=== PATIENT | female | born 1960 | race Caucasian/White ===

== ENCOUNTER 2022-02-11 09:45 | Outpatient (CLI) | payer BC, SELFPAY ==
[2022-02-11 12:59] LABS: Cholesterol* 215 mg/dL (90-199)
[2022-02-11 13:00] LABS: HDL Cholesterol* 54 mg/dL (>=50); LDL Cholesterol Calculated 119 mg/dL (<100); Triglycerides* 212 mg/dL (40-149)
== END 2022-02-11 09:46 | disposition home or self-care (01) ==
LOC: NFLDREF 09:47
PROVIDERS: PCP Family Medicine; Visit Provider Family Medicine
DX: R73.03 Prediabetes (principal); E78.5 Hyperlipidemia, unspecified
CPT/HCPCS: 80061

== ENCOUNTER 2022-03-25 08:34 | Outpatient (CLI) | payer BC, SELFPAY ==
--- OUTSIDE RECORDS SUMMARY | 2022-03-25 08:48 | XMS_ITS | Encounter Summary ---
:1960 Author Organization [facility] Address [address] [place] [id number] Care Team Providers Name Role Phone Elsewhere, Pcp Primary Care Provider Unavailable Reason for Referral Outpatient (Routine) - Closed Specialty Diagnoses / Procedures Referred By Contact Refer red To Contact Oncology Kathleen Mccarty M. D. [address] [phone] Referral ID Status Reason Start Date Expiration Date Visits Requ ested Visits Authorized [id number] Closed 02/09/2022 02/09/2023 1 1 Reason for Visit Reason Comments Follow Up for Labs/Nutrition Outpatient (Routine) - Closed Specialty Diagnoses / Procedures Referred By Contact Refer red To Contact Oncology Kathleen Mccarty M. D. [address] [phone] Referral ID Status Reason Start Date Expiration Date Visits Requ ested Visits Authorized [id number] Closed 02/08/2022 02/08/2023 1 1 Encounter Details Date Type Department Care Team Description 02/09/2022 Clinical Department of Kathleen Mccarty M.D. [address] [place] [phone] Follow Up for Communication Oncology in Maribeth Guthrie R.N., O.C.N. [address] [place] [phone] Labs/Nutrition [place], [place] [address] [place] [phone] Social History Tobacco Use Types Packs/Day Years Used Date Smoking Tobacco: Never Smokeless Tobacco: Never Alcohol Use Standard Drinks/Week Comments Yes 0 (1 standard drink = 0.6 oz pure Maybe a few glasses if wine ever 3 alcohol) months ir so Alcohol Habits Answer Date Recorded How often do you have a drink Monthly or less 10/23/2021 containing alcohol? How many drinks containing alcohol do 1 or 2 you have on a typical day when you are drinking? How often do you have six or more Never 2021 drinks on one occasion? Comment: Maybe a few glasses if wine ever 3 03/11 months ir so Social Isolation Answer Date Recorded In a typical week, how many times do you Once a week 10/23/2021 talk on the phone with family, friends, or neighbors? How often do you get together with friends Twice a week 10/23/2021 or relatives? How often do you attend mandaen or restorationism More than 4 time s per year 10/23/2021 services? Do you belong to any clubs or organizations No 10/23/2021 such as mandaen groups, unions, fraternal or athletic groups, or school groups? How often do you attend meetings of the Never 10/23/2021 clubs or organizations you belong to? Are you now , , , 10/23/2021 , never or living with a partner? Physical Activity Answer Date Recorded On average, how many days per week do you engage in moderate to 0 days 10/23/2021 strenuous exercise (like walking fast, running, jogging, dancing, swimming, biking, or other activities that cause a light or heavy sweat)? On average, how many minutes do you engage in exercise at th is 0 min 10/23/2021 level? Stress Answer Date Recorded Do you feel stress - tense, restless, nervous, or anxious, N ot at all 10/23/2021 or unable to sleep at night because your mind is troubled all the time - these days? Financial Resource Strain Answer Date Recorded How hard is it for you to pay for the very basics like Not h abundio at all 10/23/2021 food, housing, medical care, and heating? Intimate Partner Violence Answer Date Recorded Within the last year, have you been afraid of your partner o r No 10/23/2021 ex-partner? Within the last year, have you been humiliated or emotionall y No 10/23/2021 abused in other ways by your partner or ex-partner? Within the last year, have you been kicked, hit, slapped, or No 10/23/2021 otherwise physically hurt by your partner or ex-partner? Within the last year, have you been raped or forced to have any No 10/23/2021 kind of sexual activity by your partner or ex-partner? Food Insecurity Answer Date Recorded Within the past 12 months, you worried that your food would Never true 10/23/2021 run out before you got money to buy more. Within the past 12 months, the food you bought just didn't N ever true 10/23/2021 last and you didn't have money to get more. Transportation Needs Answer Date Recorded In the past 12 months, has lack of transportation kept you f rom No 10/23/2021 medical appointments or from getting medications? In the past 12 months, has lack of transportation kept you f rom No 10/23/2021 meetings, work, or getting things needed for daily living? Housing Stability Answer Date Recorded In the last 12 months, was there a time when you were not ab le No 10/23/2021 to pay the mortgage or rent on time? In the last 12 months, how many places have you lived? 1 10/23/2021 In the last 12 months, was there a time when you did not hav e a No 10/23/[address] or slept in a skilled nursing (including now)? Education Answer Date Recorded What is the highest level of school Bachelor's degree (e.g., BA, AB, 03/10/2021 you have completed or the highest BS) degree you have received? Sex Assigned at Date Recorded Female 03/13/2021 7:24 PM CDT documented as of this encounter Miscellaneous Notes Telephone Encounter - Maribeth Guthrie R.N., O.C.N. - 02/09/2022 10:56 AM CDT SUBJECTIVE CHIEF COMPLAINT / REASON FOR CALL Follow Up for Labs/Nutrition Information Discussed Yanna has completed her cancer treatment, RN followed up with patient today to discuss lab work including hemoglobin A1c, fasting glucose, and insulin level as well as nutrition, stress management, exercise, meaning and purpose, and supplements. We discussed the elevation in her hemoglobin A1c level as possibly being related to her starting the Crestor. RN explained that her fasting glucose and insulin level have improved and the hemoglobin A1c level could be falsely elevated or in relation to her diet. Patient will discuss continuing to take her p.o. Crestor with her primary care provider on . Patient will continue to focus on eating whole foods, mostly plants, and listening to her body when eating. Patient will begin writing in a food journal to note the food she is eating regularly aswell as how these foods make her feel. Patient feels walking in cooking meals for her family are both forms of stress reduction for her. Patient will look into a weight lifting class at her local [facility] as she feels her body is not ready to begin CrossFit again. Patient feels having received her treatment at [facility] gave her a lot of hope and support. Patient also received emotional support from the [place] [employer] as well as a support group through a social media platform. Patient identifies as Protestant and received much support from the other families where her daughter attends Protestant school. Patient feels she has been putting a majority of her time and energy into her daughters and this makes her feel purposeful. Patient continues to take her supplements including medicinal mushrooms, quercitin, tumeric, magnesium, melatonin,vitamin D, vitamin c, and vitamin B complex. PLAN Disposition/Recommendation: Yanna is going to begin her food journal over the next month as well asbegin attending her weight lifting class twice a week and continuing to walk daily. RN will follow-up with patient in 1 month. Hemoglobin A1c, fasting glucose, and insulin level will be rechecked in 3 months. Information/Education: patient/caller able to teach back Caller agreeable to plan of care: yes The following references were used: nursing clinical judgement documented in this encounter Plan of Treatment Upcoming Encounters Date Type Specialty Care Team Description 05/11/2022 Lab Laboratory Medicine Kathleen Mccarty M.D. [address] [place] [phone] 05/12/2022 Clinical Communication Admitting/Central Scheduling 05/13/2022 Telemedicine Oncology Kathleen Mccarty M.D. [address] [place] [phone] Maribeth Guthrie R.N., O.C.NErasto [address] [place] [phone] 05/18/2022 Lab Laboratory Medicine Nataly Horta APRN, C.N.PErasto, M.S.N. [address] [place] [phone] 05/18/2022 Office Visit Oncology Nataly Horta APRN C.N.P., M.S.N. [address] [place] [phone] Scheduled Orders Name Type Priority Associated Diagnoses Order S beny Hemoglobin A1c Lab Routine Other Abnormal G lucose Expected: 05/11/2022, Malignant Neoplasm Of Ovary Expires: 05/12/2023 Left (HCC) Glucose, Fasting Lab Routine Other Abnormal Glucose Expected: 05/11/2022, Malignant Neoplasm Of Ovary Expires: 05/12/2023 Left (HCC) Insulin Lab Routine Other Abnormal G lucose Expected: 05/11/2022, Malignant Neoplasm Of Ovary Expires: 05/12/2023 Left (HCC) Scheduled Referrals Name Type Priority Associated Diagnoses Order S beny Oncology nurse Outpatient Referral Routine Expect ed: visit (clinic) 03/09/2022, Expires: 05/12/2023 documented as of this encounter Visit Diagnoses Diagnosis Other Abnormal Glucose - Primary Malignant Neoplasm Of Ovary Left (HCC) documented in this encounter Care Teams Sales Product Manager Relationship Specialty Start Date End Date Elsewhere, Pcp PCP - General Family Medicine 03/10/21 documented as of this encounter
--- OUTSIDE RECORDS SUMMARY | 2022-03-25 08:48 | XMS_ITS | Encounter Summary ---
:[address] 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 [address] [facility] [address] [place] [address] [place] [phone] Referral ID Status Reason Start Date Expiration Date Visits Requ ested Visits Authorized [id number] Closed 02/03/2022 02/03/2023 1 1 Encounter Details Date Type Department Care Team Description 02/03/2022 Infusion Department of Oncology Nataly Horta, Malignant Neoplasm Of in [facility] erika MICKIE, C.N.P., Ovary Left (HCC) [address] [facility] M.S.N. [place], [place] [address] [facility] [phone] [place], [place] [phone] (Wo rk) Social History Tobacco Use Types Packs/Day Years [...] or relatives? How often do you attend hinduism or anglican More than 4 time s per year 10/23/2021 services? Do you belong to any clubs or organizations No 10/23/2021 such as hinduism groups, unions, fraternal or athletic groups, or [...] place to sleep or slept in a jail (including now)? Education Answer Date Recorded What is the highest level of school Bachelor's degree (e.g., BA, AB, 03/10/2021 you have completed or the highest BS) degree you have received? Sex Assigned at Date Recorded Female 03/13/2021 7:24 PM CDT documented as of this encounter Plan of Treatment Upcoming Encounters Date Type Specialty Care Team Description 05/11/2022 Lab Laboratory Medicine Kathleen Mccarty M.D. [address] [place] [phone] 05/12/2022 Clinical Communication Admitting/Central Scheduling 05/13/2022 Telemedicine Oncology Kathleen Mccarty M.D. 200 [place] [phone] Maribeth Guthrie R.N., O.C.N. [address] [place] [phone] 05/18/2022 Lab Laboratory Medicine Nataly Horta APRN, C.N.P., M.S.N. [address] [place] [phone] 05/18/2022 Office Visit Oncology Nataly Horta APRN, C.N.P., M.S.N. [address] [place] [phone] documented as of this encounter Visit Diagnoses Diagnosis Malignant Neoplasm Of Ovary Left (HCC) documented in this encounter Care Teams Salesperson Surgical Appliances Relationship Specialty Start Date End Date Elsewhere, Pcp PCP - General Family Medicine 03/10/21 documented as of this encounter
--- OUTSIDE RECORDS SUMMARY | 2022-03-25 08:48 | XMS_ITS ---
:1960 Author Organization [facility] Address [address] [place] [address] Care Team Providers Name Role Phone Elsewhere, Pcp Primary Care Provider Unavailable Active Problems Problem Noted Date Malignant Neoplasm Of Ovary Laterality Unknown 021 Intra Abdominal And Pelvic Swelling Mass And Lump Unsp ecified Site 03/12/2021 Anxiety 03/11/2021 Effusion Pleural 03/11/2021 Leukocytosis 03/11/2021 Peritoneal Carcinomatosis 03/10/2021 Other Abnormal Tumor Markers 03/10/2021 Ascites 03/09/2021 Mass Abdominal Site 03/09/2021 Deficiency Vitamin D 03/09/2021 Dyslipidemia 03/09/2021 Gastroesophageal Reflux Disease 03/09/2021 Hypertension Essential Primary 03/09/2021 PreDiabetes 03/09/2021 Anemia Iron Deficiency Blood Loss Chronic 01/23/2008 Overview: Formatting of this note might be differe nt from the original. Menorrhagia Hyperlipidemia 01/23/2008 Arthritis Current Oncology Plans VASCULAR ACCESS PATENCY - PERIPHERAL INTRAVENOUS CATHETER AND RAPID INFUSION CATHETERPlan Start Date:03/30/2021 Linked Problems Malignant Neoplasm Of Ovary Laterality U nknown (HCC) Treatment Medications No medications scheduled. Past Plans Hematology / Oncology Treatment 1 Plan Name Start Discontinue Treatment Discontinue Plan Cycles Date Date Medications Reason Provider CARBOplatin 11/20/[address], 6 of 6 AUC 6 (PARAPLATIN) Complete Apple L, cycles PACLitaxel ( IVPB (BY AUC) M.D. sta rted COTTON BALL BAGGER ) in 250 mL (PARAPLATIN)PA CLItaxel (TAXOL) IVPB in 250 mL (TAXOL)PACLIta xel (TAXOL) IVPB in 500 mL (TAXOL) Radiation Treatments No radiation treatments are documented for this patient in Epic. Treatments may have been administered in another system. Treatment Summaries Malignant Neoplasm Of Ovary Laterality Unknown (HCC) Images from the original note were not included. Your Survivorship Care Plan Provided by [facility] on 11/20/21 General Information Patient name Wendy Aviles (home) Date of 1960 Introduction This is your personal survivorship care plan. It is both a summary of your treatment history as wellas a follow-up plan to guide you through the management of your continued medical care. The plan wasdeveloped by a multidisciplinary team of [facility] cancer providers to help you understand, discuss, and plan post- treatment needs with your healthcare providers, including your primary care team. It includes detailed medical information regarding your treatment as well as information relating to potentialshort and long-term side-effects post- treatment. It also provides specific tools and direction for self-care, including advice on wellness that encompasses both the physical and emotional aspects of your journey to recovery. What is Survivorship? The most widely used definition of survivorship care involves the following elements: 1. Prevention of recurrent and new cancers, and of other late effects; 2. Surveillance for cancer spread, recurrence, or second cancers; assessment of medical and psychosocial late effects; 3. Intervention for consequences of cancer and its treatment, for example: medical problems such as lymphedema and sexual dysfunction; symptoms, including pain and fatigue; psychological distress experienced by cancer survivors and their caregivers; and concerns related to employment, insurance, and disability; and 4. Coordination between specialists and primary care providers to ensure that all of the survivors health needs are met. Care Team Your Survivorship Provider Nataly Horta APRN, GAS WELL DRILLING MANAGER Surgeon Dr. Motta Your surgeon is your point of contact for any questions regarding your incision. Medical Oncologist Nataly Horta APRN, C.N.P., M.S.N. Your oncologist is your point of contact for any questions regarding the adverse effects of intravenous (I.V.) and oral cancer treatments (e.g. Nausea, vomiting, tingling in your hands/feet). 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 Significant medical conditions has a past medical history of Anemia, Arthritis, Ascites, Gastroesophageal Reflux Disease NOS, Hyperlipidemia, Hypertension NOS, Irritable Bowel Syndrome Without Diarrhea, Mass Abdominal Site, and Peritoneal Carcinomatosis (HCC). She has no past medical history of Apnea Sleep Obstructive, Arrhythmia, Arthritis Rheumatoid (HCC), Asthma NOS, Blood Transfusion No Diagnosis, Cardiac Disease, Cataract, Chronic Kidney Disease NOS, Chronic Obstructive Pulmonary Disease (HCC), Colitis Ulcerative (HCC), Complication Anesthesia Initial, Diabetes Mellitus NOS, Embolus Pulmonary (HCC), Heart Failure NOS, Hemorrhage Gastrointestinal, Hyperthyroidism, Hypothyroidism, Liver Disease, Methicillin Resistant Staphylococcal Aureus, Migraine Headache, Neuropathy Peripheral, Osteoporosis, Peripheral Vascular Disease (HCC), Pneumonia, Post Operative Nausea/Vomiting, Seizure (HCC), Stroke (HCC), Thromboembolism NOS, or Transient Ischemic Attack. Alcohol use reports current alcohol use. Tobacco use reports that she has never smoked. She has never used smokeless tobacco. Treatment Summary Cancer Surgeries Cancer Surgeries Malignant Neoplasm Of Ovary Laterality Unknown (HCC) 03/12/2021 Surgery and Procedures Patient underwent exploratory laparotomy and biopsy of the omentum. She is found to have extensive disease which was felt to be unresectable due to disease distribution involving the bowel. Biopsy confirmed adenocarcinoma of director of brand marketing primary. 06/01/[address] Motta completed laparotomy, tumor debulking, abdominal hysterectomy with BSO, and omentectomy. Operative note indicates residual small miliary disease present throughout the small bowel mesentery, large bowel mesentery colic gutters bilaterally, right diaphragm, and pelvic peritoneum. Residual disease of <0.5 cm Chemotherapy and Supportive Care Treatment History Treatment Goal Curative Plan Name CARBOplatin AUC 6 / PACLitaxel ( COTTON BALL BAGGER ) Status Active Start Date 03/30/2021 End Date 08/04/2021 Cancer Medication(s) Completed three cycles of carboplatin AUC 6 and Taxol 175 mg/m2 paclitaxel prior to surgery, and three cycles of full dose treatment after surgery. Wellness Recommendations Healthy food choices include a wide variety of fruits, vegetables, whole grains, poultry, and fish while minimizing refined grains, processed and red meats, desserts, and high?fat dairy products. Minimize alcohol, and if you drink, do not drink more than 1 alcoholic beverage per day (5 oz of wine, 12 oz of beer, or 1 ounce of liquor). For some specific cancer types, alcohol use may increase therisk of recurrence; please talk with your provider. Exercise after cancer treatment improves quality of life, fatigue, mood, muscle strength, and physical functioning. It also decreases the risk of cancer recurrence and the risk of cardiovascular disease. Work up to exercising 30 minutes/day at least 5 days/week, and strive to achieve a healthy weight (BMI 18.5?25). Stress management tools such as meditation, prayer, and breathing exercises may be helpful. If you develop feelings of worry, anxiety, sadness, or hopelessness that persist for > 2 weeks, talk to a health care provider. Schedule of Surveillance Testing and Visits Epithelial Ovarian, Fallopian, and Primary Peritoneal Cancer We are happy to provide Surveillance Guidelines for ovarian, fallopian tube, and primary peritoneal cancer. These guidelines are a summary of different organizations (NCCN, SGO, ACOG) and a critical review of the literature but are not meant to replace clinical judgment. Follow up recommendations Every 3 months for 2 years, every 4 months for 1 year, every 6 months for 2 years, then annually: Physical exam including vaginal visualization and bimanual vaginal and rectal exam with each visit CA 125 or other tumor markers if initially elevated at each exam Refer for genetics evaluation Laboratory assessment to investigate symptoms or examination findings Chest/abdomen/pelvic CT scan as clinically indicated. May also obtain PET/CT scan as clinically indicated. Chest X-ray as indicated. GI work-up with endoscopy, colonoscopy, and CA 19-9 are highly recommended in mucinous tumors Additional Information from provider: Signs and symptoms of recurrent disease Vaginal bleeding New pelvic or abdominal pain or bloating New swelling of a leg Any pain that doesn't go away or gets worse Persistant cough or shortness of breath Bladder symptoms or changes in bowel habits Follow-up care with your Primary Care Physician (PCP) Follow?up care with your primary care physician is recommended for age?appropriate cancer screening,for monitoring blood pressure, cholesterol, blood sugar, weight, and for other medical conditions. Symptoms to watch for: Fatigue New or concerning lump or area of thickening that can be felt under the skin Weight changes, including unintended loss or gain Skin changes, such as yellowing, darkening or redness of the skin, sores that won't heal, or changesto existing moles Changes in bowel or bladder habits Persistent cough or trouble breathing Difficulty swallowing Hoarseness Persistent indigestion or discomfort after eating Persistent, unexplained muscle or joint pain Persistent, unexplained fevers or night sweats Unexplained bleeding or bruising Make an appointment with your doctor if you have any persistent signs or symptoms that concern you. Ongoing Side effects Fatigue Some cancer survivors report that they still feel tired or worn out. In fact, fatigue is one of the most common complaints during the first year of recovery. Rest or sleep does not cure the type of fatigue that you may have. Doctors do not know its exact causes. The causes of fatigue are different forpeople who are receiving treatment than they are for those who have finished. Fatigue during treatment can be caused by cancer therapy. Other problems can also play a part in fatigue, like anemia (having too few red blood cells) or having a weak immune system. Poor nutrition, not drinking enough liquids, and depression can also be causes. Pain can make fatigue worse. Researchers are still learning about what may cause fatigue after treatment. How long will fatigue last? There is no normal pattern. For some, fatigue gets better over time. Some people feel very frustrated when fatigue lasts longer than they think it should and when it gets in the way of their normal routine. They may also worry thattheir friends, family, and coworkers will get upset with them if they continue to show signs of fatigue. Getting Help Talk with your doctor or nurse about what may be causing your fatigue and what can be done about it.Ask about: -How any medicines you are taking or other medical problems you have might affect your energy level -How you can control your pain, if pain is a problem for you -Exercise programs that might help, such as walking -Relaxation exercises -Changing your diet or drinking more fluids -Medicines or nutritional supplements that can help -Specialists who might help you, such as physical therapists, occupational therapists, tube handler, or mental health care providers Coping With Fatigue Here are some ideas: -Plan your day. Be active at the time of day when you feel most alert and energetic. -Save your energy by changing how you do things. For example, sit on a stool while you cook or washdishes. -Take short naps or rest breaks between activities. -Try to go to sleep and wake up at the same time every day. -Do what you enjoy, but do less of it. Focus on old or new interests that don???t tire you out. Forexample, try to read something brief or listen to music. -Let others help you. They might cook a meal, run errands, or do the laundry. If no one offers, askfor what you need. Friends and family might be willing to help but may not know what to do. -Choose how to spend your energy. Try to let go of things that don???t matter as much now. -Think about joining a support group. Talking about your fatigue with others who have had the same problem may help you find new ways to cope. Changes in Weight and Eating Habits Some survivors who have had certain kinds of chemotherapy or medicines have problems with weight gain. Sometimes the added pounds stay on even when treatment ends. Cancer survivors who have had certaintypes of chemotherapy gain weight in a different way--they may lose muscle and gain fat tissue. Unfortunately, the usual ways people try to lose weight may not work for them. Try to be patient with yourself. Look for the positive things that you can control, such as eating a healthy diet. Try to focus on the fact that treatment is over, and you are trying to get stronger with time. Some cancer survivors have the opposite problem: they have no desire to eat, and they lose weight. Some men say that weight loss or loss of muscle tone is a bigger concern for them than weight gain. Managing a Healthy Weight For weight issues, ask your doctor or nurse about: -Doing strength-building exercises, if you have lost muscle or gained fat tissue -Talking to a dietitian or vinyl top installer who can help you plan a healthy diet that won???t add extrapounds Regaining a Lost Appetite Here are some tips that have helped others improve their appetites: -Start with small meals. Five small meals a day may be easier to manage than three larger ones. -Focus on your favorite foods. If the thought of eating still lacks appeal, try the foods you really liked before treatment to jump-start your appetite. Try adding some fresh fruit, juice, or other flavoring to improve the taste. -Stay active. A short walk before a meal can help you feel hungry. Sexual Changes Sexuality is part of being human. Love, affection and intimacy all play a role in healthy relationships. Cancer and its treatments may change the way you view your body and your ability to be intimate with your partner. What you can do: -After treatment, ask your health care provider about sexual changes you can expect. -Be open and communicate with your partner about your feelings, concern and needs. You may need to find new ways to be intimate and to express your love. -Talk with your health care provider about any concerns you may have. You also may find it helpful to speak with a provider who specializes in sexuality. Understand the Emotional Impact After cancer treatment, you may feel your life has changed in some ways that are hard to explain. Itmay seem hard to get back to ???normal.?? It is common for people who have had cancer to feel many emotions, including anxiety, depression, anger, grief or guilt. These are reasonable responses to a big healthchange. To help handle these emotions, you may need to decide what ???normal?? means to you after all the changes you have gone through. Doing this may help you find a new way to live that brings you more basasm and meaning. If you feel emotionally overwhelmed after your cancer treatment, tell your health care provider. Sheor he may be able to connect you with a support group or other support services. Your health care provider may also offer you treatment choices for specific concerns or refer to you a mental health prof essional. Anxiety Anxiety is a common emotion among people who have had cancer. Fear of cancer coming back often causes anxiety. Because of this, follow-up testing can be stressful. Other common sources of anxiety include job issues, concerns about money or relationships, and worries about the physical effect of cancer treatment. What you can do -Talk about your worries with someone you trust. -Try stress management tools, such as meditation, prayer and regular exercise. -Learn the signs that may tell you your cancer has returned. Learn what you can do to lower your cancer risk. -Focus on the healthy choices you can make in areas of your life that you can control. If anxiety makes your daily life difficult, see your health care provider. Depression After cancer treatment, you may have many different feelings as you think about what you have been through. Some of these feelings may not be positive. That is normal. However, negative feelings that stay with you for more than two weeks or get in the way of your daily life can be signs of depression.If this happens to you, talk to your health care provider. Symptoms of depression include: -Sadness -Hopelessness -Loss of interest in activities -Irritability -Difficulty Sleeping -Change in appetite -Difficulty concentrating -Problems thinking clearly Anger Many cancer survivors feel a sense of anger. Cancer may change many parts of your life, including relationships, school, work, and custodial plans. Anger is a normal response to those changes. What you can do It is important to express your anger in a healthy way. Talk about the way you are feeling with someone you trust, Think about whether you can talk with: -Friends -Family members -Other people who have been through cancer -A professional counselor -Your health care provider Spiritual issues A cancer diagnosis may change your spirituality. You may find it to be stronger and deeper and from the challenges you have overcome, or you may feel abandoned and struggle with the question Why me? What you can do - Take time to think about your spirituality. Try to find a sense of peace within your own spiritual framework. -Talk with your spiritual or program manufacturing leader to help guide you through some of the questions raised by your illness. -Consider using the Stock Receiver staff at [facility] to help you with your spiritual questions. Back to Work Going back to work can be a challenging transition after cancer treatment. If you have questions about employment, ask your health care provider to refer you to a [facility] social psychologist. He or she can give you workplace information. Americans with Disabilities Act If you believe that your physical function is temporarily or permanently affected by cancer or its treatment, you should know about the Americans with Disabilities Act, or ADA. ADA bans discrimination against qualified employees with disabilities who can perform the essential functions of their job, with or without reasonable accommodations. Cancer survivors who return to work are due any reasonable change or adjustment in their work environment that allows a person with a disability to have equal opportunities. A social psychologist can help you look at your situation and the Americans with DisabilitiesAct. Genetic testing and employment Sometimes cancer diagnosis and treatment involves genetic testing. This information becomes a part of your medical record. It is against the law for an employer to discriminate against a job applicant or a current or former employee because of genetic information Some of the information provided in this care plan was provided by the [place] Department of Health and Human Services and National Cancer [place]. (2014) Facing Forward: Life after cancer treatment. NIH Publications No. 14-2521. Resources [employer] The [place] [employer] is a non-profit organization that has developed many resources for patients and families dealing with a cancer diagnosis. http://www.cancer.org National Cancer [place] The National Cancer [place] (NCI) is part of the National [place] for Health and is a governmental organization with a mission focused on cancer research and training. The NCI has developed many patient resources related to cancer. Included here are their links to their Facing Forward document which is an electronic resource focused on helping patients negotiate their lives after cancer treatment. http://www.cancer.gov http://www.cancer.gov/cancertopics/coping/zgfx-yjfck-srthzuend [facility] Cancer Education Program www.[employer]/cancer-education Cancer Support Community www.cancersupportcom[employer].org/?gclid=EDfj-2-8jQVUOZnDgFpunvPQ5q [facility] Living with Cancer blog www.[employer]/livingwithcancer Glossary of Terms: Cancer recurrence: After any treatment for cancer, there is always a risk that the cancer can be detected again (recurrence). This is true of virtually any cancer. Recurrence can happen either at/near where the original tumor was found (regional recurrence) or at a distant location such as the liver or lungs (metastatic disease). Laparoscopic: Laparoscopy is a technique whereby operations in the abdomen can be performed using a camera and several small incisions. Lymph node: Small structures (approximately the size of a lentil) which are present in many places throughout the human body. These structures play a role in filtering fluids and play an important role in your immune system. When cancer begins to spread, it often is first captured in lymph nodes. When cancer is found within lymph nodes, this usually implies a worse prognosis compared to a cancer which has not spread to lymph nodes. Oncologist: A physician who specializes in the non-surgical treatment of cancer. Pathologist: A physician who specializes in analyzing tissues removed from the human body.. Resection: An operation where some part of the body is surgically removed. Screening: A screening examination is any test which is performed to detect a disease process in a patient who is at normal risk for that disease. Surveillance: A surveillance examination is any test which is performed to detect a disease process in a patient who is at elevated risk for that disease. For example, after treatment for colon cancer, a patient is at elevated risk for developing a new colon cancer (compared with the average individual in the population).
--- OUTSIDE RECORDS SUMMARY | 2022-03-25 08:48 | XMS_ITS | Encounter Summary ---
:1960 Author Organization [facility] Address [address] [place] [address] Care Team Providers Name Role Phone Elsewhere, Pcp Primary Care Provider Unavailable Reason for Referral Outpatient (Routine) - Authorized Specialty Diagnoses / Procedures Referred By Contact Refer red To Contact Oncology Kathleen Mccarty M. D. [address] [phone] Referral ID Status Reason Start Date Expiration Date Visits V isits Requested Authorized [id number] Authorized 03/09/2022 03/08/2025 1 1 Scheduling Instructions With Tana Guthrie at 10:00 am video vi sit Reason for Visit Outpatient (Routine) - Closed Specialty Diagnoses / Procedures Referred By Contact Refer red To Contact Oncology Kathleen Mccarty M. D. [address] [phone] Referral ID Status Reason Start Date Expiration Date Visits Requ ested Visits Authorized [id number] Closed 02/09/2022 02/09/2023 1 1 Encounter Details Date Type Department Care Team Description 03/09/2022 Telemedicine Department of Kathleen Mccarty M.D. 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 [address] [place] [address] Deficiency Vitamin B12; [place], [place] Deficiency Vitamin D [address] [place] [address] Social History Tobacco Use Types Packs/Day Years [...] or relatives? How often do you attend jain or alevism More than 4 time s per year 10/23/2021 services? Do you belong to any clubs or organizations No 10/23/2021 such as jain groups, unions, fraternal or athletic groups, or [...] place to sleep or slept in a detention (including now)? Education Answer Date Recorded What is the highest level of school Bachelor's degree (e.g., BA, AB, 03/10/2021 you have completed or the highest BS) degree you have received? Sex Assigned at Date Recorded Female 03/13/2021 7:24 PM CDT documented as of this encounter Progress Notes Maribeth Guthrie R.N., O.C.N. - 03/09/2022 10:00 AM CDT INTEGRATIVE ONCOLOGY NURSE FOLLOW UP NOTE Wendy Aviles is seen in the [facility] for a nurse follow up visit. Please refer to the detailed consult note from Dr. Mccarty from 02/01/22 for a complete patient history. ASSESSMENT: Wendy Aviles is a 61 y.o. female presents for integrative oncology follow up visit. Current issues include Nutrition and exercise management, supplements and abnormal lab work. Diet: Prepackaged meals Exercise: Walking and hiking Stress: Feels her stress has been minimal and she has been able to enjoy her summer Social support/Spirituality: Patient is Yazdanism but feels she gets most support from family and friends Blood: Hemoglobin A1c, B12, and vitamin-D Cancer: Reviewed that lifestyle/diet changes can possibly improve cancer outcomes and quality of life. Diet: Patient is currently eating premade meals for dinner that include foods such as chicken, barley, quinoa, and sweet potatoes. Patient feels she has difficulty with eating more nutritious foods inthe afternoon and has struggled with meal prep in the past. Patient is interested in looking into premade snacks that she can have at home for lunches. Patient has been making more smoothies and has found a cookbook with nutritious smoothie recipes Specific dietary recommendations include: Meal preparation of healthy snacks each week such as whole fruits and vegetables. Exercise: Reviewed the importance of exercise for cancer risk reduction. Patient has been incorporating movement in her daily routine. Exercises included walking as well as hiking with family. Patient is interested in learning more about available strength training classes through the [facility] in her community. Stress: Reviewed the importance of stress reduction for overall health. Patient shared that she had considered adopting a dog for emotional support as well as exercise. In the past patient had fostereda large breed dog and had a bad experience. 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 Patient sharedthat she feels blessed that she has been able to enjoy her summer and feels relatively well and not stressed about her overall health. Social support/spirituality: Patient shared that she is denominational, but she has always been more skeptical, she feels if she were more empowered to pray she would pray for peace of mind. Patient finds the majority of her support from family including her , brother, and [id number]. Patient shared that she has used [facility] in the past as an avenue for sharing her story with friends and family, and would like to not be known by friends and family as the individual who had cancer, but instead focus on topics of conversation that bring her more bassam. Blood: Patient had appointment with PCP last month who feels the elevation in her hemoglobin A1c is unrelated to the start of her p.o. statin. Patient will continue to work on diet and exercise changesalong with continuing to take certain supplements. RN discussed the importance of nutrition and exercise specifically for impacting labs such as hemoglobin A1c and cholesterol levels. We will recheck her lab work in April. INTERVENTION(S): Integrative Therapy(ies) Discussed: Nutrition, exercise, social support, and supplements. PLAN FOR FOLLOW UP: Patient will continue with lifestyle interventions and dietary changes and recommended supplements. Will follow up with RN in 1 month and further recommendations will be made at that time. Reviewed thecore plan in detail with patient and answered all questions in detail. Patient will provide further s upplement information via the portal and RN and Nunu RN will review for appropriate dosing and potential drug-supplement interactions. >45 minutes were spent (total time) which includes FTF time spent with patient as well as chart review, review of labs, and care coordination documented in this encounter Plan of Treatment Upcoming Encounters Date Type Specialty Care Team Description 05/11/2022 Lab Laboratory Medicine Kathleen Mccarty M.D. [address] [place] [phone] 05/12/2022 Clinical Communication Admitting/Central Scheduling 05/13/2022 Telemedicine Oncology Kathleen Mccarty M.D. [address] [place] [phone] Maribeth Guthrie R.N., O.C.N. [address] [place] [phone] 05/18/2022 Lab Laboratory Medicine Nataly Horta APRN, C.N.P., M.S.N. [address] [place] [phone] 05/18/2022 Office Visit Oncology Nataly Horta APRN, C.N.P., M.S.N. [address] [place] [address] Scheduled Orders Name Type Priority Associated Diagnoses Order S chedule Vitamin B12 Assay Lab Routine Malignant Neoplasm Of E xpected: 05/11/2022, Ovary Left (HCC) Expires: 06/09/2023 Deficiency Vitam in B12 Deficiency Vitamin D 25-Hydroxyvitamin D2 Lab Routine Malignant Neoplasm O f Expected: 05/11/2022, and D3 Ovary Left (HCC) Expires: 06/09/2023 Deficiency Vitam in B12 Deficiency Vitamin D Scheduled Referrals Name Type Priority Associated Diagnoses Order S beny Oncology nurse Outpatient Referral Routine Expect ed: visit (clinic) 05/13/2022, Expires: 06/09/2023 documented as of this encounter Visit Diagnoses Diagnosis Malignant Neoplasm Of Ovary Left (HCC) - Primary Deficiency Vitamin B12 Deficiency Vitamin D documented in this encounter Care Teams Teaching Assistant Relationship Specialty Start Date End Date Elsewhere, Pcp PCP - General Family Medicine 03/10/21 documented as of this encounter
--- OUTSIDE RECORDS SUMMARY | 2022-03-25 08:48 | XMS_ITS | Clinical Summary ---
:1960 Author Organization [facility] Address [address] [place] [address] Care Team Providers Name Role Phone Elsewhere, Pcp Primary Care Provider Unavailable Source Comments Patient records contain information from all sites at [facility]. For routine questions regarding patient records, call [phone] during business hours, M-F 8:00 AM - 5:00 PM Central Time. Record requests for emergency care only can be directed to [phone] at any time.[facility] Allergies Active Allergy Reactions Severity Noted Date Comments Grass Pollen Other (see comments) 03/11/2021 Nasal c ongestion, sneezing House Dust Other (see comments) 03/11/2021 Nasal c ongestion, sneezing Sesame Oil Hives High 10/06/2015 Sesame seeds an d oil Tree And Shrub Pollen Other (see comments) 03/11/2021 Nasal congestion, sneezing Medications Medication Sig Dispensed Refills Start Date End Date Status cholecalciferol (VITAMIN Take 50 mcg by 0 12/29/2017 Active D3) 50 mcg (2,000 Unit) mouth every tablet morning. lisinopriL Take 40 mg by 0 10/30/2020 Acti ve (PRINIVIL,ZESTRIL) 30 mg mouth at tablet bedtime. ascorbic acid, vitamin Take 1,000 mg by 0 Active C, (VITAMIN C) 500 mg mouth daily. tablet Dose unknown multivitamin tablet Take 1 tablet by 0 Active mouth daily. acetaminophen (TYLENOL) Take 2 tablets 0 06/03/2021 Active 500 mg tablet (1,000 mg total) by mouth every 6 (six) hours as needed for pain. ibuprofen (ADVIL,MOTRIN) Take 3 tablets 0 06/03/2021 Active 200 mg tablet (600 mg total) by mouth every 6 (six) hours as needed for pain. magnesium hydroxide Take by mouth. 0 Active (MILK OF MAGNESIA ORAL) 60 mg as needed rosuvastatin (CRESTOR) 5 Take 5 mg by 0 11/12/2021 Active mg tablet mouth daily. Lactobacillus 0 10/21/2021 Activ e acidophilus (Probiotic) 10 billion cell capsule polyethylene glycol 0 08/18/2021 Active (Miralax) 17 gram/dose oral powder Active Problems Problem Noted Date Malignant Neoplasm [...] from the original. Menorrhagia Hyperlipidemia 01/23/2008 Arthritis Encounters Date Type Specialty Care Team Description 03/24/2022 Orders Only Gynecology Apple Motta M.D. 03/16/2022 Clinical Oncology Nataly Horta APRN, C.N.P., M.S.N. 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 02/09/2022 Clinical Oncology Kathleen Mccarty Follow Up for Communication Cass Benitez Labs/Nutrition Maribeth Guthrie R.N., O.C.N. 02/05/2022 Clinical Oncology Max Guthrie R.N., O.C.N. 02/03/2022 Hospital Encounter Radiology Luis EnriqueadonayNataly taylor Malign ant Neoplasm M, OPERATIONS CONTROLLER, C.N.P., Of Ovary Le ft (HCC) M.S.N. 02/03/2022 Infusion Oncology Luis EnriqueadonayNataly taylor Malignant Ne oplasm M, OPERATIONS CONTROLLER, C.N.P., Of Ovary Le ft (HCC) M.S.N. 02/03/2022 Office Visit Oncology Olivia Dozier, Malignant Neopl asm Wally.Carlos Of Ovary Left (HCC) Luis EnriqueadonayNataly taylor M, OPERATIONS CONTROLLER, C.N.P., M.S.N. 02/01/2022 Office Visit Oncology Lul, Kathleen Deficiency Vi tamin B12 (Primary Dx); Denise Benitez. Other Abnormal Glucose; Malignant Neopl asm Of Ovary Laterality Unknown (HCC) 01/28/2022 Clinical Admitting/Central Pre-visit Intake Communication Scheduling from Last 3 Months Immunizations Name Administration Dates Next Due HepA / HepB 05/31/2003, 12/28/2002, 11/26/2002 SARS-COV-2 (COVID-19) - [employer] (J&J) 07/02/2021 Td (Adult), adsorbed 06/01/2005 influenza vaccine quad (FLUZONE/FLUARIX) 06/02/2021 (6 months and older)(PF) Family History Medical History Relation Name Comments Alcohol abuse Brother 1 Lavell Montanez Anxiety disorder Brother 1 Lavell Montanez Drug abuse Brother 1 Lavell Montanez Anxiety disorder Brother 2 Moreno Montanez Anxiety disorder Father Deshawn Carola Coronary artery disease Father Deshawn Carola Diabetes Mother Kendra carola Relation Name Status Comments Brother 1 Lavell [place] Brother 2 Moreno [place] Father Deshawn Montanez Mother Kendra carola Social History Tobacco Use Types Packs/Day Years [...] or relatives? How often do you attend latter day or taoist More than 4 time s per year 10/23/2021 services? Do you belong to any clubs or organizations No 10/23/2021 such as latter day groups, unions, fraternal or athletic groups, or [...] place to sleep or slept in a correction (including now)? Education Answer Date Recorded What is the highest level of school Bachelor's degree (e.g., BA, AB, 03/10/2021 you have completed or the highest BS) degree you have received? Sex Assigned at Date Recorded Female 03/13/2021 7:24 PM CDT Last Filed Vital Signs Vital Sign Reading Time Taken Comments Blood Pressure 133/82 02/03/2022 9:31 AM CDT Pulse 78 02/03/2022 9:31 AM CDT Temperature 36.9 ??C (98.4 ??F) 02/03/2022 9:31 AM CDT Respiratory Rate 16 02/03/2022 9:31 AM CDT Oxygen Saturation 99% 02/03/2022 9:31 AM CDT Inhaled Oxygen Concentration - - Weight 69.2 kg (152 lb 8.9 oz) 02/03/2022 9:31 AM CDT Height 161 cm (5' 3.39) 02/03/2022 9:31 AM CDT Body Mass Index 26.7 02/03/2022 9:31 AM CDT Plan of Treatment Upcoming Encounters Date Type Specialty Care Team Description 05/11/2022 Lab Laboratory Medicine Kathleen Mccarty M.D. [address] [place] [phone] 05/12/2022 Clinical Communication Admitting/Central Scheduling 05/13/2022 Telemedicine Oncology Kathleen Mccarty M.D. [address] [place] [phone] Maribeth Guthrie R.N., O.C.N. [address] [place] [phone] 05/18/2022 Lab Laboratory Medicine Nataly Horta APRN, Kamla.N.P., M.S.N. [address] [place] [phone] 05/18/2022 Office Visit Oncology Nataly Horta APRN C.N.P., M.S.N. [address] [place] [phone] Health Maintenance Due Date Last Done Comments CT Colonography 1960 Cologuard 1960 Colonoscopy 1960 Colorectal Cancer Screening 1960 FIT 1960 Lipid (Cholesterol) Screening 1960 Mammogram 1960 Pneumococcal vaccine (0-64 years) 1966 (1 - PCV) Zoster Vaccines (1 of 2) 11/18/1979 DTaP,Tdap,and Td Vaccines (1 - 09/01/2016 08/31/2016, 06/01, Tdap) 06/01/2005 Depression Screening (Annual 07/18/2021 PHQ-2) COVID-19 Vaccine (3 - Sarath risk 08/27/2021 07/02/2021, 0 01/30/2021 series) Influenza Vaccine (#1) 2022 06/02/2021, 05/06/2020, 08/20/2019, Additional history exists Potassium Level 10/28/2022 10/28/2021, 06/02/2021, 05/28/2021 Sodium Level 10/28/2022 10/28/2021, 06/02/2021, 06/01/2021, Additional history exists Creatinine Level 02/03/2023 02/03/2022, 10/28/2021, 08/24/2021, Additional history exists Fasting Glucose for Diabetes 02/03/2023 02/03/2022, 022, Screening 10/28/2021, Additional history exists Office Visit for Blood Pressure 02/03/2023 02/03/2022 Check / Re-check Hepatitis C Screening Completed 02/03/2022 Procedures Procedure Name Priority Date/Time Associated Comments Diagnosis CT ABDOMEN PELVIS RAD - Routine 02/03/2022 1:25 Malignant Result s for WITH IV CONTRAST (most inpatients PM CDT Neoplasm Of Ovary th is procedure and all Left (HCC) are in the outpatients) results section. CT CHEST WITH IV RAD - Routine 02/03/2022 1:25 Malignant Results for CONTRAST (most inpatients PM CDT Neoplasm Of Ovary this p rocedure and all Left (HCC) are in the outpatients) results section. CREATININE, POCT, B Routine 02/03/2022 12:44 Resu lts for PM CDT this procedure are in the results section. CREATININE, POCT, B Routine 02/03/2022 12:44 Resu lts for PM CDT this procedure are in the results section. METHYLMALONIC ACID Routine 02/03/2022 11:57 Deficiency Resul ts for (MMA), HUONG, S AM CDT Vitamin B12 this procedure Other Abnormal are in the Glucose results Malignant section. Neoplasm Of Ovary Laterality Unknown (HCC) INSULIN, S Routine 02/03/2022 11:56 Deficiency Results for AM CDT Vitamin B12 this procedure Other Abnormal are in the Glucose results Malignant section. Neoplasm Of Ovary Laterality Unknown (HCC) HEMOGLOBIN A1C, B Routine 02/03/2022 11:56 Deficiency Result s for AM CDT Vitamin B12 this procedure Other Abnormal are in the Glucose results Malignant section. Neoplasm Of Ovary Laterality Unknown (HCC) VITAMIN B12 ASSAY, S Routine 02/03/2022 11:56 Deficiency Res ults for AM CDT Vitamin B12 this procedure Other Abnormal are in the Glucose results Malignant section. Neoplasm Of Ovary Laterality Unknown (HCC) CANCER AG 125 (CA Routine 02/03/2022 11:56 Malignant Result s for 125), S AM CDT Neoplasm Of Ovary this proce dure Left (HCC) are in the results section. HEPATITIS B SURFACE Routine 02/03/2022 11:56 Malignant Resu lts for ANTIGEN AM CDT Neoplasm Of Ovary this proce dure Left (HCC) are in the results section. HCV AB SCRN W/REFLEX Routine 02/03/2022 11:56 Malignant Res ults for TO HCV PCR, S AM CDT Neoplasm Of Ovary this proc edure Left (HCC) are in the results section. HIV-1/-2 AG AND AB Routine 02/03/2022 11:56 Malignant Resul ts for SCREEN, PLASMA AM CDT Neoplasm Of Ovary this pro cedure Left (HCC) are in the results section. GLUCOSE, FASTING, Routine 02/03/2022 11:28 Deficiency Result s for S/P AM CDT Vitamin B12 this procedure Other Abnormal are in the Glucose results Malignant section. Neoplasm Of Ovary Laterality Unknown (HCC) from Last [address] Abdomen Pelvis with IV Contrast (02/03/2022 1:25 PM CDT) Anatomical Region Laterality Modality Abdomen, Pelvis, Abdominal RST LOS, N/A Comp uted Tomography, Computed Abdominal ARZ LOS, Abdominal FLA LOS Moreno ography Specimen (Source) Anatomical Collection Method Collection Time Re ceived Time Location / / Volume Laterality 02/03/2022 1:24 PM CDT Impressions 02/03/2022 1:47 PM CDT No definite evidence of metastatic disease in the abdomen/pelvis. There is mild soft tissue thickening along the pelvic sidew all which could be postoperative though is indeterminate. Recommend continued attention on follow- up. Narrative 02/03/2022 1:47 PM CDT EXAM: ??CT ABDOMEN PELVIS WITH IV CONTRAST COMPARISON: ??CT 08/24/2021. FINDINGS: ??Again seen are postoperative changes of a hysterectomy, bilateral salpingo-oophorectomy, and omentectomy for ovarian cancer. No lymphadenopathy by size criteria. No ascites. No definite peritoneal nodularity or evidence of residual peritoneal carcinomatosis ident ified. There is some soft tissue thickening along left pelvic sidewall which appears to be adhe rent to the sigmoid colon and left vaginal cuff (series 3 image 113) which appears unchanged from the prior exam. This could be postoperative though is indeterminate. No new or suspicious hepatic lesion iden tified. A few tiny hypoenhancing lesions within the liver are stable and likely represent tiny cys ts or hemangiomas. Patent portal and hepatic veins. No biliary dilatation. Tiny left renal cyst. Left renal scarrin g upper pole. Negative adrenal glands and pancreas. The bowel is nonobstructed, without evid ence of inflammation. Negative appendix. Minimal arterial calcification. No suspicious osseous les ion. This examination was performed in conjun ction with a CT of the chest, which will be reported separately. Procedure Note Gabriel Watkins M.D. - 02/03/2022F ormatting of this note might be different from the original. EXAM: CT ABDOMEN PELVIS WITH IV CONTRAST COMPARISON: CT 08/24/2021. FINDINGS: Again seen are postoperative c hanges of a hysterectomy, bilateral salpingo-oophorectomy, and omentectomy for ovarian cancer. No lymphadenopathy by size criteria. No ascites. No definite peritoneal nodularity or evidence of residual peritoneal carcinomatosis ident ified. There is some soft tissue thickening along left pelvic sidewall which appears to be adhe rent to the sigmoid colon and left vaginal cuff (series 3 image 113) which appears unchanged from the prior exam. This could be postoperative though is indeterminate. No new or suspicious hepatic lesion iden tified. A few tiny hypoenhancing lesions within the liver are stable and likely represent tiny cys ts or hemangiomas. Patent portal and hepatic veins. No biliary dilatation. Tiny left renal cyst. Left renal scarrin g upper pole. Negative adrenal glands and pancreas. The bowel is nonobstructed, without evid ence of inflammation. Negative appendix. Minimal arterial calcification. No suspicious osseous les ion. This examination was performed in conjun ction with a CT of the chest, which will be reported separately. IMPRESSION: No definite evidence of metastatic disea se in the abdomen/pelvis. There is mild soft tissue thickening along the pelvic sidew all which could be postoperative though is indeterminate. Recommend continued attention on follow- up. Nataly Horta APRN, C.N.P., M.S.N. IMG CT PROCEDURE S CT Chest with IV Contrast (02/03/2022 1:25 PM CDT) Anatomical Region Laterality Modality Chest, Thoracic RST LOS, Thoracic ARZ N/A Co mputed Tomography, Computed LOS, Thoracic ARZ LOS, Thoracic FLA Kalin graphy LOS Specimen (Source) Anatomical Collection Method Collection Time Re ceived Time Location / / Volume Laterality 02/03/2022 1:27 PM CDT Impressions 02/03/2022 1:39 PM CDT Stable chest CT including small groundglass nodules, a small subpleural soft tissue lung nodule and 6 mm right cardiophrenic angle node. Narrative 02/03/2022 1:39 PM CDT EXAM: CT CHEST WITH IV CONTRAST COMPARISON: 11/20/2021, 05/28/2021 FINDINGS: Interval resolution of prior new microno dules. Stable 4 mm groundglass nodule lateral left upper lobe (series 3/image 146) and a 3 mm celina undglass nodule in the lateral right upper lobe (3/164). Stable lateral subpleural small soft tis lexis nodule left lower lobe (3/465). Calcified granuloma medial right lower lobe. Calcified right infrahilar nodes. Slight decrease in 6 mm right cardiophrenic angle node (3/431) previously 7 mm. No lymphadenopathy. Stable small posterior left thyroid nodu le. This examination was performed in conjun ction with a CT of the abdomen, which will be reported separately. Procedure Note Lavell Tompkins M.D. - 02/03/2022Fo rmatting of this note might be different from the original. EXAM: CT CHEST WITH IV CONTRAST COMPARISON: 11/20/2021, 05/28/2021 FINDINGS: Interval resolution of prior new microno dules. Stable 4 mm groundglass nodule lateral left upper lobe (series 3/image 146) and a 3 mm celina undglass nodule in the lateral right upper lobe (3/164). Stable lateral subpleural small soft tis lexis nodule left lower lobe (3/465). Calcified granuloma medial right lower lobe. Calcified right infrahilar nodes. Slight decrease in 6 mm right cardiophrenic angle node (3/431) previously 7 mm. No lymphadenopathy. Stable small posterior left thyroid nodu le. This examination was performed in conjun ction with a CT of the abdomen, which will be reported separately. IMPRESSION: Stable chest CT including small groundgl ass nodules, a small subpleural soft tissue lung nodule and 6 mm right cardiophrenic angle node. Nataly Horta APRN, C.N.P., M.S.N. IMG CT PROCEDURE S Creatinine, POCT (02/03/2022 12:44 PM CDT)Only the most recent of2 resultswithin the time period is included. P athologist Signature Creatinine, 0.7 0.6 - 1.0 02/03/2022 PCDT POCT, B mg/dL 12:55 PM CDT Comment: ----ADDITIONAL INFORMATION---- Performed at the Point of Care Specimen Anatomical Collection Method Collection Time Receive d Time (Source) Location / / Volume Laterality Blood 02/03/2022 12:44 02/03/2022 PM CDT 12:55 PM CDT Unknown Provider LAB POCT ORDERABLES - DEVICE Performing Organization Address [facility] Phon e Number [facility] PERFORMING [address] [place] [address] LABS PCDT [facility] [place] [address] [facility] [address] Methylmalonic Acid (MMA), Quantitative (02/03/2022 11:57 AM CDT) Analysis Performed At Patho logist Time Signature Methylmalonic 0.30 <=0.40 02/04/2022 DTL Acid, QN, S nmol/mL 10:00 AM CDT Comment: ----ADDITIONAL INFORMATION---- This test was developed and its performa nce characteristics determined by [facility] in a manner consistent with CLIA requirements. This test has not been cleared or approved by the [place] d and Drug Administration. Specimen Anatomical Collection Method Collection Time Receive d Time (Source) Location / / Volume Laterality Blood (Blood, 02/03/2022 11:57 02/03/2022 1:05 Venous) AM CDT PM CDT Kathleen Mccarty M.D. LAB BLOOD ADD-ON Performing Organization Address City/[facility] Phon e Number [facility] - [address] [place], [place] [address] [facility] [place] [address] Laboratories-[facility] [address] HIV-1/-2 Ag and Ab Screen, Plasma (02/03/2022 11:56 AM CDT) athologist [facility] HIV-1/-2 Ag Negative Negative 02/03/2022 [facility] and Ab Screen, 3:32 PM CDT P Comment: Negative result does not rule out HIV in fection. If exposure to HIV infection occurred <14 d ays ago, contact the laboratory to request additi on of HIV-1 RNA detection / quantification test (HIV QN). Specimen Anatomical Collection Method Collection Time Receive d Time (Source) Location / / Volume Laterality Blood (Blood, 02/03/2022 11:56 02/03/2022 3:08 Venous) AM CDT PM CDT Nataly Horta APRN, C.N.P., M.S.N. LAB MICROBIOLOGY - BLOOD ORDERABLES Performing Organization Address [facility] Phon e Number [facility] [address] [place], [place] [address] [facility] [place] [address] Laboratory Medicine and Pathology [address] [place] Insulin (02/03/2022 11:56 AM CDT) [facility] S 16.3 2.6 - 24.9 02/03/2022 [facility] mcIU/mL 12:59 PM CDT Specimen Anatomical Collection Method Collection Time Receive d Time (Source) Location / / Volume Laterality Blood (Blood, 02/03/2022 11:56 02/03/2022 Venous) AM CDT 12:27 PM CDT Kathleen Mccarty M.D. LAB BLOOD ADD-ON Performing Organization Address City/[facility] Phon e Number [facility] [place], [place] [address] [place] [address] Laboratories-[facility] [address] [facility] HCV Ab Scrn w/Reflex to HCV PCR, Serum (02/03/2022 11:56 AM CDT) athologist [facility] HCV Ab Screen, Negative Negative 02/03/2022 [facility] S 4:18 PM CDT Comment: Gutsbk-nv-bjhunk ratio is <1.00 . Specimen Anatomical Collection Method Collection Time Receive d Time (Source) Location / / Volume Laterality Blood (Blood, 02/03/2022 11:56 02/03/2022 3:08 Venous) AM CDT PM CDT Nataly Horta APRN, C.N.P., M.S.N. LAB MICROBIOLOGY - BLOOD ORDERABLES Performing Organization Address [facility] Phon e Number [facility] [address] [address] [place], [place] [address] [facility] [place] [address] Laboratory Medicine and Pathology [address] [place] [address] Dr. BRITO Hepatitis B Surface Antigen (02/03/2022 11:56 AM CDT) athologist Signature HBs Antigen, S Negative Negative 02/03/2022 [facility] 4:01 PM CDT Specimen Anatomical Collection Method Collection Time Receive d Time (Source) Location / / Volume Laterality Blood (Blood, 02/03/2022 11:56 02/03/2022 3:08 Venous) AM CDT PM CDT Nataly Horta APRN, C.N.P., M.S.N. LAB MICROBIOLOGY - BLOOD ORDERABLES Performing Organization Address City/[facility] Phon e Number [facility] [address] [place], [place] [address] [facility] [place] [address] Laboratory Medicine and Pathology [address] [place] [address] Dr. BRITO Cancer Antigen 125 (CA 125) (02/03/2022 11:56 AM CDT) athologist Signature Cancer Ag 125 9 <46 U/mL 02/03/2022 [facility] (CA 125), S 5:00 PM CDT Comment: ----ADDITIONAL INFORMATION---- The testing method is an electrochemilum inescence assay manufactured by [employer] and performed on the Ildefonso system. Values obtained with different assay met hods or kits may be different and cannot be used inte rchangeably. Test results cannot be interpreted as ab solute evidence for the presence or absence of malignant disease. Specimen Anatomical Collection Method Collection Time Receive d Time (Source) Location / / Volume Laterality Blood (Blood, 02/03/2022 11:56 02/03/2022 4:25 Venous) AM CDT PM CDT Nataly Horta APRN, C.N.P., M.S.N. LAB BLOOD ADD-ON Performing Organization Address City/[facility] Code Phon e Number [facility] [address] [place], [place] [address] [facility] [place] [address] Laboratory Medicine and Pathology [address] [place] (ABNORMAL) Hemoglobin A1c (02/03/2022 11:56 AM CDT) athologist Signature Hemoglobin A1c, 6.3 (H) 4.0 - 5.6 02/03/2022 DTL B % 1:06 PM CDT Comment: Hemoglobin A1c values of 5.7-6.4 percent indicate an increased risk for developing diabetes wlaly gordon. In diabetic patients, HbA1c goals should be discussed with healthcare provider. Specimen Anatomical Collection Method Collection Time Receive d Time (Source) Location / / Volume Laterality Blood (Blood, 02/03/2022 11:56 02/03/2022 Venous) AM CDT 12:10 PM CDT Kathleen Mccarty M.D. LAB BLOOD ADD-ON Performing Organization Address City/[facility] Phon e Number [facility] - [address] [place], [place] [address] [place] [address] Laboratories-[facility] [address] [facility] Vitamin B12 Assay (02/03/2022 11:56 AM CDT) athologist Signature Vitamin B12 341 180 - 914 02/03/2022 DTL Assay, S ng/L 1:11 PM CDT Comment: ----ADDITIONAL INFORMATION---- In patients being evaluated for vitamin B12 deficiency who have intrinsic factor blocking antibodie s (IFBA), false elevations of B12 may occur due to IFBA interference thus potentially obscuring a physiological de ficiency of B12. If observed B12 concentrations are disco rdant with clinical presentation, measurement of methylmalon ic acid (MMA) should be considered. Specimen Anatomical Collection Method Collection Time Receive d Time (Source) Location / / Volume Laterality Blood (Blood, 02/03/2022 11:56 02/03/2022 Venous) AM CDT 12:27 PM CDT Kathleen Mccarty M.D. LAB BLOOD ADD-ON Performing Organization Address City/[facility]/ZIP Code Phon e Number [facility] - [address] [address] [place] [address] (ABNORMAL) Glucose, Fasting (02/03/2022 11:28 AM CDT) P athologist Signature Glucose, P 106 (H) 70 - 100 02/03/2022 DTL mg/dL 1:17 PM CDT Specimen Anatomical Collection Method Collection Time Receive d Time (Source) Location / / Volume Laterality Blood (Blood, 02/03/2022 11:28 02/03/2022 Venous) AM CDT 12:51 PM CDT Kathleen Mccarty M.D. LAB BLOOD NON ADD-ON Performing Organization Address [facility]/ZIP Code Phon e Number [facility] - [address] from Last 3 Months Insurance Payer Benefit Plan / Subscriber ID Effective Dates Phone Addre ss Type Group BLUE [employer] BCBS ID BLUE [id number] 2021-Yamilka [phone] [address] [address] EPO [employer] [place] 00 [facility] [address] Advance Directives For more information, please contact: [phone] Latest Code Status on File Code Status Date Activated Date Inactivated Comments Full Code 06/01/2021 3:03 PM 06/03/2021 4:40 PM Full Code: Discussed Full Code 06/01/2021 6:41 AM 06/01/2021 3:03 PM Full Code: Discussed Full Code 03/12/2021 11:47 AM 03/12/2021 10:59 PM Full Code: Not Discussed Due to: Not medically appropriate Full Code 03/12/2021 6:31 AM 03/12/2021 11:47 AM Full Code: Discussed 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
--- OUTSIDE RECORDS SUMMARY | 2022-03-25 08:48 | XMS_ITS | Encounter Summary ---
:1960 Author Organization [facility] Address [address] [place] [address] Care Team Providers Name Role Phone Elsewhere, Pcp Primary Care Provider Unavailable Encounter Details Date Type Department Care Team Description 03/24/2022 Orders Only Department of Obstetrics Ángela, Chelsea Joe, and Gynecology in .[place]. [place], [place] [address] [facility] [address] [place] [phone] (Wo rk) Social History Tobacco Use Types [...] or relatives? How often do you attend christianity or congregational More than 4 time s per year 10/23/2021 services? Do you belong to any clubs or organizations No 10/23/2021 such as christianity groups, unions, fraternal or athletic groups, or [...] Lab Laboratory Medicine Kathleen Mccarty M.D. [address] [place] [phone] 05/12/2022 Clinical Communication Admitting/Central Scheduling 05/13/2022 Telemedicine Oncology Kathleen Mccarty M.D. [address] [place] [phone] Maribeth Guthrie R.N., O.C.N. [address] [place] [phone] 05/18/2022 Lab Laboratory Medicine Nataly Horta APRN, C.NChaim., M.S.N. [address] [place] [phone] 05/18/2022 Office Visit Oncology Nataly Horta APRN, C.NChaim., M.S.N. [address] [place] [phone] documented as of this encounter Visit Diagnoses Not on filedocumented in this encounter Care Teams Technology Infusion Specialist Relationship Specialty Start Date End Date Elsewhere, Pcp PCP - General Family Medicine 03/10/21 documented as of this encounter
--- OUTSIDE RECORDS SUMMARY | 2022-03-25 08:48 | XMS_ITS | Encounter Summary ---
:1960 Author Organization [facility] [place] [facility] Address [address] [place] [address] Care Team Providers Name Role Phone Elsewhere, Pcp Primary Care Provider Unavailable Encounter Details Date Type Department Care Team Description 03/16/2022 Clinical Communication Department of Nataly Horta , Oncology in [place], [place] M.S.N. [address] [facility] [address] [place] [phone] Social History Tobacco Use Types Packs/Day Years [...] or relatives? How often do you attend yazidism or mormonism More than 4 time s per year 10/23/2021 services? Do you belong to any clubs or organizations No 10/23/2021 such as yazidism groups, unions, fraternal or athletic groups, or [...] place to sleep or slept in a intermediate (including now)? Education Answer Date Recorded What [...] Lab Laboratory Medicine Kathleen Mccarty M.D. [address] [place] [phone] 05/12/2022 Clinical Communication Admitting/Central Scheduling 05/13/2022 Telemedicine Oncology Kathleen Mccarty M.D. [address] [place] [phone] Maribeth Guthrie, Soila, O.C.N. [address] [place] [phone] 05/18/2022 Lab Laboratory Medicine Nataly Horta APRN, C.N.P., M.S.N. [address] [place] [address] [phone] 05/18/2022 Office Visit Oncology Nataly Horta APRN, C.N.P., M.S.N. [address] [place] [phone] documented as of this encounter Visit Diagnoses Not on filedocumented in this encounter Care Teams Auto Accessories Installer Relationship Specialty Start Date End Date Elsewhere, Pcp PCP - General Family Medicine 03/10/21 documented as of this encounter
--- OUTSIDE RECORDS SUMMARY | 2022-03-25 08:48 | XMS_ITS | Clinical Summary ---
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 Overview: Menorrhagia Urinary tract infection, site not specified 01/23/2008 Overview: Recurrent Other and unspecified hyperlipidemia 01/23/2008 Immunizations Name Administration Dates Next Due HepA-HepB (Twinrix) 05/31/2003, 12/28/2002, 11/26/2002 Td (Age >=7 Years) 06/01/2005 Family History Medical History Relation Name Comments Diabetes Father early 70s Heart Disease Father Angina, CABG in his mid 60s Hypertension Father Stroke Father Diabetes Mother mid 60s Heart Disease Paternal Grandfather OR in 30s a nd Relation Name Status Comments Father Mother Paternal Grandfather Social History Tobacco Use Types Packs/Day Years Used Date Never Smoker Smokeless Tobacco: Never Used Tobacco Cessation: Counseling Given: Yes Alcohol Use Standard Drinks/Week Comments Yes 0 (1 standard drink = 0.6 oz pure alcoho l) occas 0-2 drinks per month Alcohol Habits Answer Date Recorded How often do you have a drink containing Not asked alcohol? How many drinks containing alcohol do you Not asked have on a typical day when you are drinking? How often do you have six or more drinks on Not asked one occasion? Comment: occas 0-2 drinks per month 01/23/2008 Sex Assigned at Date Recorded Not on file Obstetrics History Last Filed Vital Signs Vital Sign Reading Time Taken Comments Blood Pressure 142/81 10/06/2015 3:53 PM CDT Pulse 75 10/06/2015 3:53 PM CDT Temperature 36.3 ??C (97.4 ??F) 01/23/2008 10:26 AM CDT Respiratory Rate - - Oxygen Saturation 96% 10/06/2015 2:58 PM CDT Inhaled Oxygen Concentration - - Weight 73.9 kg (163 lb) 10/06/2015 2:58 PM CDT Height 164 cm (5' 4.57) 10/06/2015 2:58 PM CDT Body Mass Index 27.49 10/06/2015 2:58 PM CDT Plan of Treatment Health Maintenance Due Date Last Done Comments Tdap 11/18/1971 Depression screening for age 12+ 1972 Colonoscopy through age 75 2005 Lipids for age 45-75 2005 Zoster (shingles) series for age 50+ 2010 (1 of 2) Tetanus booster 06/01/2015 06/01/2005 BMI (ht and wt on same day) for age 0310/05/2016 10/06/2015 18+ Mammogram for age 45-75 02/23/2017 02/24/2016, 11/12/2008, 11/02/2007 Pap test for age 21-65 10/01/2019 09/30/2016, 09/30/2016, 06/03/2011 COVID-19 vaccine series (2 - Booster 03/27/2021 01/30/2021 for Sarath series) Influenza for age 50-64 03/18/2022 Hepatitis C screening for age 18-79 Completed 02/19/2003 Results Not on filefrom Last 3 Months Care Teams Box Feeder Relationship Specialty Start Date End Date Ann Loomis MD PCP - General Family Practice 03/09/211999 [place] [address]
--- OUTSIDE RECORDS SUMMARY | 2022-03-25 08:48 | XMS_ITS | Encounter Summary ---
:[address] [facility] Address [address] [place] [address] Care Team Providers Name Role Phone Elsewhere, Pcp Primary Care Provider Unavailable Reason for Referral MRI/CAT/PET Scan (Routine) - Closed Specialty Diagnoses / Procedures Referred By Contact Refer red To Contact Radiology Diagnoses Malignant Neoplasm Of Ovary Left (HCC) Nataly Horta APRN [facility] Procedures CT Abdomen Pelvis with IV Contrast C.N.P., M.S.N. 200 [place], [place] [phone] Referral ID Status Reason Start Date Expiration Date Visits Requ ested Visits Authorized [id number] Closed 12/15/2021 12/15/2022 1 1 RI/CAT/PET Scan (Routine) - Closed Specialty Diagnoses / Procedures Referred By Contact Refer red To Contact Radiology Diagnoses Malignant Neoplasm Of Ovary Left (HCC) Nataly Horta APRN [facility] Procedures CT Chest with IV Contrast C.N.P., M.S.N. 200 [place] [phone] Referral ID Status Reason Start Date Expiration Date Visits Requ ested Visits Authorized [id number] Closed 12/15/2021 12/15/2022 1 1 Reason for Visit MRI/CAT/PET Scan (Routine) - Closed Specialty Diagnoses / Procedures Referred By Contact Refer red To Contact Radiology Diagnoses Malignant Neoplasm Of Ovary Left (HCC) Nataly Horta APRN [facility] Procedures CT Abdomen Pelvis with IV Contrast C.N.P., M.S.N. [address] [place] [phone] Referral ID Status Reason Start Date Expiration Date Visits Requ ested Visits Authorized [id number] Closed 12/15/2021 12/15/2022 1 1 Encounter Details Date Type Department Care Team Description 02/03/2022 Hospital Encounter Department of Nataly Horta Neoplasm Radiology, Ladi Garvin APRN, C.N.P., Of Ovar y Left (HCC) [facility], in M.S.N. [place], [address] [place], [place] [address] [place] [phone] [place], [place] [phone] (Work) [phone] Social History Tobacco Use Types Packs/Day Years [...] or relatives? How often do you attend judaism or amish More than 4 time s per year 10/23/2021 services? Do you belong to any clubs or organizations No 10/23/2021 such as judaism groups, unions, fraternal or athletic groups, or [...] place to sleep or slept in a [place] [facility] [place] (including now)? Education Answer Date Recorded What is the highest level of school Bachelor's degree (e.g., BA, AB, 03/10/2021 you have completed or the highest BS) degree you have received? Sex Assigned at Date Recorded Female 03/13/2021 7:24 PM CDT documented as of this encounter Medications at Time of Discharge Medication Sig Dispensed Refills Start Date End Date acetaminophen (TYLENOL) 500 Take 2 tablets 0 05/18 mg tablet (1,000 mg total) by mouth every 6 (six) hours as needed for pain. ascorbic acid, vitamin C, Take 1,000 mg by 0 (VITAMIN C) 500 mg tablet mouth daily. Dose unknown cholecalciferol (VITAMIN D3) Take 50 mcg by 0 50 mcg (2,000 Unit) tablet mouth every morning. ibuprofen (ADVIL,MOTRIN) 200 Take 3 tablets (600 0 06/03/2021 mg tablet mg total) by mouth every 6 (six) hours as needed for pain. Lactobacillus acidophilus 0 10/21/2021 (Probiotic) 10 billion cell capsule lisinopriL Take 40 mg by mouth 0 10/30/2020 (PRINIVIL,ZESTRIL) 30 mg at bedtime. tablet magnesium hydroxide (MILK OF Take by mouth. 60 0 MAGNESIA ORAL) mg as needed multivitamin tablet Take 1 tablet by 0 mouth daily. polyethylene glycol 0 08/18/2021 (Miralax) 17 gram/dose oral powder rosuvastatin (CRESTOR) 5 mg Take 5 mg by mouth 0 11/12/2021 tablet daily. documented as of this encounter Plan of Treatment Upcoming Encounters Date Type Specialty Care Team Description 05/11/2022 Lab Laboratory Medicine Kathleen Mccarty M.D. [address] [place] [phone] 05/12/2022 Clinical Communication Admitting/Central Scheduling 05/13/2022 Telemedicine Oncology Kathleen Mccarty M.D. [address] [place] [phone] Maribeth Guthrie R.N., O.C.N. [address] [place] [phone] 05/18/2022 Lab Laboratory Medicine Nataly Horta APRN, C.NAlphonso, M.S.N. [address] [place] [phone] 05/18/2022 Office Visit Oncology Nataly Horta APRN, C.NAlphonso, M.S.N. [address] [place] [phone] Scheduled Orders Name Type Priority Associated Diagnoses Order S chedule Creatinine, POCT Point of Care Routine Routine la b collection Testing-Docked (next collect ion) for Device 1 Occurrences s tarting 02/03/2022 unti l 02/03/2022 documented as of this encounter Procedures Procedure Name Priority Date/Time Associated Comments Diagnosis CT ABDOMEN PELVIS RAD - Routine 02/03/2022 1:25 Malignant Result s for this WITH IV CONTRAST (most inpatients PM CDT Neoplasm Of Ovary pr ocedure are in and all Left (HCC) the results outpatients) section. CT CHEST WITH IV RAD - Routine 02/03/2022 1:25 Malignant Results for this CONTRAST (most inpatients PM CDT Neoplasm Of Ovary proced ure are in and all Left (HCC) the results outpatients) section. CREATININE, POCT, Routine 02/03/2022 12:44 Result s for this B PM CDT procedure are i n the results section. CREATININE, POCT, Routine 02/03/2022 12:44 Result s for this B PM CDT procedure are i n the results section. documented in this encounter Results CT Abdomen Pelvis with IV Contrast [...] mm right cardiophrenic angle node. Nataly Horta APRN C.N.P., M.S.N. IMG CT PROCEDURE S Creatinine, POCT (02/03/2022 12:44 PM CDT) P athologist Signature Creatinine, 0.7 0.6 - 1.0 02/03/2022 PCDT POCT, B mg/dL 12:55 PM CDT Comment: ----ADDITIONAL INFORMATION---- Performed at the Point of Care Specimen Anatomical Collection Method Collection Time Receive d Time (Source) Location / / Volume Laterality Blood 02/03/2022 12:44 02/03/2022 PM CDT 12:55 PM CDT Unknown Provider LAB POCT ORDERABLES - DEVICE Performing Organization Address City/State/ZIP Code Phon e Number POC [place] PERFORM[facility] [address] [place] [address] [place] [address] [place] [facility] [address] Creatinine, POCT (02/03/2022 12:44 PM CDT) P athologist Signature eGFR-Black/Afri >90 >=60 02/03/2022 [facility] [place], mL/min/BSA 12:55 PM CDT POCT Comment: ----ADDITIONAL INFORMATION---- Estimated GFR calculated using the 2009 CKD_EPI creatinine equation. eGFR Non-Black/, >90 >=60 mL/min/BSA 02/03/2022 12:55 PM CDT PCMO POCT Comment: ----ADDITIONAL INFORMATION---- Estimated GFR calculated using the 2009 CKD_EPI creatinine equation. Specimen Anatomical Collection Method Collection Time Receive d Time (Source) Location / / Volume Laterality Blood 02/03/2022 12:44 02/03/2022 PM CDT 12:55 PM CDT Unknown Provider LAB POCT ORDERABLES - DEVICE Performing Organization Address City/State/ZIP Code Phon e Number POC [facility] [address] [place] [address] OUTPATIENT LABS [facility] [place] [address] [place] [facility] [address] documented in this encounter Visit Diagnoses Diagnosis Malignant Neoplasm Of Ovary Left (HCC) documented in this encounter Administered Medications Inactive Administered Medications - up to 3 most recent administrations Medication Order MAR Action Action Date Dose Rate Site iohexol (OMNIPAQUE) dilution Given 02/03/2022 12:30 PM CDT 9,000 mg solution 9,000 mg iodine/1,000 mL water 9,000 mg, oral, Once in imaging, contrast, Starting on Tue02/03/22 at 1238, For 1 dose, Imaging Protocol Orders, Mix iohexol 300 (Omnipaque?? 300) 30 mL with 970 mL water for a total volume of 1,000 mLs. Patient to drink mixture in 40 minutes. iohexoL 300 mg iodine/mL solution 1-200 mL Given 02/03/2022 1:15 PM CDT 100 mL (OMNIPAQUE) 1-200 mL, intravenous, Once in imaging, contrast, Starting on Tue02/03/22 at 1238, For 1 dose, Imaging Protocol Orders, Dose per Radiant Medication Guidelines sodium chloride (PF) 0.9 % injection 1-1 00 mL Given 02/03/2022 1:15 PM CDT 50 mL 1-100 mL, intravenous, Once, On Tue02/03/22 at 1245, For 1 dose, Imaging Protocol Orders documented in this encounter Care Teams Sprinkling System Installer Relationship Specialty Start Date End Date Elsewhere, Pcp PCP - General Family Medicine 03/10/21 documented as of this encounter
--- OUTSIDE RECORDS SUMMARY | 2022-03-25 08:48 | XMS_ITS | Encounter Summary ---
:1960 Author Organization [facility] Address [address] [place] [address] Care Team Providers Name Role Phone Elsewhere, Pcp Primary Care Provider Unavailable Encounter Details Date Type Department Care Team Description 02/05/2022 Clinical Communication Department of Maribeth Guthrie Oncology in B, R.N., O.C.N. [place], [place] [address] [facility] [address] [place] [phone] Social History Tobacco Use Types Packs/Day Years [...] or relatives? How often do you attend restorationist or cheondoism More than 4 time s per year 10/23/2021 services? Do you belong to any clubs or organizations No 10/23/2021 such as restorationist groups, unions, fraternal or athletic groups, or [...] place to sleep or slept in a senior care (including now)? Education Answer Date Recorded What is the highest level of school Bachelor's degree (e.g., BA, AB, 03/10/2021 you have completed or the highest BS) degree you have received? Sex Assigned at Date Recorded Female 03/13/2021 7:24 PM CDT documented as of this encounter Miscellaneous Notes Telephone Encounter - Maribeth Guthrie R.N., O.C.N. - 02/05/2022 3:02 PM CDT ----- Message from Kathleen Mccarty M.D. sent at 02/05/2022 7:38 AM CDT ----- Hi can you Follow up w/her regarding labs Her A1c was up (could be false positive) but fasting glucose and insulin improved. A1c is not alwaysperfect. Can go over diet, recheck same labs in 3-4 months thx documented in this encounter Plan of Treatment Upcoming Encounters Date Type Specialty Care Team Description 05/11/2022 Lab Laboratory Medicine Kathleen Mccarty M.D. [address] [place] [phone] 05/12/2022 Clinical Communication Admitting/Central Scheduling 05/13/2022 Telemedicine Oncology Kathleen Mccarty M.D. [address] [place] [phone] Maribeth Guthrie R.N., O.C.N. [address] [place] [phone] 05/18/2022 Lab Laboratory Medicine Nataly Horta APRN, C.N.P., M.S.N. [address] [place] [phone] 05/18/2022 Office Visit Oncology Nataly Horta APRN, C.NAlphonso, M.S.N. [address] [place] [phone] documented as of this encounter Visit Diagnoses Not on filedocumented in this encounter Care Teams Webfocus Developer Relationship Specialty Start Date End Date Elsewhere, Pcp PCP - General Family Medicine 03/10/21 documented as of this encounter
--- OUTSIDE RECORDS SUMMARY | 2022-03-25 08:49 | XMS_ITS | Encounter Summary ---
:1960 Author Organization [facility] Address [address] [place] [address] Care Team Providers Name Role Phone Elsewhere, Pcp Primary Care Provider Unavailable Reason for Visit Outpatient (Routine) - Closed Specialty Diagnoses / Procedures Referred By Contact Refer red To Contact Nataly Horta APRN, C.N.P.[facility] M.[facility] [address] [place] [phone] Referral ID Status Reason Start Date Expiration Date Visits Requ ested Visits Authorized [id number] Closed 08/24/2021 08/24/2022 1 1 Encounter Details Date Type Department Care Team Description 11/20/2021 Nurse Only Department of Oncology in Nataly Horta APRN, C.N.P., M.S.N. [address] [place] [phone] [place], [place] Jessica Hooks, M.S.N., R.N. [address] [place] [phone] [place] [phone] Social History Tobacco Use Types Packs/Day Years [...] or relatives? How often do you attend jehovah's witness or gnosticism More than 4 time s per year 10/23/2021 services? Do you belong to any clubs or organizations No 10/23/2021 such as jehovah's witness groups, unions, fraAscendx Spine or athletic groups, or school groups? How [...] Lab Laboratory Medicine Kathleen Mccarty M.D. 200 [place] [phone] 05/12/2022 Clinical Communication Admitting/Central Scheduling 05/13/2022 Telemedicine Oncology Kathleen Mccarty M.D. 200 [place] [phone] Maribeth Guthrie R.N., O.C.N. [address] [place] [phone] 05/18/2022 Lab Laboratory Medicine Nataly Horta APRN, C.N.P., M.S.N. [address] [place] [phone] 05/18/2022 Office Visit Oncology Nataly Horta APRN, C.N.P., M.S.N. [address] [place] [phone] documented as of this encounter Visit Diagnoses Diagnosis Malignant Neoplasm Of Ovary Laterality U nknown (HCC) - Primary documented in this encounter Care Teams Dye Jig Operator Relationship Specialty Start Date End Date Elsewhere, Pcp PCP - General Family Medicine 03/10/21 documented as of this encounter
--- OUTSIDE RECORDS SUMMARY | 2022-03-25 08:49 | XMS_ITS | Encounter Summary ---
:1960 Author Organization [facility] Address [address] [place] [address] Care Team Providers Name Role Phone Elsewhere, Pcp Primary Care Provider Unavailable Reason for Visit Reason Comments Intake Assessment Encounter Details Date Type Department Care Team Description 07/30/2021 Clinical Communication Department of Huy Dalton [facility] Oncology in [place], [place] [address] [facility] [address] [place] [phone] Social History Tobacco Use Types Packs/Day Years [...] or relatives? How often do you attend confucianist or orthodoxy More than 4 time s per year 10/23/2021 services? Do you belong to any clubs or organizations No 10/23/2021 such as confucianist groups, unions, fraternal or athletic groups, or [...] this encounter Miscellaneous Notes Telephone Encounter - Simran Moreno - 07/30/2021 1:46 PM CST Intake no need to call back REL SALES ASSOCIATE documented in this encounter Plan of Treatment Upcoming Encounters Date Type Specialty Care Team Description 05/11/2022 Lab Laboratory Medicine Kathleen Mccarty M.D. [address] [place] [phone] 05/12/2022 Clinical Communication Admitting/Central Scheduling 05/13/2022 Telemedicine Oncology Kathleen Mccarty M.D. [address] [place] [phone] Maribeth Guthrie R.N., O.C.N. [address] [place] [phone] 05/18/2022 Lab Laboratory Medicine Nataly Horta APRN, C.N.P., M.S.N. [address] [place] [phone] 05/18/2022 Office Visit Oncology Nataly Horta APRN, C.N.P., M.S.N. [address] [place] [phone] documented as of this encounter Visit Diagnoses Not on filedocumented in this encounter Care Teams Stitcher Feeder Relationship Specialty Start Date End Date Elsewhere, Pcp PCP - General Family Medicine 03/10/21 documented as of this encounter
--- OUTSIDE RECORDS SUMMARY | 2022-03-25 08:49 | XMS_ITS | Encounter Summary ---
:1960 Author Organization [facility] Address [address] [place] [address] Care Team Providers Name Role Phone Elsewhere, Pcp Primary Care Provider Unavailable Reason for Referral MRI/CAT/PET Scan (Routine) - Closed Specialty Diagnoses / Procedures Referred By Contact Refer red To Contact Radiology Diagnoses Malignant Neoplasm Of Ovary Left (HCC) Genna Horta APRN [facility] n Procedures CT Abdomen Pelvis with IV Contrast C.N.P., M.S.N. 200 [place], [place] [phone] Referral ID Status Reason Start Date Expiration Date Visits Requ ested Visits Authorized [id number] Closed 12/15/2021 12/15/2022 1 1 RI/CAT/PET Scan (Routine) - Closed Specialty Diagnoses / Procedures Referred By Contact Refer red To Contact Radiology Diagnoses Malignant Neoplasm Of Ovary Left (HCC) Genna Horta APRN [place] [facility] n Procedures CT Chest with IV Contrast C.N.P., M.S.N. [address] [place], [place] [address] Referral ID Status Reason Start Date Expiration Date Visits Requ ested Visits Authorized [id number] Closed 12/15/2021 12/15/2022 1 1 utpatient (Routine) - Closed Specialty Diagnoses / Procedures Referred By Contact Refer red To Contact Oncology Diagnoses Malignant Neoplasm Of Ovary Left (HCC) [facility], M.S.N. [address] [place] [phone] Referral ID Status Reason Start Date Expiration Date Visits Requ ested Visits Authorized [id number] Closed 12/10/2021 12/10/2022 1 1 Reason for Visit Outpatient (Routine) - Closed Specialty Diagnoses / Procedures Referred By Contact Refer red To Contact Oncology Genna Horta APRN, [facility].P.[facility] M.S.N. [address] [place] [phone] Referral ID Status Reason Start Date Expiration Date Visits Requ ested Visits Authorized [id number] Closed 08/24/2021 08/24/2022 1 1 Encounter Details Date Type Department Care Team Description 11/20/2021 Office Visit Department of Genna Horta Malignan t Neoplasm Of Oncology in Shandra CORADO, Ovary Left (HC C) [place], [place] M.S.N. (Primary Dx) [address] [place] [address] [place] [phone] Social History Tobacco Use Types Packs/Day Years [...] or relatives? How often do you attend uatsdin or yazdanism More than 4 time s per year 10/23/2021 services? Do you belong to any clubs or organizations No 10/23/2021 such as uatsdin groups, unions, fraternal or athletic groups, or [...] PM CDT documented as of this encounter Last Filed Vital Signs Vital Sign Reading Time Taken Comments Blood Pressure 158/90 11/20/2021 2:17 PM CDT Pulse 89 11/20/2021 2:17 PM CDT Temperature 36.8 ??C (98.2 ??F) 11/20/2021 2:17 PM CDT Respiratory Rate 16 11/20/2021 2:17 PM CDT Oxygen Saturation 98% 11/20/2021 2:17 PM CDT Inhaled Oxygen Concentration - - Weight 68.5 kg (151 lb 0.2 oz) 11/20/2021 2:17 PM CDT Height 161.2 cm (5' 3.47) 11/20/2021 2:17 PM CDT Body Mass Index 26.36 11/20/2021 2:17 PM CDT documented in this encounter Progress Notes Genna Horta APRN, C.N.P., M.S.N. - 11/20/2021 2:40 PM CDT SUBJECTIVE CHIEF COMPLAINT/REASON FOR VISIT Ms. Aviles is a 61 y.o. 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 Lisa Dalton HISTORY OF PRESENT ILLNESS Ms. Aviles is a very pleasant 61 y.o. woman with the following oncologic history: Oncology History Malignant Neoplasm Of Ovary Laterality Unknown (HCC) 03/09/2021 Initial Diagnosis CA125 of 1305 Genetic Testing and Tumor Genotyping Genetic testing complete and did not identify any actionable mutations. Somatic testing = HRD negative and BRCA wild type 03/12/2021 Surgery and Procedures Patient underwent exploratory laparotomy and biopsy of the omentum. She is found to have extensive disease which was felt to be unresectable due to disease distribution involving the bowel. Biopsy confirmed adenocarcinoma of sand caster apprentice primary. 03/12/2021 Biopsy/Pathology Intraoperative biopsy showed: A. 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 B. 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 Immunohistochemical stains were performed on block B1 using antibodies to WI, keratin AE1/AE3, p16, p53, PAX8, BRG1, INI-1, WT1. The tumor cells are positive for cytokeratin AE1/AE3, WI, p16, p53, PAX8, and WT1. INI-1 and BRG1 are retained. These results support the above diagnosis. 03/30/2021 - 05/11/2021 Chemotherapy CARBOplatin AUC 6 / PACLitaxel ( ABLE SEAMAN ) Start Date: 03/30/2021 Completed 3 cycles of neoadjuvant treatment. 06/01/[address] Motta completed laparotomy, tumor debulking, abdominal hysterectomy with BSO, and omentectomy. Operative note indicates residual small miliary disease present throughout the small bowel mesentery, large bowel mesentery colic gutters bilaterally, right diaphragm, and pelvic peritoneum. Residual disease of <0.5 cm 06/23/2021 - 08/04/2021 Chemotherapy CARBOplatin AUC 6 / PACLitaxel ( ABLE SEAMAN ) Start Date: 03/30/2021 Completed three cycles of full dose adjuvant therapy. INTERVAL HISTORY: Ms. Aviles presents today with her , Klaus, for a roughly 3 month follow-up visit for her ovarian cancer. She reports she has been feeling overall well, with exception of persistent and slightly worsened bloating in her left upper quadrant. She notes that she has been able to eat and drink without issue, and notes this is most bothersome later on in the day. She notes this has been present sincecompletion of her treatment. She does also describe issues with constipation. She had been instructed to utilize magnesium, however, feels that this was not working well for her. She has transition back to MiraLax, is been taking this again for the past few days. She denies any significant abdominal di stension or tightness in her abdomen. She is having regular bowel movements currently. She notes that her energy level has largely returned to normal, and she denies shortness of breath. She notes thather neuropathy has improved significantly with use of vitamin B12, this is not limiting her activities of daily living or sleep. She otherwise denies urinary concerns or vaginal bleeding/discharge. REVIEW OF SYSTEMS Pertinent items are noted in HPI; all other review of systems were negative. OBJECTIVE VITAL SIGNS Vitals Blood Pressure: 158/90, Temperature: 36.8 ??C, Temp Source: Tympanic, Pulse Rate: 89, Resp Rate: 16, SpO2: 98 %, Height: 161.2 cm, Weight: 68.5 kg BP Readings from Last 1 Encounters: 11/20/21 158/90 Pulse Readings from Last 1 Encounters: 11/20/21 89 Temp Readings from Last 1 Encounters: 11/20/21 36.8 ??C (Tympanic) No data recorded PHYSICAL EXAMINATION General: Alert and oriented, and in no acute distress. Able to ambulate on and off the exam table without difficulty. ECOG PS of 1. Lymph: No palpable cervical, supraclavicular, axillary, and inguinal lymphadenopathy. Heart: Regular rate and rhythm. Lungs: Clear to auscultation bilaterally. Abdomen: Soft, non-tender, non-distended. Extremities: No pitting edema. No tenderness or erythema. Pelvic: External genitalia without redness or erythema. Small speculum inserted without difficulty. Vaginal vault and cuff visualized and within normal limits. Bimanual exam reveals no adenexal nodularity or cuff nodularity. Rectal: No vaginal/rectal septal nodularity or adnexal nodularity. Chaperoned by: CORBY Alonzo. Mental: Mood and affect appropriate for situation. DIAGNOSTICS: I reviewed the pertinent laboratory and diagnostic data. ASSESSMENT / PLAN #1 Stage IV A high-grade serous ovarian cancer #2 Germline and somatic BRCA wild type #3 HR proficient Ms. Aviles presents today with her , Klaus, for a roughly 3 month follow-up visit for her ovarian cancer. Her CA 125 was not available at the time of this appointment, and I will contact her with abnormal results only. We did review through results from her chest CT, which revealed no evidence ofmetastatic disease in the chest. There is evidence of a few new micro nodules, but we discussed thatthese could be related to things other than cancer. We were able to visualize the upper left abdomenon the chest CT and was able to reassure her that there is no evidence of fluid or ascites in this area. There is no clear evidence of recurrent disease visible in this area as well. She is feeling over all well, has no symptoms concerning for recurrence per history or examination. We discussed a plan to have her return again in roughly 3 months for repeat CA 125 and examination only. We discussed that we will likely plan to repeat imaging again at 1 year post completion of treatment, unless deemed necessary to do so prior to this time. Of note, Ms. Aviles did come with questions regarding her eligibility for clinical trial [id number]. I will reach out to the trial coordinator to discuss this further, seeing as she did have a biopsy prior to initiation of neoadjuvant chemotherapy. If she is potentially eligible based on this biopsy, I will ask them to send the consent form to her for review prior to her next return visit. We did briefly discuss the need to be at least 6 months post completion of treatment without evidence of recurrence to be eligible to participate in the trial. She also understands that it would take 3-4 months to produce the vaccine, therefore, it is very time sensitive in regard to risk for recurrence and abilityto be able to utilize the product. She verbalized understanding of the above information, as no further questions or concerns at time. She agrees to contact us if she would have any new or concerning symptoms prior to her next planned return visit. PATIENT EDUCATION Ready to learn, no apparent learning barriers were identified; learning preferences include listening. Explained diagnosis and treatment plan; patient expressed understanding of the content. documented in this encounter Miscellaneous Notes Addendum Note - Sarmad Marrero - 11/20/2021 2:40 PM CDT Addended by: SARMAD MARRERO on: 12/10/2021 02:23 PM Modules accepted: Orders Addendum Note - Sarmad Marrero - 11/20/2021 2:40 PM CDT Addended by: SARMAD MARRERO on: 12/11/2021 12:50 PM Modules accepted: Orders Addendum Note - Sarmad Marrero - 11/20/2021 2:40 PM CDT Addended by: SARMAD MARRERO on: 12/11/2021 12:56 PM Modules accepted: Orders Addendum Note - Genna Horta APRN, C.N.Ashia, M.S.N. - 11/20/2021 2:40 PM CDT Addended by: GENNA HORTA on: 12/15/2021 07:51 AM Modules accepted: Orders documented in this encounter Plan of Treatment Upcoming Encounters Date Type Specialty Care Team Description 05/11/2022 Lab Laboratory Medicine Kathleen Mccarty M.D. [address] [place] [phone] 05/12/2022 Clinical Communication Admitting/Central Scheduling 05/13/2022 Telemedicine Oncology Kathleen Mccarty M.D. [address] [place] [phone] Maribeth Guthrie R.N., O.C.N. [address] [place] [phone] 05/18/2022 Lab Laboratory Medicine Genna Horta APRN, C.N.P., M.S.N. [address] [place] [phone] 05/18/2022 Office Visit Oncology Genna Horta APRN, C.N.P., M.S.N. [address] [place] [phone] Scheduled Referrals Name Type Priority Associated Diagnoses Order S [facility] Oncology office Outpatient Referral Routine Malignant Neoplasm Expected: visit (clinic) Of Ovary Left (HCC) 2021, General; ABLE SEAMAN Expires: 03/12/2023 documented as of this encounter Results CT Abdomen Pelvis with [...] indeterminate. Recommend continued attention on follow- up. Genna Horta APRN, C.N.P., M.S.N. IMG CT PROCEDURE [...] and 6 mm right cardiophrenic angle node. Genna Horta APRN, C.N.P., M.S.N. IMG CT PROCEDURE S Cancer Antigen 125 (CA 125) (02/03/2022 11:56 AM CDT) athologist [facility] Cancer Ag 125 9 <46 U/mL 02/03/2022 [facility] (CA 125), S 5:00 PM CDT Comment: ----ADDITIONAL INFORMATION---- The testing method is an electrochemilum inescence assay manufactured by [employer] and performed on the Ildefonso system. [...] 02/03/2022 4:25 Venous) AM CDT PM CDT Genna Horta APRN, C.N.P., M.S.N. LAB BLOOD ADD-ON Performing Organization Address City/State/ZIP Code Phon e Number [facility] [address] [address] [place], [place] [address] [place] [address] [place] [address] Laboratory Medicine and Pathology [address] [place] [address] Dr. BRITO Hepatitis B Surface Antigen (02/03/2022 11:56 AM CDT) athologist Signature HBs Antigen, S Negative Negative 02/03/2022 [facility] 4:01 PM CDT Specimen Anatomical Collection Method Collection Time Receive d Time (Source) Location / / Volume Laterality Blood (Blood, 02/03/2022 11:56 02/03/2022 3:08 Venous) AM CDT PM CDT Genna Horta APRN, C.N.P., M.S.N. LAB MICROBIOLOGY - BLOOD ORDERABLES Performing Organization Address City/State/ZIP Code Phon e Number [facility] [address] [place] [facility] [address] [facility] [place] [address] Laboratory Medicine and Pathology [address] [place] [address] Dr. BRITO HCV Ab Scrn w/Reflex to HCV PCR, Serum (02/03/2022 11:56 AM CDT) athologist Signature HCV Ab Screen, Negative Negative 02/03/2022 [facility] S 4:18 PM CDT Comment: Lfkhwg-ug-ettygh ratio is <1.00 . Specimen Anatomical Collection Method Collection Time Receive d Time (Source) Location / / Volume Laterality Blood (Blood, 02/03/2022 11:56 02/03/2022 3:08 Venous) AM CDT PM CDT Genna Horta APRN, C.N.P., M.S.N. LAB MICROBIOLOGY - BLOOD ORDERABLES Performing Organization Address [place] Phon e Number [address] BRITO [address] [place] [address] Laboratory Medicine and Pathology [address] [place] [address] Dr. BRITO HIV-1/-2 Ag and Ab Screen, Plasma (02/03/2022 11:56 AM CDT) athologist Signature HIV-1/-2 Ag Negative Negative 02/03/2022 [facility] and Ab Screen, 3:32 PM CDT [...] 02/03/2022 3:08 Venous) AM CDT PM CDT Tyler Easton APRNNAlphonso, M.S.N. LAB MICROBIOLOGY - BLOOD ORDERABLES Performing Organization Address [facility] Phon e Number [facility] [address] [place] [address] [address] [facility] [place] [address] Laboratory Medicine and Pathology [address] [place] [address] Dr. BRITO documented in this encounter Visit Diagnoses Diagnosis Malignant Neoplasm Of Ovary Left (HCC) - Primary Malignant Neoplasm Of Ovary Left (HCC) documented in this encounter Care Teams Bulk Mail Technician Relationship Specialty Start Date End Date Elsewhere, Pcp PCP - General Family Medicine 03/10/21 documented as of this encounter
--- OUTSIDE RECORDS SUMMARY | 2022-03-25 08:49 | XMS_ITS | Encounter Summary ---
:1960 Author Organization [facility] Address [address] [place] [address] Care Team Providers Name Role Phone Elsewhere, Pcp Primary Care Provider Unavailable Encounter Details Date Type Department Care Team Description 11/20/2021 Education Department of Patient Maryuri Horta analy Garvin APRN C.N.P., M.S.N. [address] [place] [phone] Malignant Neoplasm Of Education in [facility], Anita Joe, M.P.H. [address] [place] [phone] Ovary Laterality [place], [place] Unknown (HCC) [address] [place] [phone] Social History Tobacco Use Types Packs/Day Years [...] or relatives? How often do you attend hoahaoism or alevism More than 4 time s per year 10/23/2021 services? Do you belong to any clubs or organizations No 10/23/2021 such as hoahaoism groups, unions, fraternal or athletic groups, or [...] to sleep or slept in a senior living (including now)? Education Answer Date Recorded What [...] Lab Laboratory Medicine Kathleen Mccarty M.D. [address] [place] [phone] 05/12/2022 Clinical Communication Admitting/Central Scheduling 05/13/2022 Telemedicine Oncology Kathleen Mccarty M.D. [address] [place] [phone] Maribeth Guthrie R.N., O.C.N. [address] [place] [phone] 05/18/2022 Lab Laboratory Medicine Nataly Horta APRN, C.N.P., M.S.N. [address] [place] [phone] 05/18/2022 Office Visit Oncology Nataly Horta APRN, C.N.P., M.S.N. 200 [place] [phone] documented as of this encounter Visit Diagnoses Diagnosis Malignant Neoplasm Of Ovary Laterality U nknown (HCC) documented in this encounter Care Teams Appellate Court Clerk Relationship Specialty Start Date End Date Elsewhere, Pcp PCP - General Family Medicine 03/10/21 documented as of this encounter
--- OUTSIDE RECORDS SUMMARY | 2022-03-25 08:49 | XMS_ITS | Encounter Summary ---
:1960 Author Organization [facility] Address [address] [place] [address] Care Team Providers Name Role Phone Elsewhere, Pcp Primary Care Provider Unavailable Reason for Visit Reason Comments Intake Assessment Encounter Details Date Type Department Care Team Description 08/19/2021 Clinical Communication Department of Nataly Horta Assessment Oncology in [facility], C.N.P., M.S.N. [place] [address] [address] [facility] [address] [place] [phone] Social History Tobacco Use Types Packs/Day Years [...] place to sleep or slept in a fpc (including now)? Education Answer Date Recorded What is the highest level of school Bachelor's degree (e.g., BA, AB, 03/10/2021 you have completed or the highest BS) degree you have received? Sex Assigned at Date Recorded Female 03/13/2021 7:24 PM CDT documented as of this encounter Miscellaneous Notes Telephone Encounter - Simran Moreno - 08/19/2021 4:24 PM CST Intake done LITIGATION PARALEGAL documented in this encounter Plan of Treatment Upcoming Encounters Date Type Specialty Care Team Description 05/11/2022 Lab Laboratory Medicine Kathleen Mccarty M.D. [address] [place] [phone] 05/12/2022 Clinical Communication Admitting/Central Scheduling 05/13/2022 Telemedicine Oncology Kathleen Mccarty M.D. [address] [place] [phone] Maribeth Guthrie, RErastoN., O.C.N. [address] [place] [phone] 05/18/2022 Lab Laboratory Medicine Nataly Horta APRN, C.N.P., M.S.N. [address] [place] [phone] 05/18/2022 Office Visit Oncology Nataly Horta APRN, C.N.P., M.S.N. [address] [place] [phone] documented as of this encounter Visit Diagnoses Not on filedocumented in this encounter Care Teams Childcare Center Administrator Relationship Specialty Start Date End Date Elsewhere, Pcp PCP - General Family Medicine 03/10/21 documented as of this encounter
--- OUTSIDE RECORDS SUMMARY | 2022-03-25 08:49 | XMS_ITS | Encounter Summary ---
:1960 Author Organization [facility] Address [address] [place] [address] Care Team Providers Name Role Phone Elsewhere, Pcp Primary Care Provider Unavailable Encounter Details Date Type Department Care Team Description 08/06/2021 Clinical Communication Department of Marcelo Carver Obstetrics and Cass Abarca, M.S. Gynecology in [address] [place], [place] [address] [place] [phone] [place], [place] [phone] (Work) [phone] Social History Tobacco Use Types Packs/Day Years [...] or relatives? How often do you attend anglican or tenriism More than 4 time s per year 10/23/2021 services? Do you belong to any clubs or organizations No 10/23/2021 such as anglican groups, unions, fraternal or athletic groups, or [...] this encounter Miscellaneous Notes Telephone Encounter - Marcelo Carver M.D., M.S. - 08/06/2021 9:18 PM LOGISTICS VICE PRESIDENT Patient calls with report of dysuria and increased frequency of urination. Denies fever, chills, nausea, vomiting, or flank pain. She is able to void spontaneously. I recommended the patient have a urine culture completed and antibiotic treatment if consistent with UTI. Patient reports she will contact her primary care provider locally to get this done in the morning. Her concern and reason for phone call was to ask if this necessitates an ED visit overnight. I reassured the patient that since she is otherwise doing well with no other significant symptoms that she can waituntil the morning to contact her local clinic. I explained if there are any issues with getting urine culture or antibiotics with her local physician then to contact our team and we can fax lab orders to a local clinic. She expressed understanding and had no further questions. Marcelo Carver M.D., M.S. STICS VICE PRESIDENT documented in this encounter Plan of Treatment Upcoming Encounters Date Type Specialty Care Team Description 05/11/2022 Lab Laboratory Medicine Kathleen Mccarty M.D. [address] [place] [phone] 05/12/2022 Clinical Communication Admitting/Central Scheduling 05/13/2022 Telemedicine Oncology Kathleen Mccarty M.D. [address] [place] [phone] Maribeth Guthrie R.N., O.C.N. [address] [place] [phone] 05/18/2022 Lab Laboratory Medicine Nataly Horta APRN, C.NAlphonso, M.S.N. [address] [place] [phone] 05/18/2022 Office Visit Oncology Natlay Horta APRN, C.NChaim., M.S.N. [address] [place] [phone] documented as of this encounter Visit Diagnoses Not on filedocumented in this encounter Care Teams Economic Historian Relationship Specialty Start Date End Date Elsewhere, Pcp PCP - General Family Medicine 03/10/21 documented as of this encounter
--- OUTSIDE RECORDS SUMMARY | 2022-03-25 08:49 | XMS_ITS | Encounter Summary ---
:1960 Author Organization [facility] Address [address] [place] [address] Care Team Providers Name Role Phone Elsewhere, Pcp Primary Care Provider Unavailable Reason for Visit Reason Comments Pre-visit Intake Encounter Details Date Type Department Care Team Description 01/28/2022 Clinical Communication Visit Review in Pr e-visit Intake [place], [place] [address] [place], [place] [phone] Social History Tobacco Use Types Packs/Day Years [...] or relatives? How often do you attend cheondoism or religion More than 4 time s per year 10/23/2021 services? Do you belong to any clubs or organizations No 10/23/2021 such as cheondoism groups, unions, fraternal or athletic groups, or [...] place to sleep or slept in a alf (including now)? Education Answer Date Recorded What [...] Lab Laboratory Medicine Kathleen Mccarty M.D. [address] [place] [phone] 05/12/2022 Clinical Communication Admitting/Central Scheduling 05/13/2022 Telemedicine Oncology Kathleen Mccarty M.D. [address] [place] [phone] Maribeth Guthrie R.N., O.C.N. [address] [place] [phone] 05/18/2022 Lab Laboratory Medicine Nataly Horta APRN, C.N.P., M.S.N. [address] [place] [phone] 05/18/2022 Office Visit Oncology Nataly Horta APRN C.N.P., M.S.N. [address] [place] [phone] documented as of this encounter Visit Diagnoses Not on filedocumented in this encounter Care Teams Family Consumer Scientist Relationship Specialty Start Date End Date Elsewhere, Pcp PCP - General Family Medicine 03/10/21 documented as of this encounter
--- OUTSIDE RECORDS SUMMARY | 2022-03-25 08:49 | XMS_ITS | Encounter Summary ---
:1960 Author Organization [facility] Address [address] [place] [id number] Care Team Providers Name Role Phone Elsewhere, Pcp Primary Care Provider Unavailable Reason for Referral Outpatient (Routine) - Closed Specialty Diagnoses / Procedures Referred By Contact Refer red To Contact Oncology Kathleen Mccarty M. D. 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 [address] [place] [phone] Referral ID Status Reason Start Date Expiration Date Visits Requ ested Visits Authorized [id number] Closed 08/25/2021 08/25/2022 1 1 Encounter Details Date Type Department Care Team Description 10/28/2021 Comprehensive Visit Integrative Priscila Mccarty (Primary Dx); Medicine and Health Denise Morgan Malignant Neoplasm Of Ovary Laterality U nknown (HCC); in [place], [address] [place] [address] Anemia Iron Deficiency Blood Loss Chroni c; [place], [place] Hyperlipidemia; [address] [place] [phone] Deficiency Vitamin D; [place], [place] [phone] Hypertension E ssential Primary; [phone] (Work) Encounter For Screening For Cardiovascul ar Disorders; [phone] Abnormal Findin g Of Blood Chemistry Unspecified; (Fax) Neuropathy Elizabeth pheral Social History Tobacco Use Types Packs/Day Years [...] or relatives? How often do you attend evangelical or uatsdin More than 4 time s per year 10/23/2021 services? Do you belong to any clubs or organizations No 10/23/2021 such as evangelical groups, unions, fraternal or athletic groups, or [...] place to sleep or slept in a retirement (including now)? Education Answer Date Recorded What is the highest level of school Bachelor's degree (e.g., BA, AB, 03/10/2021 you have completed or the highest BS) degree you have received? Sex Assigned at Date Recorded Female 03/13/2021 7:24 PM CDT documented as of this encounter Consult Notes Kathleen Mccarty M.D. - 10/28/2021 2:30 PM CDT Images from the original note were not included. Wendy Aviles is seen in the [facility] Integrative Oncology clinic for consultation requestedby Nataly Horta APRN, C.NErastoPErasto, M.S.N. [address] [place] [phone] Primary Oncologist: Nataly Horta APRN, C.N.P., M.S.N. 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 03/12/2021 Surgery and Procedures Patient underwent exploratory laparotomy and biopsy of the omentum. She is found to have extensive disease which was felt to be unresectable due to disease distribution involving the bowel. Biopsy confirmed adenocarcinoma of plant hr manager primary. 03/12/2021 Biopsy/Pathology Intraoperative biopsy showed: A. 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 B. 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 Immunohistochemical stains were performed on block B1 using antibodies to PA, keratin AE1/AE3, p16, p53, PAX8, BRG1, INI-1, WT1. The tumor cells are positive for cytokeratin AE1/AE3, PA, p16, p53, PAX8, and WT1. INI-1 and BRG1 are retained. These results support the above diagnosis. 03/30/2021 - 05/11/2021 Chemotherapy CARBOplatin AUC 6 / PACLitaxel ( LAUNDRY AGENT ) Start Date: 03/30/2021 Completed 3 cycles of neoadjuvant treatment. 06/01/[address] Motta completed laparotomy, tumor debulking, abdominal hysterectomy with BSO, and omentectomy. Operative note indicates residual small miliary disease present throughout the small bowel mesentery, large bowel mesentery colic gutters bilaterally, right diaphragm, and pelvic peritoneum. Residual disease of <0.5 cm 06/23/2021 - Chemotherapy CARBOplatin AUC 6 / PACLitaxel ( LAUNDRY AGENT ) Start Date: 03/30/2021 Plan for three cycles of adjuvant therapy. Genetic Testing and Tumor Genotyping 07/27/21 - [facility] somatic testing ordered. CLS CURRENT CONCERNS: CIPN post chemo- mild, feels well overall; out of shape CURRENT TREATMENT: observation TREATMENT GOALS: Curative but high risk of recurrence PS: 0 GENETIC TESTING: negative MED LIST: Prior to Admission Medications Taking? Last Dose Informant Start Date End Date LT acetaminophen (TYLENOL) 500 mg tablet 06/03/21 -- Take 2 tablets (1,000 mg total) by mouth every 6 (six) hours as needed for pain. ascorbic acid, vitamin C, (VITAMIN C) 500 mg tablet Self -- -- Take 500 mg by mouth daily. Dose unknown cholecalciferol (VITAMIN D3) 50 mcg (2,000 Unit) tablet 12/29/17 -- Take 50 mcg by mouth every morning. ibuprofen (ADVIL,MOTRIN) 200 mg tablet 06/03/21 -- Take 3 tablets (600 mg total) by mouth every 6 (six) hours as needed for pain. lisinopriL (PRINIVIL,ZESTRIL) 30 mg tablet 10/30/20 -- Take 30 mg by mouth at bedtime. magnesium hydroxide (MILK OF MAGNESIA ORAL) -- -- Take by mouth. 60 mg as needed multivitamin tablet -- -- Take 1 tablet by mouth daily. Flag for Review Taking? Last Dose Informant Start Date End Date LT LORazepam (ATIVAN) 0.5 mg tablet () 03/24/21 09/20/21 Take 1 tablet (0.5 mg total) by mouth every 6 (six) hours as needed (nausea, vomiting) for up to 30doses. If ineffective, may repeat once after 30 minutes. ondansetron (ZOFRAN) 8 mg tablet 03/24/21 03/24/22 Take 1 tablet (8 mg total) by mouth every 8 (eight) hours as needed for nausea or vomiting. Patient not taking: Reported on 08/19/2021 oxyCODONE (ROXICODONE) 5 mg immediate release tablet 06/03/21 -- Take 1 tablet (5 mg total) by mouth every 4 (four) hours as needed for pain (not relieved by acetaminophen and ibuprofen) Indication: acute pain. Patient not taking: Reported on 08/19/2021 prochlorperazine (COMPAZINE) 10 mg tablet 03/24/21 03/24/22 Take 1 tablet (10 mg total) by mouth every 6 (six) hours as needed for nausea or vomiting (unrelieved by ondansetron). Patient not taking: Reported on 08/19/2021 rivaroxaban (XARELTO) 10 mg tablet 06/04/21 -- Take 1 tablet (10 mg total) by mouth daily. sennosides-docusate sodium (SENOKOT-S) 8.6-50 mg per tablet 06/03/21 -- Take 1 tablet by mouth daily. Patient not taking: Reported on 08/19/2021 CAM USE: VIT D, MVI, B complex, VIT C, probiotic PMH: Past Medical History: Diagnosis Date ??? Anemia No longer an issue ??? Arthritis ??? Ascites ??? Gastroesophageal Reflux Disease NOS no longer an issue ??? Hyperlipidemia ??? Hypertension NOS ??? Irritable Bowel Syndrome Without Diarrhea ??? Mass Abdominal Site ??? Peritoneal Carcinomatosis (HCC) FAMILY HX: Family History Problem Relation Age of Onset ??? Coronary artery disease Father ??? Anxiety disorder Father ??? Diabetes Mother ??? Alcohol abuse Brother ??? Drug abuse Brother ??? Anxiety disorder Brother ??? Anxiety disorder Brother SH: Social History Socioeconomic History ??? Marital status: Spouse name: Not on file ??? Number of children: Not on file ??? Years of education: Not on file ??? Highest education level: Bachelor's degree (e.g., BA, AB, BS) Occupational History ??? Not on file Tobacco Use ??? Smoking status: Never Smoker ??? Smokeless tobacco: Never Used Vaping Use ??? Vaping Use: never used Substance and Sexual Activity ??? Alcohol use: Yes Alcohol/week: 0.0 standard drinks Comment: Maybe a few glasses if wine ever 3 months ir so ??? Drug use: Never ??? Sexual activity: Not Currently Partners: Male Other Topics Concern ??? Caffeine Concern Yes Comment: 2 servings Social History Narrative ??? Not on file Social Determinants of Health Financial Resource Strain: Low Risk ??? Difficulty of Paying Living Expenses: Not hard at all Food Insecurity: No Food Insecurity ??? Worried About Running Out of Food in the Last Year: Never true ??? Ran Out of Food in the Last Year: Never true Transportation Needs: No Transportation Needs ??? Lack of Transportation (Medical): No ??? Lack of Transportation (Non-Medical): No Physical Activity: Inactive ??? Days of Exercise per Week: 0 days ??? Minutes of Exercise per Session: 0 min Stress: No Stress Concern Present ??? Feeling of Stress : Not at all Social Connections: Moderately Integrated ??? Frequency of Communication with Friends and Family: Once a week ??? Frequency of Social Gatherings with Friends and Family: Twice a week ??? Attends Scientology Services: More than 4 times per year ??? Active Member of Clubs or Organizations: No ??? Attends Club or Organization Meetings: Never ??? Marital Status: Intimate Partner Violence: Not At Risk ??? Fear of Current or Ex-Partner: No ??? Emotionally Abused: No ??? Physically Abused: No ??? Sexually Abused: No Housing Stability: Low Risk ??? Unable to Pay for Housing in the Last Year: No ??? Number of Places Lived in the Last Year: 1 ??? Unstable Housing in the Last Year: No CORE ASSESSMENTS: Diet: blue apron/hello fresh; some rice/pasta; some beef; fish; likes morales/flavored latte, some candy; very rare alcohol Sleep: good Stress/social: not much stress, allison postop Exercise: was doing crossfit; walking but has not restarted; plans to walk GI: ok with miralax/hx IBS Toxins: std Hormonal: postmen Blood: mild anemia Inflammation/immune: Mild CIPN, no pain PHYSICAL EXAM: There were no vitals taken for this visit. Gen: Looks well Neuro/Psych: Speech fluent; memory and concentration normal; normal affect Ext: no c/c/e LABS: Lab Results Component Value Date WBC 4.4 08/24/2021 HGB 10.0 (L) 08/24/2021 HCT 24.9 (L) 06/02/2021 MCV 92.6 06/02/2021 PLT 125 (L) 08/24/2021 A1c 6 ASSESSMENT: Wendy Aviles is a 60 y.o. female presents for integrative oncology consultation. Completed chemotherapy for stage IV ovarian cancer and is on observation. Decided against PARP inhibitor. Would like to prevent recurrence, optimize health. Current issues include deconditioning, questions about supp lements, mild CIPN. 1. Cancer: Reviewed that lifestyle/diet changes can possibly improve cancer outcomes and quality of life. Will work on diet, exercise and check some labs. 2. Diet: Patient is currently on whole food type diet. Reviewed dietary issues in detail. The literature is currently supporting a plant-heavy, whole food diet that incorporates whole grains and nuts. The best animal products to consume are oily cold-water fish (salmon, cod, sardines). Eat the rainbowof fruits and vegetables, organic if possible. Limit alcohol consumption and avoid foods with added sugars. Avoid artificial sweeteners such as Splenda, equal (stevia/monk fruit are OK). Reviewed importance of keeping a lean/healthy weight. Reviewed meal timing and the importance of fasting overnight.Specific dietary recommendations include: Increase fasting time overnight given high A1c. Cut out added sugars, and decrease refined carbs. Will recheck FI/A1c. 3. Exercise: Reviewed the importance of exercise for cancer risk reduction. Current recommendations are to exercise for 150 minutes of moderate intensity per week or 75 minutes of high intensity exercise, combined with whole body strength training 2x/week. She will start with walking. 4. Sleep: Doing ok currently. Can add in melatonin if needed. 5. Stress reduction: Reviewed the importance of stress reduction for overall health. Doing ok with this. 6. GI: Reviewed the importance of a healthy gut microbiome for overall health and optimized immune function. Would DC miralax and start mag citrate at night; ensure adequate hydration and increase veggies/fiber. 7. Toxins: Reviewed common toxins in the environment and how to limit exposures. Limit use of plastics, BPA; try to eat organic foods to minimize pesticide exposures, and filter water with reverse osmosis if possible. Patient given handouts on the ???dirty dozen/clean 15 foods?? and [facility] website for clean household and beauty products. 8. Social support/spirituality: Has good support. 9. Supplements: Check labs, may not need so many vitamins. OK to take mushroom blend, quercetin (natural PARP inhib/anti-allergy), turmeric. She will monitor her BP. Add in mag citrate at night. PLAN: Patient will start with lifestyle interventions and dietary changes and recommended supplements. Increase exercise as tolerated. Labs ordered, will follow up with recommendations. Reviewed the plan in detail with patient and answered all questions in detail. FU 2-3 months. 70 minutes were spent (total time) which includes FTF time as well as chart review, review of labs and other tests and communication with other providers. Answers for HPI/ROS submitted by the patient on 10/23/2021 Night sweats: Yes Visual problems: Yes No ENT issues: Yes No heart issues: Yes No respiratory issues: Yes Constipation: Yes No muscle/bone issues: Yes No skin issues: Yes No neurologic issues: Yes No mental health issues: Yes No blood/lymph issues: Yes Frequent urination: Yes documented in this encounter Plan of Treatment Upcoming Encounters Date Type Specialty Care Team Description 05/11/2022 Lab Laboratory Medicine Kathleen Mccarty M.D. [address] [place] [phone] 05/12/2022 Clinical Communication Admitting/Central Scheduling 05/13/2022 Telemedicine Oncology Kathleen Mccarty M.D. [address] [place] [phone] Maribeth Guthrie R.N., O.C.N. [address] [place] [phone] 05/18/2022 Lab Laboratory Medicine Nataly Horta APRN, C.N.P., M.S.N. [address] [place] [phone] 05/18/2022 Office Visit Oncology Nataly Horta APRN, C.N.P., M.S.N. [address] [place] [phone] Scheduled Referrals Name Type Priority Associated Order Schedule Diagnoses Oncology office visit Outpatient Referral Routine Expected: (clinic) Integrative 07/13/2 022 Medicine (RST) (Approximate) , Expires: 01/27/2023 documented as of this encounter Results (ABNORMAL) Methylmalonic Acid (MMA), Quantitative (10/28/2021 4:05 PM CDT) Patholo gist Method Time Signature Methylmalonic 0.68 (H) <=0.40 11/02/2021 DTL Acid, QN, S nmol/mL 7:58 AM CDT Comment: In this sample, the concentration of met hylmalonic acid (MMA) was elevated. This finding is likely related to vitami n B12 deficiency. ----ADDITIONAL INFORMATION---- This test was developed and its performa nce characteristics determined by [facility] in a manner consistent with CLIA requirements. This test has not been cleared or approved by the U.[place]. Josh d and Drug Administration. Specimen Anatomical Collection Method Collection Time Receive d Time (Source) Location / / Volume Laterality Blood (Blood, 10/28/2021 4:05 PM 10/30/19 7:58 Venous) CDT AM CDT Kathleen Mccarty M.D. LAB BLOOD ADD-ON Performing Organization Address City/State/ZIP Code Phon e Number [facility] - [address] [place], [place] [address] [facility] [place] [address] Laboratories-[facility] [address] (ABNORMAL) Ceruloplasmin (10/28/2021 4:05 PM CDT) P athologist Signature Ceruloplasmin, 19.2 (L) 20.0 - 10/29/2021 DTL S 51.0 mg/dL 9:47 AM CDT Comment: A low concentration of ceruloplasmin in serum can be found in patients with Blake disease, copper deficiency, Menkes disease, and hereditary aceruloplasminem ia. ??Conditions with severe protein loss or liver failur e are also associated with low ceruloplasmin levels . ??Furthermore, reduced ceruloplasmin concentrations can be observed in carriers for Blake disease. ??If the cl inical suspicion for Blake disease is high in this patient, consider further testing including but not limited to uri ne copper, serum copper, and Blake disease full gene landon lysis. ??Please contact the laboratory at or the on-line test catalog at [facility] acquired by [employer] for m ore information. Specimen Anatomical Collection Method Collection Time Receive d Time (Source) Location / / Volume Laterality Blood (Blood, 10/28/2021 4:05 PM 10/30/19 7:24 Venous) CDT AM CDT Kathleen Mccarty M.D. LAB BLOOD ADD-ON Performing Organization Address City/[facility] Phon e Number [facility] - [address] [place] [address] Laboratories-[address] Folate (10/28/2021 4:05 PM CDT) athologist Signature Folate, S >20.0 >=4.0 mcg/L 10/29/2021 7:10 DTL AM CDT Specimen Anatomical Collection Method Collection Time Receive d Time (Source) Location / / Volume Laterality Blood (Blood, 10/28/2021 4:05 PM 10/29/19 4:59 Venous) CDT PM CDT Kathleen Mccarty M.D. LAB BLOOD ADD-ON Performing Organization Address City/[facility] Phon e Number [facility] - [id number] [place] [address] Vitamin B12 Assay (10/28/2021 4:05 PM CDT) athologist Signature Vitamin B12 206 180 - 914 10/29/2021 DTL Assay, S ng/L 7:18 AM CDT Comment: ----ADDITIONAL INFORMATION---- In patients being [...] Location / / Volume Laterality Blood (Blood, 10/28/2021 4:05 PM 10/29/19 4:59 Venous) CDT PM CDT Kathleen Mccarty M.D. LAB BLOOD ADD-ON Performing Organization Address City/[facility]/ZIP Code Phon e Number [facility] - 200 [place], [place] [address] [place] [address] [facility] 200 [facility] Hemoglobin A1c (10/28/2021 4:05 PM CDT) athologist Signature Hemoglobin A1c, 5.6 4.0 - 5.6 10/28/2021 DTL B % 5:39 PM CDT Specimen Anatomical Collection Method Collection Time Receive d Time (Source) Location / / Volume Laterality Blood (Blood, 10/28/2021 4:05 PM 10/29/19 4:41 Venous) CDT PM CDT Kathleen Mccarty M.D. LAB BLOOD ADD-ON Performing Organization Address City/[facility]/ZIP Code Phon e Number [facility] - 200 [place], [place] [address] [place] [address] Insulin (10/28/2021 4:05 PM CDT) athologist Signature Insulin, S 18.0 2.6 - 24.9 10/28/2021 DTL mcIU/mL 5:51 PM CDT Specimen Anatomical Collection Method Collection Time Receive d Time (Source) Location / / Volume Laterality Blood (Blood, 10/28/2021 4:05 PM 10/29/19 5:00 Venous) CDT PM CDT Kathleen Mccarty M.D. LAB BLOOD ADD-ON Performing Organization Address City/[facility]/ZIP Code Phon e Number [facility] - 200 [place], [place] [address] [place] [address] Ferritin (10/28/2021 4:05 PM CDT) athologist Signature Ferritin, S 46 11 - 307 10/28/2021 DTL mcg/L 5:48 PM CDT Specimen Anatomical Collection Method Collection Time Receive d Time (Source) Location / / Volume Laterality Blood (Blood, 10/28/2021 4:05 PM 10/29/19 5:00 Venous) CDT PM CDT Kathleen Mccarty M.D. LAB BLOOD ADD-ON Performing Organization Address City/[facility]/ZIP Code Phon e Number [facility] - 200 [place], [place] [address] [facility] [place] [address] Laboratories-[address] (ABNORMAL) Iron and Total Iron-Binding Capacity (10/28/2021 4:05 PM CDT) athologist Signature Iron 90 35 - 145 10/28/2021 DTL mcg/dL 5:51 PM CDT Total Iron 409 (H) 250 - 400 10/28/2021 DTL Binding mcg/dL 5:51 PM CDT Capacity Percent 22 14 - 50 % 10/28/2021 DTL Saturation 5:51 PM CDT Specimen Anatomical Collection Method Collection Time Receive d Time (Source) Location / / Volume Laterality Blood (Blood, 10/28/2021 4:05 PM 10/29/19 22 5:00 Venous) CDT PM CDT Kathleen Mccarty M.D. LAB BLOOD ADD-ON Performing Organization Address City/[facility]/ZIP Code Phon e Number [facility] - 200 [place], [place] [address] [place] [address] [place] [address] Laboratories-[address] C-Reactive Protein, High Sensitivity (10/28/2021 4:05 PM CDT) P athologist Signature C-Reactive 1.8 <2.0 mg/L 10/28/2021 DTL Protein, High 5:51 PM CDT Sens, S Specimen Anatomical Collection Method Collection Time Receive d Time (Source) Location / / Volume Laterality Blood (Blood, 10/28/2021 4:05 PM 10/29/19 5:00 Venous) CDT PM CDT Kathleen Mccarty M.D. LAB BLOOD ADD-ON Performing Organization Address City/[facility]/ZIP Code Phon e Number [facility] - 200 [place], [place] [address] [facility] [place] [address] Laboratories-[facility] [address] 25-Hydroxyvitamin D2 and D3 (10/28/2021 4:05 PM CDT) athologist Signature 25-Hydroxy D2 <4.0 ng/mL 10/29/2021 [facility] 11:38 PM CDT 25-Hydroxy D3 61 ng/mL 10/29/2021 [facility] 11:38 PM CDT 25-Hydroxy D 61 ng/mL 10/29/2021 [facility] Total 11:38 PM CDT Comment: Interpretation: 51-80 ng/mL (increased r isk of hypercalciuria) ----REFERENCE VALUE---- 25-HYDROXY D TOTAL (D2+D3) Optimum level s in the healthy population are 20-50, patients with bone disease may benefit from higher levels within this r timothy. ----ADDITIONAL INFORMATION---- This test was developed and its performa nce characteristics determined by [facility] in a manner consistent with CLIA requirements. This test has not been cleared or approved by the U.S. Josh d and Drug Administration. Specimen Anatomical Collection Method Collection Time Receive d Time (Source) Location / / Volume Laterality Blood (Blood, 10/28/2021 4:05 PM 10/30/19 22 7:24 Venous) CDT AM CDT Kathleen Mccarty M.D. LAB BLOOD ADD-ON Performing Organization Address City/State/ZIP Code Phon e Number [facility] [address] [place] [address] [place] [address] Laboratory Medicine and Pathology [address] [place] Thyroid Function [place] (10/28/2021 4:05 PM CDT) athologist Signature TSH, Sensitive 1.9 0.3 - 4.2 10/28/2021 DTL mIU/L 5:51 PM CDT Specimen Anatomical Collection Method Collection Time Receive d Time (Source) Location / / Volume Laterality Blood (Blood, 10/28/2021 4:05 PM 10/29/19 22 5:00 Venous) CDT PM CDT Kathleen Mccarty M.D. LAB BLOOD ADD-ON Performing Organization Address City/State/ZIP Code Phon e Number [place] [address] [place], [place] [address] [facility] [place] [address] [facility] 200 [facility] CBC with Differential, Blood (10/28/2021 4:05 PM CDT) P athologist Signature Hemoglobin 12.4 11.6 - 10/28/2021 DTL 15.0 g/dL 5:08 PM CDT Hematocrit 38.3 35.5 - 10/28/2021 DTL 44.9 % 5:08 PM CDT Erythrocytes 3.95 3.92 - 10/28/2021 DTL 5.13 5:08 PM CDT x10(12)/L MCV 97.0 78.2 - 10/28/2021 DTL 97.9 fL 5:08 PM CDT RBC Distrib Width 12.6 12.2 - 10/28/2021 DTL 16.1 % 5:08 PM CDT Platelet Count 223 157 - 371 10/28/2021 DTL x10(9)/L 5:08 PM CDT Leukocytes 7.0 3.4 - 9.6 10/28/2021 DTL x10(9)/L 5:08 PM CDT Neutrophils 4.10 1.56 - 10/28/2021 DTL 6.45 5:08 PM CDT x10(9)/L Lymphocytes 2.06 0.95 - 10/28/2021 DTL 3.07 5:08 PM CDT x10(9)/L Monocytes 0.64 0.26 - 10/28/2021 DTL 0.81 5:08 PM CDT x10(9)/L Eosinophils 0.12 0.03 - 10/28/2021 DTL 0.48 5:08 PM CDT x10(9)/L Basophils 0.03 0.01 - 10/28/2021 DTL 0.08 5:08 PM CDT x10(9)/L Specimen Anatomical Collection Method Collection Time Receive d Time (Source) Location / / Volume Laterality Blood (Blood, 10/28/2021 4:05 PM 10/29/19 4:41 Venous) CDT PM CDT Kathleen Mccarty M.D. LAB BLOOD ADD-ON Performing Organization Address City/State/ZIP Code Phon e Number [facility] - [address] [place], [place] [address] [facility] [place] [address] [facility] [address] Zinc (10/28/2021 4:04 PM CDT) athologist Signature Zinc, S 0.91 0.66 - 1.10 10/29/2021 [facility] mcg/mL 12:10 PM CDT Comment: ----ADDITIONAL INFORMATION---- This test was developed and its performa nce characteristics determined by [facility] in a manner consistent with CLIA requirements. This test has not been cleared or approved by the [place] and Drug Administration. Specimen Anatomical Collection Method Collection Time Receive d Time (Source) Location / / Volume Laterality Blood (Blood, 10/28/2021 4:04 PM 10/29/19 22 Venous) CDT 10:17 PM CDT Kathleen Mccarty M.D. LAB BLOOD NON ADD-ON Performing Organization Address City/[facility] Phon e Number [facility] [address] [place], [place] [address] [facility] [address] Laboratory Medicine and Pathology [address] [place] (ABNORMAL) Comprehensive Metabolic Panel (10/28/2021 4:04 PM CDT) athologist Signature Potassium, S 4.7 3.6 - 5.2 10/28/2021 DTL mmol/L 5:49 PM CDT Sodium, S 139 135 - 145 10/28/2021 DTL mmol/L 5:49 PM CDT Chloride, S 98 98 - 107 10/28/2021 DTL mmol/L 5:49 PM CDT Bicarbonate, S 26 22 - 29 10/28/2021 DTL mmol/L 5:49 PM CDT Anion Gap 15 7 - 15 10/28/2021 DTL 5:49 PM CDT BUN (Blood Urea 17 6 - 21 10/28/2021 DTL Nitrogen), S mg/dL 5:49 PM CDT Creatinine 0.87 0.59 - 10/28/2021 DTL 1.04 mg/dL 5:49 PM CDT eGFR-Non 73 >=60 10/28/2021 DTL Black/ mL/min/BSA 5:49 PM CDT Mauritian Comment: ----ADDITIONAL INFORMATION---- Estimated GFR calculated using the 2009 CKD_EPI creatinine equation. eGFR-Black/ 84 >=60 mL/min/BSA 2021 5:49 PM CDT DTL Comment: ----ADDITIONAL INFORMATION---- Estimated GFR calculated using the 2009 CKD_EPI creatinine equation. Calcium, Total, S 10.2 8.8 - 10.2 mg/dL 10/28/2021 5:49 PM CDT DTL Glucose, S 111 70 - 140 mg/dL 10/28/2021 5:49 PM CDT D TL Protein, Total, S 8.1 (H) 6.3 - 7.9 g/dL 10/28/2021 5:49 P M CDT DTL Albumin, S 5.4 (H) 3.5 - 5.0 g/dL 10/28/2021 5:49 PM CDT D TL Aspartate Aminotransferase 19 8 - 43 U/L 10/28/2021 5 :49 PM CDT DTL (AST), S Alkaline Phosphatase, S 75 35 - 104 U/L 10/28/2021 5: 49 PM CDT DTL Alanine Aminotransferase 18 7 - 45 U/L 10/28/2021 5:4 9 PM CDT DTL (ALT), S Bilirubin, Total, S 0.3 <=1.2 mg/dL 10/28/2021 5:49 PM CDT DTL Specimen Anatomical Collection Method Collection Time Receive d Time (Source) Location / / Volume Laterality Blood (Blood, 10/28/2021 4:04 PM 10/29/19 5:00 Venous) CDT PM CDT Kathleen Mccarty M.D. LAB BLOOD ADD-ON Performing Organization Address City/State/ZIP Code Phon e Number [facility] - [address] [place], [place] [address] [facility] [place] [address] Laboratories-[facility] [address] documented in this encounter Visit Diagnoses Diagnosis PreDiabetes - Primary Malignant Neoplasm Of Ovary Laterality U nknown (HCC) Anemia Iron Deficiency Blood Loss Chroni c Hyperlipidemia Deficiency Vitamin D Hypertension Essential Primary Encounter For Screening For Cardiovascul ar Disorders Abnormal Finding Of Blood Chemistry Unsp ecified Neuropathy Peripheral documented in this encounter Care Teams Bee Tender Relationship Specialty Start Date End Date Elsewhere, Pcp PCP - General Family Medicine 03/10/21 documented as of this encounter
--- OUTSIDE RECORDS SUMMARY | 2022-03-25 08:49 | XMS_ITS | Encounter Summary ---
:1960 Author Organization [facility] Address [address] [place] [address] Care Team Providers Name Role Phone Elsewhere, Pcp Primary Care Provider Unavailable Reason for Referral MRI/CAT/PET Scan (Routine) - Closed Specialty Diagnoses / Procedures Referred By Contact Refer red To Contact Radiology Diagnoses Malignant Neoplasm Of Ovary Laterality Unknown (HCC) [facility] with IV Contrast [place] CT THORAX W CNTRST [place] [employer] C.N.P., M.S.N. [address] [place] [phone] Referral ID Status Reason Start Date Expiration Date Visits Requ ested Visits Authorized [id number] Closed 08/24/2021 08/24/2022 1 1 Reason for Visit MRI/CAT/PET Scan (Routine) - Closed Specialty Diagnoses / Procedures Referred By Contact Refer red To Contact Radiology Diagnoses Malignant Neoplasm Of Ovary Laterality Unknown (HCC) [facility] CT Chest with IV Contrast [place] CT THORAX W CNTRST [place] [employer]D [employer] C.N.P., M.S.N. [address] [place] [phone] Referral ID Status Reason Start Date Expiration Date Visits Requ ested Visits Authorized [id number] Closed 08/24/2021 08/24/2022 1 1 Encounter Details Date Type Department Care Team Description 11/20/2021 Hospital Encounter Department of Nataly Horta Neoplasm Radiology, Ladi Garvin APRN, C.N.PErasto, Of [facility], in M.S.N. Unknown (HCC) [place], [address] [place], [place] [address] [facility] [id number] [place], [place] [phone] (Work) [phone] Social History Tobacco Use Types Packs/Day Years [...] or relatives? How often do you attend mormon or evangelical More than 4 time s per year 10/23/2021 services? Do you belong to any clubs or organizations No 10/23/2021 such as mormon groups, unions, fraternal or athletic groups, or [...] minutes do you engage in exercise at is 0 min 10/23/2021 level? Stress Answer [...] place to sleep or slept in a long-term (including now)? Education Answer Date Recorded What [...] Lab Laboratory Medicine Kathleen Mccarty M.D. [address] [place] [phone] 05/12/2022 Clinical Communication Admitting/Central Scheduling 05/13/2022 Telemedicine Oncology Kathleen Mccarty M.D. [address] [place] [phone] Maribeth Guthrie R.N., O.C.N. [address] [place] [phone] 05/18/2022 Lab Laboratory Medicine CarmineclaudiaNataly APRN, C.N.P., M.S.N. [address] [place] [phone] 05/18/2022 Office Visit Oncology Nataly Horta APRN, C.N.P., M.S.N. [address] [place] [phone] documented as of this encounter Procedures Procedure Name Priority Date/Time Associated Comments Diagnosis CT CHEST WITH IV RAD - Routine 11/20/2021 12:24 Malignant Result s for this CONTRAST (most inpatients PM CDT Neoplasm Of Ovary proced ure are in and all Laterality the results outpatients) Unknown (HCC) section. documented in this encounter Results CT Chest with IV Contrast (11/20/2021 12:24 PM CDT) Anatomical Region Laterality Modality Chest, Thoracic RST LOS, Thoracic ARZ N/A Co mputed Tomography, Computed LOS, Thoracic ARZ LOS, Thoracic FLA Kalin graphy LOS Specimen (Source) Anatomical Collection Method Collection Time Re ceived Time Location / / Volume Laterality 11/20/2021 12:27 PM CDT Impressions 11/20/2021 1:53 PM CDT 1. ??Scattered new indeterminate pulmonary micronodules. 2. ??A few thoracic lymph nodes have dec reased. 3. ??Resolved pleural effusions. 4. ??Otherwise no change since 1. Narrative 11/20/2021 1:53 PM CDT EXAM: CT CHEST WITH IV CONTRAST COMPARISON: CT chest 05/28/2021 FINDINGS: Scattered new sub-3 mm pulmonary nodules , for example in the right upper lobe (3/154), right lower lobe (3/374), and left upper lobe (3/80) . Other small groundglass and solid nodules are stable. For example, a 4 mm noncalcified subpleural left lower lobe nodule (series 3, image 451). A 2 mm right lower lobe subpleural nodule (series 3, image 166). A 3 mm sub-solid right upper lobe nodule (series 3, image 165). Calcified pulmonary granu geno. A 7 mm right cardiophrenic lymph node farah s decreased in size, previously 9 mm (series 3, image 424). A couple of tiny internal mammary lymph nodes have also decreased in size. Calcified mediastinal and right hilar lymph nodes. The small bilateral pleural effusions farah ve resolved. Decreased trace pericardial effusion. Unchanged sclerotic focus in the T9 vert ebral body. Unchanged 7 mm left posterior thyroid nodule. 3D maximum intensity projection (MIP) im ages were created on a dependent workstation as ordered by the treating provider and reviewed by [facility] radiologist to increase sensitivity for detection of pulmonary nodules. Procedure Note Jose L Newell M.D. - 11/20/2021For matting of this note might be different from the original. EXAM: CT CHEST WITH IV CONTRAST COMPARISON: CT chest 05/28/2021 FINDINGS: Scattered new sub-3 mm pulmonary nodules , for example in the right upper lobe (3/154), right lower lobe (3/374), and left upper lobe (3/80) . Other small groundglass and solid nodules are stable. For example, a 4 mm noncalcified subpleural left lower lobe nodule (series 3, image 451). A 2 mm right lower lobe subpleural nodule (series 3, image 166). A 3 mm sub-solid right upper lobe nodule (series 3, image 165). Calcified pulmonary granu geno. A 7 mm right cardiophrenic lymph node farah s decreased in size, previously 9 mm (series 3, image 424). A couple of tiny internal mammary lymph nodes have also decreased in size. Calcified mediastinal and right hilar lymph nodes. The small bilateral pleural effusions farah ve resolved. Decreased trace pericardial effusion. Unchanged sclerotic focus in the T9 vert ebral body. Unchanged 7 mm left posterior thyroid nodule. 3D maximum intensity projection (MIP) im ages were created on a dependent workstation as ordered by the treating provider and reviewed by [facility] radiologist to increase sensitivity for detection of pulmonary nodules. IMPRESSION: 1. Scattered new indeterminate pulmonary micronodules. 2. A few thoracic lymph nodes have decre ased. 3. Resolved pleural effusions. 4. Otherwise no change since 05/28/2021. Nataly Horta APRN, C.N.P., M.S.N. IMG CT PROCEDURE S documented in this encounter Visit Diagnoses Diagnosis Malignant Neoplasm Of Ovary Laterality U nknown (HCC) documented in this encounter Administered Medications Inactive Administered Medications - up to 3 most recent administrations Medication Order MAR Action Action Date Dose Rate Site iohexoL 300 mg iodine/mL solution Given 11/20/2021 12:19 PM CDT 80 mL 1-200 mL (OMNIPAQUE) 1-200 mL, intravenous, Once in imaging, contrast, Starting on Tue11/20/21 at 1150, For 1 dose, Imaging Protocol Orders, Dose per Radiant Medication Guidelines documented in this encounter Care Teams Vision Rehabilitation Therapist Relationship Specialty Start Date End Date Elsewhere, Pcp PCP - General Family Medicine 03/10/21 documented as of this encounter
--- OUTSIDE RECORDS SUMMARY | 2022-03-25 08:49 | XMS_ITS | Encounter Summary ---
:1960 Author Organization [facility] Address [address] [place] [address] Care Team Providers Name Role Phone Elsewhere, Pcp Primary Care Provider Unavailable Reason for Referral Outpatient (Routine) - Closed Specialty Diagnoses / Procedures Referred By Contact Refer red To Contact Integrative Medicine Diagnoses Malignant Neoplasm Of Ovary Laterality Unknown (HCC) Genna Horta, [facility] Shandra CORADO, M.S.N. [address] [place] [phone] Referral ID Status Reason Start Date Expiration Date Visits Requ ested Visits Authorized [id number] Closed 08/25/2021 08/25/2022 1 1 NICAL STAFF ENGINEER Specialty Diagnoses / Procedures Referred By Contact Refer red To Contact Genna Horta APRN, C.N.Ashia, [facility] M.S.N. [address] [place] [phone] Referral ID Status Reason Start Date Expiration Date Visits Requ ested Visits Authorized Scheduling Instructions Please schedule labs and imaging prior t o Medical Oncology return visit. Thank you. Please schedule survivorship nurse visit after med Onc visit. utpatient (Routine) - Closed Specialty Diagnoses / Procedures Referred By Contact Refer red To Contact Genna Horta APRN, C.N.P., [facility] M.S.N. [address] [place], [place] [phone] Referral ID Status Reason Start Date Expiration Date Visits Requ ested Visits Authorized [id number] Closed 08/24/2021 08/24/2022 1 1 Scheduling Instructions Please schedule labs and imaging prior t o Medical Oncology return visit. Thank you. Please schedule survivorship nurse visit after med Onc visit. utpatient (Routine) - Closed Specialty Diagnoses / Procedures Referred By Contact Refer red To Contact Oncology [facility], [facility].P., [facility] [address] [place], [place] [phone] Referral ID Status Reason Start Date Expiration Date Visits Requ ested Visits Authorized [id number] Closed 08/24/2021 08/24/2022 1 1 Scheduling Instructions Please schedule labs and imaging prior t o Medical Oncology return visit. Thank you. Please schedule survivorship nurse visit after med Onc visit. RI/CAT/PET Scan (Routine) - Closed Specialty Diagnoses / Procedures Referred By Contact Refer red To Contact Radiology Diagnoses Malignant Neoplasm Of Ovary Laterality Unknown (HCC) Genna Horta APRN, [facility] Procedures CT Chest with IV Contrast NM CT THORAX W CNTRST NM 3D WO IND WORKSTATION Shandra, M.S.N. [address] [place] [phone] Referral ID Status Reason Start Date Expiration Date Visits Requ ested Visits Authorized [id number] Closed 08/24/2021 08/24/2022 1 1 NICAL STAFF ENGINEER Reason for Visit Outpatient (Routine) - Closed Specialty Diagnoses / Procedures Referred By Contact Refer red To Contact Oncology Lisa Dalton M.D. [place] [address] [place] [phone] Referral ID Status Reason Start Date Expiration Date Visits Requ ested Visits Authorized [id number] Closed 08/03/2021 08/03/2022 1 1 Encounter Details Date Type Department Care Team Description 08/24/2021 Office Visit Department of Genna Horta Malignan t Neoplasm Of Oncology in ANGLESMITH HELPER, C.N.P., Ovary Laterali ty [place], [place] M.S.N. Unknown (HCC) (Primary [address] [facility] D[facility]) [place] [phone] Social History Tobacco Use Types Packs/Day Years [...] or relatives? How often do you attend sabianist or pentecostalism More than 4 time s per year 10/23/2021 services? Do you belong to any clubs or organizations No 10/23/2021 such as sabianist groups, unions, fraternal or athletic groups, or [...] place to sleep or slept in a mcc (including now)? Education Answer Date Recorded What is the highest level of school Bachelor's degree (e.g., BA, AB, 03/10/2021 you have completed or the highest BS) degree you have received? Sex Assigned at Date Recorded Female 03/13/2021 7:24 PM CDT documented as of this encounter Last Filed Vital Signs Vital Sign Reading Time Taken Comments Blood Pressure 156/87 08/24/2021 12:54 PM TECHNICAL STAFF ENGINEER Pulse 91 08/24/2021 12:54 PM TECHNICAL STAFF ENGINEER Temperature 37.1 ??C (98.8 ??F) 08/24/2021 12:54 PM TECHNICAL STAFF ENGINEER Respiratory Rate - - Oxygen Saturation 100% 08/24/2021 12:54 PM TECHNICAL STAFF ENGINEER Inhaled Oxygen Concentration - - Weight 63 kg (138 lb 14.2 oz) 08/24/2021 12:54 PM TECHNICAL STAFF ENGINEER Height 162.2 cm (5' 3.86) 08/24/2021 12:54 PM TECHNICAL STAFF ENGINEER Body Mass Index 23.95 08/24/2021 12:54 PM TECHNICAL STAFF ENGINEER documented in this encounter Progress Notes Genna Horta, MICKIE, C.N.P., M.S.N. - 08/24/2021 1:20 PM CST CHIEF COMPLAINT/PUPROSE OF VISIT: Ms. Aviles is a 60 y.o. 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 Kenny Hui ([id number]) HISTORY OF PRESENT ILLNESS: Ms. Aviles is a very pleasant 60 y.o. woman with the following oncologic history: [...] involving the bowel. Biopsy confirmed adenocarcinoma of addictions therapist primary. 03/12/2021 Biopsy/Pathology Intraoperative biopsy showed: A. 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 B. 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 Immunohistochemical stains were performed on block B1 using antibodies to NM, keratin AE1/AE3, p16, p53, PAX8, BRG1, INI-1, WT1. The tumor cells are positive for cytokeratin AE1/AE3, NM, p16, p53, PAX8, and WT1. INI-1 and BRG1 are retained. These results support the above diagnosis. 03/30/2021 - 05/11/2021 Chemotherapy CARBOplatin AUC 6 / PACLitaxel ( ONLINE TRADER ) Start Date: 03/30/2021 Completed 3 cycles [...] Chemotherapy CARBOplatin AUC 6 / PACLitaxel ( ONLINE TRADER ) Start Date: 03/30/2021 Plan for three cycles of adjuvant therapy. Genetic Testing and Tumor Genotyping 07/27/21 - [facility] somatic testing ordered. CLS INTERVAL HISTORY: Mrs. Aviles presents today with her , Klaus, for evaluation following completion of 6 cycles of treatment with combination carboplatin and paclitaxel chemotherapy for her newly diagnosed ovarian cancer. She reports that she has been feeling overall well, the exception of mild neuropathy symptoms in her fingertips. She notes that these did not worsen with her last treatment, and her very manageable. She denies any symptoms in her feet. She did note fatigue following her treatment, but feels that this has improved over the last couple of weeks. She notes that she is otherwise eating and drinking without issue, denies urinary concerns, bowel changes, or vaginal bleeding/discharge. ROS: Pertinent items are noted in HPI; all other review of systems were negative. VITAL SIGNS: Vitals Blood Pressure: 156/87, Temperature: 37.1 ??C, Temp Source: Tympanic, Pulse Rate: 91, SpO2: 100 %, Height: 162.2 cm, Weight: 63 kg BP Readings from Last 1 Encounters: 08/24/21 156/87 Pulse Readings from Last 1 Encounters: 08/24/21 91 Temp Readings from Last 1 Encounters: 08/24/21 37.1 ??C (Tympanic) No data recorded PHYSICAL EXAM: General: Alert and oriented, and in no acute distress. Able to ambulate on and off the exam table without difficulty. ECOG PS 1. Lymph: No palpable cervical, supraclavicular, axillary, and inguinal lymphadenopathy. Heart: Regular rate and rhythm. Lungs: Clear to auscultation bilaterally. Abdomen: Soft, non-tender, non-distended. Extremities: No pitting edema. No tenderness or erythema. Mental: Mood and affect appropriate for situation. DIAGNOSTICS: I reviewed the pertinent laboratory and diagnostic data. ASSESSMENT/PLAN: #1 Stage IV A high-grade serous ovarian cancer #2 Germline and somatic BRCA wild type Mrs. Aviles presents today with her , Klaus, for evaluation post completion of a total of 6 cycles of treatment with combination carboplatin and paclitaxel chemotherapy for her newly diagnosed ovarian cancer. Her labs were reviewed, and continue to recover from recent chemotherapy. She remains mildly thrombocytopenic. We did discuss that her counts should recover completely over the course of thenext 4 weeks. I would anticipate it would be safe for her to resume activities such as dental cleanings at this time. We reviewed results of her CA 125, which came back well within normal range at 15 today. We reviewed results of the CT of her abdomen and pelvis, which revealed no evidence for recurrent or metastatic disease. There is also notation of continued reduction in the size of a cardiophrenic lymph node, and a stable pleural nodule. She understands that I would recommend that she enter intosurveillance at this time. We did spend time reviewing through surveillance scheduling, including return visits every 3-4 months for the 1st 2 years, followed by every 6 month visits for a total of 5 years. She understands that I will plan to have her meet with our nurses to complete survivorship Education at her next return visit. We did spend time reviewing through results of the germline and somatic testing. She understands that both of these were negative for a BRCA mutation. Unfortunately, the somatic testing did come back inconclusive for homologous recombination deficiency. She understands that we have resubmitted this test with a new sample to see if we can obtain this result for planning moving forward. She understandsrelevance of this testing in regard to use of PARP inhibitor maintenance therapy. We did spend some time reviewing through available data on niraparib, and she understands that median progression-free s urvival benefit was of a few months in patients without any clear BRCA or HR D mutation. We discussed pros and cons of proceeding with PARP inhibitor maintenance therapy in this setting, and at this time she would like to proceed without initiation of PARP. I will follow up with her once I have results of the newly submitted somatic testing. If there is an HR deficiency, I would recommend she reconsider use of PARP inhibitor maintenance therapy. At this time, we will plan to see her back in roughly 3-4 months for surveillance. Of note, her imaging from May did indicate some findings in her chest in which follow-up was recommended. For this reason, I will plan to order a CT of the chest for her 1st surveillance visit as a baseline comparison. She verbalized understanding of the above information, and has no further questions or concerns at this time. She agrees to reach out to us in the interim if she develops any new or concerning symptoms prior to her next planned return visit. PATIENT EDUCATION Ready to learn, no apparent learning barriers were identified; learning preferences include listening. Explained diagnosis and treatment plan; patient expressed understanding of the content. NICAL STAFF ENGINEER documented in this encounter Miscellaneous Notes Addendum Note - Genna Horta APRN, C.NAlphonso, M.S.N. - 08/24/2021 1:20 PM TECHNICAL STAFF ENGINEER Addended by: GENNA HORTA on: 08/25/2021 01:32 PM Modules accepted: Orders NICAL STAFF ENGINEER documented in this encounter Plan of Treatment Upcoming Encounters Date Type Specialty Care Team Description 05/11/2022 Lab Laboratory Medicine Kathleen Mccarty M.D. [address] [place] [phone] 05/12/2022 Clinical Communication Admitting/Central Scheduling 05/13/2022 Telemedicine Oncology Kathleen Mccarty M.D. [address] [place] [phone] Maribeth Guthrie R.N., O.C.N. [address] [place] [phone] 05/18/2022 Lab Laboratory Medicine Genna Horta APRN, C.N.P., M.S.N. [address] [place] [phone] 05/18/2022 Office Visit Oncology Genna Horta APRN, C.NAlphonso, M.S.N. [address] [place] [phone] Scheduled Referrals Name Type Priority Associated Order Schedule Diagnoses Oncology office visit Outpatient Referral Routine Expected: (clinic) General; ONLINE TRADER 2021, Expires: 12/27/2023 Oncology - Outpatient Referral Routine Expected : Survivorship care 11/20/2021 , plan nurse visit Expires: (clinic) 12/27/2023 Patient Education - Outpatient Referral Routine Malignant Neop lasm Expected: Moving forward after Of Ovary Laterality 11/20/2021, cancer treatment Unknown (HCC) Expires: (clinic) 12/27/2023 Integrative Medicine Outpatient Referral Routine Malignant Obie plasm Expected: - Oncology consult Of Ovary Laterality (clinic) Unknown (HCC) (Approximate), Expires: 11/22/2022 documented as of this encounter Results Cancer Antigen 125 (CA 125) (11/20/2021 12:55 PM CDT) athologist Signature Cancer Ag 125 7 <46 U/mL 11/20/2021 SDSC (CA 125), S 5:47 PM CDT Comment: ----ADDITIONAL INFORMATION---- The testing [...] Location / / Volume Laterality Blood (Blood, 11/20/2021 12:55 11/20/2021 5:10 Venous) PM CDT PM CDT Genna Horta APRN C.N.P., M.S.N. LAB BLOOD ADD-ON Performing Organization Address City/State/ZIP Code Phon e Number [facility] [address] [place], [place] [phone] [facility] [address] Laboratory Medicine and Pathology [address] [place] [address] Chest with IV Contrast (11/20/2021 12:24 [...] by the treating provider and reviewed by [facility] radiologist to increase sensitivity for detection of [...] by the treating provider and reviewed by [facility] radiologist to increase sensitivity for detection of pulmonary nodules. IMPRESSION: 1. Scattered new indeterminate pulmonary micronodules. 2. A few thoracic lymph nodes have decre ased. 3. Resolved pleural effusions. 4. Otherwise no change since 05/28/2021. Genna Horta APRN, C.N.P., M.S.N. IMG CT PROCEDURE S documented in this encounter Visit Diagnoses Diagnosis Malignant Neoplasm Of Ovary Laterality U nknown (HCC) - Primary Malignant Neoplasm Of Ovary Laterality U nknown (HCC) documented in this encounter Care Teams Bulb Tester Relationship Specialty Start Date End Date Elsewhere, Pcp PCP - General Family Medicine 03/10/21 documented as of this encounter
--- OUTSIDE RECORDS SUMMARY | 2022-03-25 08:49 | XMS_ITS | Encounter Summary ---
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); Laboratory Medicine Cass Benitez PreDiabetes; and Pathology, [address] [place] [address] Anemia Iron Deficiency Blood Loss Chroni c; [facility], in [place], [place] Hyperli pidemia; [place], [phone] Deficiency Vitamin D; [place] [phone] Hypertension Essential Prima ry; [address] [place] [address] (Work) Encounter For Screening For Cardiovascul ar Disorders; [place], [place] [phone] Abnormal Findi ng Of Blood Chemistry Unspecified; [phone] (Fax) Neuropathy Peripheral [phone] Social History Tobacco Use Types Packs/Day Years [...] How often do you attend mandaen or yazidi More than 4 time s per year [...] Refills Start Date End Date acetaminophen (TYLENOL) Take 2 tablets (1,000 0 1 08/03/2020 500 mg tablet mg total) by mouth every 6 (six) hours as needed for pain. ascorbic acid, vitamin Take 1,000 mg by 0 C, (VITAMIN C) 500 mg mouth daily. Dose tablet unknown cholecalciferol (VITAMIN Take 50 mcg by mouth 0 0 12/29/2017 D3) 50 mcg (2,000 Unit) every morning. tablet ibuprofen (ADVIL,MOTRIN) Take 3 tablets (600 0 200 mg tablet mg total) by mouth every 6 (six) hours as needed for pain. Lactobacillus 0 10/21/2021 acidophilus (Probiotic) 10 billion cell capsule lisinopriL Take 40 mg by mouth 0 10/30/2020 (PRINIVIL,ZESTRIL) 30 mg at bedtime. tablet magnesium hydroxide Take by mouth. 60 mg 0 (MILK OF MAGNESIA ORAL) as needed multivitamin tablet Take 1 tablet by 0 mouth daily. polyethylene glycol 0 08/18/2021 (Miralax) 17 gram/dose oral powder LORazepam (ATIVAN) 0.5 Take 1 tablet (0.5 mg 30 tablet 3 11/20/2021 mg tabletIndications: total) by mouth every Malignant Neoplasm Of 6 (six) hours as Ovary Laterality Unknown needed (nausea, (HCC) vomiting) for up to 30 doses. If ineffective, may repeat once after 30 minutes. ondansetron (ZOFRAN) 8 Take 1 tablet (8 mg 30 tablet 3 01/202111/20/2021 mg tabletIndications: total) by mouth every Malignant Neoplasm Of 8 (eight) hours as Ovary Laterality Unknown needed for nausea or (HCC) vomiting. oxyCODONE (ROXICODONE) 5 Take 1 tablet (5 mg 12 tablet 0 11/20/2021 mg immediate release total) by mouth every tabletIndications: Acute 4 (four) hours as Pain needed for pain (not relieved by acetaminophen and ibuprofen) Indication: acute pain. prochlorperazine Take 1 tablet (10 mg 30 tablet 3 1 11/20/2021 (COMPAZINE) 10 mg total) by mouth every tabletIndications: 6 (six) hours as Malignant Neoplasm Of needed for nausea or Ovary Laterality Unknown vomiting (unrelieved (HCC) by ondansetron). rivaroxaban (XARELTO) 10 Take 1 tablet (10 mg 26 tablet 0 1 08/04/2020 11/20/2021 mg tablet total) by mouth daily. sennosides-docusate Take 1 tablet by 90 tablet 0 06/03/2021 11/20/2021 sodium (SENOKOT-S) mouth daily. 8.6-50 mg per tablet documented as of this encounter Plan of Treatment Upcoming Encounters Date Type Specialty Care Team Description 05/11/2022 Lab Laboratory Medicine Kathleen Mccarty M.D. [address] [place] [address] 05/12/2022 Clinical Communication Admitting/Central Scheduling 05/13/2022 Telemedicine Oncology Kathleen Mccarty M.D. [address] [place] [address] Maribeth Guthrie R.N., O.C.N. [address] [place] [phone] 05/18/2022 Lab Laboratory Medicine Mychal Nataly Garvin APRN, C.N.P., M.S.N. [address] [place] [phone] 05/18/2022 Office Visit Oncology Nataly Horta APRN, C.N.P., M.S.N. [address] [place] [address] [phone] documented as of this encounter Procedures Procedure Name Priority Date/Time Associated Diagnosis Comme nts THYROID FUNCTION Routine 10/28/2021 4:05 Malignant Neoplasm Of Results for this CASCADE, S PM CDT Ovary Laterality procedure a re in Unknown (HCC) the results PreDiabetes section. Anemia Iron Deficiency Blood Loss Chron ic Hyperlipidemia Deficiency Vitam in D Hypertension Essential Primary Encounter For Screening For Cardiovascular Disorders Abnormal Finding Of Blood Chemistry Unspecified Neuropathy Peripheral INSULIN, S Routine 10/28/2021 4:05 Malignant Neoplasm Of Res ults for this PM CDT Ovary Laterality procedure a re in Unknown (HCC) the results PreDiabetes section. Anemia Iron Deficiency Blood Loss Chron ic Hyperlipidemia Deficiency Vitam in D Hypertension Essential Primary Encounter For Screening For Cardiovascular Disorders Abnormal Finding Of Blood Chemistry Unspecified Neuropathy Peripheral METHYLMALONIC ACID Routine 10/28/2021 4:05 Malignant Neoplasm Of Results for this (MMA), HUONG, S PM CDT Ovary Laterality procedure are in Unknown (HCC) the results PreDiabetes section. Anemia Iron Deficiency Blood Loss Chron ic Hyperlipidemia Deficiency Vitam in D Hypertension Essential Primary Encounter For Screening For Cardiovascular Disorders Abnormal Finding Of Blood Chemistry Unspecified Neuropathy Peripheral IRON AND TOT Routine 10/28/2021 4:05 Malignant Neoplasm Of Res ults for this IRON-BINDING PM CDT Ovary Laterality procedure a re in CAPACITY, S/P Unknown ([facility]) the results PreDiabetes section. Anemia Iron Deficiency Blood Loss Chron ic Hyperlipidemia Deficiency Vitam in D Hypertension Essential Primary Encounter For Screening For Cardiovascular Disorders Abnormal Finding Of Blood Chemistry Unspecified Neuropathy Peripheral CERULOPLASMIN, S Routine 10/28/2021 4:05 Malignant Neoplasm Of Results for this PM CDT Ovary Laterality procedure a re in Unknown (HCC) the results PreDiabetes section. Anemia Iron Deficiency Blood Loss Chron ic Hyperlipidemia Deficiency Vitam in D Hypertension Essential Primary Encounter For Screening For Cardiovascular Disorders Abnormal Finding Of Blood Chemistry Unspecified Neuropathy Peripheral 25-HYDROXYVITAMIN D2 Routine 10/28/2021 4:05 Malignant Neoplas m Of Results for this AND D3, S PM CDT Ovary Laterality procedure a re in Unknown (HCC) the results PreDiabetes section. Anemia Iron Deficiency Blood Loss Chron ic Hyperlipidemia Deficiency Vitam in D Hypertension Essential Primary Encounter For Screening For Cardiovascular Disorders Abnormal Finding Of Blood Chemistry Unspecified Neuropathy Peripheral CBC WITH Routine 10/28/2021 4:05 Malignant Neoplasm Of Res ults for this DIFFERENTIAL, B PM CDT Ovary Laterality procedur e are in Unknown (HCC) the results PreDiabetes section. Anemia Iron Deficiency Blood Loss Chron ic Hyperlipidemia Deficiency Vitam in D Hypertension Essential Primary Encounter For Screening For Cardiovascular Disorders Abnormal Finding Of Blood Chemistry Unspecified Neuropathy Peripheral C-REACTIVE PROTEIN, Routine 10/28/2021 4:05 Malignant Neoplasm Of Results for this HIGH SENSITIVITY, S/P PM CDT Ovary Laterality pr ocedure are in Unknown ([facility]) the results PreDiabetes section. Anemia Iron Deficiency Blood Loss Chron ic Hyperlipidemia Deficiency Vitam in D Hypertension Essential Primary Encounter For Screening For Cardiovascular Disorders Abnormal Finding Of Blood Chemistry Unspecified Neuropathy Peripheral HEMOGLOBIN A1C, B Routine 10/28/2021 4:05 Malignant Neoplasm O f Results for this PM CDT Ovary Laterality procedure a re in Unknown (HCC) the results PreDiabetes section. Anemia Iron Deficiency Blood Loss Chron ic Hyperlipidemia Deficiency Vitam in D Hypertension Essential Primary Encounter For Screening For Cardiovascular Disorders Abnormal Finding Of Blood Chemistry Unspecified Neuropathy Peripheral FOLATE, S Routine 10/28/2021 4:05 Malignant Neoplasm Of Res ults for this PM CDT Ovary Laterality procedure a re in Unknown (HCC) the results PreDiabetes section. Anemia Iron Deficiency Blood Loss Chron ic Hyperlipidemia Deficiency Vitam in D Hypertension Essential Primary Encounter For Screening For Cardiovascular Disorders Abnormal Finding Of Blood Chemistry Unspecified Neuropathy Peripheral FERRITIN, S Routine 10/28/2021 4:05 Malignant Neoplasm Of Res ults for this PM CDT Ovary Laterality procedure a re in Unknown (HCC) the results PreDiabetes section. Anemia Iron Deficiency Blood Loss Chron ic Hyperlipidemia Deficiency Vitam in D Hypertension Essential Primary Encounter For Screening For Cardiovascular Disorders Abnormal Finding Of Blood Chemistry Unspecified Neuropathy Peripheral VITAMIN B12 ASSAY, S Routine 10/28/2021 4:05 Malignant Neoplas m Of Results for this PM CDT Ovary Laterality procedure a re in Unknown (HCC) the results PreDiabetes section. Anemia Iron Deficiency Blood Loss Chron ic Hyperlipidemia Deficiency Vitam in D Hypertension Essential Primary Encounter For Screening For Cardiovascular Disorders Abnormal Finding Of Blood Chemistry Unspecified Neuropathy Peripheral ZINC, S Routine 10/28/2021 4:04 Malignant Neoplasm Of Res ults for this PM CDT Ovary Laterality procedure a re in Unknown (HCC) the results PreDiabetes section. Anemia Iron Deficiency Blood Loss Chron ic Hyperlipidemia Deficiency Vitam in D Hypertension Essential Primary Encounter For Screening For Cardiovascular Disorders Abnormal Finding Of Blood Chemistry Unspecified Neuropathy Peripheral COMPREHENSIVE Routine 10/28/2021 4:04 Malignant Neoplasm Of Re sults for this METABOLIC PANEL, S/P PM CDT Ovary Laterality pro cedure are in Unknown (HCC) the results PreDiabetes section. Anemia Iron Deficiency Blood Loss Chron ic Hyperlipidemia Deficiency Vitam in D Hypertension Essential Primary Encounter For Screening For Cardiovascular Disorders Abnormal Finding Of Blood Chemistry Unspecified Neuropathy Peripheral documented in this encounter Results (ABNORMAL) Methylmalonic Acid (MMA), Quantitative (10/28/2021 4:05 PM CDT) [facility] Method Time Signature Methylmalonic 0.68 (H) <=0.40 11/02/2021 DTL Acid, QN, S nmol/mL 7:58 AM CDT Comment: In this sample, the concentration of met hylmalonic acid (MMA) was elevated. This finding is likely related to vitami n B12 deficiency. ----ADDITIONAL INFORMATION---- This test was developed and its performa nce characteristics determined by [facility] in a manner consistent with CLIA [...] Organization Address City/State/ZIP Code Phon e Number [facility] - [address] [place], [place] [address] [facility] [place] [address] [facility] 200 [facility] (ABNORMAL) Ceruloplasmin (10/28/2021 4:05 PM CDT) athologist Signature Ceruloplasmin, 19.2 (L) 20.0 - [...] at or the on-line test catalog at [employer] for m ore information. Specimen Anatomical Collection Method Collection Time Receive d Time (Source) Location / / Volume Laterality Blood (Blood, 10/28/2021 4:05 PM 10/30/19 22 7:24 Venous) CDT AM CDT Kathleen Mccarty M.D. LAB BLOOD ADD-ON Performing Organization Address City/State/ZIP Code Phon e Number [facility] - [address] [place], [place] [address] [facility] [place] [address] [facility] 200 [facility] Folate (10/28/2021 4:05 PM CDT) athologist Signature Folate, S >20.0 >=4.0 mcg/L 10/29/2021 7:10 DTL AM CDT Specimen Anatomical Collection Method Collection Time Receive d Time (Source) Location / / Volume Laterality Blood (Blood, 10/28/2021 4:05 PM 10/29/19 22 4:59 Venous) CDT PM CDT Kathleen Mccarty M.D. LAB BLOOD ADD-ON Performing Organization Address City/[facility]/ZIP Code Phon e Number [facility] - [address] [place], [place] [address] [place] [id number] [place] [address] 200 [facility] Vitamin B12 Assay (10/28/2021 4:05 PM CDT) athologist Signature Vitamin B12 206 180 - 914 10/29/2021 DT Assay, S ng/L 7:18 AM CDT Comment: [...] M.D. LAB BLOOD ADD-ON Performing Organization Address City/[facility]/ZIP Code Phon e Number [facility] - [address] [place], [place] [address] [place] [id number] [place] [address] [address] [facility] Hemoglobin A1c (10/28/2021 4:05 PM CDT) athologist Signature Hemoglobin A1c, 5.6 4.0 - 5.6 10/28/2021 DT B % 5:39 PM CDT Specimen Anatomical Collection Method Collection Time Receive d Time (Source) Location / / Volume Laterality Blood (Blood, 10/28/2021 4:05 PM 10/29/19 22 4:41 Venous) CDT PM CDT Kathleen Mccarty M.D. LAB BLOOD ADD-ON Performing Organization Address City/[facility]/ZIP Code Phon e Number [facility] - [address] [place], [place] [address] [place] [address] [facility] [address] [facility] Insulin (10/28/2021 4:05 PM CDT) athologist Signature Insulin, S 18.0 2.6 - 24.9 10/28/2021 DTL mcIU/mL 5:51 PM CDT Specimen Anatomical Collection Method Collection Time Receive d Time (Source) Location / / Volume Laterality Blood (Blood, 10/28/2021 4:05 PM 10/29/19 22 5:00 Venous) CDT PM CDT Kathleen Mccarty M.D. LAB BLOOD ADD-ON Performing Organization Address City/State/[facility] Phon e Number [facility] - [address] [place], [place] [address] [facility] [place] [address] [address] Ferritin (10/28/2021 4:05 PM CDT) athologist [facility] [place] Ferritin, S 46 [phone] 10/28/2021 DTL mcg/L 5:48 PM CDT Specimen Anatomical Collection Method Collection Time Receive d Time (Source) Location / / Volume Laterality Blood (Blood, 10/28/2021 4:05 PM 10/29/19 22 5:00 Venous) CDT PM CDT Kathleen Mccarty M.D. LAB BLOOD ADD-ON Performing Organization Address City/State/[facility] Code Phon e Number [facility] - [address] [place], [place] [address] [place] [address] [address] (ABNORMAL) Iron and Total Iron-Binding Capacity (10/28/2021 4:05 PM CDT) athologist [facility] Iron 90 35 - 145 10/28/2021 DTL [...] M.D. LAB BLOOD ADD-ON Performing Organization Address City/[facility] Phon e Number [facility] - [address] [place] [address] [address] C-Reactive Protein, High Sensitivity (10/28/2021 4:05 PM CDT) athologist Signature C-Reactive 1.8 <2.0 mg/L 10/28/2021 DT Protein, High 5:51 PM CDT Sens, S Specimen Anatomical Collection Method Collection Time Receive d Time (Source) Location / / Volume Laterality Blood (Blood, 10/28/2021 4:05 PM 10/29/19 5:00 Venous) CDT PM CDT Kathleen Mccarty M.D. LAB BLOOD ADD-ON Performing Organization Address [facility] Phon e Number [facility] - [address] [place] [address] [address] 25-Hydroxyvitamin D2 and D3 (10/28/2021 4:05 PM CDT) athologist Signature 25-Hydroxy D2 <4.0 ng/mL 10/29/2021 SDSC 11:38 PM CDT 25-Hydroxy D3 61 ng/mL 10/29/2021 SDSC 11:38 PM CDT 25-Hydroxy D 61 ng/mL 10/29/2021 SDSC Total 11:38 PM CDT Comment: Interpretation: 51-80 ng/mL (increased r isk of hypercalciuria) ----REFERENCE VALUE---- 25-HYDROXY D TOTAL (D2+D3) Optimum level s in the healthy population are 20-50, patients with bone disease may benefit from higher levels within this r timothy. ----ADDITIONAL INFORMATION---- This test was developed and its performa nce characteristics determined by [facility] in a manner consistent with CLIA requirements. This test has not been cleared or approved by the [place] d and Drug Administration. Specimen Anatomical Collection Method Collection Time Receive d Time (Source) Location / / Volume Laterality Blood (Blood, 10/28/2021 4:05 PM 04/14/20 22 7:24 Venous) CDT AM CDT Kathleen Mccarty M.D. LAB BLOOD ADD-ON Performing Organization Address City/[facility]/[place]IP [facility] [place] Number [facility] [address] [place], [place] [address] [facility] [address] Laboratory Medicine and Pathology [address] [place] Thyroid Function [place] (10/28/2021 4:05 PM CDT) athologist Signature TSH, Sensitive 1.9 0.3 - 4.2 10/28/2021 DTL mIU/L 5:51 PM CDT Specimen Anatomical Collection Method Collection Time Receive d Time (Source) Location / / Volume Laterality Blood (Blood, 10/28/2021 4:05 PM 10/29/19 5:00 Venous) CDT PM CDT Kathleen Mccarty M.D. LAB BLOOD ADD-ON Performing Organization Address [facility] Phon e Number [facility] - [address] [place], [place] [address] [facility] [place] [address] [facility] CBC with Differential, Blood (10/28/2021 4:05 PM CDT) athologist Signature Hemoglobin 12.4 11.6 - 10/28/2021 [...] M.D. LAB BLOOD ADD-ON Performing Organization Address City/[facility] Phon e Number [facility] - [address] [place], [place] [address] [facility] [place] [address] [facility] [address] Zinc (10/28/2021 4:04 PM CDT) athologist Signature Zinc, S 0.91 0.66 - 1.10 10/29/2021 [facility] mcg/mL 12:10 PM CDT Comment: ----ADDITIONAL INFORMATION---- This test was developed and its performa nce characteristics determined by [facility] in a manner consistent with CLIA requirements. This test has not been cleared or approved by the [place]. [place] d and Drug Administration. Specimen Anatomical Collection Method Collection Time Receive d Time (Source) Location / / Volume Laterality Blood (Blood, 10/28/2021 4:04 PM 10/29/19 Venous) CDT 10:17 PM CDT Kathleen Mccarty M.D. LAB BLOOD NON ADD-ON Performing Organization Address City/[facility] Phon e Number [facility] [address] [place], [place] [address] [facility] [place] [address] Laboratory Medicine and Pathology [address] [place] (ABNORMAL) Comprehensive Metabolic Panel (10/28/2021 4:04 PM CDT) P athologist Signature Potassium, S 4.7 3.6 - [...] 10/28/2021 DTL Black/ mL/min/BSA 5:49 PM CDT Cypriot Comment: ----ADDITIONAL INFORMATION---- Estimated GFR calculated using [...] Organization Address City/State/ZIP Code Phon e Number [facility] - [address] [place], [place] [address] [facility] [place] [address] [facility] [address] documented in this encounter Visit Diagnoses Diagnosis Malignant Neoplasm Of Ovary Laterality U nknown (HCC) PreDiabetes Anemia Iron Deficiency Blood Loss Chroni c Hyperlipidemia Deficiency Vitamin D Hypertension Essential Primary Encounter For Screening For Cardiovascul ar Disorders Abnormal Finding Of Blood Chemistry Unsp ecified Neuropathy Peripheral documented in this encounter Care Teams Shared Services Representative Relationship Specialty Start Date End Date Elsewhere, Pcp PCP - General Family Medicine 03/10/21 documented as of this encounter
--- OUTSIDE RECORDS SUMMARY | 2022-03-25 08:49 | XMS_ITS | Encounter Summary ---
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 [facility] Procedures CT Abdomen Pelvis with IV Contrast PA CT ABD&PELVIS W CN[facility]ST [address] [place] [phone] Referral ID Status Reason Start Date Expiration Date Visits Requ ested Visits Authorized [id number] Closed 08/18/2021 08/03/2022 1 1 Encounter Details Date Type Department Care Team Description 08/24/2021 Hospital Encounter Department of Lisa Dalton Malign ant Chin Of RadiologyLadi M.D. Ovary Laterality Building, in [address] [place] [address] Unknown (HCC) [place], [place] [address] [facility] [id number] [place], [place] [phone] (Work) [phone] Social History Tobacco Use Types Packs/Day Years [...] place to sleep or slept in a [facility] (including now)? Education Answer Date Recorded What [...] (six) hours as needed for pain. lisinopriL Take 40 mg by mouth 0 [...] Lab Laboratory Medicine Kathleen Mccarty M.D. [address] [place] [phone] 05/12/2022 Clinical Communication Admitting/Central Scheduling 05/13/2022 Telemedicine Oncology Kathleen Mccarty M.D. [address] [place] [phone] Maribeth Guthrie R.N., O.C.N. [address] [place] [phone] 05/18/2022 Lab Laboratory Medicine Nataly Horta APRN C.N.P., M.S.N. [address] [place] [phone] 05/18/2022 Office Visit Oncology Nataly Horta APRN C.N.P., M.S.N. [address] [place] [phone] documented as of this encounter Procedures Procedure Name Priority Date/Time Associated Comments Diagnosis CT ABDOMEN PELVIS RAD - Routine 08/24/2021 8:59 Malignant Result s for this WITH IV CONTRAST (most inpatients AM HELPER DRIVER Neoplasm Of Ovary pr ocedure are in and all Laterality the results outpatients) Unknown (HCC) section. documented in this encounter Results CT Abdomen Pelvis with IV Contrast (08/24/2021 8:59 AM HELPER DRIVER) Anatomical Region Laterality Modality Abdomen, Pelvis, Abdominal RST LOS, N/A Comp uted Tomography, Computed Abdominal ARZ LOS, Abdominal FLA LOS Moreno ography Specimen (Source) Anatomical Collection Method Collection Time Re ceived Time Location / / Volume Laterality 08/24/2021 8:56 AM HELPER DRIVER Impressions 08/24/2021 10:59 AM HELPER DRIVER 1. Interval hysterectomy, bilateral salpingo-oophorectomy, omentectomy. No definite evidence of residual or metasta tic disease within the abdomen and pelvis. 2. Continued interval decrease in size o f ??a cardiophrenic node, now 6 mm. Narrative 08/24/2021 10:59 AM HELPER DRIVER EXAM: ??CT ABDOMEN PELVIS WITH IV CONTRAST COMPARISON: Multiple prior CT scans of t he abdomen and pelvis, most recent dated 05/28/2021. HISTORY: 60-year-old female with history of ovarian cancer status post total abdominal hysterectomy, bilateral salpin go-oophorectomy and omentectomy on 06/01/2021. FINDINGS: Interval surgical resection of anterior omentum previously involved by carcinomatosis. No abdominal or pelvic l ymphadenopathy. Subcentimeter retroperitoneal, mesenteric and pelvic l ymph nodes are not substantially changed in the interval. No new or suspicious hepatic lesion. Sta ble indeterminate 4 mm hypoattenuating hepatic segments 7 lesion is too small t o further characterize by CT. No intra or extra hepatic biliary ductal dilatati on. Gallbladder is decompressed. Spleen, both adrenal glands, pancreas an d right kidney are normal. Left renal cortical scar along the superior pole, w ith too small to characterize hypodensities, likely small cysts. Normal colon and small bowel caliber wit hout obstruction or inflammatory changes. No free intraperitoneal fluid o r gas. Urinary bladder relatively decompressed. No suspicious osteolytic or osteoblastic lesions. On limited evaluation of the lung bases there is an indeterminate nodule abutting the pleura, 3 mm (series 3 imag e 9), unchanged from 03/06/2021. Continued interval decrease in size of a cardiophrenic lymph node measuring 6 mm (series 3 image 6) cardiophrenic lymph n ode, previously 9 mm 05/28/2021 and 15 mm 03/06/2021. Procedure Note Nguyen Rowe M.D. - 08/24/2021Fo rmatting of this note might be different from the original. EXAM: CT ABDOMEN PELVIS WITH IV CONTRAST COMPARISON: Multiple prior CT scans of t he abdomen and pelvis, most recent dated 05/28/2021. HISTORY: 60-year-old female with history of ovarian cancer status post total abdominal hysterectomy, bilateral salpin go-oophorectomy and omentectomy on 06/01/2021. FINDINGS: Interval surgical resection of anterior omentum previously involved by carcinomatosis. No abdominal or pelvic l ymphadenopathy. Subcentimeter retroperitoneal, mesenteric and pelvic l ymph nodes are not substantially changed in the interval. No new or suspicious hepatic lesion. Sta ble indeterminate 4 mm hypoattenuating hepatic segments 7 lesion is too small t o further characterize by CT. No intra or extra hepatic biliary ductal dilatati on. Gallbladder is decompressed. Spleen, both adrenal glands, pancreas an d right kidney are normal. Left renal cortical scar along the superior pole, w ith too small to characterize hypodensities, likely small cysts. Normal colon and small bowel caliber wit hout obstruction or inflammatory changes. No free intraperitoneal fluid o r gas. Urinary bladder relatively decompressed. No suspicious osteolytic or osteoblastic lesions. On limited evaluation of the lung bases there is an indeterminate nodule abutting the pleura, 3 mm (series 3 imag e 9), unchanged from 03/06/2021. Continued interval decrease in size of a cardiophrenic lymph node measuring 6 mm (series 3 image 6) cardiophrenic lymph n ode, previously 9 mm 05/28/2021 and 15 mm 03/06/2021. IMPRESSION: 1. Interval hysterectomy, bilateral salp ingo-oophorectomy, omentectomy. No definite evidence of residual or metasta tic disease within the abdomen and pelvis. 2. Continued interval decrease in size o f a cardiophrenic node, now [address] PROCEDURES documented in this encounter Visit Diagnoses Diagnosis Malignant Neoplasm Of Ovary Laterality U nknown (HCC) documented in this encounter Administered Medications Inactive Administered Medications - up to 3 most recent administrations Medication Order MAR Action Action Date Dose Rate Site iohexol (OMNIPAQUE) dilution Given 08/24/2021 7:50 AM HELPER DRIVER 9,000 mg solution 9,000 mg iodine/1,000 mL water 9,000 mg, oral, Once in imaging, contrast, Starting on 2/7/22 at 0745, For 1 dose, Imaging Protocol Orders, Mix iohexol 300 (Omnipaque?? 300) 30 mL with 970 mL water for a total volume of 1,000 mLs. Patient to drink mixture in 40 minutes. iohexoL 300 mg iodine/mL solution 1-200 mL Given 08/24/2021 8:43 AM HELPER DRIVER 100 mL (OMNIPAQUE) 1-200 mL, intravenous, Once in imaging, contrast, Starting on Tue08/24/21 at 0745, For 1 dose, Imaging Protocol Orders, Dose per Radiant Medication Guidelines sodium chloride (PF) 0.9 % injection 1-1 00 mL Given 08/24/2021 8:44 AM HELPER DRIVER 50 mL 1-100 mL, intravenous, Once, On Tue08/24/21 at 0800, For 1 dose, Imaging Protocol Orders documented in this encounter Care Teams Non Licensed Nuclear Equipment Operator Relationship Specialty Start Date End Date Elsewhere, Pcp PCP - General Family Medicine 03/10/21 documented as of this encounter
--- OUTSIDE RECORDS SUMMARY | 2022-03-25 08:49 | XMS_ITS | Encounter Summary ---
:1960 Author Organization [facility] Address [address] [place] [address] Care Team Providers Name Role Phone Elsewhere, Pcp Primary Care Provider Unavailable Reason for Referral Outpatient (Routine) - Authorized Specialty Diagnoses / Procedures Referred By Contact Refer red To Contact Oncology Kathleen Mccarty M. D. [address] [phone] Referral ID Status Reason Start Date Expiration Date Visits V isits Requested Authorized [id number] Authorized 02/01/2022 02/01/2023 1 1 Reason for Visit Outpatient (Routine) - Closed Specialty Diagnoses / Procedures Referred By Contact Refer red To Contact Oncology Kathleen Mccarty M. D. [address] [phone] Referral ID Status Reason Start Date Expiration Date Visits Requ ested Visits Authorized [id number] Closed 10/28/2021 10/28/2022 1 1 Encounter Details Date Type Department Care Team Description 02/01/2022 Office Visit Department of Oncology Kathleen Mccarty, [place] Vitamin B12 (Primary Dx); in [place] Other Abnormal Glucose; [place] [address] [facility] Malignant Neoplasm Of Ovary Laterality U nknown (HCC) [address] [place] [phone] Social History Tobacco Use Types Packs/Day Years [...] How often do you attend hoahaoism or yazdanism More than 4 time s [...] place to sleep or slept in a usp (including now)? Education Answer Date Recorded What is the highest level of school Bachelor's degree (e.g., BA, AB, 03/10/2021 you have completed or the highest BS) degree you have received? Sex Assigned at Date Recorded Female 03/13/2021 7:24 PM CDT documented as of this encounter Last Filed Vital Signs Vital Sign Reading Time Taken Comments Blood Pressure 139/89 02/01/2022 2:21 PM CDT Pulse 86 02/01/2022 2:21 PM CDT Temperature 37.3 ??C (99.1 ??F) 02/01/2022 2:21 PM CDT Respiratory Rate 16 02/01/2022 2:21 PM CDT Oxygen Saturation 98% 02/01/2022 2:21 PM CDT Inhaled Oxygen Concentration - - Weight 69.6 kg (153 lb 7 oz) 02/01/2022 2:21 PM CDT Height 161 cm (5' 3.39) 02/01/2022 2:21 PM CDT Body Mass Index 26.85 02/01/2022 2:21 PM CDT documented in this encounter Progress Notes Kathleen Mccarty M.D. - 02/01/2022 2:20 PM CDT Images from the original note were not included. Wendy Aviles is seen in the [facility] clinic for consultation requestedby Kathleen Mccarty M.D. [address] [place] [phone] Follow up Primary Oncologist: Nataly Horta APRN, C.N.P., M.S.N. [...] involving the bowel. 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 03/12/2021 Biopsy/Pathology Intraoperative biopsy showed: A. 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 B. 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 Immunohistochemical stains were performed on block B1 using antibodies to KY, keratin AE1/AE3, p16, p53, PAX8, BRG1, INI-1, WT1. The tumor cells are positive for cytokeratin AE1/AE3, [place], p16, p53, PAX8, and WT1. INI-1 and BRG1 are retained. These results support the above diagnosis. 03/30/2021 - 05/11/2021 Chemotherapy CARBOplatin AUC 6 / PACLitaxel ( ORBITREAD OPERATOR ) Start Date: 03/30/2021 Completed 3 cycles [...] Chemotherapy CARBOplatin AUC 6 / PACLitaxel ( ORBITREAD OPERATOR ) Start Date: 03/30/2021 Completed three cycles of full dose adjuvant therapy. CURRENT CONCERNS: CIPN post chemo- mild, feels well overall CURRENT TREATMENT: observation TREATMENT GOALS: Curative but [...] VIT D, MVI, B complex, VIT C, probiotic, Mag, mushrooms, quercetin, melatonin PMH: Past Medical History: Diagnosis Date Anemia No longer an issue Arthritis Ascites Gastroesophageal Reflux Disease NOS no longer an issue Hyperlipidemia Hypertension NOS Irritable Bowel Syndrome Without Diarrhea Mass Abdominal Site Peritoneal Carcinomatosis (HCC) FAMILY HX: Family History Problem Relation Age of Onset Coronary artery disease Father Anxiety disorder Father Diabetes Mother Alcohol abuse Brother Drug abuse Brother Anxiety disorder Brother Anxiety disorder Brother SH: Social History Socioeconomic History Marital status: Spouse name: Not on file Number of children: Not on file Years of education: Not on file Highest education level: Bachelor's degree (e.g., BA, AB, BS) Occupational History Not on file Tobacco Use Smoking status: Never Smokeless tobacco: Never Vaping Use Vaping Use: never used Substance and Sexual Activity Alcohol use: Yes Alcohol/week: 0.0 standard drinks Comment: Maybe a few glasses if wine ever 3 months ir so Drug use: Never Sexual activity: Not Currently Partners: Male Other Topics Concern Caffeine Concern Yes Comment: 2 servings Social History Narrative Not on file Social Determinants of Health Financial Resource Strain: Low Risk Difficulty of Paying Living Expenses: Not hard at all Food Insecurity: No Food Insecurity Worried About Running Out of Food in the Last Year: Never true Ran Out of Food in the Last Year: Never true Transportation Needs: No Transportation Needs Lack of Transportation (Medical): No Lack of Transportation (Non-Medical): No Physical Activity: Inactive Days of Exercise per Week: 0 days Minutes of Exercise per Session: 0 min Stress: No Stress Concern Present Feeling of Stress : Not at all Social Connections: Moderately Integrated Frequency of Communication with Friends and Family: Once a week Frequency of Social Gatherings with Friends and Family: Twice a week Attends Holiness Services: More than 4 times per year Active Member of Clubs or Organizations: No Attends Club or Organization Meetings: Never Marital Status: Intimate Partner Violence: Not At Risk Fear of Current or Ex-Partner: No Emotionally Abused: No Physically Abused: No Sexually Abused: No Housing Stability: Low Risk Unable to Pay for Housing in the Last Year: No Number of Places Lived in the Last Year: 1 Unstable Housing in the Last Year: No CORE ASSESSMENTS: Diet: blue apron/hello fresh; limiting refined carbs; some beef; fish; occasional dessert; very rare alcohol Sleep: good Stress/social: not much stress Exercise: regular walking GI: ok with miralax/hx IBS Toxins: std Hormonal: postmen Blood: mild anemia Inflammation/immune: Mild CIPN, no pain PHYSICAL EXAM: There were no vitals taken for this visit. Gen: Looks well Neuro/Psych: Speech fluent; memory and concentration normal; normal affect LABS: Lab Results Component Value Date WBC 7.0 10/28/2021 HGB 12.4 10/28/2021 HCT 38.3 10/28/2021 MCV 97.0 10/28/2021 PLT 223 10/28/2021 A1c 6 Component Latest Ref Rng & Units 10/28/2021 Potassium, S 3.6 - 5.2 mmol/L 4.7 Sodium, S 135 - 145 mmol/L 139 Chloride, S 98 - 107 mmol/L 98 Bicarbonate, S 22 - 29 mmol/L 26 Anion Gap 7 - 15 15 BUN (Blood Urea Nitrogen), S 6 - 21 mg/dL 17 Creatinine, S 0.59 - 1.04 mg/dL 0.87 eGFR-Non Black/ >=60 mL/min/BSA 73 eGFR-Black/ >=60 mL/min/BSA 84 Calcium, Total, S 8.8 - 10.2 mg/dL 10.2 Glucose, S 70 - 140 mg/dL 111 Protein, Total, S 6.3 - 7.9 g/dL 8.1 (H) Albumin, S 3.5 - 5.0 g/dL 5.4 (H) Aspartate Aminotransferase (AST), S 8 - 43 U/L 19 Alkaline Phosphatase, S 35 - 104 U/L 75 Alanine Aminotransferase (ALT), S 7 - 45 U/L 18 Bilirubin, Total, S <=1.2 mg/dL 0.3 Hemoglobin 11.6 - 15.0 g/dL 12.4 Hematocrit 35.5 - 44.9 % 38.3 Erythrocytes 3.92 - 5.13 x10(12)/L 3.95 MCV 78.2 - 97.9 fL 97.0 RBC Distrib Width 12.2 - 16.1 % 12.6 Platelet Count 157 - 371 x10(9)/L 223 White Blood Cell Count 3.4 - 9.6 x10(9)/L 7.0 Neutrophils 1.56 - 6.45 x10(9)/L 4.10 Lymphocytes 0.95 - 3.07 x10(9)/L 2.06 Monocytes 0.26 - 0.81 x10(9)/L 0.64 Eosinophils 0.03 - 0.48 x10(9)/L 0.12 Basophils 0.01 - 0.08 x10(9)/L 0.03 25-Hydroxy D2 ng/mL <4.0 25-Hydroxy D3 ng/mL 61 25-Hydroxy D Total ng/mL 61 Iron 35 - 145 mcg/dL 90 Total Iron Binding Capacity 250 - 400 mcg/dL 409 (H) Percent Saturation 14 - 50 % 22 TSH, Sensitive 0.3 - 4.2 mIU/L 1.9 C-Reactive Protein, High Sens, S <2.0 mg/L 1.8 Ferritin, S 11 - 307 mcg/L 46 Insulin, S 2.6 - 24.9 mcIU/mL 18.0 Hemoglobin A1c, B 4.0 - 5.6 % 5.6 Vitamin B12 Assay, S 180 - 914 ng/L 206 Folate, S >=4.0 mcg/L >20.0 Zinc, S 0.66 - 1.10 mcg/mL 0.91 Ceruloplasmin, S 20.0 - 51.0 mg/dL 19.2 (L) Methylmalonic Acid, QN, S <=0.40 nmol/mL 0.68 (H) ASSESSMENT: Wendy Aviles is a 61 y.o. female presents for integrative oncology consultation. Completed chemotherapy for stage IV ovarian cancer and is on observation. Decided against PARP inhibitor. Would like to prevent recurrence, optimize health. Cancer: Has been in remission; considering a vaccine trial (treat at recurrence). Has restaging coming up. Clinically doing very well. Diet: Patient is currently on whole food type diet. Specific dietary recommendations include: Increase fasting time overnight given high A1c. She has made some dietary changes- limiting added sugars. Will recheck FI/A1c. Exercise: doing more, walking regularly Sleep: Doing ok currently, taking melatonin. Stress reduction: Reviewed the importance of stress reduction for overall health. Doing ok with this. GI: Reviewed the importance of a healthy gut microbiome for overall health and optimized immune function. Would DC miralax and start mag citrate at night; ensure adequate hydration and increase veggies/fiber. Social support/spirituality: Has good support. Supplements: Ok to continue above. She will monitor her BP- it has been trending down, she will continue to monitor. If she goes on a clinical trial will need to review supplements. PLAN: Continue healthy plant heavy, lower carb diet. Continue exercise as tolerated. Supplements as above. New labs ordered, will FU. Reviewed the plan in detail with patient and answered all questions in detail. FU 6 months/portal 30 minutes were spent (total time) which includes [...] 05/11/2022 Lab Laboratory Medicine Kathleen Mccarty M.D. [address] [place] [phone] 05/12/2022 Clinical Communication Admitting/Central Scheduling 05/13/2022 Telemedicine Oncology Kathleen Mccarty M.D. [address] [place] [phone] Maribeth Guthrie R.N., O.C.N. [address] [place] [phone] 05/18/2022 Lab Laboratory Medicine Nataly Horta APRN, C.NAlphonso, M.S.N. [address] [place] [phone] 05/18/2022 Office Visit Oncology Nataly Horta APRN, C.NChaim., M.S.N. [address] [place] [phone] Scheduled Referrals Name Type Priority Associated Order Schedule Diagnoses Oncology office visit Outpatient Referral Routine Expected: (clinic) Integrative 023 Medicine (RST) (Approximate) , Expires: 05/04/2023 documented as of this encounter Results Methylmalonic Acid (MMA), Quantitative (02/03/2022 11:57 AM CDT) [facility] Signature Methylmalonic 0.30 <=0.40 02/04/2022 DTL Acid, QN, S nmol/mL 10:00 AM CDT Comment: ----ADDITIONAL INFORMATION---- This test was developed and its performa nce characteristics determined by [facility] in a manner consistent with CLIA requirements. This test has not been cleared or approved by the [place] and Drug Administration. Specimen Anatomical Collection Method Collection Time Receive d Time (Source) Location / / Volume Laterality Blood (Blood, 02/03/2022 11:57 02/03/2022 1:05 Venous) AM CDT PM CDT Kathleen Mccarty M.D. LAB BLOOD ADD-ON Performing Organization Address City/[facility]/ZIP [facility] Phon e Number [facility] - [address] Insulin (02/03/2022 11:56 AM CDT) athologist Signature Insulin, S 16.3 2.6 - 24.9 02/03/2022 DTL mcIU/mL 12:59 PM CDT Specimen Anatomical Collection Method Collection Time Receive d Time (Source) Location / / Volume Laterality Blood (Blood, 02/03/2022 11:56 02/03/2022 Venous) AM CDT 12:27 PM CDT Kathleen Mccarty M.D. LAB BLOOD ADD-ON Performing Organization Address [facility] Phon e Number [facility] - [address] (ABNORMAL) Hemoglobin A1c (02/03/2022 11:56 AM CDT) athologist Signature Hemoglobin A1c, 6.3 (H) 4.0 - 5.6 02/03/2022 DT B % 1:06 PM CDT Comment: Hemoglobin A1c values of 5.7-6.4 percent indicate an increased risk for developing diabetes m cristineitus. In diabetic patients, HbA1c goals should be discussed with healthcare provider. Specimen Anatomical Collection Method Collection Time Receive d Time (Source) Location / / Volume Laterality Blood (Blood, 02/03/2022 11:56 02/03/2022 Venous) AM CDT 12:10 PM CDT Kathleen Mccarty M.D. LAB BLOOD ADD-ON Performing Organization Address City/[facility]/ZIP [facility] Phon e Number [facility] - [phone] [place] [address] Vitamin B12 Assay (02/03/2022 11:56 AM CDT) [...] M.D. LAB BLOOD ADD-ON Performing Organization Address City/[facility] Phon e Number [facility] - [address] [address] [address] (ABNORMAL) Glucose, Fasting (02/03/2022 11:28 AM CDT) P athologist Signature Glucose, P 106 (H) 70 - 100 02/03/2022 DTL mg/dL 1:17 PM CDT Specimen Anatomical Collection Method Collection Time Receive d Time (Source) Location / / Volume Laterality Blood (Blood, 02/03/2022 11:28 02/03/2022 Venous) AM CDT 12:51 PM CDT Kathleen Mccarty M.D. LAB BLOOD NON ADD-ON Performing Organization Address City/[facility] Phon e Number [facility] - [address] documented in this encounter Visit Diagnoses Diagnosis Deficiency Vitamin B12 - Primary Other Abnormal Glucose Malignant Neoplasm Of Ovary Laterality U nknown (HCC) documented in this encounter Care Teams Lower In Supervisor Relationship Specialty Start Date End Date Elsewhere, Pcp PCP - General Family Medicine 03/10/21 documented as of this encounter
--- OUTSIDE RECORDS SUMMARY | 2022-03-25 08:49 | XMS_ITS | Encounter Summary ---
:1960 Author Organization [facility] Address [address] [place] [address] Care Team Providers Name Role Phone Elsewhere, Pcp Primary Care Provider Unavailable Reason for Referral Outpatient (Routine) - Authorized Specialty Diagnoses / Procedures Referred By Contact Refer red To Contact Oncology Nataly Horta APRN, C.N.[facility] [address] [place] [phone] Referral ID Status Reason Start Date Expiration Date Visits V isits Requested Authorized [id number] Authorized 02/17/2022 02/17/2023 1 1 Reason for Visit Outpatient (Routine) - Closed Specialty Diagnoses / Procedures Referred By Contact Refer red To Contact Oncology Diagnoses Malignant Neoplasm Of Ovary Left (HCC) [facility] C.N[facility]PE[facility]o, M.S.N. [address] [place] [phone] Referral ID Status Reason Start Date Expiration Date Visits Requ ested Visits Authorized [id number] Closed 12/10/2021 12/10/2022 1 1 Encounter Details Date Type Department Care Team Description 02/03/2022 Office Visit Department of Olivia Dozier M.D . [address] [place] [address] [phone] [facility] Nataly MICKIE Garvin, C.N.P., M.S.N. [address] [place] [phone] Ovary Left (HCC) [place], [place] [address] [place] [phone] Social History Tobacco Use Types Packs/Day Years [...] or relatives? How often do you attend religious or yazidism More than 4 time s per year 10/23/2021 services? Do you belong to any clubs or organizations No 10/23/2021 such as religious groups, unions, fraternal or athletic groups, or [...] place to sleep or slept in a nursing home (including now)? Education Answer Date Recorded What [...] Mass Index 26.7 02/03/2022 9:31 AM CDT documented in this encounter Progress Notes Nataly Horta APRN, C.N.P., M.S.N. - 02/03/2022 9:40 AM CDT SUBJECTIVE CHIEF COMPLAINT/PUPROSE OF VISIT Ms. Aviles is a 61 y.o. 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 Kenny Hui [phone]) HISTORY OF PRESENT ILLNESS Ms. Aviles is [...] involving the bowel. Biopsy confirmed adenocarcinoma of debubblizer primary. 03/12/2021 Biopsy/Pathology Intraoperative biopsy showed: A. 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 B. 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 Immunohistochemical stains were performed on block B1 using antibodies to IL, keratin AE1/AE3, p16, p53, PAX8, BRG1, INI-1, WT1. The tumor cells are positive for cytokeratin AE1/AE3, IL, p16, p53, PAX8, and WT1. INI-1 and BRG1 are retained. These results support the above diagnosis. 03/30/2021 - 05/11/2021 Chemotherapy CARBOplatin AUC 6 / PACLitaxel ( CERTIFIED DIETARY MANAGER ) Start Date: 03/30/2021 Completed 3 cycles [...] Chemotherapy CARBOplatin AUC 6 / PACLitaxel ( CERTIFIED DIETARY MANAGER ) Start Date: 03/30/2021 Completed three cycles of full dose adjuvant therapy. INTERVAL HISTORY: Ms. Aviles presents today for interval follow-up for consideration of participation in clinical [id number]. She reports she has been feeling overall well, with no new concerns or complaints. She continues to note that she does have some puffy areas on her abdomen, but this has been stable and consi stent since her surgery. She continues to utilize MiraLax intermittently for management of intermittent constipation. She is otherwise eating and drinking without issue, denies urinary concerns, abdominal pain, or vaginal bleeding/discharge. REVIEW OF SYSTEMS Pertinent items are noted in HPI; all other review of systems were negative. OBJECTIVE VITAL SIGNS Vitals Blood Pressure: 133/82, Temperature: 36.9 ??C, Temp Source: Tympanic, Pulse Rate: 78, Resp Rate: 16, SpO2: 99 %, Height: 161 cm, Weight: 69.2 kg BP Readings from Last 1 Encounters: 02/03/22 133/82 Pulse Readings from Last 1 Encounters: 02/03/22 78 Temp Readings from Last 1 Encounters: 02/03/22 36.9 ??C (Tympanic) No data recorded PHYSICAL EXAMINATION [...] and diagnostic data. ASSESSMENT / PLAN #1 Malignant Neoplasm Of Ovary Left (HCC) Ms. Aviles today for interval follow-up due to consideration of participation in clinical trial [id number]. Ms. Aviles had the opportunity to review through the consent form for clinical trial [id number]. Potential risks and benefits of trial treatment were discussed, and she does understand that there arealternative options available. Questions were answered to the best of my ability. She did sign consent in my presence, and a copy of the consent form was provided to her prior to leaving her clinic appointment today. She was dismissed to proceed with research labs and CT imaging. I will plan to follow-up with her via the online portal with results of CT imaging later today or early tomorrow if possible. We will plan to see her back for surveillance visit with repeat CA 125 in roughly the next 3 months per protocol. She understanding of the above information, as no further questions or concerns at this time. She agrees to reach out to us if she would have any new or concerning symptoms prior to her next planned return visit. PATIENT EDUCATION Ready to learn, no apparent learning barriers were identified; learning preferences include listening. Explained diagnosis and treatment plan; patient expressed understanding of the content. documented in this encounter Miscellaneous Notes Addendum Note - Sarmad Marrero - 02/03/2022 9:40 AM CDT Addended by: SARMAD MARRERO on: 02/17/2022 03:56 PM Modules accepted: Orders documented in this encounter Plan of Treatment Upcoming Encounters Date Type Specialty Care Team Description 05/11/2022 Lab Laboratory Medicine Kathleen Mccarty M.D. [address] [place] [phone] 05/12/2022 Clinical Communication Admitting/Central Scheduling 05/13/2022 Telemedicine Oncology Kathleen Mccarty M.D. [address] [place] [phone] Maribeth Guthrie R.N., O.C.N. [address] [place] [phone] 05/18/2022 Lab Laboratory Medicine Nataly Horta APRN, C.N.P., M.S.N. [address] [place] [phone] 05/18/2022 Office Visit Oncology Nataly Horta APRN, C.NAlphonso, M.S.N. [address] [place] [phone] Scheduled Orders Name Type Priority Associated Diagnoses Order S chedule Cancer Antigen 125 (CA Lab Routine Malignant Neoplasm Of Expected: 05/20/2022 125) Ovary Left (HCC) (Approximat e), Expires: 05/20/2023 Scheduled Referrals Name Type Priority Associated Diagnoses Order S chedule Oncology office Outpatient Referral Routine Expec dorys: visit (clinic) 05/20/2022 General; CERTIFIED DIETARY MANAGER (Approximate), Expires: 05/20/2023 documented as of this encounter Visit Diagnoses Diagnosis Malignant Neoplasm Of Ovary Left (HCC) documented in this encounter Care Teams Arborist Climber Relationship Specialty Start Date End Date Elsewhere, Pcp PCP - General Family Medicine 03/10/21 documented as of this encounter
--- OUTSIDE RECORDS SUMMARY | 2022-03-25 08:49 | XMS_ITS | Encounter Summary ---
:1960 Author Organization [facility] Address [address] [place] [address] Care Team Providers Name Role Phone Elsewhere, Pcp Primary Care Provider Unavailable Encounter Details Date Type Department Care Team Description 08/04/2021 Infusion Department of Oncology Nataly Horta, Malignant Neoplasm Of in [facility] potato loader TIRE SPECIALIST, C.N.P., Ovary Laterality [address] M.S.N. Unknown (HCC) (Primary [place], [place] [address] [facility] [place] [phone] [place], [place] [phone] (Wo rk) Social History Tobacco Use Types [...] or relatives? How often do you attend mormonism or gnosticist More than 4 time s per year 10/23/2021 services? Do you belong to any clubs or organizations No 10/23/2021 such as mormonism groups, unions, fraternal or athletic groups, or [...] place to sleep or slept in a fci (including now)? Education Answer Date Recorded What is the highest level of school Bachelor's degree (e.g., BA, AB, 03/10/2021 you have completed or the highest BS) degree you have received? Sex Assigned at Date Recorded Female 03/13/2021 7:24 PM CDT documented as of this encounter Last Filed Vital Signs Vital Sign Reading Time Taken Comments Blood Pressure 148/81 08/04/2021 8:21 AM AUTOMOBILE SALES REPRESENTATIVE Pulse 84 08/04/2021 8:21 AM AUTOMOBILE SALES REPRESENTATIVE Temperature 36 ??C (96.8 ??F) 08/04/2021 8:21 AM AUTOMOBILE SALES REPRESENTATIVE Respiratory Rate - - Oxygen Saturation - - Inhaled Oxygen Concentration - - Weight 63.8 kg (140 lb 10.5 oz) 08/04/2021 8:21 AM AUTOMOBILE SALES REPRESENTATIVE Height - - Body Mass Index 24.25 08/03/2021 1:09 PM AUTOMOBILE SALES REPRESENTATIVE documented in this encounter Plan of Treatment Upcoming Encounters Date Type Specialty Care Team Description 05/11/2022 Lab Laboratory Medicine Kathleen Mccarty M.D. [address] [place] [phone] 05/12/2022 Clinical Communication Admitting/Central Scheduling 05/13/2022 Telemedicine Oncology Kathleen Mccarty M.D. [address] [place] [phone] Maribeth Guthrie R.N., O.C.N. [address] [place] [phone] 05/18/2022 Lab Laboratory Medicine Nataly Horta APRN, C.N.P., M.S.N. [address] [place] [phone] 05/18/2022 Office Visit Oncology Nataly Horta APRN, C.N.P., M.S.N. [address] [place] [phone] documented as of this encounter Visit Diagnoses Diagnosis Malignant Neoplasm Of Ovary Laterality U nknown (HCC) - Primary documented in this encounter Administered Medications Inactive Administered Medications - up to 3 most recent administrations Medication Order MAR Action Action Date Dose Rate Site CARBOplatin 640 mg in NaCl New Bag 08/04/2021 12:57 PM AUTOMOBILE SALES REPRESENTATIVE 640 mg 678 mL/hr 0.9% 339 mL IVPB (PARAPLATIN) 640 mg (rounded from 640.8 mg, Target AUC = 6), intravenous, at 678 mL/hr, Administer over 30 Minutes, Once, On Tue08/04/21 at 1200, For 1 dose dexamethasone in NaCl 0.9% IVPB 12 New Bag 08/04/2021 8:47 AM AUTOMOBILE SALES REPRESENTATIVE 12 mg 200 mL/hr mg (DECADRON) 12 mg, intravenous, at 200 mL/hr, Administer over 15 Minutes, Once, On Tue08/04/21 at 0830, For 1 dose, Give prior to PACLitaxel Refrigerate diphenhydrAMINE injection 50 mg (BENADRY L) Given 08/04/2021 8:40 AM AUTOMOBILE SALES REPRESENTATIVE 50 mg 50 mg, intravenous, Once, On Tue08/04/21 at 0830, For 1 dose, Give prior to PACLitaxel. famotidine injection 20 mg (PEPCID) Given 08/04/2021 8:45 AM AUTOMOBILE SALES REPRESENTATIVE 20 mg 20 mg, intravenous, Once, On Tue08/04/21 at 0830, For 1 dose, Give prior to PACLitaxel See IVAG for administration guidelines. fosaprepitant in NaCl 0.9% IVPB 150 New Bag 08/04/2021 9:23 AM AUTOMOBILE SALES REPRESENTATIVE 150 mg 500 mL/hr mg (EMEND) 150 mg, intravenous, at 500 mL/hr, Administer over 30 Minutes, Once, On Tue08/04/21 at 0830, For 1 dose, Incompatible with solutions containing divalent cations (calcium, magnesium) including lactated Ringer's solution. ondansetron in NaCl 0.9% IVPB 16 mg New Bag 08/04/2021 9:02 AM AUTOMOBILE SALES REPRESENTATIVE 16 mg 232 mL/hr (ZOFRAN) 16 mg, intravenous, at 232 mL/hr, Administer over 15 Minutes, Once, On Tue08/04/21 at 0830, For 1 dose PACLitaxeL 288 mg in NaCl 0.9% New Bag 08/04/2021 10:00 AM AUTOMOBILE SALES REPRESENTATIVE 288 mg 108 mL/hr (non-PVC) 323 mL IVPB (TAXOL) 288 mg (rounded from 288.75 mg = 175 mg/m2 ? 1.65 m2 Treatment Plan BSA from Measured weight), intravenous, at 108 mL/hr, Administer over 3 Hours, Once, On Tue08/04/21 at 0900, For 1 dose, Administer via 0.22 micron in-line filter. documented in this encounter Care Teams Director Of Accounts Receivable Relationship Specialty Start Date End Date Elsewhere, Pcp PCP - General Family Medicine 03/10/21 documented as of this encounter
--- OUTSIDE RECORDS SUMMARY | 2022-03-25 08:49 | XMS_ITS | Encounter Summary ---
:1960 Author Organization [facility] Address [address] [place] [address] Care Team Providers Name Role Phone Elsewhere, Pcp Primary Care Provider Unavailable Encounter Details Date Type Department Care Team Description 11/20/2021 Hospital Encounter Department of Nataly martin Neoplasm Laboratory Medicine M, SLED MAKER, C.N.P., Of O vary Laterality and Pathology, M.S.N. Unknown ([facility]) [place], [place] [address] [facility] [phone] [place] [address] [place], [place] (Work) [phone] Social History Tobacco Use Types Packs/Day Years [...] or relatives? How often do you attend jewish or confucianist More than 4 time s per year 10/23/2021 services? Do you belong to any clubs or organizations No 10/23/2021 such as jewish groups, unions, fraternal or athletic groups, or [...] Lab Laboratory Medicine Kathleen Mccarty M.D. [address] [place] [phone] 05/12/2022 Clinical Communication Admitting/Central Scheduling 05/13/2022 Telemedicine Oncology Kathleen Mccarty M.D. [address] [place] [phone] Maribeth Guthrie R.N., O.C.NErasto [address] [place] [phone] 05/18/2022 Lab Laboratory Medicine Nataly Horta APRN, C.N.Ashia, M.S.N. [address] [place] [phone] 05/18/2022 Office Visit Oncology Nataly Horta APRN C.N.P., M.S.N. [address] [place] [phone] documented as of this encounter Procedures Procedure Name Priority Date/Time Associated Diagnosis Comme nts CANCER AG 125 (CA Routine 11/20/2021 12:55 PM Malignant Neopla sm Results for this 125), S CDT Of Ovary Laterality procedur e are in Unknown (HCC) the results section. documented in this encounter Results Cancer Antigen 125 (CA 125) (11/20/2021 12:55 PM CDT) athologist Signature Cancer Ag 125 7 <46 U/mL 11/20/2021 [facility] (CA 125), S 5:47 PM CDT Comment: [...] 11/20/2021 5:10 Venous) PM CDT PM CDT Nataly Horta APRN, C.N.P., M.S.N. LAB BLOOD ADD-ON Performing Organization Address City/State/ZIP Code Phon e Number [facility] [address] [place], [place] [phone] [facility] [place] [address] Laboratory Medicine and Pathology [address] [place] documented in this encounter Visit Diagnoses Diagnosis Malignant Neoplasm Of Ovary Laterality U nknown (HCC) documented in this encounter Care Teams Supervisor Slitting And Shipping Relationship Specialty Start Date End Date Elsewhere, Pcp PCP - General Family Medicine 03/10/21 documented as of this encounter
--- OUTSIDE RECORDS SUMMARY | 2022-03-25 08:49 | XMS_ITS | Encounter Summary ---
:[address] [facility] Address [address] [place] [address] Care Team Providers Name Role Phone Elsewhere, Pcp Primary Care Provider Unavailable Reason for Referral Outpatient (Routine) - Closed Specialty Diagnoses / Procedures Referred By Contact Refer red To Contact Oncology Lisa Dalton M.D. 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 [facility] Procedures CT Abdomen Pelvis with IV Contrast LA CT ABD&PELVIS W CNTRST [address] [place] [phone] Referral ID Status Reason Start Date Expiration Date Visits Requ ested Visits Authorized [id number] Closed 08/18/2021 08/03/2022 1 1 TION CLERK Encounter Details Date Type Department Care Team Description 08/03/2021 Office Visit Department of Oncology Lisa Dalton Mal ignant Neoplasm Of in [place] Ovary Laterality [place] [address] [place] Unknown (HCC) [address] [place] [phone] Social History Tobacco Use Types Packs/Day Years [...] How often do you attend mormonism or moravian More than 4 time s per year [...] place to sleep or slept in a halfway (including now)? Education Answer Date Recorded What is the highest level of school Bachelor's degree (e.g., BA, AB, 03/10/2021 you have completed or the highest BS) degree you have received? Sex Assigned at Date Recorded Female 03/13/2021 7:24 PM CDT documented as of this encounter Last Filed Vital Signs Vital Sign Reading Time Taken Comments Blood Pressure 152/91 08/03/2021 1:09 PM ELECTION CLERK Pulse 87 08/03/2021 1:09 PM ELECTION CLERK Temperature 36.4 ??C (97.5 ??F) 08/03/2021 1:09 PM ELECTION CLERK Respiratory Rate 16 08/03/2021 1:09 PM ELECTION CLERK Oxygen Saturation 99% 08/03/2021 1:09 PM ELECTION CLERK Inhaled Oxygen Concentration - - Weight 63.3 kg (139 lb 8.8 oz) 08/03/2021 1:09 PM ELECTION CLERK Height 162.2 cm (5' 3.86) 08/03/2021 1:09 PM ELECTION CLERK Body Mass Index 24.06 08/03/2021 1:09 PM ELECTION CLERK documented in this encounter Progress Notes Lisa Dalton M.D. - 08/03/2021 1:20 PM CST SUBJECTIVE CHIEF COMPLAINT/REASON FOR VISIT Ovarian cancer HISTORY OF PRESENT ILLNESS Ms. Aviles is a 60 y.o. 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 She is found to have extensive disease which was felt to be unresectable due to disease distribution involving the bowel. 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 03/12/2021 Biopsy/Pathology Intraoperative biopsy showed: A. 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 B. 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 Immunohistochemical stains were performed on block B1 using antibodies to LA, keratin AE1/AE3, p16, p53, PAX8, BRG1, INI-1, WT1. The tumor cells are positive for cytokeratin AE1/AE3, LA, p16, p53, PAX8, and WT1. INI-1 and BRG1 are retained. These results support the above diagnosis. 03/30/2021 - 05/11/2021 Chemotherapy CARBOplatin AUC 6 / PACLitaxel ( CROWD CONTROLLER ) Start Date: 03/30/2021 Completed 3 cycles [...] Chemotherapy CARBOplatin AUC 6 / PACLitaxel ( CROWD CONTROLLER ) Start Date: 03/30/2021 Plan for three cycles of adjuvant therapy. Genetic Testing and Tumor Genotyping 07/27/21 - Protek-dor somatic testing ordered. CLS INTERVAL HISTORY: Ms. Aviles presents for a follow-up visit in anticipation of cycle 6 of chemotherapy. The patient has been tolerating treatment well. She had some pain with her last infusion but the site looks fine. Shenotes she has some fatigue the 1st week and she has had some very mild neuropathy. Otherwise she hasbeen doing well. DISTRESS SCORE: No data recorded REVIEW OF SYSTEMS Pertinent items are noted in HPI; all other review of systems were negative. CURRENT MEDICATIONS Reviewed and updated in the EMR. ALLERGIES/CONTRAINDICATIONS Reviewed and updated in the EMR. Past Medical History: Diagnosis Date ??? Anemia No longer an issue ??? Arthritis ??? Ascites ??? Gastroesophageal Reflux Disease NOS no longer an issue ??? Hyperlipidemia ??? Hypertension NOS ??? Irritable Bowel Syndrome Without Diarrhea ??? Mass Abdominal Site ??? Peritoneal Carcinomatosis (HCC) Past Surgical History: Procedure Laterality Date ??? BREAST SURGERY 2003 lumpectomy ??? DEBULKING TUMOR OVARY N/A 03/12/2021 Procedure: EXPLORATORY LAPAROTOMY; Surgeon: Apple Motta M.D.; Location: [facility] ??? DEBULKING TUMOR OVARY N/A 06/01/2021 Procedure: LAPAROTOMY, TUMOR DEBULKING.; Surgeon: Apple Motta M.D.; Location: [facility] ??? DILATATION AND CURETTAGE no related to pregnacy was related to s polep ??? HYSTERECTOMY ABDOMINAL WITH SALPINGO - OOPHORECTOMY N/A 06/01/2021 Procedure: HYSTERECTOMY ABDOMINAL, BILATERAL SALPINGO-OOPHORECTOMY.; Surgeon: Apple Motta M.D.; Location: [facility] ??? OMENTECTOMY N/A 06/01/2021 Procedure: OMENTECTOMY.; Surgeon: Apple Motta M.D.; Location: [facility] ??? OTHER N/A 03/12/2021 Procedure: omental biopsy; Surgeon: Apple Motta M.D.; Location: [facility] OR Social History Socioeconomic History ??? Marital status: [...] ??? Difficulty of Paying Living Expenses: Not very hard Food Insecurity: No Food Insecurity ??? Worried About Running Out of Food in the Last Year: Never true ??? Ran Out of Food in the Last Year: Never true Transportation Needs: No Transportation Needs ??? Lack of Transportation (Medical): No ??? Lack of Transportation (Non-Medical): No Physical Activity: Insufficiently Active ??? Days of Exercise per Week: 2 days ??? Minutes of Exercise per Session: 30 min Stress: No Stress Concern Present ??? Feeling of Stress : Not at all Social Connections: Moderately Integrated ??? Frequency of Communication with Friends and Family: Three times a week ??? Frequency of Social Gatherings with Friends and Family: Once a week ??? Attends Sabianist Services: More than 4 times per year ??? Active Member of Clubs or Organizations: No ??? Attends Club or Organization Meetings: Patient refused ??? Marital Status: Intimate Partner Violence: Not on file Housing Stability: Low Risk ??? Unable to Pay for Housing in the Last Year: No ??? Number of Places Lived in the Last Year: 1 ??? Unstable Housing in the Last Year: No Family History Problem Relation Age of Onset ??? Coronary artery disease Father ??? Anxiety disorder Father ??? Diabetes Mother ??? Alcohol abuse Brother ??? Drug abuse Brother ??? Anxiety disorder Brother ??? Anxiety disorder Brother OBJECTIVE Vitals: 08/03/21 1309 BP: (!) 152/91 BP Location: Right arm Patient Position: Sitting Cuff Size: Regular Pulse: 87 Resp: 16 Temp: 36.4 ??C TempSrc: Tympanic SpO2: 99% Weight: 63.3 kg Height: 162.2 cm PHYSICAL EXAMINATION General: 60 y.o. female appeared well and in no distress. Skin: No rashes or lesions. Lymph Survey: No supraclavicular or cervical nodes. Heart: Regular rate and rhythm. Lungs: Clear to auscultation bilaterally. Abdomen: Normal bowel sounds. Unremarkable otherwise. Spine: No tenderness. Lower extremities: Unremarkable. DIAGNOSTICS: I reviewed the imaging studies and agree with the interpretation as recorded. I reviewed the pertinent laboratory and diagnostic data. 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 Aviles is a 60-year-old woman with ovarian cancer. The patient is finishing up chemotherapy. We will have her return in 3 weeks with scans. PATIENT EDUCATION Ready to learn, no apparent learning barriers were identified; learning preferences include listening. Explained diagnosis and treatment plan; patient expressed understanding of the content. ADMINISTRATIVE BILLING I personally spent over half of a total 30 minutes face to face with the patient in counseling and discussion and/or coordination of care as described above. TION CLERK documented in this encounter Plan of Treatment Upcoming Encounters Date Type Specialty Care Team Description 05/11/2022 Lab Laboratory Medicine Kathleen Mccarty M.D. [address] [place] [phone] 05/12/2022 Clinical Communication Admitting/Central Scheduling 05/13/2022 Telemedicine Oncology Kathleen Mccarty M.D. [address] [place] [phone] Maribeth Guthrie R.N., O.C.N. [address] [place] [phone] 05/18/2022 Lab Laboratory Medicine Nataly Horta APRN, C.N.P., M.S.N. [address] [place] [phone] 05/18/2022 Office Visit Oncology Nataly Horta APRN, C.N.P., M.S.N. [address] [place] [phone] Scheduled Referrals Name Type Priority Associated Diagnoses Order S [facility] Oncology office Outpatient Referral Routine Expec dorys: visit (clinic) 08/24/2021 General; CROWD CONTROLLER (Approximate), Expires: 11/01/2022 documented as of this encounter Results CT Abdomen Pelvis with IV Contrast (08/24/2021 8:59 AM ELECTION CLERK) Anatomical Region Laterality Modality Abdomen, Pelvis, Abdominal RST LOS, N/A Comp uted Tomography, Computed Abdominal ARZ LOS, Abdominal FLA LOS Moreno ography Specimen (Source) Anatomical Collection Method Collection Time Re ceived Time Location / / Volume Laterality 08/24/2021 8:56 AM ELECTION CLERK Impressions 08/24/2021 10:59 AM ELECTION CLERK 1. Interval hysterectomy, bilateral salpingo-oophorectomy, omentectomy. No definite evidence of residual or metasta tic disease within the abdomen and pelvis. 2. Continued interval decrease in size o f ??a cardiophrenic node, now 6 mm. Narrative 08/24/2021 10:59 AM ELECTION CLERK EXAM: ??CT ABDOMEN PELVIS WITH IV CONTRAST [...] CONTRAST COMPARISON: Multiple prior CT scans of [facility] abdomen and pelvis, most recent dated 05/28/2021. [...] a cardiophrenic node, now 6 mm. Lisa Dalton M.D. IMG CT PROCEDURES Creatinine with Estimated GFR (08/24/2021 7:04 AM ELECTION CLERK) athologist Signature Creatinine 0.73 0.59 - 08/24/2021 METH 1.04 mg/dL 7:31 AM ELECTION CLERK eGFR-Black/Afric >90 >=60 08/24/2021 METH an Greek mL/min/BSA 7:31 AM ELECTION CLERK Comment: ----ADDITIONAL INFORMATION---- Estimated GFR calculated using the 2009 CKD_EPI creatinine equation. eGFR Non-Black/ 90 >=60 mL/min/BSA 7:31 AM ELECTION CLERK METH Comment: ----ADDITIONAL INFORMATION---- Estimated GFR calculated using the 2009 CKD_EPI creatinine equation. Specimen Anatomical Collection Method Collection Time Receive d Time (Source) Location / / Volume Laterality Blood (Blood, 08/24/2021 7:04 AM 08/24/19 22 7:10 Venous) ELECTION CLERK AM ELECTION CLERK Lisa Dalton M.D. LAB BLOOD ADD-ON Performing Organization Address City/State/ZIP Code Phon e Number [facility] [address] [place], [place] [address] [facility] [place] [address] [facility] [address] Bilirubin, Total (08/24/2021 7:04 AM ELECTION CLERK) athologist Signature Bilirubin, <0.2 <=1.2 mg/dL 08/24/2021 METH Total, P 8:50 AM ELECTION CLERK Specimen Anatomical Collection Method Collection Time Receive d Time (Source) Location / / Volume Laterality Blood (Blood, 08/24/2021 7:04 AM 08/24/19 22 7:10 Venous) ELECTION CLERK AM ELECTION CLERK Lisa Dalton M.D. LAB BLOOD ADD-ON Performing Organization Address City/State/ZIP Code Phon e Number [facility] - [address] [place], [place] [address] [facility] [place] [address] [facility] [address] Alkaline Phosphatase (08/24/2021 7:04 AM ELECTION CLERK) P athologist Signature Alkaline 67 35 - 104 08/24/2021 DTL Phosphatase, S U/L 7:54 AM ELECTION CLERK Specimen Anatomical Collection Method Collection Time Receive d Time (Source) Location / / Volume Laterality Blood (Blood, 08/24/2021 7:04 AM 08/24/19 22 7:31 Venous) ELECTION CLERK AM ELECTION CLERK Lisa Dalton M.D. LAB BLOOD ADD-ON Performing Organization Address City/[facility]/ZIP Code Phon e Number [facility] - [address] [place], [place] [address] [facility] [place] [address] [facility] [address] [facility] AST (Aspartate Aminotransferase) (08/24/2021 7:04 AM ELECTION CLERK) Patholo gist Method Time Signature Aspartate 21 8 - 43 08/24/2021 METH Aminotransferase U/L 7:31 AM ELECTION CLERK (AST), P Specimen Anatomical Collection Method Collection Time Receive d Time (Source) Location / / Volume Laterality Blood (Blood, 08/24/2021 7:04 AM 08/24/19 22 7:10 Venous) ELECTION CLERK AM ELECTION CLERK Lisa Dalotn M.D. LAB BLOOD ADD-ON Performing Organization Address City/State/ZIP Code Phon e Number [facility] - [address] [place], [place] [address] [facility] [place] [address] [facility] [address] [facility] (ABNORMAL) CBC, Chemotherapy, No Alerts (08/24/2021 7:04 AM ELECTION CLERK) Analysis Performed At Patho logist Time Signature Hemoglobin 10.0 (L) 11.6 - 08/24/2021 METH 15.0 g/dL 7:12 AM ELECTION CLERK Platelet Count 125 (L) 157 - 371 08/24/2021 M[facility] x10(9)/L 7:12 AM ELECTION CLERK Leukocytes 4.4 3.4 - 9.6 08/24/2021 METH x10(9)/L 7:12 AM ELECTION CLERK Neutrophils 1.74 1.56 - 08/24/2021 METH 6.45 7:12 AM ELECTION CLERK x10(9)/L Specimen Anatomical Collection Method Collection Time Receive d Time (Source) Location / / Volume Laterality Blood (Blood, 08/24/2021 7:04 AM 08/24/19 22 7:10 Venous) ELECTION CLERK AM ELECTION CLERK Lias Dalton M.D. LAB BLOOD ADD-ON Performing Organization Address City/[facility] Code Phon e Number [facility] - [address] [place], [place] [address] [facility] [place] [address] [facility] [address] Cancer Antigen 125 (CA 125) (08/24/2021 7:04 AM ELECTION CLERK) athologist Signature Cancer Ag 125 15 <46 U/mL 08/24/2021 [facility] (CA 125), S 2:29 PM ELECTION CLERK Comment: ----ADDITIONAL INFORMATION---- The testing method is [...] Location / / Volume Laterality Blood (Blood, 08/24/2021 7:04 AM 08/24/19 22 1:47 Venous) ELECTION CLERK PM ELECTION CLERK Lisa Dalton M.D. LAB BLOOD ADD-ON Performing Organization Address City/State/ZIP Code Phon e Number [facility] [address] [place], [place] [address] [facility] [place] [address] Laboratory Medicine and Pathology [address] [place] documented in this encounter Visit Diagnoses Diagnosis Malignant Neoplasm Of Ovary Laterality U nknown (HCC) Malignant Neoplasm Of Ovary Laterality U nknown (HCC) documented in this encounter Care Teams Seasonal Greenery Bundler Relationship Specialty Start Date End Date Elsewhere, Pcp PCP - General Family Medicine 03/10/21 documented as of this encounter
--- OUTSIDE RECORDS SUMMARY | 2022-03-25 08:50 | XMS_ITS | Encounter Summary ---
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 Procedures LAPAROTOMY, TUMOR DEBULKING. HYSTERECTOMY ABDOMINAL, BILATERAL SALPINGO-OOPHORECTOMY. OMENTECTOMY. OPEN SIGMOID LOW ANTERIOR RESECTION, STOMA. Referral ID Status Reason Start Date Expiration Date Visits Requ ested Visits Authorized [id number] 1 1 Encounter Details Date Type Department Care Team Description 06/01/2021 Anesthesia Event RST RO MAIN OR Gabriel Kelly M.D., M.B.O.E. [address] [place] [address] [address] Arabella Davalos APRN, MILKING SYSTEM INSTALLER [address] [place] [phone] [place] [address] Anesthesia Record Procedure Summary Procedure Name Responsible Anesthesia Start Anesthesia Stop Time Anesthesiologist Time LAPAROTOMY, TUMOR Gabriel Kelly, 06/01/21 0814 05/18 12/05 1344 DEBULKING. Cass, M.B.O.E. Events Date Time Event Comment 06/01/2021 0755 0814 An Start Machine/Equipmen t Checked Infection Precautions Foll owed Procedure/Site Verified NPO Sta tus Verified Supine Standard ASA Mon itors Applied 0831 An Induction 0833 An Intubation 0854 Turnover to Proceduralist 0935 Proc Start 1258 an dianne now Exparel injected into midline incision per surgeon 1316 Proc Fin 1317 Turnover to ANE Staff 1326 Airway Removal Criteria Met 1326 Extubation/Airway Removed 1329 an stop data 1344 An End I completed my h andoff to the receiving staff during [facility] we 1. Identified the patient 2. Ident ified the responsible provider 3. Revi ewed the pertinent medical history 4. Discussed the surgical course 5. Review ed intra-op anesthesia management and i ssues during anesthesia 6. Set expectati ons for post-procedure period 7. Allowe d opportunity for questions and ac knowledgement of understanding. Name Total fentanyl injection 50 mcg/mL 300 mcg lidocaine 2% (mg) injection 40 mg propofol 10 mg/mL 308 mg rocuronium 10 mg/mL injection 125 mg succinylcholine 20 mg/mL injection 100 mg phenylephrine 100 mcg/mL injection 500 mcg ePHEDrine PF 5 mg/mL syringe injection 40 mg ondansetron 4 mg/2 mL injection 4 mg sugammadex 100 mg/mL injection 130 mg glycopyrrolate 0.2 mg/mL injection 0.2 mg heparin (porcine) injection 5,000 Units 5,000 Units dexamethasone 4 mg/mL injection 4 mg ceFAZolin injection 2,000 mg (ANCEF) 4 g albumin human bottle 5% 1,000 mL tranexamic acid in NaCl IVPB 1,000 mg (CYKLOKAPRON) 1 g HYDROmorphone PF 2 mg/mL injection 1.4 mg esmolol 10 mg/mL injection 10 mg labetalol 5 mg/mL injection 2.5 mg haloperidol 5 mg/mL injection 1 mg calcium gluconate 100 mg/mL (10%) injection 1 g Lactated Ringers Free Drip 1,000 mL lactated ringers 1,300 mL plasmalyte-A free drip 700 mL Agents No agents on file. Blood No blood administrations on file. Lines, Drains, and Airways Type Details Placement Removal Wound 06/01/21; N; Incision; 06/01/21 0000 by Abdomen; Reba Thapa R.N. (RETIRED) Incision 03/12/21; 1017; Abdomen; 03/12/21 1017 by 0800 by primapore; 06/03/21; Reba Laws Rowe, M yra E, R.N., 0800; Old incision site R.N. C.M.S.R. N. Peripheral IV Placement Date: 06/01/21 0755 by 06/02/21 1334 b y 06/01/21; Placement Arabella Orellana Allison M, Time: 0755; Catheter B, SDV PILOT/NAVIGATOR/DDS OPERATOR, MILKING SYSTEM INSTALLER R.N. Size: 20 G; Orientation: Right; Location: Hand; Inserted by: Kleber Orellana CRNA; Removal Date: 06/02/21; Removal Time: 1334; Removal Reason: Other (Comment) (painful) ETT Placement Date: 06/01/21 0833 by 06/01/21 1326 b y 06/01/21; Placement Arabella Orellana J acqueline Time: 0833 (created via B, SDV PILOT/NAVIGATOR/DDS OPERATOR, MILKING SYSTEM INSTALLER B, SDV PILOT/NAVIGATOR/DDS OPERATOR, MILKING SYSTEM INSTALLER procedure documentation); Mask Ventilation: Easy mask; Type: Standard ETT; Single Lumen Tube Size: 7 mm; Cuffed: Yes; Blade Size: Ogden 2; Location: Oral; Grade View: Grade 1; Insertion Attempts: 1; Placement Verification: Bilateral breath sounds, Positive ETCO2, Symmetrical chest wall movement; Removal Date: 06/01/21; Removal Time: 1326 Peripheral IV Placement Date: 06/01/21 0836 by 06/02/21 0231 b y 06/01/21; Placement Arabella Orellana Shentia, Time: 0836; Catheter B, SDV PILOT/NAVIGATOR/DDS OPERATOR, MILKING SYSTEM INSTALLER R.N. Size: 16 G; Orientation: Left; Location: Wrist; Inserted by: Kleber Orellana CRNA; Removal Date: 06/02/21; Removal Time: 0231; Removal Reason: Other (Comment) (painful when flushed ) Arterial Line Placement Date: 06/01/21 0850 by 06/01/21 1435 b y 06/01/21; Placemnt Time: Arabella Orellana Sydney E, 0850 (created via B, SDV PILOT/NAVIGATOR/DDS OPERATOR, MILKING SYSTEM INSTALLER R.N. procedure documentation); Size: 20 G; Orientation: Right; Location: Radial; Site Prep: Chlorhexidine (Preferred); Technique: Anatomical landmarks; Insertion Attempts: 2; Securement: Securement dressing, Securement device; Removal Date: 06/01/21; Removal Time: 1435; Removal Reason: Per order NG/OG Tube 06/01/21; 0856; 06/01/21 0856 by 06/01/21 1319 b y Orogastric; 16 Fr; Oral; Arabella Orellana Lang as, Arabella 06/01/21; 1319 B, SDV PILOT/NAVIGATOR/DDS OPERATOR, MILKING SYSTEM INSTALLER B, SDV PILOT/NAVIGATOR/DDS OPERATOR, MILKING SYSTEM INSTALLER Indwelling Urinary Placement Date: 06/01/21 0935 by 06/02/21 042 4 by Catheter 06/01/21; Placement Reannaing, Reba Joe, Yusef Smith, Time: 934; Inserted by: Soila Pope; Type: Non-latex; Size: 16 Fr.; Balloon Size: 5 mL (10ml sterile water in balloon); Urine Returned: Yes; Removal Date: 06/02/21; Removal Time: 0424; Removal Reason: Per order documented in this encounter Social History Tobacco Use Types Packs/Day Years [...] or relatives? How often do you attend congregational or zoroastrianism More than 4 time s per year 10/23/2021 services? Do you belong to any clubs or organizations No 10/23/2021 such as congregational groups, unions, fraternal or athletic groups, or [...] place to sleep or slept in a half-way (including now)? Education Answer Date Recorded What is the highest level of school Bachelor's degree (e.g., BA, AB, 03/10/2021 you have completed or the highest BS) degree you have received? Sex Assigned at Date Recorded Female 03/13/2021 7:24 PM CDT documented as of this encounter OR Notes Anesthesia Postprocedure Evaluation - Gabriel Kelly M.D., M.B.O.E. - 06/01/2021 2:40 PM CST Patient: Wendy Aviles Procedure Summary Date: 06/01/21 Room / Location: [place] [address] / [facility] in [place], [place] Anesthesia Start: 813 Anesthesia Stop: 1343 Procedures: LAPAROTOMY, TUMOR DEBULKING. (N/A ) HYSTERECTOMY ABDOMINAL, BILATERAL SALPINGO-OOPHORECTOMY. (N/A ) OMENTECTOMY. 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 Responsible Provider: Gabriel Kelly M.D., M.B.O.E. Anesthesia Type: general ASA Status: 3 Anesthesia Type: general Last vitals Vitals Value Taken Time BP 143/75 06/01/21 1430 Temp 37 ??C 06/01/21 1430 Pulse 93 06/01/21 1440 Resp 12 06/01/21 1440 SpO2 97 % 06/01/21 1440 Vitals shown include unvalidated device data. Please reference Vitals flowsheet for most recent vital signs. Anesthesia Post Evaluation Patient Disposition: general care unit Cardiovascular status: hemodynamics (HR & BP) acceptable Respiratory status: patent airway with spontaneous effort Temperature: normothermic Oxygen requirements: room air Level of consciousness: sedated but awakens easily Pain score: pain adequately controlled and/or at baseline Post Op nausea/vomiting: none Hydration status: euvolemic RUBBER MIXER Anesthesia Procedure Notes - Arabella Orellana APRN, CRNA - 06/01/2021 9:31 AM CSTAssociated Order(s): Invasive Catheter Invasive Catheter Date/Time: 06/01/2021 8:50 AM Performed by: Arabella Orellana APRN, CRNA Authorized by: Gabriel Kelly M.D., M.B.O.E. Care team members present 1. Arabella Orellana APRN, CRNA 2. Fran Thomas APRN, CRNA Location: OR PROCEDURE DETAILS: Line type: arterial Laterality: right Location: radial Location details: new site Age group: adult Catheter diameter: 20 Ga Catheter length (cm): 4.5 Technique: palpation Monitored: yes Number of attempts: 2 UNIVERSAL PROTOCOL All relevant documentation and testing were reviewed and available. All required blood products, implants, devices and or special equipment were made available as applicable. Pre-procedure verificationwas conducted and the correct site was marked if required. A fire risk assessment was done as applicable. The procedural time-out was conducted prior to performing the procedure and confirmed in a procedural pause. PRE-PROCEDURE DETAILS: Appropriate hand hygiene, gown, cap, mask, protective eyewear, sterile gloves, skin preparation, sterile drape, and strict aseptic technique were utilized as applicable for the procedure.: yes Skin preparation: chlorhexidine SEDATION / ANESTHESIA Anesthesia method: anesthesia POST-PROCEDURE DETAILS: Procedure completed successfully: yes Line secured: secured with sutureless device Chlorhexidine disc around insertion site and under catheter with slight turn: yes Complications - arterial: none COMMENTS Attempt x1 on left side per Kleber Orellana, on right x1 per William ATTESTATION STATEMENT RUBBER MIXER Anesthesia Procedure Notes - Arabella Orellana APRN, CRNA - 06/01/2021 9:22 AM CSTAssociated Order(s): Airway Airway Date/Time: 06/01/2021 8:33 AM Performed by: Arabella Orellana APRN, CRNA Authorized by: Gabriel Kelly M.D., M.B.O.EErasto Care team members present 1. Arabella Orellana APRN, CRNA 2. Gabriel Kelly M.D., M.B.O.EErasto Patient location during procedure: OR / Procedure Area PROCEDURE DETAILS: Mask difficulty assessment: easy mask Final airway type: direct laryngoscopy, intubation Laryngeal Manipulation: no Final airway difficulty of direct laryngoscopy (DL): 0-easy Final best view of glottic structures - Cormack/Lehane Score: grade 1 ETT location: oral Adult blade type: Ogden 2 Adult tube size: 7 Adult ETT distance at teeth/gum: 22 Oral tube type: standard ETT Cuffed: yes Number of attempt to successful placement: 1 Airway confirmation: bilateral breath sounds, positive ETCO2 and bilateral chest rise Other previous techniques attempted: none PRE PROCEDURE DETAILS: Pre evaluation for airway management: procedure Urgency: elective Preop assessment of probable difficulty: no difficulty anticipated Preoxygenation: bag valve mask SEDATION / ANESTHESIA Anesthesia method: anesthesia POST PROCEDURE DETAILS: Procedure outcome: successful Airway event: no complications ATTESTATION STATEMENT RUBBER MIXER Anesthesia Preprocedure Evaluation - Gabriel Kelly M.D., M.B.O.EErasto - 06/01/2021 7:54 AM CST Preprocedure Anesthesia & H&P Assessment Procedure Summary Date/Time: 06/01/2115 Procedures: LAPAROTOMY, TUMOR DEBULKING. (N/A ) HYSTERECTOMY ABDOMINAL, BILATERAL SALPINGO-OOPHORECTOMY. (N/A ) OMENTECTOMY. (N/A ) OPEN SIGMOID LOW ANTERIOR RESECTION, STOMA. 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 Location: [place] [address] / [facility] in [place], [place] Providers: Apple Motta M.D. Pertinent components of the patient's history including current problem list, medical history, surgical history, family history, social history, medications and allergies were reviewed. Present illnessand pre-op diagnosis were confirmed. The planned surgery / procedure was verified with the patient /legal guardian. 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) Other (+) Anxiety (+) Ascites (+) Effusion Pleural (+) Intra Abdominal And Pelvic Swelling Mass And Lump Unspecified Site OBJECTIVE PHYSICAL EXAMINATION Airway (HEENT) Mallampati: II TM Distance: <3 FB Neck ROM: Full Mouth Opening: >3 cm Cardiovascular Rate: Normal Pulmonary Pulmonary Assessment: Non labored General / Constitutional Constitutional Assessment: Normal Neurological Neurologic Assessment:??alert Dental Dental Assessment: dentition intact ASSESSMENT / PLAN ANESTHESIA PLAN ASA: 3 Anesthesia Plan: general Patient seen and allergies reviewed, anesthesia plan and risks discussed directly with patient /legal guardian or through an hourly sign language interpreter. Risks/Benefits/Alternatives of Blood transfusion discussed with patient / legal guardian, including an opportunity to ask questions and/or decline some or all transfusion therapies. The patient / legalguardian consented to the use of all blood products, as deemed medically necessary Approval to Proceed: approved for anesthesia RUBBER MIXER documented in this encounter Plan of Treatment Upcoming Encounters Date Type Specialty Care Team Description 05/11/2022 Lab Laboratory Medicine Kathleen Mccarty M.D. [address] [place] [address] 05/12/2022 Clinical Communication Admitting/Central Scheduling 05/13/2022 Telemedicine Oncology Kathleen Mccarty M.D. [address] [place] [phone] Maribeth Guthrie R.N., O.C.NErasto [address] [place] [phone] 05/18/2022 Lab Laboratory Medicine Nataly Horta APRN, C.N.P., M.S.N. [address] [place] [phone] 05/18/2022 Office Visit Oncology Nataly Horta APRN, C.N.P., M.S.N. [address] [place] [address] [phone] documented as of this encounter Procedures Procedure Name Priority Date/Time Associated Comments Diagnosis LDA ANE ARTERIAL LINE Routine 06/01/2021 8:50 AM Results for this INSERTION FOAM RUBBER MIXER procedure are i n the results section. AK ARTL CATH/CNULA Routine 06/01/2021 8:50 AM Res ults for this MONITOR PERC FOAM RUBBER MIXER procedure are i n the results section. LDA ANE ENDOTRACHEAL Routine 06/01/2021 8:33 AM R esults for this AIRWAY FOAM RUBBER MIXER procedure are i n the results section. documented in this encounter Results AK ARTL CATH/CNULA MONITOR PERC, LDA ANE ARTERIAL LINE INSERTION (06/01/2021 8:50 AM FOAM RUBBER MIXER) Narrative Arabella Orellana APRN, CRNA - 06/01 8:50 AM FOAM RUBBER MIXER Arabella Orellana APRN, CRNA ? 06/01/2021 ??9:33 AM Invasive Catheter Date/Time: 06/01/2021 8:50 AM Performed by: Arabella Orellana APRN, CRNA Authorized by: Gabriel Kelly M.D., M.B.O.E. Care team members present 1. Arabella Orellana APRN, CRNA 2. Fran Thomas APRN, CRNA Location: OR PROCEDURE DETAILS: Line type: arterial ?? Laterality: right Location: radial Location details: new site ? Age group: adult Catheter diameter: 20 Ga Catheter length (cm): 4.5 Technique: palpation ?? Monitored: yes ?? Number of attempts: 2 UNIVERSAL PROTOCOL All relevant documentation and testing w ere reviewed and available. All required blood products, implants, devic es and or special equipment were made available as applicable. Pre-proced ure verification was conducted and the correct site was marked if required. A fire risk assessment was done as applicable. The procedural time-out w as conducted prior to performing the procedure and confirmed in a procedu ral pause. PRE-PROCEDURE DETAILS: Appropriate hand hygiene, gown, cap, mas k, protective eyewear, sterile gloves, skin preparation, sterile drape, and strict aseptic technique were utilized as applicable for the procedure .: yes ?? Skin preparation: chlorhexidine ?? SEDATION / ANESTHESIA Anesthesia method: anesthesia POST-PROCEDURE DETAILS: Procedure completed successfully: yes ?? Line secured: secured with sutureless de vice Chlorhexidine disc around insertion site and under catheter with slight turn: yes ?? Complications - arterial: none COMMENTS Attempt x1 on left side per Kleber Orellana, on right x1 per William ATTESTATION STATEMENT Gabriel Kelly M.D., M.B.O.E. PROCEDURE/MINOR SURGICAL ORDERABLES LDA ANE ENDOTRACHEAL AIRWAY (06/01/2021 8:33 AM FOAM RUBBER MIXER) Narrative Arabella Orellana APRN, CRNA - 06/01 8:33 AM FOAM RUBBER MIXER Arabella Orellana APRN, CRNA ? 06/01/2021 ??9:25 AM Airway Date/Time: 06/01/2021 8:33 AM Performed by: Arabella Orellana APRN, CRNA Authorized by: Gabriel Kelly M.D., M.B.O.E. Care team members present 1. Arabella Orellana APRN, CRNA 2. Gabriel Kelly M.D., M.B.O .E. Patient location during procedure: OR / Procedure Area PROCEDURE DETAILS: Mask difficulty assessment: easy mask Final airway type: direct laryngoscopy, intubation Laryngeal Manipulation: no ?? Final airway difficulty of direct laryng oscopy (DL): 0-easy Final best view of glottic structures - Cormack/Lehane Score: grade 1 ETT location: oral Adult blade type: Ogden 2 Adult tube size: 7 Adult ETT distance at teeth/gum: 22 Oral tube type: standard ETT Cuffed: yes Number of attempt to successful placemen t: 1 Airway confirmation: bilateral breath so unds, positive ETCO2 and bilateral chest rise Other previous techniques attempted: non e PRE PROCEDURE DETAILS: Pre evaluation for airway management: pr ocedure Urgency: elective Preop assessment of probable difficulty: no difficulty anticipated Preoxygenation: bag valve mask SEDATION / ANESTHESIA Anesthesia method: anesthesia POST PROCEDURE DETAILS: ? Procedure outcome: successful ?? Airway event: no complications ATTESTATION STATEMENT Gabriel Kelly M.D., M.B.O.E. ANESTHESIA ORDE RABLES documented in this encounter Visit Diagnoses Not on filedocumented in this encounter Administered Medications Inactive Administered Medications - up to 3 most recent administrations Medication Order MAR Action Action Date Dose Rate Site albumin human 5 % injection Given 06/01/2021 11:16 AM FOAM RUBBER MIXER 250 mL intravenous, As needed, Starting on Tue06/01/21 at 0928, Anesthesia Intra-op Given 06/01/2021 11:07 AM FOAM RUBBER MIXER 250 mL Given 06/01/2021 9:44 AM FOAM RUBBER MIXER 250 mL calcium gluconate injection Given 06/01/2021 12:14 PM FOAM RUBBER MIXER 1 g intravenous, As needed, Starting on Tue06/01/21 at 1214, Anesthesia Intra-op ceFAZolin injection 2,000 mg (ANCEF) Given 06/01/2021 12:08 PM FOAM RUBBER MIXER 2 g 2,000 mg (rounded from 1,590 mg = 25 mg/ kg ? 63.6 kg), intravenous, Once, On Tue06/01/21 at 0745, For 1 dose, Intra-Op, Preoperatively within 1 hour prior to surgical incision If needed, reconstitute vial per package insert instructions. See IVAG for administration guidelines. , Drug Monitoring Program: Pharmacist to adjust medication dosing based on indication and drug clearance factors., Indications: Prophylaxis, surgical Given 06/01/2021 9:20 AM FOAM RUBBER MIXER 2 g dexAMETHasone injection (DECADRON) Given 06/01/2021 9:16 AM FOAM RUBBER MIXER 4 mg intravenous, As needed, Starting on Tue06/01/21 at 0916, Anesthesia Intra-op electrolyte-A solution (PLASMA-LYTE A) New Bag 06/01/2021 11:40 AM FOAM RUBBER MIXER intravenous, Continuous Infusion: Per Instructions PRN, Starting on Tue06/01/21 at 1140, Anesthesia Intra-op ePHEDrine (PF) injection Given 06/01/2021 12:10 PM FOAM RUBBER MIXER 5 mg intravenous, As needed, Starting on Tue06/01/21 at 0839, Anesthesia Intra-op Given 06/01/2021 11:37 AM FOAM RUBBER MIXER 5 mg Given 06/01/2021 9:47 AM FOAM RUBBER MIXER 10 mg esmolol injection (BREVIBLOC) Given 06/01/2021 10:05 AM FOAM RUBBER MIXER 10 mg intravenous, As needed, Starting on Tue06/01/21 at 1005, Anesthesia Intra-op fentaNYL injection (SUBLIMAZE) Given 06/01/2021 10:29 AM FOAM RUBBER MIXER 50 mcg intravenous, As needed, Starting on Tue06/01/21 at 0817, Anesthesia Intra-op Given 06/01/2021 8:57 AM FOAM RUBBER MIXER 100 mcg Given 06/01/2021 8:24 AM FOAM RUBBER MIXER 50 mcg glycopyrrolate injection (ROBINUL) Given 06/01/2021 9:46 AM FOAM RUBBER MIXER 0.2 mg intravenous, As needed, Starting on Tue06/01/21 at 0946, Anesthesia Intra-op haloperidol lactate injection (HALDOL) Given 06/01/2021 11:57 AM FOAM RUBBER MIXER 1 mg intravenous, As needed, Starting on Tue06/01/21 at 1157, Anesthesia Intra-op heparin (porcine) injection 5,000 Units Given 06/01/2021 9:09 AM FOAM RUBBER MIXER 5,000 Units 5,000 Units, subcutaneous, Once, On Tue06/01/21 at 0745, For 1 dose, Intra-Op, Administer prior to induction of anesthesia. HYDROmorphone (PF) injection (DILAUDID) Given 06/01/2021 1:04 PM FOAM RUBBER MIXER 0.4 mg intravenous, As needed, Starting on Tue06/01/21 at 0938, Anesthesia Intra-op Given 06/01/2021 9:51 AM FOAM RUBBER MIXER 0.4 mg Given 06/01/2021 9:38 AM FOAM RUBBER MIXER 0.6 mg labetalol injection (NORMODYNE,TRANDATE) Given 06/01/2021 10:33 AM 2.5 mg intravenous, As needed, Starting on Tue FOAM RUBBER MIXER 06/01/21 at 1033, Anesthesia Intra-op lactated ringers New Bag 06/01/2021 10:37 AM FOAM RUBBER MIXER 30 mL/hr, intravenous, Continuous, Starting on Tue06/01/21 at 0745, Pre-Op New Bag 06/01/2021 8:39 AM FOAM RUBBER MIXER lactated ringers New Bag 06/01/2021 8:14 AM FOAM RUBBER MIXER intravenous, Continuous Infusion: Per Instructions PRN, Starting on Tue06/01/21 at 0814, Anesthesia Intra-op lidocaine (PF) (cardiac) injection Given 06/01/2021 8:31 AM FOAM RUBBER MIXER 40 mg intravenous, As needed, Starting on Tue06/01/21 at 0831, Anesthesia Intra-op ondansetron (PF) injection (ZOFRAN) Given 06/01/2021 12:57 PM FOAM RUBBER MIXER 4 mg intravenous, As needed, Starting on Tue06/01/21 at 1257, Anesthesia Intra-op phenylephrine injection Given 06/01/2021 12:26 PM FOAM RUBBER MIXER 100 mcg intravenous, As needed, Starting on Tue06/01/21 at 0927, Anesthesia Intra-op Given 06/01/2021 12:09 PM FOAM RUBBER MIXER 100 mcg Given 06/01/2021 11:59 AM FOAM RUBBER MIXER 100 mcg propofoL injection (DIPRIVAN) Given 06/01/2021 12:26 PM FOAM RUBBER MIXER 50 mg intravenous, As needed, Starting on Tue06/01/21 at 0857, Anesthesia Intra-op Given 06/01/2021 9:57 AM FOAM RUBBER MIXER 30 mg Given 06/01/2021 9:55 AM FOAM RUBBER MIXER 20 mg rocuronium injection (ZEMURON) Given 06/01/2021 12:25 PM FOAM RUBBER MIXER 5 mg intravenous, As needed, Starting on Tue06/01/21 at 0837, Anesthesia Intra-op Given 06/01/2021 11:38 AM FOAM RUBBER MIXER 10 mg Given 06/01/2021 11:09 AM FOAM RUBBER MIXER 10 mg succinylcholine (PF) injection (ANECTINE ) Given 06/01/2021 8:31 AM FOAM RUBBER MIXER 100 mg intravenous, As needed, Starting on Tue06/01/21 at 0831, Anesthesia Intra-op sugammadex injection (BRIDION) Given 06/01/2021 1:02 PM FOAM RUBBER MIXER 130 mg intravenous, As needed, Starting on Tue06/01/21 at 1302, Anesthesia Intra-op tranexamic acid in NaCl IVPB 1,000 mg Given 06/01/2021 9:[address] 1 g (CYKLOKAPRON) 1,000 mg (1 g), intravenous, Once, On Tue06/01/21 at 0815, For 1 dose, Intra-Op documented in this encounter Care Teams Gift Shop Manager Relationship Specialty Start Date End Date Elsewhere, Pcp PCP - General Family Medicine 03/10/21 documented as of this encounter
--- OUTSIDE RECORDS SUMMARY | 2022-03-25 08:50 | XMS_ITS | Encounter Summary ---
:1960 Author Organization [facility] Address [address] [place] [address] Care Team Providers Name Role Phone Elsewhere, Pcp Primary Care Provider Unavailable Encounter Details Date Type Department Care Team Description 07/13/2021 Nurse Only Department of Oncology in [facility] , Nataly Garvin APRN, C.N.P., M.S.N. [address] [place] [phone] [place], [place] Jessica Hooks, M.S.N., R.N. [address] [place] [phone] [place] [phone] Social History Tobacco Use Types Packs/Day [...] or relatives? How often do you attend baptism or judaism More than 4 time s per year 10/23/2021 services? Do you belong to any clubs or organizations No 10/23/2021 such as baptism groups, unions, fraternal or athletic groups, or [...] place to sleep or slept in a penitentiary (including now)? Education Answer Date Recorded What is the highest level of school Bachelor's degree (e.g., BA, AB, 03/10/2021 you have completed or the highest BS) degree you have received? Sex Assigned at Date Recorded Female 03/13/2021 7:24 PM CDT documented as of this encounter Last Filed Vital Signs Vital Sign Reading Time Taken Comments Blood Pressure 133/84 07/13/2021 8:04 AM XEROX MACHINE ASSEMBLER Pulse 85 07/13/2021 8:04 AM XEROX MACHINE ASSEMBLER Temperature 36.9 ??C (98.4 ??F) 07/13/2021 8:04 AM XEROX MACHINE ASSEMBLER Respiratory Rate 16 07/13/2021 8:04 AM XEROX MACHINE ASSEMBLER Oxygen Saturation 99% 07/13/2021 8:04 AM XEROX MACHINE ASSEMBLER Inhaled Oxygen Concentration - - Weight 60.6 kg (133 lb 9.6 oz) 07/13/2021 8:04 AM XEROX MACHINE ASSEMBLER Height 161.6 cm (5' 3.62) 07/13/2021 8:04 AM XEROX MACHINE ASSEMBLER Body Mass Index 23.21 07/13/2021 8:04 AM XEROX MACHINE ASSEMBLER documented in this encounter Progress Notes Jessica Hooks, M.S.N., R.N. - 07/13/2021 8:20 AM CST Nurse Only Toxicity Check Visit Collaborating Provider Fanny Velez APRN Reason for Visit Toxicity Evaluation Ms. 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 She is found to have extensive disease which was felt to be unresectable due to disease distribution involving the bowel. 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 03/12/2021 Biopsy/Pathology Intraoperative biopsy showed: A. 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 B. 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 Immunohistochemical stains were performed on block B1 using antibodies to [place], keratin AE1/AE3, p16, p53, PAX8, BRG1, INI-1, WT1. The tumor cells are positive for cytokeratin AE1/AE3, [place], p16, p53, PAX8, and WT1. INI-1 and BRG1 are retained. These results support the above diagnosis. 03/30/2021 - 05/11/2021 Chemotherapy CARBOplatin AUC 6 / PACLitaxel ( WOOD TILE INSTALLATION HELPER ) Start Date: 03/30/2021 Completed 3 cycles [...] Chemotherapy CARBOplatin AUC 6 / PACLitaxel ( WOOD TILE INSTALLATION HELPER ) Start Date: 03/30/2021 Plan for three cycles of adjuvant therapy. Interval History by CINTHYA Hooks, MSN RN Systems Review The patient is seen today, 07/13/2021, and reports the following: General - no issues or concerns and fatigue Skin - bruising: easily bruises, currently left lower leg Eyes, ears, nose, throat - no issues or concerns - No issues or concerns GI - constipation: mild, resolves with colace, nausea: mild, resolves with prochlorperazine Respiratory - no issues or concerns Cardiac - no issues or concerns Neuro - tingling: not changed from previous cycles, mild in left fingertips Musculoskeletal - no issues or concerns Psychosocial - no issues or concerns Weight at Start of Treatment: Weight Today: 60.6 KG Labs reviewed by client relations specialist list reviewed & updated by RN Plan I have updated one of our care team providers, Fanny Velez APRN, regarding Ms. Aviles assessment director and labs. There are no findings that are unexpected at this point in treatment and the patient is managing symptoms adequately without significant acute toxicity. She will continue with Carboplatin/Paclitaxel treatment as planned. The following recommendations were discussed with the patient: Instructed to monitor temperature and call the care team or the on-call provider if temperature greater than 100.4 degrees Fahrenheit. She was encouraged to contact our team at any time with questions or concerns. Ms. Aviles expressed understanding and agrees with the plan. They have no further questions or concerns at this time. X MACHINE ASSEMBLER documented in this encounter Plan of Treatment Upcoming Encounters Date Type Specialty Care Team Description 05/11/2022 Lab Laboratory Medicine Kathleen Mccarty M.D. [address] [place] [phone] 05/12/2022 Clinical Communication Admitting/Central Scheduling 05/13/2022 Telemedicine Oncology Kathleen Mccarty M.D. [address] [place] [phone] Maribeth Guthrie R.N., O.C.NErasto [address] [place] [phone] 05/18/2022 Lab Laboratory Medicine Nataly Horta APRN, C.N.P., M.S.N. [address] [place] [phone] 05/18/2022 Office Visit Oncology Nataly Horta APRN, C.N.P., M.S.N. [address] [place] [phone] documented as of this encounter Visit Diagnoses Diagnosis Malignant Neoplasm Of Ovary Laterality U nknown (HCC) documented in this encounter Care Teams Knowledge Management Advisor Relationship Specialty Start Date End Date Elsewhere, Pcp PCP - General Family Medicine 03/10/21 documented as of this encounter
--- OUTSIDE RECORDS SUMMARY | 2022-03-25 08:50 | XMS_ITS | Encounter Summary ---
:1960 Author Organization [facility] Address [address] [place] [address] Care Team Providers Name Role Phone Elsewhere, Pcp Primary Care Provider Unavailable Encounter Details Date Type Department Care Team Description 06/16/2021 Documentation Department of Obstetrics Ghislaine Richardson and Gynecology in [place], [place] [address] [facility] [address] [place] [phone] Social History Tobacco Use Types Packs/Day Years [...] or relatives? How often do you attend mandaeism or faith More than 4 time s per year 10/23/2021 services? Do you belong to any clubs or organizations No 10/23/2021 such as mandaeism groups, unions, fraternal or athletic groups, or [...] Lab Laboratory Medicine Kathleen Mccarty M.D. [address] [place] [phone] 05/12/2022 Clinical Communication Admitting/Central Scheduling 05/13/2022 Telemedicine Oncology Kathleen Mccarty M.D. [address] [place] [phone] Maribeth Guthrie R.N., O.C.N. [address] [place] [phone] 05/18/2022 Lab Laboratory Medicine Nataly Horta APRN, C.N.P., M.S.N. [address] [place] [phone] 05/18/2022 Office Visit Oncology Nataly Horta APRN, C.N.P., M.S.N. [address] [place] [phone] documented as of this encounter Visit Diagnoses Not on filedocumented in this encounter Care Teams High Climber Relationship Specialty Start Date End Date Elsewhere, Pcp PCP - General Family Medicine 03/10/21 documented as of this encounter
--- OUTSIDE RECORDS SUMMARY | 2022-03-25 08:50 | XMS_ITS | Encounter Summary ---
:1960 Author Organization [facility] Address [address] [place] [address] Care Team Providers Name Role Phone Elsewhere, Pcp Primary Care Provider Unavailable Reason for Visit Reason Comments Scheduling for 07/13/ Encounter Details Date Type Department Care Team Description 06/23/2021 Clinical Communication Department of Nataly Horta for Oncology in , [facility], 07/13/ Aditya CErastoNAlphonso, M.S.N. [address] [place] [phone] Social History Tobacco Use Types Packs/Day Years [...] or relatives? How often do you attend sikhism or moravian More than 4 time s per year 10/23/2021 services? Do you belong to any clubs or organizations No 10/23/2021 such as sikhism groups, unions, fraternal or athletic groups, or [...] Lab Laboratory Medicine Kathleen Mccarty M.D. [address] [place] [phone] 05/12/2022 Clinical Communication Admitting/Central Scheduling 05/13/2022 Telemedicine Oncology Kathleen Mccarty M.D. [address] [place] [phone] Maribeth Guthrie R.N., O.C.N. [address] [place] [phone] 05/18/2022 Lab Laboratory Medicine Nataly Horta APRN, C.N.P., M.S.N. [address] [place] [phone] 05/18/2022 Office Visit Oncology Nataly Horta APRN C.N.P., M.S.N. [address] [place] [phone] documented as of this encounter Visit Diagnoses Not on filedocumented in this encounter Care Teams Fire And Explosion Investigator Relationship Specialty Start Date End Date Elsewhere, Pcp PCP - General Family Medicine 03/10/21 documented as of this encounter
--- OUTSIDE RECORDS SUMMARY | 2022-03-25 08:50 | XMS_ITS | Encounter Summary ---
:1960 Author Organization [facility] Address [address] [place] [address] Care Team Providers Name Role Phone Elsewhere, Pcp Primary Care Provider Unavailable Reason for Referral Outpatient (Routine) Specialty Diagnoses / Procedures Referred By Contact Refer red To Contact Oncology Nataly Horta APRN, C.NAlphonso, [facility] M.S.N. [address] [place], [place] [phone] Referral ID Status Reason Start Date Expiration Date Visits Requ ested Visits Authorized utpatient (Routine) Specialty Diagnoses / Procedures Referred By Contact Refer red To Contact Oncology Nataly Horta APRN, C.N.Ashia, [facility] M.S.N. [address] [place] [address] Referral ID Status Reason Start Date Expiration Date Visits Requ ested Visits Authorized ICAL SAFETY MANAGER Encounter Details Date Type Department Care Team Description 06/22/2021 Office Visit Department of Nataly Horta Malignan t Neoplasm Of Oncology in [place] CORADONAlphonso, Ovary Laterali ty [place], [place] M.S.N. Unknown (HCC) (Primary [address] [facility]) [place] [phone] Social History Tobacco Use Types Packs/Day Years [...] or relatives? How often do you attend denominational or samaritan More than 4 time s per year 10/23/2021 services? Do you belong to any clubs or organizations No 10/23/2021 such as denominational groups, unions, fraternal or athletic groups, or [...] place to sleep or slept in a residential (including now)? Education Answer Date Recorded What is the highest level of school Bachelor's degree (e.g., BA, AB, 03/10/2021 you have completed or the highest BS) degree you have received? Sex Assigned at Date Recorded Female 03/13/2021 7:24 PM CDT documented as of this encounter Last Filed Vital Signs Vital Sign Reading Time Taken Comments Blood Pressure 160/91 06/22/2021 1:11 PM CLINICAL SAFETY MANAGER Pulse 85 06/22/2021 1:11 PM CLINICAL SAFETY MANAGER Temperature 36.4 ??C (97.5 ??F) 06/22/2021 1:11 PM CLINICAL SAFETY MANAGER Respiratory Rate 16 06/22/2021 1:11 PM CLINICAL SAFETY MANAGER Oxygen Saturation 100% 06/22/2021 1:11 PM CLINICAL SAFETY MANAGER Inhaled Oxygen Concentration - - Weight 61.4 kg (135 lb 5.8 oz) 06/22/2021 1:11 PM CLINICAL SAFETY MANAGER Height 162.7 cm (5' 4.06) 06/22/2021 1:11 PM CLINICAL SAFETY MANAGER Body Mass Index 23.2 06/22/2021 1:11 PM CLINICAL SAFETY MANAGER documented in this encounter Progress Notes Nataly Horta APRN, C.N.P., M.S.N. - 06/22/2021 1:20 PM CST CHIEF COMPLAINT/PUPROSE OF VISIT: Ms. Aviles is a 60 y.o. woman with advanced stage high-grade serous ovarian cancer Collaborating provider: Dr. Lisa Dalton HISTORY OF PRESENT ILLNESS: Ms. Aviles is [...] involving the bowel. Biopsy confirmed adenocarcinoma of auction clerk primary. 03/12/2021 Biopsy/Pathology Intraoperative biopsy showed: A. 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 B. 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 Immunohistochemical stains were performed on block B1 using antibodies to KS, keratin AE1/AE3, p16, p53, PAX8, BRG1, INI-1, WT1. The tumor cells are positive for cytokeratin AE1/AE3, KS, p16, p53, PAX8, and WT1. INI-1 and BRG1 are retained. These results support the above diagnosis. 03/30/2021 - 05/11/2021 Chemotherapy CARBOplatin AUC 6 / PACLitaxel ( ROOF TECHNICIAN ) Start Date: 03/30/2021 Completed 3 cycles [...] Chemotherapy CARBOplatin AUC 6 / PACLitaxel ( ROOF TECHNICIAN ) Start Date: 03/30/2021 Plan for three cycles of adjuvant therapy. INTERVAL HISTORY: presents today for evaluation in anticipation of re-initiation of chemotherapy following recent interval surgery for her ovarian cancer. She reports that she has been recovering overall well from recent surgery. She continues to utilize Tylenol and ibuprofen alternating for management of her a bdominal discomfort. She describes this more as tenderness, and notes she has been more likely to forget doses and does not take any medication at night for sleep. She notes that she has had some issues with constipation post surgery common utilize milk of magnesia yesterday for management of bowel regulation. She has had results today. She notes that her appetite is still not great, but she does have cravings for certain foods. She is also using Ensure as supplementation. She notes she had nausea 1day slightly after surgery, but has not experienced any issue since. She does note a slightly different sensation with urination, describing a dull ache after she has emptied her bladder. She otherwisedenies shortness of breath or vaginal bleeding/discharge. 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 She has been utilizing ice to her hands during treatments. ROS: Pertinent items are noted in HPI; all other review of systems were negative. VITAL SIGNS: Vitals Blood Pressure: (!) 160/91, Temperature: 36.4 ??C, Temp Source: Tympanic, Pulse Rate: 85, Resp Rate: 16, SpO2: 100 %, Height: 162.7 cm, Weight: 61.4 kg BP Readings from Last 1 Encounters: 06/22/21 (!) 160/91 Pulse Readings from Last 1 Encounters: 06/22/21 85 Temp Readings from Last 1 Encounters: 06/22/21 36.4 ??C (Tympanic) Rate your distress: 2 PHYSICAL EXAM: General: Alert and oriented, and [...] pertinent laboratory and diagnostic data. ASSESSMENT/PLAN: #1 Malignant Neoplasm Of Ovary Laterality Unknown (HCC) presents today for evaluation in anticipation of re-initiation of chemotherapy following recent interval surgery for her ovarian cancer. Her labs were reviewed, and are acceptable to proceed with treatment tomorrow. She is recovering very well, and has no dose-limiting toxicity per history or examination. Treatment plan was completed to reflect stable dosing through cycle 4, and will see reneaack in roughly 3 weeks for lab work and evaluation prior to consideration cycle 5 treatment. She understands we will complete 3 cycles of treatment post surgery. Of note, did have some questions in regard to her recent surgery and prognosis. We discussed that she did undergo a multiple surgery with less than half a cm of residual disease. She understands that there was miliary disease present in the abdomen and pelvis following completion of surgery. We reviewed goal of chemotherapy to treat remaining disease. She understands that she does have a high risk of recurrence following completion of her treatment, and we did spend some time discussing consideration of PARP inhibitor maintenance therapy if she has genetic or somatic markers to indicate higher likelihood of response. Questions were answered to the best of my ability. verbalized understanding of the above information, and has no further questions or concerns at this time. She agrees to contact us in the interim if shedevelops any new or concerning symptoms prior to her next planned return visit. PATIENT EDUCATION Ready to learn, no apparent learning barriers were identified; learning preferences include listening. Explained diagnosis and treatment plan; patient expressed understanding of the content. ICAL SAFETY MANAGER documented in this encounter Miscellaneous Notes Addendum Note - Dusty Castaneda PJamey - 06/22/2021 1:20 PM CLINICAL SAFETY MANAGER Addended by: DUSTY CASTANEDA on: 07/27/2021 08:28 AM Modules accepted: Orders ICAL SAFETY MANAGER Addendum Note - Dusty Castaneda P.A.-C. - 06/22/2021 1:20 PM CLINICAL SAFETY MANAGER Addended by: DUSTY CASTANEDA on: 09/24/2021 11:12 AM Modules accepted: Orders ICAL SAFETY MANAGER documented in this encounter Plan of Treatment Upcoming Encounters Date Type Specialty Care Team Description 05/11/2022 Lab Laboratory Medicine Kathleen Mccarty M.D. [address] [place] [phone] 05/12/2022 Clinical Communication Admitting/Central Scheduling 05/13/2022 Telemedicine Oncology Kathleen Mccarty M.D. [address] [place] [phone] Maribeth Guthrie, MaxwellNErasto, O.C.N. [address] [place] [phone] 05/18/2022 Lab Laboratory Medicine Nataly Horta APRN, C.N.P., M.S.N. [address] [place] [phone] 05/18/2022 Office Visit Oncology Nataly Horta APRN C.N.P., M.S.N. [address] [place] [phone] Pending Results Name Type Priority Associated Diagnoses Date/Ti me Not Applicable; Lab Routine Malignant Neoplasm Of 2:00 PM CLINICAL SAFETY MANAGER [id number] myChoice CDx Ovary Laterali ty - Miscellaneous Test Unknown (HCC) Scheduled Orders Name Type Priority Associated Diagnoses Order S chedule Not Applicable; Lab Routine Malignant Neoplasm Of Exp ected: 09/24/2021 [id number] my[facility] CDx Ovary Laterali ty (Approximate), - Miscellaneous Test Unknown (HCC) s: 12/25/2022 Scheduled Referrals Name Type Priority Associated Diagnoses Order S chedule Oncology office Outpatient Referral Routine Malignant Neoplasm Expected: visit (clinic) Of Ovary Laterality 2020, General; ROOF TECHNICIAN Unknown (HCC) Expires: 07/13/2022 Oncology office Outpatient Referral Routine Malignant Neoplasm Expected: visit (clinic) Of Ovary Laterality 2021, General; ROOF TECHNICIAN Unknown (HCC) Expires: 08/03/2022 documented as of this encounter Procedures Procedure Name Priority Date/Time Associated Comments Diagnosis KS REF ONC SOLID TUMOR Routine 06/01/2021 2:00 PM Results for this BRCA1 AND BRCA2 CLINICAL SAFETY MANAGER procedure ar e in the results section. MISCELLANEOUS SENT OUT Routine 06/01/2021 2:00 PM Malignant Ne oplasm LAB TEST CLINICAL SAFETY MANAGER Of Ovary Laterality Unknown (HCC) [facility] [employer] [facility] Routine 03/12/2021 12:59 Res ults for this LAB PM CDT procedure are i n the results section. documented in this encounter Results Creatinine with Estimated GFR (08/03/2021 10:21 AM CLINICAL SAFETY MANAGER) athologist Signature Creatinine 0.65 0.59 - 08/03/2021 METH 1.04 mg/dL 10:58 AM CLINICAL SAFETY MANAGER eGFR-Black/Afric >90 >=60 08/03/[address] [place] mL/min/BSA 10:58 AM CLINICAL SAFETY MANAGER Comment: ----ADDITIONAL INFORMATION---- Estimated GFR calculated using the 2009 CKD_EPI creatinine equation. eGFR Non-Black/ >90 >=60 mL/min/BSA 08/03/2021 10:58 AM CLINICAL SAFETY MANAGER METH Comment: ----ADDITIONAL INFORMATION---- Estimated GFR calculated using the 2009 CKD_EPI creatinine equation. Specimen Anatomical Collection Method Collection Time Receive d Time (Source) Location / / Volume Laterality Blood (Blood, 08/03/2021 10:21 08/03/2021 Venous) AM CLINICAL SAFETY MANAGER 10:28 AM CLINICAL SAFETY MANAGER Nataly Horta APRN, C.N.P., M.S.N. LAB BLOOD ADD-ON Performing Organization Address City/State/ZIP Code Phon e Number [facility] - [address] [place], [place] [address] [place] [address] Laboratories-[address] (ABNORMAL) CBC, Chemotherapy, No Alerts (08/03/2021 10:21 AM CLINICAL SAFETY MANAGER) Analysis Performed At Patho logist Time Signature Hemoglobin 10.9 (L) 11.6 - 08/03/2021 M[facility] 15.0 g/dL 10:54 AM CLINICAL SAFETY MANAGER Platelet Count 147 (L) 157 - 371 08/03/2021 [facility] x10(9)/L 10:54 AM CLINICAL SAFETY MANAGER Leukocytes 4.2 3.4 - 9.6 08/03/2021 [facility] x10(9)/L 10:54 AM CLINICAL SAFETY MANAGER Neutrophils 1.74 1.56 - 08/03/2021 [facility] 6.45 10:54 AM CLINICAL SAFETY MANAGER x10(9)/L Specimen Anatomical Collection Method Collection Time Receive d Time (Source) Location / / Volume Laterality Blood (Blood, 08/03/2021 10:21 08/03/2021 Venous) AM CLINICAL SAFETY MANAGER 10:28 AM CLINICAL SAFETY MANAGER Nataly Horta APRN, C.N.P., M.S.N. LAB BLOOD ADD-ON Performing Organization Address City/[facility]/ZIP Code Phon e Number [facility] - [address] [place], [place] [address] [place] [address] Laboratories-[place] [address] [address] [facility] Bilirubin, Total (08/03/2021 10:21 AM CLINICAL SAFETY MANAGER) P athologist Signature Bilirubin, <0.2 <=1.2 mg/dL 08/03/2021 METH Total, P 11:41 AM CLINICAL SAFETY MANAGER Specimen Anatomical Collection Method Collection Time Receive d Time (Source) Location / / Volume Laterality Blood (Blood, 08/03/2021 10:21 08/03/2021 Venous) AM CLINICAL SAFETY MANAGER 10:28 AM CLINICAL SAFETY MANAGER Tyler Easton APRNN.Damaris., M.S.N. LAB BLOOD ADD-ON Performing Organization Address City/State/ZIP Code Phon e Number [facility] - [address] [place], [place] [address] [facility] [place] [address] Laboratories-[facility] [address] [facility] AST (Aspartate Aminotransferase) (08/03/2021 10:21 AM CLINICAL SAFETY MANAGER) [facility] Method Time Signature Aspartate 18 8 - 43 08/03/2021 M[facility] Aminotransferase U/L 10:58 AM CLINICAL SAFETY MANAGER (AST), P Specimen Anatomical Collection Method Collection Time Receive d Time (Source) Location / / Volume Laterality Blood (Blood, 08/03/2021 10:21 08/03/2021 Venous) AM CLINICAL SAFETY MANAGER 10:28 AM CLINICAL SAFETY MANAGER Nataly Horta APRN, C.N.P., M.S.N. LAB BLOOD ADD-ON Performing Organization Address City/[facility] Code Phon e Number [address] [place] [id number] [facility] 200 [facility] Cancer Antigen 125 (CA 125) (08/03/2021 10:21 AM CLINICAL SAFETY MANAGER) athologist [facility] Cancer Ag 125 21 <46 U/mL 08/03/2021 [facility] (CA 125), S 3:22 PM CLINICAL SAFETY MANAGER Comment: ----ADDITIONAL INFORMATION---- The testing method is [...] Location / / Volume Laterality Blood (Blood, 08/03/2021 10:21 08/03/2021 2:53 Venous) AM CLINICAL SAFETY MANAGER PM CLINICAL SAFETY MANAGER Nataly Horta APRN, C.N.P., M.S.N. LAB BLOOD ADD-ON Performing Organization Address City/State/ZIP Code Phon e Number [facility] [address] [place], [place] [address] [facility] [place] [address] Laboratory Medicine and Pathology [address] [place] Albumin (08/03/2021 10:21 AM CLINICAL SAFETY MANAGER) athologist Signature Albumin, S 4.9 3.5 - 5.0 08/03/2021 DTL g/dL 11:11 AM CLINICAL SAFETY MANAGER Specimen Anatomical Collection Method Collection Time Receive d Time (Source) Location / / Volume Laterality Blood (Blood, 08/03/2021 10:21 08/03/2021 Venous) AM CLINICAL SAFETY MANAGER 10:27 AM CLINICAL SAFETY MANAGER Nataly Horta APRN, C.N.P., M.S.N. LAB BLOOD ADD-ON Performing Organization Address City/[facility] Phon e Number [facility] - [address] [place], [place] [address] [facility] [place] [place] [address] Laboratories-[address] Creatinine with Estimated GFR (07/13/2021 6:48 AM CLINICAL SAFETY MANAGER) athologist Signature Creatinine 0.70 0.59 - 07/13/2021 METH 1.04 mg/dL 7:23 AM CLINICAL SAFETY MANAGER eGFR-Black/Afric >90 >=60 07/13/[address] [place] mL/min/BSA 7:23 AM CLINICAL SAFETY MANAGER Comment: ----ADDITIONAL INFORMATION---- Estimated GFR calculated using the 2009 CKD_EPI creatinine equation. eGFR Non-Black/ >90 >=60 mL/min/BSA 07/13/2021 7:23 AM CLINICAL SAFETY MANAGER METH Comment: ----ADDITIONAL INFORMATION---- Estimated GFR calculated using the 2009 CKD_EPI creatinine equation. Specimen Anatomical Collection Method Collection Time Receive d Time (Source) Location / / Volume Laterality Blood (Blood, 07/13/2021 6:48 AM 07/13/20 7:00 Venous) CLINICAL SAFETY MANAGER AM CLINICAL SAFETY MANAGER Kamla Easton APRN.N.P., M.S.N. LAB BLOOD ADD-ON Performing Organization Address City/[facility] Phon e Number [facility] - [address] [place], [place] [address] [facility] [place] [address] Laboratories-[address] (ABNORMAL) CBC, Chemotherapy, No Alerts (07/13/2021 6:48 AM CLINICAL SAFETY MANAGER) Analysis Performed At Patho logist Time Signature Hemoglobin 10.1 (L) 11.6 - 07/13/2021 METH 15.0 g/dL 7:03 AM CLINICAL SAFETY MANAGER Platelet Count 151 (L) 157 - 371 07/13/2021 M[facility] x10(9)/L 7:03 AM CLINICAL SAFETY MANAGER Leukocytes 4.1 3.4 - 9.6 07/13/2021 M[facility] x10(9)/L 7:03 AM CLINICAL SAFETY MANAGER Neutrophils 1.70 1.56 - 07/13/2021 M[facility] 6.45 7:03 AM CLINICAL SAFETY MANAGER x10(9)/L Specimen Anatomical Collection Method Collection Time Receive d Time (Source) Location / / Volume Laterality Blood (Blood, 07/13/2021 6:48 AM 07/13/20 7:00 Venous) CLINICAL SAFETY MANAGER AM CLINICAL SAFETY MANAGER Nataly Horta APRN, C.N.P., M.S.N. LAB BLOOD ADD-ON Performing Organization Address City/[facility] Phon e Number [facility] [address] Bilirubin, Total (07/13/2021 6:48 AM CLINICAL SAFETY MANAGER) P athologist Signature Bilirubin, 0.2 <=1.2 mg/dL 07/13/2021 METH Total, P 7:41 AM CLINICAL SAFETY MANAGER Specimen Anatomical Collection Method Collection Time Receive d Time (Source) Location / / Volume Laterality Blood (Blood, 07/13/2021 6:48 AM 07/13/20 7:00 Venous) CLINICAL SAFETY MANAGER AM CLINICAL SAFETY MANAGER Nataly Horta APRN, C.N.P., M.S.N. LAB BLOOD ADD-ON Performing Organization Address City/State/[facility] Phon e Number [facility] [address] [place], [place] [address] [place], [place] [id number] [place] [address] AST (Aspartate Aminotransferase) (07/13/2021 6:48 AM CLINICAL SAFETY MANAGER) Patholo gist Method Time Signature Aspartate 17 8 - 43 07/13/2021 M[facility] Aminotransferase U/L 7:23 AM CLINICAL SAFETY MANAGER (AST), P Specimen Anatomical Collection Method Collection Time Receive d Time (Source) Location / / Volume Laterality Blood (Blood, 07/13/2021 6:48 AM 07/13/20 7:00 Venous) CLINICAL SAFETY MANAGER AM CLINICAL SAFETY MANAGER Nataly Horta APRN, C.N.P., M.S.N. LAB BLOOD ADD-ON Performing Organization Address City/State/ZIP Code Phon e Number [facility] - [address] [place], [place] [address] [facility] [place] [address] Laboratories-[facility] [address] Cancer Antigen 125 (CA 125) (07/13/2021 6:48 AM CLINICAL SAFETY MANAGER) athologist Signature Cancer Ag 125 37 <46 U/mL 07/13/2021 [facility] (CA 125), S 12:00 PM CLINICAL SAFETY MANAGER Comment: ----ADDITIONAL INFORMATION---- The testing method is an electrochemilum inescence assay manufactured by [employer] and performed on the Ildefonso system. Values obtained with different assay met hods or kits may be different and cannot be used inte rchangeably. Test results cannot be interpreted as ab solute evidence for the presence or absence of malignant disease. Specimen Anatomical Collection Method Collection Time Receive d Time (Source) Location / / Volume Laterality Blood (Blood, 07/13/2021 6:48 AM 07/13/20 Venous) CLINICAL SAFETY MANAGER 10:59 AM CLINICAL SAFETY MANAGER Nataly Horta APRN, C.N.P., M.S.N. LAB BLOOD ADD-ON Performing Organization Address City/[facility]/ZIP Code Phon e Number [facility] [address] [place], [place] [address] [facility] [place] [address] Laboratory Medicine and Pathology [address] [place] Albumin (07/13/2021 6:48 AM CLINICAL SAFETY MANAGER) athologist Signature Albumin, S 4.7 3.5 - 5.0 07/13/2021 DTL g/dL 7:40 AM CLINICAL SAFETY MANAGER Specimen Anatomical Collection Method Collection Time Receive d Time (Source) Location / / Volume Laterality Blood (Blood, 07/13/2021 6:48 AM 07/13/20 7:20 Venous) CLINICAL SAFETY MANAGER AM CLINICAL SAFETY MANAGER Nataly Horta APRN, C.N.P., M.S.N. LAB BLOOD ADD-ON Performing Organization Address City/[facility]/ZIP Code Phon e Number [facility] - [address] [place], [place] [address] [facility] [place] [address] Laboratories-[facility] 200 [facility] [employer] [facility] (06/01/2021 2:00 PM CLINICAL SAFETY MANAGER) P athologist Signature Test Name [facility] CDX 08/07/2021 MYRI 3:08 PM CLINICAL SAFETY MANAGER Result SEE COMMENT 08/18/2021 MYRI 2:54 PM CLINICAL SAFETY MANAGER Comment: For final report, select Lab-Send Out L ab Results hyperlink below. Specimen Anatomical Collection Method Collection Time Receive d Time (Source) Location / / Volume Laterality Varies 06/01/2021 2:00 PM 3:08 CLINICAL SAFETY MANAGER PM CLINICAL SAFETY MANAGER Narrative This result has an attachment that is no t available. Dusty Castaneda P.A.-C. LAB MISC ORDERABLES Performing Organization Address City/[facility]/ZIP Code Phon e Number [employer] [address] [place], [place] [address] [place] [address] [employer] [address] [facility] [employer] [employer] Lab (03/12/2021 12:59 PM CDT) P athologist Signature Test Name [facility] CDx 09/25/2021 MYRI 9:18 AM CLINICAL SAFETY MANAGER Result SEE COMMENT 10/14/2021 MYRI 9:42 AM CDT Comment: For final report, select Lab-Send Out L ab Results hyperlink below. Specimen Anatomical Collection Method Collection Time Receive d Time (Source) Location / / Volume Laterality Varies 03/12/2021 12:59 09/25/2021 9:18 PM CDT AM CLINICAL SAFETY MANAGER Narrative This result has an attachment that is no t available. Dusty Castaneda P.A.-C. LAB MISC ORDERABLES Performing Organization Address City/[facility]/ZIP Code Phon e Number [employer] [address] [place], [place] [address] [place] [address] [employer] [address] [employer] documented in this encounter Visit Diagnoses Diagnosis Malignant Neoplasm Of Ovary Laterality U nknown (HCC) - Primary documented in this encounter Care Teams Clinical Specialist Relationship Specialty Start Date End Date Elsewhere, Pcp PCP - General Family Medicine 03/10/21 documented as of this encounter
--- OUTSIDE RECORDS SUMMARY | 2022-03-25 08:50 | XMS_ITS | Encounter Summary ---
:1960 Author Organization [facility] Address [address] [place] [address] Care Team Providers Name Role Phone Elsewhere, Pcp Primary Care Provider Unavailable Reason for Visit Reason Comments Post-op Follow-up Encounter Details Date Type Department Care Team Description 07/07/2021 Clinical Communication Department of Aimee Lozano Post -op Follow-up Obstetrics and M, M.S.NErasto, Gynecology in [place], [place] [address] [facility] [address] [place] [phone] Social History Tobacco Use Types Packs/Day Years [...] or relatives? How often do you attend protestant or judaism More than 4 time s per year 10/23/2021 services? Do you belong to any clubs or organizations No 10/23/2021 such as protestant groups, unions, fraternal or athletic groups, or [...] this encounter Miscellaneous Notes Telephone Encounter - Aimee Lozano M.S.Patricia., R.N. - 07/07/2021 9:43 AM [employer] HELPER Post-Op Phone call Pain: Patient rates pain 1 on a scale 0-10. 0 being no pain and 10 being worst pain imaginable. Patient states pain tolerable.Not taking any meds at this time. Sore at times. Diet: Patient is able to tolerate fluids and normal diet. Bowel Movement: Patient is able to pass gas and has had a bowel movement. Voiding: Patient is able to void. Vaginal discharge: none External Skin Incision: dry and intact. External Skin Incision Site Care: Patient is cleansing incision site with soap and water. Activity: Patient is following post-operative activity restrictions. Follow-up appointment scheduled: Yes but plans to cancel. Patient Education: Reinforced post-procedure/discharge teaching. Reviewed signs and symptoms of surgical site infection. Instructed patient to check daily for warmth, increased tenderness or redness around the surgical site; cloudy drainage from the surgical site; and chills/fever of 100.4 degrees Fahrenheit (38 degrees Celsius) or greater. If experiencing any of these symptoms, patient should contact their health care provider immediately. Aimee Lozano RN T [employer] OPERATOR HELPER documented in this encounter Plan of Treatment Upcoming Encounters Date Type Specialty Care Team Description 05/11/2022 Lab Laboratory Medicine Kathleen Mccarty M.D. [address] [place] [phone] 05/12/2022 Clinical Communication Admitting/Central Scheduling 05/13/2022 Telemedicine Oncology Kathleen Mccarty M.D. [address] [place] [phone] Maribeth Guthrie R.N., O.C.N. [address] [place] [phone] 05/18/2022 Lab Laboratory Medicine Nataly Horta APRN, C.N.P., M.S.N. [address] [place] [phone] 05/18/2022 Office Visit Oncology Nataly Horta APRN, C.NChaim., M.S.N. [address] [place] [phone] documented as of this encounter Visit Diagnoses Not on filedocumented in this encounter Care Teams Practice Advisor Relationship Specialty Start Date End Date Elsewhere, Pcp PCP - General Family Medicine 03/10/21 documented as of this encounter
--- OUTSIDE RECORDS SUMMARY | 2022-03-25 08:50 | XMS_ITS | Encounter Summary ---
:1960 Author Organization [facility] Address [address] [place] [address] Care Team Providers Name Role Phone Elsewhere, [...] Expiration Date Visits Requ ested Visits Authorized [id number] 1 1 Encounter Details Date Type Department Care Team Description 06/01/2021 - Hospital Encounter [facility] [address], Malignant Neoplasm 06/03/2021 Hospital, [facility] [address] [place] [address] Unknown (HCC) Building, [place], [place] (Primary Dx ) Floor [id number] [address] [facility] [phone] [place], [place] (Work) [phone] Social History Tobacco Use Types Packs/Day Years [...] How often do you attend sabianist or restorationism More than 4 time s [...] place to sleep or slept in a fdc (including now)? Education Answer Date Recorded What is the highest level of school Bachelor's degree (e.g., BA, AB, 03/10/2021 you have completed or the highest BS) degree you have received? Sex Assigned at Date Recorded Female 03/13/2021 7:24 PM CDT documented as of this encounter Last Filed Vital Signs Vital Sign Reading Time Taken Comments Blood Pressure 126/67 06/03/2021 1:50 PM OFFICE PROFESSIONAL Pulse 105 06/03/2021 1:50 PM OFFICE PROFESSIONAL Temperature 36.8 ??C (98.2 ??F) 06/03/2021 1:50 PM OFFICE PROFESSIONAL Respiratory Rate 16 06/03/2021 1:50 PM OFFICE PROFESSIONAL Oxygen Saturation 98% 06/03/2021 1:50 PM OFFICE PROFESSIONAL Inhaled Oxygen Concentration - - Weight 64.3 kg (141 lb 12.1 oz) 06/02/2021 10:24 AM OFFICE PROFESSIONAL Height 160 cm (5' 2.99) 06/01/2021 6:49 AM OFFICE PROFESSIONAL Body Mass Index 25.12 06/01/2021 6:49 AM OFFICE PROFESSIONAL documented in this encounter Discharge Summaries Bhaskar Castaneda P.A.-C. - 06/03/2021 11:39 AM CST DISCHARGE SUMMARY Admission Date: 06/01/2021 Discharge Date: 06/03/2021 Discharge Provider: Apple Motta M.* Responsible Author(s): King Ribera M.D. 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 Ascites ??? Mass Abdominal Site ??? Deficiency Vitamin D ??? Anemia Iron Deficiency Blood Loss Chronic ??? Dyslipidemia ??? Gastroesophageal Reflux Disease ??? Hyperlipidemia ??? Hypertension Essential Primary ??? PreDiabetes ??? Peritoneal Carcinomatosis (HCC) ??? Other Abnormal Tumor Markers ??? Anxiety ??? Effusion Pleural ??? Leukocytosis ??? Intra Abdominal And Pelvic Swelling Mass And Lump Unspecified Site ??? Arthritis ??? 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 Reyes-Baez, Fiorella E, M.D. Maddy, Brandon P, M.D. PROCEDURE DATE: 06/01/2021 TYPE OF PROCEDURE(S): Procedure(s) (LRB): LAPAROTOMY, TUMOR DEBULKING. (N/A) HYSTERECTOMY ABDOMINAL, BILATERAL SALPINGO-OOPHORECTOMY. (N/A) OMENTECTOMY. (N/A) PROCEDURAL COMPLICATIONS: None POSTOPERATIVE COURSE: The patient had an uncomplicated postoperative course. She began to meet postoperative milestones onPOD1 and by the end of the day had eaten, passed her voiding trial, and ambulated. Lab studies were all within expected limits. Pain was controlled on oral medications. By POD2 she had return of bowel function with flatus. She was discharged in good condition on POD2. PATHOLOGY: Recent Results (from the past 168 hour(s)) Surgical Pathology, Frozen Lab Status: None Result Value Participated in the Interpretation Fariba Bennett M.D. - Breast Pathology Fellow Report electronically signed by Eunice Michel M.D. [phone] I verify that I have examined all relevant slides/materials for the specimen(s) and rendered or confirmed the diagnosis. Frozen Intraoperative Report A. Uterus, bilateral fallopian tubes and ovaries, total hysterectomy and bilateral salpingo-oophorectomy: High-grade serous carcinoma involving bilateral ovaries, parametrial tissue, and uterine serosa. Left fallopian tube with focal mucosal atypia. Cervix is uninvolved. Signed by Eunice Michel M.D. [phone] 06/02/2021 9:05 AM Gross Description A. Received fresh labeled uterus, right and left ovaries and fallopian tubes is an 83 gram uterus with cervix, with attached bilateral fallopian tubes and ovaries. The uterine serosa has diffuse fibrous adhesions, possible serosal implants, and adherent perimetrium. There is a 2.5 x 2.1 x 1.1 cm right ovary with a ragged outer surface. The cut surface shows a solid ovarian cut surface. There is a 4.8 x 1.1 cm right fallopian tube. The tube is dilated and erythematous. There is a 2.2 x 1.6 x 1.2 cm left ovary with a ragged, irregular outer surface. The cut surface shows a solid ovarian mass. There is a 4.8 x 1.2 cm left fallopian tube. The tube is distally dilated and erythematous. The endometrium has a 0.9 x 0.8 x 0.8 cm posterior endometrial polyp and a 1.1 x 0.7 x 0.5 cm endometrial polyp in the left cornu. There is a single (1) uterine intramural leiomyoma measuring 1.3 cm. Curriculum Developer tissue submitted for frozen and permanent sections. After c linical evaluation, residual tissue is procured for IRB No. [id number]. Grossed by F. B. Received fresh labeled falciform ligament is a 6 x 4 x 2 cm aggregate of fibroadipose tissue with attached vasculature. No masses are grossly identified. Curriculum Developer tissue submitted for permanent sections. Grossed by LAB. C. Received fresh labeled omentum is a 28 x 10 x 2.7 cm portion of omentum. There is a 19 x 5.5 x 2.1 cm omental cake. Lymph nodes are not identified. Curriculum Developer tissue submitted for permanent sections. Grossed by LAB. Block Summary A Uterus, right and left ovaries and fallopian tubes A1 Left fallopian tube-frozen A2 Left ovary-frozen A3 Right fallopian tube-frozen A4 Right ovary-frozen A5 Left cornu polyp-frozen A6 Posterior endometrium polyp-frozen A7 Anterior serosa-frozen A8 Posterior perimetrium-frozen A9 Posterior cervix-frozen B Falciform ligament B1 Falciform ligament-1 B2 Falciform ligament-2 C Omentum C1 Omental cake-1 C2 Omental cake-2 C3 Omental cake-3 Interpretation FINAL DIAGNOSIS A. Uterus, bilateral fallopian tubes and ovaries, total hysterectomy and bilateral salpingo-oophorectomy: High-grade serous carcinoma involves bilateral ovaries, parametrial tissue, and uterine serosa. Benign endometrial polyp. Multiple small leiomyomas. Cervix with no diagnostic abnormality. See synoptic report. B. Peritoneum, falciform ligament, excision: Involved by high-grade serous carcinoma. C. Omentum, partial omentectomy: Involved by high-grade serous carcinoma (> 2 cm in size). Three benign lymph nodes (0/3). SYNOPTIC REPORT : Ovarian, Fallopian Tube, and Peritoneum Procedure: Total hysterectomy and bilateral salpingo-oophorectomy Specimen Integrity: Intact Right Ovary: Capsule intact Left Ovary: Capsule intact Right Fallopian Tube: Serosa intact Left Fallopian Tube: Serosa intact Tumor Site: Right ovary, left ovary Tumor Size: 2.2 cm in greatest dimension Histologic Type: High-grade serous carcinoma Histologic Grade: Two -Tier Grading System: High grade Ovarian Surface Involvement: Present Fallopian Tube Surface Involvement: Not identified Implants: Not applicable Other Tissue/Organs Involvement: Right ovary, left ovary, pelvic peritoneum Largest Extrapelvic Peritoneal Focus: > 2 cm Peritoneal/Ascitic Fluid: Not submitted/unknown Chemotherapy Response Score (CRS): Moderate response (CRS2) Regional Lymph Node Status Not applicable (no regional lymph nodes submitted or found). Three benign omental lymph nodes identified. Distant Metastasis: Not applicable Pathologic Staging (AJCC, 8th edition) TNM Descriptors: Not applicable pT Category: pT3c pN Category: pNx pM Category: Mx FIGO Stage (2018): IIIC The synoptic report incorporates information from all relevant surgical material and includes all required data elements of the current CAP Cancer Protocol. *Note: Due to a large number of results and/or encounters for the requested time period, some results have not been displayed. A complete set of results can be found in Results Review. CYTOLOGY: Order Name Source Comment Collection Info Order Time ABG W/COOX Blood, Arterial Line 06/01/2021 10:42 AM CALCIUM, IONIZED, S/B Blood, Arterial Line 06/01/2021 10:42 AM SODIUM, B Blood, Arterial Line 06/01/2021 10:42 AM POTASSIUM, B Blood, Arterial Line 06/01/2021 10:42 AM GLUCOSE, WHOLE BLOOD Blood, Arterial Line 06/01/2021 10:42 AM ABG W/COOX Blood, Arterial Line 06/01/2021 12:03 PM CALCIUM, IONIZED, S/B Blood, Arterial Line 06/01/2021 12:03 PM SODIUM, B Blood, Arterial Line 06/01/2021 12:03 PM POTASSIUM, B Blood, Arterial Line 06/01/2021 12:03 PM GLUCOSE, WHOLE BLOOD Blood, Arterial Line 06/01/2021 12:03 PM SURGICAL PATHOLOGY, [facility]EN LAB Uterus Collected By: Apple Motta M.D. 06/01/2021 11:11 AM Collection Date 06/01/2021 Collection Time 11:11 AM DISMISSAL LABS: Hemoglobin: Lab Results Component Value Date HGB 8.1 (L) 06/02/2021 Creatinine: Lab Results Component Value Date CREATININE 0.66 06/02/2021 PAIN MEDICATIONS: Take your pain medications as instructed. It is best to take pain medications before your pain becomes severe. This will allow you to take less medication yet have better pain relief. For the first 2 or 3 days it may be helpful to take your pain medications on a regular schedule (e.g. every 4 to 6 hours). This will help you to keep your pain under better control. You should then begin to take fewer medications each day until you no longer need them. Do not take pain medication on an empty stomach. This may lead to nausea and vomiting. LIFTING: No lifting greater than 15 pounds for six weeks. PELVIC REST: No douching, tampons, or intercourse for 6 weeks. If prescribed, vaginal estrogen creammay be used during the postoperative period. DRIVING: No driving while on narcotics. Driving may be resumed initially with a competent passenger one to two weeks after surgery if no longer taking narcotics. EXERCISE: For six weeks your exercise should be limited to walking. You may walk as far as you wish,as long as you increase your level of exertion gradually and avoid slippery surfaces. You may climb stairs as needed to get around, but should not use stair climbing for exercise. VAGINAL DISCHARGE: You may develop a vaginal discharge and intermittent vaginal spotting after surgery and up to 6 weeks postoperatively. The discharge may have an odor and may change in color but it is normal. This is due to dissolving stitches. Contact your surgical team if you develop vaginal or vulvar irritation along with a discharge. Also contact your surgical team if you have vaginal dischargethat smells like urine or stool. WOUND CARE: If you have a band-aid or bandage on your wound, you may remove it the day after dismissal. You may wash the wound with mild soap and water. You may shower at any time but should avoid immersing any abdominal incisions in water for at least two weeks after surgery or until the wound is completely healed. If given, please shower with Hibiclens soap until bottle is completely finished. Keepyour wound clean and dry. You should observe your incision for signs of infection which include redness, warmth, drainage or fever. ACTIVE ISSUES REQUIRING FOLLOW UP ?? You will be contacted by the primary team once the final pathology has resulted. At this time, the team may discuss recommendations for next steps of care. ?? You will need to have a 6 week postoperative visit for evaluation of your incision including a pelvic exam. If scheduled at [facility] then appointment desk will contact you to arrange this appointment. This appointment can also be done locally if you prefer and you will have to contact your localprovider to schedule this appointment. ?? Please continue the anticoagulation medication as prescribed until you are 28 days post surgery. ?? Consultation visits with Medical Oncology and Genetics have been ordered. Please contact our schedulers to schedule these appointments at your convenience. CE PROFESSIONAL documented in this encounter Discharge Instructions AttachmentsThe following attachments cannot be sent through Care Everywhere. Ibuprofen (By mouth) (Martiniquais)Oxycodone, Rapid Release (By mouth) (Martiniquais) Rivaroxaban (By mouth) (Martiniquais)Laxative, Stimulant Combination (By mouth) (Martiniquais)documented in this encounter Medications at Time of Discharge Medication Sig Dispensed Refills Start Date End Date ascorbic acid, vitamin Take 1,000 mg by 0 C, (VITAMIN C) 500 mg mouth daily. Dose tablet unknown cholecalciferol (VITAMIN Take 50 mcg by mouth 0 0 12/29/2017 D3) 50 mcg (2,000 Unit) every morning. tablet lisinopriL Take 40 mg by mouth 0 10/30/2020 (PRINIVIL,ZESTRIL) 30 mg at bedtime. tablet multivitamin tablet Take 1 tablet by 0 mouth daily. acetaminophen (TYLENOL) Take 2 tablets (1,000 0 1 08/03/2020 500 mg tablet mg total) by mouth every 6 (six) hours as needed for pain. ibuprofen (ADVIL,MOTRIN) Take 3 tablets (600 0 200 mg tablet mg total) by mouth every 6 (six) hours as needed for pain. LORazepam (ATIVAN) 0.5 Take 1 tablet (0.5 [...] per tablet documented as of this encounter Progress Notes Christa Wells - 06/03/2021 2:24 PM CST Encounter: Spiritual Care Support Situation: Mrs. Aviles stated having Ovarian cancer. She shared the story of not being able to do the surgery the first time which was frightening for her; then it finally happened this time. Family: Mrs. Aviles has 2 children. Family is her source of motivation to keep fighting to stay alive. Belief/Doubt: Mrs. Aviles was raised [employer]. She has not been able to rely on her ilana like she wish some people have. She has encounter more doubt than anything else in the process. New Prospective on : Mrs. Aviles claims to be a realistic person. She never thought would come to her this way. She is going through a lot of realizations in the the journey to . Adjustments: Mrs. Aviles has made changes in her carrier. She is prioritizing everything in her life at the moment and focuses on what is more meaningful. Hope/Ilana: Mrs. Aviles does not have lots of hope but relies on her daughter's hope and 's ilana. Prayer: A prayer was welcomed and provided. Plan: Will remain available for spiritual care as needed or requested. Chaplains can be contacted bypaging [phone] (Hoahaoism). King Bain M.D. - 06/03/2021 7:45 AM CST Gynecologic Surgery Progress Note Admission Date: 06/01/2021 Current Date: 06/03/2021 Wendy Aviles is a 60 y.o. who is 2 Days Post-Op from Procedure(s) (LRB): LAPAROTOMY, TUMOR DEBULKING. (N/A) HYSTERECTOMY ABDOMINAL, BILATERAL SALPINGO-OOPHORECTOMY. (N/A) OMENTECTOMY. (N/A) for HGSOC. This was an interval debulking after 3 cycles of carbo/taxol. ROS and patient/family/surgical history, located on admission H&P note dated 06/01/2021, have been reviewed, and there are no changes except as noted below Overnight/24 Hour Events: Pain moderately well controlled. Passing gas. No acute events Subjective: Continues to feel well this morning. Ambulating, eating, passing gas, voiding spontaneously, no BM. Pain controlled on orals but continues to be her main complaint Objective: Current Vital Signs 24h Vital Sign Ranges T 36.7 ??C Temp Av.8 ??C Min: 36.7 ??C Max: 37 ??C BP 135/68 BP Min: 134/61 Max: 148/69 HR 93 Pulse Av.5 Min: 93 Max: 101 RR 15 Resp Av.4 Min: 15 Max: 17 SaO2 97 % SpO2 Av.8 % Min: 97 % Max: 99 % 24 Hour I/O Current Shift I/O Time Ins Outs 06/02 0701 - 06/03 0700 In: 1825 [P.O.:1825] Out: 1999 [Urine:1999] No intake/output data recorded. Physical exam: General appearance: Well appearing in no acute distress. Appropriately responsive and alert Psych: appropriate Neurologic: Grossly normal Pulm: normal work of breathing Abdomen: Soft. Non-distended. Appropriately tender. Dressing removed and wound is intact and well healing Labs Results from last 7 days Lab Units 06/02/21 0017 06/01/21 1404 06/01/21 1207 06/01/21 1052 05/30/21 0851 05/28/21 1624 WBC x10(9)/L 14.4* -- -- -- 4.6 3.8 VBGRS HEMOGLOBIN g/dL -- -- 8.3* < > -- -- HEMOGLOBIN g/dL 8.1* 8.8* -- -- 10.0* 9.0* HEMATOCRIT % 24.9* -- -- -- 30.6* 27.8* MCV fL 92.6 -- -- -- 92.2 90.8 PLATELETS AUTO x10(9)/L 107* -- -- -- 93* 74* < > = values in this interval not displayed. Results from last 7 days Lab Units 06/02/2117 05/15/21 1207 06/01/21 1052 05/28/21 1624 SODIUM mmol/L 137 -- -- 138 NABS SODIUM mmol/L -- 140 140 -- CHLORIDE mmol/L 102 -- -- 101 BUN mg/dL 11 -- -- 11 CREATININE mg/dL 0.66 -- -- 0.66 CALCIUM mg/dL 8.3* -- -- 9.2 ALBUMIN g/dL -- -- -- 5.1* GLUCOSE mg/dL -- 190* 174* -- GLUCOSE S mg/dL 188* -- -- 99 Assessment & Plan: 60 y.o. who is 2 Days Post-Op from interval ROBY BSO and omentectomy for HGSOC. 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 We reviewed postoperative findings and instructions, including no lifting >10lbs and no intercourse or anything per vagina for at least 6 weeks or until cleared by her primary MD. She will have postop follow up in 6 weeks. Continue med onc appointments for chemo. Follow up germline testing. Pain: Continue PO oxycodone and NSAIDs with IV Dilaudid for breakthrough. FEN/GI: Continue to ADAT. Antiemetics as tolerated. Continue bowel regimen, with escalation as needed. CV: Stable. Resp: No active issues. : Follow up UOP after kim removal Heme: Baseline preoperative anemia, Hgb 8.1 stable compared to 8.8 immediate postoperatively. Monitor for s/s of anemia Ppx: IS, SCDs, OOB Disposition: discharge today King Ribera M.D. Resident, Gynecologic Surgery Please direct questions/concerns to service pagers. CE PROFESSIONAL Marguerite Deras - 06/03/2021 7:10 AM CST Gynecologic Surgery Progress Note Admission Date: 06/01/2021 Current Date: 06/03/2021 ?? Wendy Aviles is a 60 y.o. who is 2 Day Post-Op from Procedure(s) (LRB): LAPAROTOMY, TUMOR DEBULKING. (N/A) HYSTERECTOMY ABDOMINAL, BILATERAL SALPINGO-OOPHORECTOMY. (N/A) OMENTECTOMY. (N/A) for HGSOC. This was an interval debulking after 3 cycles of carbo/taxol. ?? ROS and patient/family/surgical history, located on admission H&P note dated 06/01/2021, have been reviewed, and there are no changes except as noted below Overnight/24 Hour Events: Did well overnight with well controlled pain. Met ambulation goals of 5 walks ?? Subjective: Overall she feels well this morning. She has been drinking well and ate a meal of potatoes yesterday. She walked five times yesterday and has passed gas. She is able to void spontaneously. Objective: ?? Vitals: 06/02/21 1751 06/02/21 1950 06/02/21 2135 06/02/21 2231 BP: 134/61 135/68 BP Location: Left arm;Upper Left arm;Upper Patient Position: Lying Lying Pulse: 101 93 Resp: Temp: 37 ??C 36.7 ??C TempSrc: Oral Oral SpO2: 98% 97% Weight: Height: Physical exam: General appearance: Resting comfortably in bed, in no acute distress. Psych: Appropriately responsive Neurologic: Alert and oriented. Pulm: Normal work of breathing Abdomen: Soft. Non-distended. Appropriately tender. Midline dressing is clean and dry. Incision looks clean. ?? Labs Results from last 7 days Lab Units 06/02/21 0017 06/01/21 1404 06/01/21 1207 06/01/21 1052 05/30/21 0851 05/28/21 1624 WBC x10(9)/L 14.4* -- -- -- 4.6 3.8 VBGRS HEMOGLOBIN g/dL -- -- 8.3* < > -- -- HEMOGLOBIN g/dL 8.1* 8.8* -- -- 10.0* 9.0* HEMATOCRIT % 24.9* -- -- -- 30.6* 27.8* MCV fL 92.6 -- -- -- 92.2 90.8 PLATELETS AUTO x10(9)/L 107* -- -- -- 93* 74* < > = values in this interval not displayed. ?? Results from last 7 days Lab Units 06/02/21 0017 06/01/21 1207 06/01/21 1052 05/28/21 1624 SODIUM mmol/L 137 -- -- 138 NABS SODIUM mmol/L -- 140 140 -- CHLORIDE mmol/L 102 -- -- 101 BUN mg/dL 11 -- -- 11 CREATININE mg/dL 0.66 -- -- 0.66 CALCIUM mg/dL 8.3* -- -- 9.2 ALBUMIN g/dL -- -- -- 5.1* GLUCOSE mg/dL -- 190* 174* -- GLUCOSE S mg/dL 188* -- -- 99 ? 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 Wendy Aviles is a 60 y.o. with PMH of ovarian cancer who is 2 Day Post-Op from interval ROBY BSO and omentectomy for HGSOC. She has been improving well after her surgery. She has been meeting ambulation goals, has passed gas, and is voiding spontaneously. We plan to discharge her today. Code Status: Full Code Practice Performance Manager: Follow up final pathology. We reviewed postoperative findings and instructions, including no lifting >10lbs and no intercourse or anything per vagina for at least 6 weeks or until cleared by her primary MD. She will have postop follow up in 6 weeks. Continue med onc appointments for chemo. Follow up germline testing. Pain: Continue PO oxycodone and NSAIDs with IV Dilaudid for breakthrough. FEN/GI: Continue to ADAT. Antiemetics as tolerated. Continue bowel regimen, with escalation as needed. CV: Stable. Resp: No active issues. : Follow up UOP after kim removal Heme: Baseline preoperative anemia, Hgb 8.1 stable compared to 8.8 immediate postoperatively. Monitor for s/s of anemia Ppx: IS, SCDs, OOB ?? Disposition: discharge to home 06/03 ?? Marguerite Deras Medical Student Please direct questions/concerns to service pagers. Mode Dela Cruz, D., R.Ph. - 06/02/2021 8:50 AM CST Pharmacist Progress Note Reason for admission: 60 y.o. female with ovarian cancer here for LAPAROTOMY, TUMOR DEBULKING. HYSTERECTOMY ABDOMINAL, BILATERAL SALPINGO-OOPHORECTOMY. OMENTECTOMY. OPEN SIGMOID LOW ANTERIOR RESECTION, STOMA. on 06/01/2021 PMH: anxiety, HTN, HLD, IBS, prediabetes OBJECTIVE N: pain 5-7 on scheduled tylenol/nsaid, with oxycodone used twice in interval CV: VSS GI: regular diet, +S : good UO, SCr 0.66 Endo/hem: fbg 180s-90s ID: no cx, AF Home medications: ?? Held: lisinoprol ?? Changed: none Patient own medications: none Prophylaxis: SQHTID for 61kg ASSESSMENT / PLAN 1. GI: will discontinue magnesium hydroxide per CPA given stool output today 2. Endo: consider correction scale insulin for elevated fbgs, noting history of prediabetes Changes to medications anticipated at discharge: anticoagulation for laparotomy/debulking Mode Lester Pharm.D., R.Ph. CE PROFESSIONAL King Ribera M.D. - 06/02/2021 6:17 AM CST Gynecologic Surgery Progress Note Admission Date: 06/01/2021 Current Date: 06/02/2021 Wendy Aviles is a 60 y.o. who is 1 Day Post-Op from Procedure(s) (LRB): LAPAROTOMY, TUMOR DEBULKING. (N/A) HYSTERECTOMY ABDOMINAL, BILATERAL SALPINGO-OOPHORECTOMY. (N/A) OMENTECTOMY. (N/A) for HGSOC. This was an interval debulking after 3 cycles of carbo/taxol. ROS and patient/family/surgical history, located on admission H&P note dated 06/01/2021, have been reviewed, and there are no changes except as noted below Overnight/24 Hour Events: Did well overnight with well controlled pain. Her kim was removed early this morning. Subjective: Feels overall well this morning. She has walked, eaten a small amount of food, and feels like she has gas moving but hasn't passed any yet. She hasn't voided spontaneously but her kim was only removed around 5 AM Objective: Current Vital Signs 24h Vital Sign Ranges T 36.8 ??C Temp Av.8 ??C Min: 36.4 ??C Max: 37.1 ??C BP 131/68 BP Min: 130/56 Max: 163/88 HR 89 Pulse Av.7 Min: 85 Max: 108 RR 16 Resp Av.9 Min: 10 Max: 19 SaO2 100 % SpO2 Av.2 % Min: 95 % Max: 100 % 24 Hour I/O Current Shift I/O Time Ins Outs 06/01 07 - 06/02 07 In: 5043.5 [P.O.:600] Out: 1945 [Urine:1280] No intake/output data recorded. Physical exam: General appearance: Well appearing in no acute distress. Appropriately responsive and alert Psych: appropriate Neurologic: Grossly normal Pulm: normal work of breathing Abdomen: Soft. Non-distended. Appropriately tender. Midline dressing is clean and dry Labs Results from last 7 days Lab Units 06/02/211606/01/21 1404 06/01/21120606/01/21 10505/30/21 0851 05/28/21 1624 WBC x10(9)/L 14.4* -- -- -- 4.6 3.8 VBGRS HEMOGLOBIN g/dL -- -- 8.3* < > -- -- HEMOGLOBIN g/dL 8.1* 8.8* -- -- 10.0* 9.0* HEMATOCRIT % 24.9* -- -- -- 30.6* 27.8* MCV fL 92.6 -- -- -- 92.2 90.8 PLATELETS AUTO x10(9)/L 107* -- -- -- 93* 74* < > = values in this interval not displayed. Results from last 7 days Lab Units 06/02/21 0017 06/01/21 1207 06/01/21 1052 05/28/21 1624 SODIUM mmol/L 137 -- -- 138 NABS SODIUM mmol/L -- 140 140 -- CHLORIDE mmol/L 102 -- -- 101 BUN mg/dL 11 -- -- 11 CREATININE mg/dL 0.66 -- -- 0.66 CALCIUM mg/dL 8.3* -- -- 9.2 ALBUMIN g/dL -- -- -- 5.1* GLUCOSE mg/dL -- 190* 174* -- GLUCOSE S mg/dL 188* -- -- 99 Assessment & Plan: 60 y.o. who is 1 Day Post-Op from interval ROBY BSO and omentectomy for HGSOC. 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 We reviewed postoperative findings and instructions, including no lifting >10lbs and no intercourse or anything per vagina for at least 6 weeks or until cleared by her primary MD. She will have postop follow up in 6 weeks. Continue med onc appointments for chemo. Follow up germline testing. Pain: Continue PO oxycodone and NSAIDs with IV Dilaudid for breakthrough. FEN/GI: Continue to ADAT. Antiemetics as tolerated. Continue bowel regimen, with escalation as needed. CV: Stable. Resp: No active issues. : Follow up UOP after kim removal Heme: Baseline preoperative anemia, Hgb 8.1 stable compared to 8.8 immediate postoperatively. Monitor for s/s of anemia Ppx: IS, SCDs, OOB Disposition: inpatient King Ribera M.D. Resident, Gynecologic Surgery Please direct questions/concerns to service pagers. CE PROFESSIONAL Yaz Mcmullen M.D. - 06/01/2021 10:58 PM CST I evaluated the patient on rounds this evening. She states she is feeling well after surgery. She had just returned to bed after ambulating around the floor. She did have some abdominal soreness while walking. This is now improved after being in bed. Ms. Aviles states she does not have much of an appetite, but she was able to drink an ensure and tolerate drinking water. She denies nausea, no emesis. On exam, she is resting in bed, appears comfortable, no acute distress. She is afebrile, normotensive, satting well on room air. She has a midline vertical incision that is covered with a dressing. Thedressing is dry, without bleeding. Her abdomen is soft, appropriately tender to palpation, nondistended. Her kim catheter is in place draining clear yellow urine. Overall, Ms. Aviles appears to be progressing. For pain control, I encouraged her to continue scheduled tylenol and ibuprofen and oxycodon when needed. I also encouraged non-pharmacologic measures for pain control. Will continue to monitor clinical status and continue to encourage progression of milestones. Yaz Mcmullen M.D. CE PROFESSIONAL Jane Dc PharmErastoD., R.Ph. - 06/01/2021 6:45 AM CST Images from the original note were not included. Admission Medication History Note Adherence issues: No concerns Medication list source: Patient Medication related information: n/a Prior to Admission Medications Med List Status: Pharmacy Complete Set By: Jane Dc PharmErastoDErasto, R.Ph. at 06/01/2021 6:44 AM Taking? Last Dose Informant Start Date End Date LT acetaminophen (TYLENOL) 500 mg tablet 05/31/2021 03/12/21 -- Take 2 tablets (1,000 mg total) by mouth every 6 (six) hours as needed for pain. Patient taking differently: Take 1,000 mg by mouth daily as needed for pain. ascorbic acid, vitamin C, (ascorbic acid with tapan hips) 500 mg tablet 05/31/2021 Self -- -- Take 500 mg by mouth daily. Dose unknown cholecalciferol (VITAMIN D3) 50 mcg (2,000 Unit) tablet Past Week 12/29/17 -- Take 50 mcg by mouth every morning. lisinopriL (PRINIVIL,ZESTRIL) 30 mg tablet 05/31/2021 10/30/20 -- Take 30 mg by mouth at bedtime. LORazepam (ATIVAN) 0.5 mg tablet Past Month 03/10/21 -- Take 1 tablet (0.5 mg total) by mouth every 4 (four) hours as needed for anxiety for up to 15 doses. LORazepam (ATIVAN) 0.5 mg tablet 05/18/2021 03/24/21 09/20/21 Take 1 tablet (0.5 mg total) by mouth every 6 (six) hours as needed (nausea, vomiting) for up to 30doses. If ineffective, may repeat once after 30 minutes. multivitamin (multivitamin) tablet Past Week -- -- Take 1 tablet by mouth daily. ondansetron (ZOFRAN) 8 mg tablet 05/18/2021 03/24/21 03/24/22 Take 1 tablet (8 mg total) by mouth every 8 (eight) hours as needed for nausea or vomiting. prochlorperazine (COMPAZINE) 10 mg tablet 05/18/2021 03/24/21 03/24/22 Take 1 tablet (10 mg total) by mouth every 6 (six) hours as needed for nausea or vomiting (unrelieved by ondansetron). CE PROFESSIONAL documented in this encounter Nursing Notes Pauline Palm R.N., C.M.S.R.N. - 06/03/2021 2:24 PM CST Mrs. Aviles discharged home self care with her . He pushed her in wheelchair when leaving the unit. CE PROFESSIONAL Pauline Palm R.N., C.M.S.R.N. - 06/03/2021 2:22 PM CST Shift Goals: Clinical Goals for the Shift: Tolerate increased oral intake and discharge Identify possible barriers to meeting goals/advancing plan of care: Mild nausea this afternoon. End of Shift Summary: Mrs. Aviles discharged home self care with her family. She tolerated breakfast and a chocolate ensure for lunch. She had mild nausea and PO Zofran resolved the nausea. She continuedto void, pass gas and have BMs throughout the day. Education completed, IVs out and VSS. Problem: PAIN - ADULT Goal: PT VERBALIZES/DEMONSTRATES ADEQUATE COMFORT LEVEL OR BASELINE Outcome: Adequate for Discharge Problem: INFECTION - ADULT Goal: Absence of infection during hospitalization Outcome: Adequate for Discharge Problem: SAFETY ADULT Goal: Maintain a safe environment Outcome: Adequate for Discharge Problem: DISCHARGE PLANNING Goal: Patient discharge needs identified Outcome: Adequate for Discharge CE PROFESSIONAL documented in this encounter OR Notes Op Note - Apple Motta M.D. 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 Findings The patient had small miliary disease throughout the small bowel mesentery, large bowel mesentery, colic gutters bilaterally, right diaphragm, and pelvic peritoneum. Her ovaries, fallopian tubes and ovaries were grossly normal in appearance although there was fibrosis in the pelvis consistent with disease. The omentum had treatment effect and was adhered to the transverse colon. Complications None Cancer: Ovarian. Interval debulking. Initial and Residual Findings: Abdominal Peritoneum Initial: < 1cm. Residual: < 1cm. Bowel Mesentery Initial: < 1cm. Residual: < 1cm. Bowel Serosa Initial: 0/micro. Residual: 0/micro. Right Diaphragm Initial: < 1cm. Residual: < 1cm. Left Diaphragm Initial: < 1cm. Residual: < 1cm. Practice Performance Manager Organs, Pelvic Colon & Peritoneum Initial: < 1cm. Residual: 0/micro. Liver Parenchyma Initial: 0/micro. Residual: 0/micro. Liver Surface Initial: 0/micro. Residual: 0/micro. Omentum Initial: > 1cm. Residual: 0/micro. Spleen Parenchyma Initial: 0/micro. Residual: 0/micro. Spleen Surface/Hilum Initial: < 1cm. Residual: < 1cm. Overall Residual Disease (Single Largest Lesion in Greatest Dimension): < 0.5cm Ascites: No. Carcinomatosis: No. Description of Procedure The patient was brought to the operating room, where general anesthesia was initiated and found to be adequate. She was then prepped and draped in the normal sterile fashion in the dorsal lithotomy position and a Kim catheter was placed. A midline incision was made, and the findings are summarized above. The bowel were packed into the upper abdomen and Norman retractor was placed. The uterus was grasped with 2 straight clamps. The round ligaments were clamped, cut and suture ligated. The pararectal spaces were opened bilaterally. The ureters were identified and the infundibulopelvic ligaments were doubly clamped cut and suture ligated. The ureters were then followed bilaterally into the pelvis and into the insertion in the bladder. Bladder was taken down anteriorly using cautery and sharp dissection. The uterine arteries were clamped, cut and suture ligated as the ureter traversed under the artery. The remainder of the cardinal ligament was then clamped, cut and suture ligated. Colpotomy incision was made and the uterus, fallopian tubes and ovaries were handed off the table. Vagina was thenclosed in a double-layer fashion. Hemostasis was then assured in the pelvis. The rectum was mobilized and there was disease identified in the rectovaginal septum which was removed with the uterus. Bowel were examined and no injury was identified. Pelvis was irrigated with normal saline. We then turnedour attention to the upper abdomen and the incision was extended. The omentum was grasped and elevated from the transverse colon. Using sharp dissection cautery the omentum was then completely freed from the transverse colon as well as the mesentery. Serial clamps were then placed along the gastroepiploic cascade, pedicles were cut and suture ligated. We did not spare the gastroepiploic plexus. In some areas we did place 3-0 silk stitches on the stomach edge due toproximity of our clamps. The splenic flexure was mobilized to achieve removal of the omentum. The abdomen and pelvis were then irrigated with warm normal saline, and hemostasis was assured. The fascia was closed with looped 0 PDS in a running fashion, and the skin was closed with 3-0 Monocryl in a subcuticular fashion. The patient was transferred to recovery in stable condition. Apple Motta M.D. Edited by: Lilibeth Stelow, Documentation Services 06/22/21 5:55 PM OFFICE PROFESSIONAL Edited by: Jessica Simons, Documentation Services 07/23/21 5:19 AM OFFICE PROFESSIONAL CE PROFESSIONAL Brief Op Note - Nahed Michel M.D. 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 Complications None EBL: 400cc UO: 250cc In: 3000cc Nahed Michel M.D. CE PROFESSIONAL documented in this encounter Miscellaneous Notes Result Encounter Note - Apple Motta M.D. - 06/05/2021 6:28 PM OFFICE PROFESSIONAL I have reviewed the final pathology report and the identified diagnosis is consistent with the patient's clinical presentation. CE PROFESSIONAL Hospital Course - Bhaskar Castaneda P.A.-C. - 06/01/2021 1:23 PM CST DISCHARGE SUMMARY Admission Date: 06/01/2021 Discharge Date: 06/03/2021 Discharge Provider: Apple Motta M.* Responsible Author(s): King Ribera M.D. 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 Reyes-Baez, Fiorella E, M.D. Maddy, Brandon P, M.D. PROCEDURE DATE: 06/01/2021 TYPE OF PROCEDURE(S): Procedure(s) (LRB): LAPAROTOMY, TUMOR DEBULKING. (N/A) HYSTERECTOMY ABDOMINAL, BILATERAL SALPINGO-OOPHORECTOMY. (N/A) OMENTECTOMY. (N/A) PROCEDURAL COMPLICATIONS: None POSTOPERATIVE COURSE: The patient had an uncomplicated postoperative course. She began to meet postoperative milestones onPOD1 and by the end of the day had eaten, passed her voiding trial, and ambulated. Lab studies were all within expected limits. Pain was controlled on oral medications. By POD2 she had return of bowel function with flatus. She was discharged in good condition on POD2. PATHOLOGY: Recent Results (from the past 168 hour(s)) Surgical Pathology, Frozen Lab Status: None Result Value Participated in the Interpretation Fariba Bennett M.D. - Breast Pathology Fellow Report electronically signed by Eunice Michel M.D. [id number] I verify that I have examined all relevant slides/materials for the specimen(s) and rendered or confirmed the diagnosis. Frozen Intraoperative Report A. Uterus, bilateral fallopian tubes and ovaries, total hysterectomy and bilateral salpingo-oophorectomy: High-grade serous carcinoma involving bilateral ovaries, parametrial tissue, and uterine serosa. Left fallopian tube with focal mucosal atypia. Cervix is uninvolved. Signed by Eunice Michel M.D. [phone] 06/02/2021 9:05 AM Gross Description A. Received fresh labeled uterus, right and left ovaries and fallopian tubes is an 83 gram uterus with cervix, with attached bilateral fallopian tubes and ovaries. The uterine serosa has diffuse fibrous adhesions, possible serosal implants, and adherent perimetrium. There is a 2.5 x 2.1 x 1.1 cm right ovary with a ragged outer surface. The cut surface shows a solid ovarian cut surface. There is a 4.8 x 1.1 cm right fallopian tube. The tube is dilated and erythematous. There is a 2.2 x 1.6 x 1.2 cm left ovary with a ragged, irregular outer surface. The cut surface shows a solid ovarian mass. There is a 4.8 x 1.2 cm left fallopian tube. The tube is distally dilated and erythematous. The endometrium has a 0.9 x 0.8 x 0.8 cm posterior endometrial polyp and a 1.1 x 0.7 x 0.5 cm endometrial polyp in the left cornu. There is a single (1) uterine intramural leiomyoma measuring 1.3 cm. Curriculum Developer tissue submitted for frozen and permanent sections. After c linical evaluation, residual tissue is procured for IRB No. [id number]. Grossed by F. B. Received fresh labeled falciform ligament is a 6 x 4 x 2 cm aggregate of fibroadipose tissue with attached vasculature. No masses are grossly identified. Curriculum Developer tissue submitted for permanent sections. Grossed by LAB. C. Received fresh labeled omentum is a 28 x 10 x 2.7 cm portion of omentum. There is a 19 x 5.5 x 2.1 cm omental cake. Lymph nodes are not identified. Curriculum Developer tissue submitted for permanent sections. Grossed by LAB. Block Summary A Uterus, right and left ovaries and fallopian tubes A1 Left fallopian tube-frozen A2 Left ovary-frozen A3 Right fallopian tube-frozen A4 Right ovary-frozen A5 Left cornu polyp-frozen A6 Posterior endometrium polyp-frozen A7 Anterior serosa-frozen A8 Posterior perimetrium-frozen A9 Posterior cervix-frozen B Falciform ligament B1 Falciform ligament-1 B2 Falciform ligament-2 C Omentum C1 Omental cake-1 C2 Omental cake-2 C3 Omental cake-3 Interpretation FINAL DIAGNOSIS A. Uterus, bilateral fallopian tubes and ovaries, total hysterectomy and bilateral salpingo-oophorectomy: High-grade serous carcinoma involves bilateral ovaries, parametrial tissue, and uterine serosa. Benign endometrial polyp. Multiple small leiomyomas. Cervix with no diagnostic abnormality. See synoptic report. B. Peritoneum, falciform ligament, excision: Involved by high-grade serous carcinoma. C. Omentum, partial omentectomy: Involved by high-grade serous carcinoma (> 2 cm in size). Three benign lymph nodes (0/3). SYNOPTIC REPORT : Ovarian, Fallopian Tube, and Peritoneum Procedure: Total hysterectomy and bilateral salpingo-oophorectomy Specimen Integrity: Intact Right Ovary: Capsule intact Left Ovary: Capsule intact Right Fallopian Tube: Serosa intact Left Fallopian Tube: Serosa intact Tumor Site: Right ovary, left ovary Tumor Size: 2.2 cm in greatest dimension Histologic Type: High-grade serous carcinoma Histologic Grade: Two -Tier Grading System: High grade Ovarian Surface Involvement: Present Fallopian Tube Surface Involvement: Not identified Implants: Not applicable Other Tissue/Organs Involvement: Right ovary, left ovary, pelvic peritoneum Largest Extrapelvic Peritoneal Focus: > 2 cm Peritoneal/Ascitic Fluid: Not submitted/unknown Chemotherapy Response Score (CRS): Moderate response (CRS2) Regional Lymph Node Status Not applicable (no regional lymph nodes submitted or found). Three benign omental lymph nodes identified. Distant Metastasis: Not applicable Pathologic Staging (AJCC, 8th edition) TNM Descriptors: Not applicable pT Category: pT3c pN Category: pNx pM Category: Mx FIGO Stage (2018): IIIC The synoptic report incorporates information from all relevant surgical material and includes all required data elements of the current [facility] Cancer Protocol. *Note: Due to a large number of results and/or encounters for the requested time period, some results have not been displayed. A complete set of results can be found in Results Review. CYTOLOGY: Order Name Source Comment Collection Info Order Time ABG W/COOX Blood, Arterial Line 06/01/2021 10:42 AM CALCIUM, IONIZED, S/B Blood, Arterial Line 06/01/2021 10:42 AM SODIUM, B Blood, Arterial Line 06/01/2021 10:42 AM POTASSIUM, B Blood, Arterial Line 06/01/2021 10:42 AM GLUCOSE, WHOLE BLOOD Blood, Arterial Line 06/01/2021 10:42 AM ABG W/COOX Blood, Arterial Line 06/01/2021 12:03 PM CALCIUM, IONIZED, S/B Blood, Arterial Line 06/01/2021 12:03 PM SODIUM, B Blood, Arterial Line 06/01/2021 12:03 PM POTASSIUM, B Blood, Arterial Line 06/01/2021 12:03 PM GLUCOSE, WHOLE BLOOD Blood, Arterial Line 06/01/2021 12:03 PM SURGICAL PATHOLOGY, [facility] Uterus Collected By: Apple Motta M.D. 06/01/2021 11:11 AM Collection Date 06/01/2021 Collection Time 11:11 AM DISMISSAL LABS: Hemoglobin: Lab Results Component Value Date HGB 8.1 (L) 06/02/2021 Creatinine: Lab Results Component Value Date CREATININE 0.66 06/02/2021 PAIN MEDICATIONS: Take your pain medications as instructed. It is best to take pain medications before your pain becomes severe. This will allow you to take less medication yet have better pain relief. For the first 2 or 3 days it may be helpful to take your pain medications on a regular schedule (e.g. every 4 to 6 hours). This will help you to keep your pain under better control. You should then begin to take fewer medications each day until you no longer need them. Do not take pain medication on an empty stomach. This may lead to nausea and vomiting. LIFTING: No lifting greater than 15 pounds for six weeks. PELVIC REST: No douching, tampons, or intercourse for 6 weeks. If prescribed, vaginal estrogen creammay be used during the postoperative period. DRIVING: No driving while on narcotics. Driving may be resumed initially with a competent passenger one to two weeks after surgery if no longer taking narcotics. EXERCISE: For six weeks your exercise should be limited to walking. You may walk as far as you wish,as long as you increase your level of exertion gradually and avoid slippery surfaces. You may climb stairs as needed to get around, but should not use stair climbing for exercise. VAGINAL DISCHARGE: You may develop a vaginal discharge and intermittent vaginal spotting after surgery and up to 6 weeks postoperatively. The discharge may have an odor and may change in color but it is normal. This is due to dissolving stitches. Contact your surgical team if you develop vaginal or vulvar irritation along with a discharge. Also contact your surgical team if you have vaginal dischargethat smells like urine or stool. WOUND CARE: If you have a band-aid or bandage on your wound, you may remove it the day after dismissal. You may wash the wound with mild soap and water. You may shower at any time but should avoid immersing any abdominal incisions in water for at least two weeks after surgery or until the wound is completely healed. If given, please shower with Hibiclens soap until bottle is completely finished. Keepyour wound clean and dry. You should observe your incision for signs of infection which include redness, warmth, drainage or fever. ACTIVE ISSUES REQUIRING FOLLOW UP You will be contacted by the primary team once the final pathology has resulted. At this time, the team may discuss recommendations for next steps of care. You will need to have a 6 week postoperative visit for evaluation of your incision including a pelvic exam. If scheduled at [facility] then appointment desk will contact you to arrange this appointment. This appointment can also be done locally if you prefer and you will have to contact your local provider to schedule this appointment. Please continue the anticoagulation medication as prescribed until you are 28 days post surgery. Consultation visits with Medical Oncology and Genetics have been ordered. Please contact our schedulers to schedule these appointments at your convenience. CE PROFESSIONAL documented in this encounter Plan of Treatment Upcoming Encounters Date Type Specialty Care Team Description 05/11/2022 Lab Laboratory Medicine Kathleen Mccarty M.D. [address] [place] [phone] 05/12/2022 Clinical Communication Admitting/Central Scheduling 05/13/2022 Telemedicine Oncology Kathleen Mccarty M.D. [address] [place] [phone] Maribeth Guthrie R.N., O.C.NErasto [address] [place] [phone] 05/18/2022 Lab Laboratory Medicine Nataly Horta APRN, C.NChaim., M.S.N. [address] [place] [phone] 05/18/2022 Office Visit Oncology Nataly Horta APRN, C.NChaim., M.S.N. [address] [place] [phone] documented as of this encounter Procedures Procedure Name Priority Date/Time Associated Comments Diagnosis CBC WITHOUT Routine 06/02/2021 12:17 Results for this DIFFERENTIAL, B AM OFFICE PROFESSIONAL procedure ar e in the results section. BASIC METABOLIC Routine 06/02/2021 12:17 Results for this PANEL, S/P AM OFFICE PROFESSIONAL procedure are i n the results section. HEMOGLOBIN, B STAT 06/01/2021 2:04 Results for this PM OFFICE PROFESSIONAL procedure are i n the results section. DX ABDOMEN 1 VIEW RAD - Routine 06/01/2021 1:42 Result s for this (most inpatients PM OFFICE PROFESSIONAL procedure a re in and all the results outpatients) section. PATIENT STATUS STAT 06/01/2021 12:07 Results f or this PM OFFICE PROFESSIONAL procedure are i n the results section. SODIUM, B STAT 06/01/2021 12:07 Results for this PM OFFICE PROFESSIONAL procedure are i n the results section. ABG W/COOX STAT 06/01/2021 12:07 Results for this PM OFFICE PROFESSIONAL procedure are i n the results section. POTASSIUM, B STAT 06/01/2021 12:07 Results for this PM OFFICE PROFESSIONAL procedure are i n the results section. GLUCOSE, WHOLE STAT 06/01/2021 12:07 Results f or this BLOOD PM OFFICE PROFESSIONAL procedure are i n the results section. CALCIUM, IONIZED, STAT 06/01/2021 12:07 Result s for this S/B PM OFFICE PROFESSIONAL procedure are i n the results section. SURGICAL PATHOLOGY, Routine 06/01/2021 11:10 Malignant Resu lts for this [facility] AM OFFICE PROFESSIONAL Neoplasm Of Ovary procedure are in Laterality the results Unknown (HCC) section. PATIENT STATUS STAT 06/01/2021 10:52 Results f or this AM OFFICE PROFESSIONAL procedure are i n the results section. SODIUM, B STAT 06/01/2021 10:52 Results for this AM OFFICE PROFESSIONAL procedure are i n the results section. ABG W/COOX STAT 06/01/2021 10:52 Results for this AM OFFICE PROFESSIONAL procedure are i n the results section. POTASSIUM, B STAT 06/01/2021 10:52 Results for this AM OFFICE PROFESSIONAL procedure are i n the results section. GLUCOSE, WHOLE STAT 06/01/2021 10:52 Results f or this BLOOD AM OFFICE PROFESSIONAL procedure are i n the results section. CALCIUM, IONIZED, STAT 06/01/2021 10:52 Result s for this S/B AM OFFICE PROFESSIONAL procedure are i n the results section. OMENTECTOMY 06/01/2021 7:54 Malignant AM OFFICE PROFESSIONAL Neoplasm Of Ovary Laterality Unknown (HCC) HYSTERECTOMY 06/01/2021 7:54 Malignant ABDOMINAL WITH AM OFFICE PROFESSIONAL Neoplasm Of Ovary SALPINGO - Laterality OOPHORECTOMY Unknown (HCC) DEBULKING TUMOR 06/01/2021 7:54 Malignant OVARY AM OFFICE PROFESSIONAL Neoplasm Of Ovary Laterality Unknown (HCC) documented in this encounter Results (ABNORMAL) CBC without Differential (06/02/2021 12:17 AM OFFICE PROFESSIONAL) Patholo gist Method Time Signature Hemoglobin 8.1 (L) 11.6 - 06/02/2021 DTL 15.0 g/dL 1:16 AM OFFICE PROFESSIONAL Hematocrit 24.9 (L) 35.5 - 06/02/2021 DTL 44.9 % 1:16 AM OFFICE PROFESSIONAL Erythrocytes 2.69 (L) 3.92 - 06/02/2021 DTL 5.13 1:16 AM OFFICE PROFESSIONAL x10(12)/L MCV 92.6 78.2 - 06/02/2021 DTL 97.9 fL 1:16 AM OFFICE PROFESSIONAL RBC Distrib Width 18.1 (H) 12.2 - 06/02/2021 DTL 16.1 % 1:16 AM OFFICE PROFESSIONAL Platelet Count 107 (L) 157 - 371 06/02/2021 DTL x10(9)/L 2:17 AM OFFICE PROFESSIONAL Leukocytes 14.4 (H) 3.4 - 9.6 06/02/2021 DTL x10(9)/L 2:17 AM OFFICE PROFESSIONAL Specimen Anatomical Collection Method Collection Time Receive d Time (Source) Location / / Volume Laterality Blood (Blood, 06/02/2021 12:17 06/02/2021 1:09 Venous) AM OFFICE PROFESSIONAL AM OFFICE PROFESSIONAL Nahed Michel M.D. LAB BLOOD ADD-ON Performing Organization Address City/State/ZIP Code Phon e Number [facility] - [address] [place], [place] [address] [facility] [place] [address] [facility] [address] (ABNORMAL) Basic Metabolic Panel (06/02/2021 12:17 AM OFFICE PROFESSIONAL) P athologist Signature Potassium, S 4.0 3.6 - 5.2 06/02/2021 DTL mmol/L 1:39 AM OFFICE PROFESSIONAL Sodium, S 137 135 - 145 06/02/2021 DTL mmol/L 1:39 AM OFFICE PROFESSIONAL Chloride, S 102 98 - 107 06/02/2021 DTL mmol/L 1:39 AM OFFICE PROFESSIONAL Bicarbonate, S 25 22 - 29 06/02/2021 DTL mmol/L 1:39 AM OFFICE PROFESSIONAL Anion Gap 10 7 - 15 06/02/2021 DTL 1:39 AM OFFICE PROFESSIONAL BUN (Blood Urea 11 6 - 21 06/02/2021 DTL Nitrogen), S mg/dL 1:39 AM OFFICE PROFESSIONAL Creatinine 0.66 0.59 - 06/02/2021 DTL 1.04 mg/dL 1:39 AM OFFICE PROFESSIONAL eGFR-Non >90 >=60 06/02/2021 DTL Black/ mL/min/BSA 1:39 AM OFFICE PROFESSIONAL [place] Comment: ----ADDITIONAL INFORMATION---- Estimated GFR calculated using the 2009 CKD_EPI creatinine equation. eGFR-Black/ >90 >=60 mL/min/BSA 2020 1:39 AM OFFICE PROFESSIONAL DTL Comment: ----ADDITIONAL INFORMATION---- Estimated GFR calculated using the 2009 CKD_EPI creatinine equation. Calcium, Total, S 8.3 (L) 8.8 - 10.2 mg/dL 06/02/2021 1:39 AM OFFICE PROFESSIONAL DTL Glucose, S 188 (H) 70 - 140 mg/dL 06/02/2021 1:39 AM OFFICE PROFESSIONAL D TL Specimen Anatomical Collection Method Collection Time Receive d Time (Source) Location / / Volume Laterality Blood (Blood, 06/02/2021 12:17 06/02/2021 1:23 Venous) AM OFFICE PROFESSIONAL AM OFFICE PROFESSIONAL Nahed Michel M.D. LAB BLOOD ADD-ON Performing Organization Address City/State/ZIP Code Phon e Number [facility] - [address] [place], [place] [address] [facility] [place] [address] [facility] [address] (ABNORMAL) Hemoglobin (06/01/2021 2:04 PM OFFICE PROFESSIONAL) P athologist Signature Hemoglobin 8.8 (L) 11.6 - 15.0 06/01/2021 METH g/dL 2:16 PM OFFICE PROFESSIONAL Specimen Anatomical Collection Method Collection Time Receive d Time (Source) Location / / Volume Laterality Blood (Blood, 06/01/2021 2:04 PM 06/01/20 21 2:14 Venous) OFFICE PROFESSIONAL PM OFFICE PROFESSIONAL Gabriel Kelly M.D., M.B.O.E. LAB BLOOD ADD-O N Performing Organization Address City/State/ZIP Code Phon e Number [facility] - [address] [place], [place] [address] [facility] [place] [address] [facility] [address] [facility] [place] DX Abdomen 1 View (06/01/2021 1:42 PM OFFICE PROFESSIONAL) Anatomical Region Laterality Modality Abdomen, Abdominal RST LOS, Abdominal ARZ LOS, N/A Computed Radiography Abdominal FLA LOS Specimen (Source) Anatomical Collection Method Collection Time Re ceived Time Location / / Volume Laterality 06/01/2021 1:43 PM OFFICE PROFESSIONAL Impressions 06/01/2021 1:45 PM OFFICE PROFESSIONAL Negative for postoperative purposes. No unexpected radiopaque foreign object. Postoperative free air i n the pelvis. Nonobstructive bowel gas pattern. Atelectasis left lung base. Narrative 06/01/2021 1:45 PM OFFICE PROFESSIONAL EXAM: ??DX ABDOMEN 1 VIEW Procedure Note Abdi Vargas M.D. - 06/01/2021Forma tting of this note might be different from the original. EXAM: DX ABDOMEN 1 VIEW IMPRESSION: Negative for postoperative purposes. No unexpected radiopaque foreign object. Postoperative free air i n the pelvis. Nonobstructive bowel gas pattern. Atelectasis left lung base. Apple Motta M.D. IMG DIAGNOSTIC IMAGING PROCE [facility] Patient Status (06/01/2021 12:07 PM OFFICE PROFESSIONAL) P athologist Signature Temperature 36.1 37.0 deg C 06/01/2021 METH 12:07 PM OFFICE PROFESSIONAL FIO2 0.40 0.21=AIR 06/01/2021 METH 12:07 PM OFFICE PROFESSIONAL Specimen Anatomical Collection Method Collection Time Receive d Time (Source) Location / / Volume Laterality Blood 06/01/2021 12:07 06/01/2021 PM OFFICE PROFESSIONAL 12:07 PM OFFICE PROFESSIONAL Arabella Orellana MOLDER SETTER, ANALYST MICROBIOLOGY LAB LAB BLOOD NON ADD-ON Performing Organization Address City/State/ZIP Code Phon e Number [facility] - [address] [address] [facility] 200 [facility] (ABNORMAL) Glucose, Whole Blood (06/01/2021 12:07 PM OFFICE PROFESSIONAL) athologist Signature Glucose 190 (H) 70 - 140 06/01/2021 METH mg/dL 12:09 PM OFFICE PROFESSIONAL Specimen Anatomical Collection Method Collection Time Receive d Time (Source) Location / / Volume Laterality Blood (Blood, 06/01/2021 12:07 06/01/2021 Arterial Line) PM OFFICE PROFESSIONAL 12:07 PM OFFICE PROFESSIONAL Gabriel Kelly M.D., M.B.O.E. LAB BLOOD TROPO ARACELI Performing Organization Address City/[facility] [address]/ZIP Code Phon e Number [facility] - [id number] [place] [address] (ABNORMAL) Potassium, Blood (06/01/2021 12:07 PM OFFICE PROFESSIONAL) athologist Signature Potassium, B 3.5 (L) 3.6 - 5.2 06/01/2021 METH mmol/L 12:09 PM OFFICE PROFESSIONAL Specimen Anatomical Collection Method Collection Time Receive d Time (Source) Location / / Volume Laterality Blood (Blood, 06/01/2021 12:07 06/01/2021 Arterial Line) PM OFFICE PROFESSIONAL 12:07 PM OFFICE PROFESSIONAL Gabriel Kelly M.D., M.B.O.E. LAB BLOOD NON A DD-ON Performing Organization Address City/State/ZIP Code Phon e Number [facility] - [address] Sodium, B (06/01/2021 12:07 PM OFFICE PROFESSIONAL) athologist Signature Sodium, B 140 135 - 145 06/01/2021 METH mmol/L 12:09 PM OFFICE PROFESSIONAL Specimen Anatomical Collection Method Collection Time Receive d Time (Source) Location / / Volume Laterality Blood (Blood, 06/01/2021 12:07 06/01/2021 Arterial Line) PM OFFICE PROFESSIONAL 12:07 PM OFFICE PROFESSIONAL Gabriel Kelly M.D., M.B.O.E. LAB BLOOD NON A DD-ON Performing Organization Address [facility] [address]/ZIP Code Phon e Number [facility] - [address] (ABNORMAL) Calcium, Ionized (06/01/2021 12:07 PM OFFICE PROFESSIONAL) athologist Signature Calcium, 4.42 (L) 4.65 - 06/01/2021 METH Ionized, B 5.30 mg/dL 12:09 PM OFFICE PROFESSIONAL Specimen Anatomical Collection Method Collection Time Receive d Time (Source) Location / / Volume Laterality Blood (Blood, 06/01/2021 12:07 06/01/2021 Arterial Line) PM OFFICE PROFESSIONAL 12:07 PM OFFICE PROFESSIONAL Gabriel Kelly M.D., M.B.O.E. LAB BLOOD NON A DD-ON Performing Organization Address [facility] [address]/[facility] Code Phon e Number [facility] - [address] (ABNORMAL) Blood Gas with Coox, Arterial (06/01/2021 12:07 PM OFFICE PROFESSIONAL) athologist Signature pO2 152 (H) 83 - 108 06/01/2021 METH mm Hg 12:09 PM OFFICE PROFESSIONAL pCO2 37 32 - 45 mm 06/01/2021 METH Hg 12:09 PM OFFICE PROFESSIONAL pH 7.40 7.35 - 06/01/2021 METH 7.45 pH 12:09 PM OFFICE PROFESSIONAL Base Excess -2 -2 - 3 06/01/2021 METH mmol/L 12:09 PM OFFICE PROFESSIONAL HCO3 23 22 - 26 06/01/2021 METH mmol/L 12:09 PM OFFICE PROFESSIONAL Hemoglobin, B 8.3 (L) 11.6 - 06/01/2021 METH 15.0 g/dL 12:09 PM OFFICE PROFESSIONAL O2Hb 96.4 94.0 - 06/01/2021 METH 98.0 % 12:09 PM OFFICE PROFESSIONAL COHb 1.4 <3.0 % 06/01/2021 METH 12:09 PM OFFICE PROFESSIONAL MetHb 1.4 <1.5 % 06/01/2021 METH 12:09 PM OFFICE PROFESSIONAL CtO2 11.6 (L) 18.0 - 06/01/2021 METH 21.0 vol % 12:09 PM OFFICE PROFESSIONAL Specimen Anatomical Collection Method Collection Time Receive d Time (Source) Location / / Volume Laterality Blood (Blood, 06/01/2021 12:07 06/01/2021 Arterial Line) PM OFFICE PROFESSIONAL 12:07 PM OFFICE PROFESSIONAL Gabriel Klely M.D., M.B.O.E. LAB BLOOD NON A DD-ON Performing Organization Address City/State/ZIP Code Phon e Number [facility] - [address] [place], [place] [address] [facility] [place] [address] [facility] [address] Surgical Pathology, Frozen Lab (06/01/2021 11:10 AM OFFICE PROFESSIONAL) Component Value Ref Test Analysis Performed Pathologis t Range Method Time At Signature 06/02/2021 METH 5:40 PM OFFICE PROFESSIONAL Participated in Fariba Bennett, 06/02/2021 Caitie - Breast 5:40 PM Interpretation Pathology Fellow OFFICE PROFESSIONAL Report Eunice Michel M.D. [id number] 06/02/2021 MET H electronically 5:40 PM signed by OFFICE PROFESSIONAL I verify that I have examined all relevant slides/materials for the specimen(s) and rendered or confirmed the diagnosis. Frozen A. ??Uterus, bilateral fallopian tubes and ovaries, total 06/02/2021 METH Intraoperative hysterectomy and bilateral salpingo-oophorectomy: 5:40 PM Report High-grade serous carcinoma involving bilateral ovaries, OFFICE PROFESSIONAL parametrial tissue, and uterine serosa. ??Left fallopian tube with focal mucosal atypia. ??Cervix is uninvolved. Signed by Eunice Michel M.D. [id number] 06/02/2021 9:05 AM Gross Description A. ??Received fresh labeled uterus, right and le ft ovaries 06/02/2021 METH and fallopian tubes is an 83 gram uterus with cervix, with 5:40 PM attached bilateral fallopian tubes and ovaries. ??The OFFICE PROFESSIONAL uterine serosa has diffuse fibrous adhesions, possible serosal implants, and adherent perimetrium. ??There is a 2.5 x 2.1 x 1.1 cm right ovary with a ragged outer surface. ??The cut surface shows a solid ovarian cut surface. ??There is a 4.8 x 1.1 cm right fallopian tube. ??The tube is dilated and erythematous. ??There is a 2.2 x 1.6 x 1.2 cm left ovary with a ragged, irregular outer surface. ??The cut surface shows a solid ovarian mass. ??There is a 4.8 x 1.2 cm left fallopian tube. ??The tube is distally dilated and erythematous. ??The endometrium has a 0.9 x 0.8 x 0.8 cm posterior endometrial polyp and a 1.1 x 0.7 x 0.5 cm endometrial polyp in the left cornu. ??There is a single (1) uterine intramural leiomyoma measuring 1.3 cm. ??Curriculum Developer tissue submitted for frozen and permanent sections. ??After clinical evaluation, residual tissue is procured for IRB No. [id number]. ??Grossed by SSF. B. ??Received fresh labeled falciform ligament is a 6 x 4 x 2 cm aggregate of fibroadipose tissue with attached vasculature. ??No masses are grossly identified. Curriculum Developer tissue submitted for permanent sections. Grossed by LAB. C. ??Received fresh labeled omentum is a 28 x 10 x 2.7 cm portion of omentum. ??There is a 19 x 5.5 x 2.1 cm omental cake. ??Lymph nodes are not identified. ??Curriculum Developer tissue submitted for permanent sections. ??Grossed by LAB. Block Summary A Uterus, right and left ovaries and fallopian tubes 06/02/2021 METH A1 Left fallopian tube-frozen 5:40 PM A2 Left ovary-frozen OFFICE PROFESSIONAL A3 Right fallopian tube-frozen A4 Right ovary-frozen A5 Left cornu polyp-frozen A6 Posterior endometrium polyp-frozen A7 Anterior serosa-frozen A8 Posterior perimetrium-frozen A9 Posterior cervix-frozen B Falciform ligament B1 Falciform ligament-1 B2 Falciform ligament-2 C Omentum C1 Omental cake-1 C2 Omental cake-2 C3 Omental cake-3 Addendum [facility] has been requested by Dr. Bhaskar Castaneda and 09/01/2021 METH will be performed on block C1 at [facility] 1:49 PM [facility] [place] [place]. OFFICE PROFESSIONAL Signed by Jessica Ndiaye M.D. 09/01/2021 1:49 PM [facility] ??has been requested by Dr. Bhaskar Castaneda and will be performed on block C3 at [facility], [place], [place]. Signed by Barney Sandoval M.D., Ph.D. 08/07/2021 3:21 PM Comment: REVISED RESULTS Interpretation FINAL DIAGNOSIS 09/01/2021 1:49 PM OFFICE PROFESSIONAL METH A. ??Uterus, bilateral fallopian tubes and ovaries, total hysterectomy and bilateral salpingo-oophorectomy: High-grade serous carcinoma involves bilateral ovaries, parametrial tissue, and uterine serosa. Benign endometrial polyp. Multiple small leiomyomas. ??Cervix with no diagnostic abnormality. See synoptic report. B. ??Peritoneum, falciform ligament, excision: Involved by high-grade serous carcinoma. C. ??Omentum, partial omentectomy: ??Involved by high-grade serous carcinoma (> 2 cm in size). Three benign lymph nodes (0/3). SYNOPTIC REPORT : Ovarian, Fallopian Tube, and Peritoneum Procedure: Total hysterectomy and bilateral salpingo-oophorectomy Specimen Integrity: Intact Right Ovary: Capsule intact Left Ovary: Capsule intact Right Fallopian Tube: Serosa intact Left Fallopian Tube: Serosa intact Tumor Site: Right ovary, left ovary Tumor Size: 2.2 cm in greatest dimension Histologic Type: High-grade serous carcinoma Histologic Grade: Two-Tier Grading System: High grade Ovarian Surface Involvement: Present Fallopian Tube Surface Involvement: Not identified Implants: Not applicable Other Tissue/Organs Involvement: Right ovary, left ovary, pelvic peritoneum Largest Extrapelvic Peritoneal Focus: > 2 cm Peritoneal/Ascitic Fluid: Not submitted/unknown Chemotherapy Response Score (CRS): Moderate response (CRS2) Regional Lymph Node Status Not applicable (no regional lymph nodes submitted or found). Three benign omental lymph nodes identified. Distant Metastasis: Not applicable Pathologic Staging (AJCC, 8th edition) TNM Descriptors: Not applicable pT Category: pT3c pN Category: pNx pM Category: Mx FIGO Stage (2018): IIIC The synoptic report incorporates information from all relevant surgical material and includes all required data elements of the current CAP Cancer Protocol. Specimen (Source) Anatomical Collection Method Collection Time Re ceived Time Location / / Volume Laterality Tissue (Uterus) 06/01/2021 11:10 AM OFFICE PROFESSIONAL Tissue (Liver) 06/01/2021 11:28 AM OFFICE PROFESSIONAL Tissue (Omentum) 06/01/2021 12:02 PM OFFICE PROFESSIONAL Narrative This result has an attachment that is no t available. Apple Motta M.D. LAB SURG PATH ORDERABLES Performing Organization Address City/[facility] [address]/ZIP Code Phon e Number [facility] - [address] 200 [facility] Patient Status (06/01/2021 10:52 AM OFFICE PROFESSIONAL) athologist Signature Temperature 35.8 37.0 deg C 06/01/2021 METH 10:52 AM OFFICE PROFESSIONAL FIO2 0.40 0.21=AIR 06/01/2021 METH 10:52 AM OFFICE PROFESSIONAL Specimen Anatomical Collection Method Collection Time Receive d Time (Source) Location / / Volume Laterality Blood 06/01/2021 10:52 06/01/2021 AM OFFICE PROFESSIONAL 10:52 AM OFFICE PROFESSIONAL Arabella Orellana APRN, ANALYST MICROBIOLOGY LAB LAB BLOOD NON ADD-ON Performing Organization Address City/[facility] [address]/ZIP Code Phon e Number [facility] - 200 [place] [id number] [facility] [address] [facility] [place] (ABNORMAL) Glucose, Whole Blood (06/01/2021 10:52 AM OFFICE PROFESSIONAL) P athologist Signature Glucose 174 (H) 70 - 140 06/01/2021 METH mg/dL 11:02 AM OFFICE PROFESSIONAL Specimen Anatomical Collection Method Collection Time Receive d Time (Source) Location / / Volume Laterality Blood (Blood, 06/01/2021 10:52 06/01/2021 Arterial Line) AM OFFICE PROFESSIONAL 10:52 AM OFFICE PROFESSIONAL Gabriel Kelly M.D., M.B.O.E. LAB BLOOD TROPO ARACELI Performing Organization Address City/[facility] [address]/ZIP Code Phon e Number [facility] - [address] [place] [address] [place] [address] [place] [address] [address] [facility] [place] (ABNORMAL) Potassium, Blood (06/01/2021 10:52 AM OFFICE PROFESSIONAL) athologist Signature Potassium, B 3.3 (L) 3.6 - 5.2 06/01/2021 METH mmol/L 11:02 AM OFFICE PROFESSIONAL Specimen Anatomical Collection Method Collection Time Receive d Time (Source) Location / / Volume Laterality Blood (Blood, 06/01/2021 10:52 06/01/2021 Arterial Line) AM OFFICE PROFESSIONAL 10:52 AM OFFICE PROFESSIONAL Gabriel Kelly M.D., M.B.O.E. LAB BLOOD NON A DD-ON Performing Organization Address City/[facility] Phon e Number [facility] - [address] Sodium, B (06/01/2021 10:52 AM OFFICE PROFESSIONAL) athologist Signature Sodium, B 140 135 - 145 06/01/2021 METH mmol/L 11:02 AM OFFICE PROFESSIONAL Specimen Anatomical Collection Method Collection Time Receive d Time (Source) Location / / Volume Laterality Blood (Blood, 06/01/2021 10:52 06/01/2021 Arterial Line) AM OFFICE PROFESSIONAL 10:52 AM OFFICE PROFESSIONAL Gabriel Kelly M.D., M.B.O.E. LAB BLOOD NON A DD-ON Performing Organization Address City/[facility] Phon e Number [facility] - 200 [place] [id number] [address] (ABNORMAL) Calcium, Ionized (06/01/2021 10:52 AM OFFICE PROFESSIONAL) athologist Signature Calcium, 4.54 (L) 4.65 - 06/01/2021 METH Ionized, B 5.30 mg/dL 11:02 AM OFFICE PROFESSIONAL Specimen Anatomical Collection Method Collection Time Receive d Time (Source) Location / / Volume Laterality Blood (Blood, 06/01/2021 10:52 06/01/2021 Arterial Line) AM OFFICE PROFESSIONAL 10:52 AM OFFICE PROFESSIONAL Gabriel Kelly M.D., M.B.O.E. LAB BLOOD NON A DD-ON Performing Organization Address City/State/[facility] Code Phon e Number [facility] - [address] [place] [address] [facility] [place] [address] [facility] [address] [facility] [place] (ABNORMAL) Blood Gas with Coox, Arterial (06/01/2021 10:52 AM OFFICE PROFESSIONAL) P athologist Signature pO2 127 (H) 83 - 108 06/01/2021 METH mm Hg 11:02 AM OFFICE PROFESSIONAL pCO2 37 32 - 45 mm 06/01/2021 METH Hg 11:02 AM OFFICE PROFESSIONAL pH 7.40 7.35 - 06/01/2021 METH 7.45 pH 11:02 AM OFFICE PROFESSIONAL Base Excess -2 -2 - 3 06/01/2021 METH mmol/L 11:02 AM OFFICE PROFESSIONAL HCO3 23 22 - 26 06/01/2021 METH mmol/L 11:02 AM OFFICE PROFESSIONAL Hemoglobin, B 8.2 (L) 11.6 - 06/01/2021 METH 15.0 g/dL 11:02 AM OFFICE PROFESSIONAL O2Hb 96.2 94.0 - 06/01/2021 METH 98.0 % 11:02 AM OFFICE PROFESSIONAL COHb 1.5 <3.0 % 06/01/2021 METH 11:02 AM OFFICE PROFESSIONAL MetHb 1.3 <1.5 % 06/01/2021 METH 11:02 AM OFFICE PROFESSIONAL CtO2 11.4 (L) 18.0 - 06/01/2021 METH 21.0 vol % 11:02 AM OFFICE PROFESSIONAL Specimen Anatomical Collection Method Collection Time Receive d Time (Source) Location / / Volume Laterality Blood (Blood, 06/01/2021 10:52 06/01/2021 Arterial Line) AM OFFICE PROFESSIONAL 10:52 AM OFFICE PROFESSIONAL Gabriel Kelly M.D., M.B.O.E. LAB BLOOD NON A DD-ON Performing Organization Address City/State/[facility] Code Phon e Number [facility] - [address] [place], [place] [address] [facility] [place] [address] [facility] [address] [facility] [place] documented in this encounter Visit Diagnoses Diagnosis Malignant Neoplasm Of Ovary Laterality U nknown (HCC) - Primary Hypertension Essential Primary Anemia Iron Deficiency Blood Loss Chroni c documented in this encounter Admitting Diagnoses Diagnosis Malignant Neoplasm Of Ovary Laterality U nknown (HCC) documented in this encounter Administered Medications Inactive Administered Medications - up to 3 most recent administrations Medication Order MAR Action Action Date Dose Rate Site acetaminophen tablet 1,000 mg Given 06/01/2021 7:42 AM OFFICE PROFESSIONAL 1,000 mg (TYLENOL) 1,000 mg, oral, Once, On Tue06/01/21 at 0745, For 1 dose, Pre-Op, In Pre Op holding (PWA) acetaminophen tablet 1,000 mg (TYLENOL) Given 06/03/2021 8:58 AM OFFICE PROFESSIONAL 1,000 mg 1,000 mg, oral, Every 6 hours, First dose on Tue06/01/21 at 1600, not to exceed 4 grams in 24 hours. Given 06/03/2021 3:00 AM OFFICE PROFESSIONAL 1,000 mg Given 06/02/2021 9:31 PM OFFICE PROFESSIONAL 1,000 mg aprepitant capsule 80 mg (EMEND) Given 06/01/2021 7:44 AM OFFICE PROFESSIONAL 80 mg 80 mg, oral, Once, On Tue06/01/21 at 0745, For 1 dose, Pre-Op celecoxib capsule 400 mg (CeleBREX) Given 06/01/2021 7:43 AM OFFICE PROFESSIONAL 400 mg 400 mg, oral, Once, On Tue06/01/21 at 0745, For 1 dose, Pre-Op, Pre-procedure on unit. Not to be administered for true sulfa allergy, acute GI bleed, history of GI bleed within past 6 months, or NSAID contraindications. fentaNYL injection 25 mcg (SUBLIMAZE) Given 06/01/2021 2:27 PM OFFICE PROFESSIONAL 25 mcg 25 mcg, intravenous, Every 2 min PRN, For pain 4 or greater (maximum 100 mcg). If max dose of Fentanyl is reached and if pain is greater than 4, discontinue Fentanyl: give Hydromorphone, Starting on Tue06/01/21 at 1355, PACU (only) Given 06/01/2021 2:12 PM OFFICE PROFESSIONAL 25 mcg heparin (porcine) Given 06/03/2021 5:47 AM OFFICE PROFESSIONAL 5,000 Units Left Upper Arm injection 5,000 Units (Back) 5,000 Units, subcutaneous, Every 8 hours scheduled, First dose on Tue06/01/21 at 2200 Given 06/02/2021 9:31 PM OFFICE PROFESSIONAL 5,000 Units Right Upper Arm (Back) Given 06/02/2021 1:17 PM OFFICE PROFESSIONAL 5,000 Units Right Upper Arm (Back) HYDROmorphone (PF) injection 0.4 mg Given 06/01/2021 5:33 PM OFFICE PROFESSIONAL 0.4 mg (DILAUDID) 0.4 mg, intravenous, Every 2 hour PRN, for breakthrough pain, Starting on Tue06/01/21 at 1503, Unrelieved 30 minutes after PRN oral pain medication is used; if unable to take oral pain medication; or if pain is greater than or equal to 7, use instead of oral pain medication. ibuprofen tablet 600 mg (ADVIL,MOTRIN) Given 06/03/2021 12:29 PM OFFICE PROFESSIONAL 600 mg 600 mg, oral, Every 6 hours, First dose on Tue06/02/21 at 1900, start 6 hours after last ketorolac dose administered Given 06/03/2021 6:21 AM OFFICE PROFESSIONAL 600 mg Given 06/03/2021 12:01 AM OFFICE PROFESSIONAL 600 mg ketorolac injection 15 mg (TORADOL) Given 06/02/2021 1:35 PM OFFICE PROFESSIONAL 15 mg 15 mg, intravenous, Every 6 hours, First dose on Tue06/01/21 at 1900, For 4 doses, start no sooner than 6 hours after last intraoperative dose Adult IV push rate: Over 15 seconds. Peds IV push rate: Over 1 minute. 60 mg dose only for IM, not recommended for IV., Drug Monitoring Program: Pharmacist to adjust medication dosing based on indication and drug clearance factors. Given 06/02/2021 7:34 AM OFFICE PROFESSIONAL 15 mg Given 06/02/2021 12:03 AM OFFICE PROFESSIONAL 15 mg lactated ringers Continued from OR 06/01/2021 1:45 PM OFFICE PROFESSIONAL 20 mL/hr 20 mL/hr 20 mL/hr, intravenous, Continuous, Starting on Tue06/01/21 at 1230, PACU & Post-Op lactated ringers Continued from OR 06/01/2021 3:08 PM OFFICE PROFESSIONAL 40 mL/hr 40 mL/hr 40 mL/hr, intravenous, Continuous, Starting on Tue06/01/21 at 1515 magnesium hydroxide suspension 30 mL (MILK OF Given 7:52 AM OFFICE PROFESSIONAL 30 mL MAGNESIA) 30 mL, oral, 2 times daily, First dose on Tue06/01/21 at 2100, Starting evening of surgery. After first bowel movement discontinue Magnesium hydroxide. Given 06/01/2021 9:08 PM OFFICE PROFESSIONAL 30 mL ondansetron ODT disintegrating tablet 8 mg Given 06/03/2021 1:31 PM OFFICE PROFESSIONAL 8 mg (ZOFRAN-ODT) 8 mg, oral, Every 8 hours PRN, nausea, vomiting, Starting on Tue06/03/21 at 1324, When splitting ODT at bedside, handle with gloves and a pill splitter to prevent moisture contact. oxyCODONE IR tablet 10 mg (ROXICODONE) Given 06/03/2021 12:30 PM OFFICE PROFESSIONAL 10 mg 10 mg, oral, Every 4 hours PRN, severe pain or score 7-10 of 10, Administer if pain is unrelieved by acetaminophen, Starting on Tue06/01/21 at 1503, For patients that received intrathecal analgesia, start 24 hours after intrathecal dose given Given 06/03/2021 7:42 AM OFFICE PROFESSIONAL 10 mg Given 06/01/2021 9:08 PM OFFICE PROFESSIONAL 10 mg oxyCODONE IR tablet 5 mg (ROXICODONE) Given 06/03/2021 12:00 AM OFFICE PROFESSIONAL 5 mg 5 mg, oral, Every 4 hours PRN, moderate pain or score 4-6 of 10, Administer if pain is unrelieved by acetaminophen., Starting on Tue06/01/21 at 1503, For patients that received intrathecal analgesia, start 24 hours after intrathecal dose given Given 06/02/2021 8:01 PM OFFICE PROFESSIONAL 5 mg Given 06/02/2021 3:19 PM OFFICE PROFESSIONAL 5 mg rivaroxaban tablet 10 mg (XARELTO) Given 06/03/2021 12:29 PM OFFICE PROFESSIONAL 10 mg 10 mg, oral, Daily, First dose on Tue06/03/21 at 1200 sennosides-docusate sodium 8.6-50 mg per Given 06/03/2021 7:42 A M OFFICE PROFESSIONAL 1 tablet tablet 1 tablet (SENOKOT-S) 1 tablet, oral, 2 times daily, First dose on Tue06/01/21 at 2100, Starting evening of surgery. Given 06/02/2021 9:31 PM OFFICE PROFESSIONAL 1 tablet Given 06/02/2021 7:52 AM OFFICE PROFESSIONAL 1 tablet sodium phosphates enema 1 enema (FLEET) Given 06/01/2021 7:00 AM OFFICE PROFESSIONAL 1 enema 1 enema, rectal, Once, On Tue06/01/21 at 0645, For 1 dose, Pre-Op, Give Fleets if not done at home the morning of surgery documented in this encounter Active and Recently Administered Medications Times are shown in OFFICE PROFESSIONAL. Scheduled Medication Order 06/01/2021 06/02/2021 06/03/2021 acetaminophen tablet 1,000 mg (TYLENOL) (COMPLETED) 07 42 (Given - Provider: Arun Yan R.N.) 1,000 mg, oral, Once, On Tue06/01/21 at 0745, For 1 dose, Pre-Op, In Pre Op holding (PWA) acetaminophen tablet 1,000 mg (TYLENOL) 1536 (Given - Provider: Annalee Kebede R.N.)2108 (Given - Provider: Annalee Kebede R.N.) 0416 (Given - Provider: Maxwell PerdomoNErasto)0959 (Given - Provider: Pauline Palm R.N., C.M.S.R.N.)1651 (Given - Provider: Annalee Kebede R.N.)2131 (Given - Provider: Annalee Kebede R.N.) 0300 (Given - Provider: Martina cisneros RErastoN.)0858 (Given - Provider: Pauline Palm R.N., C.M.S.R.N.) 1,000 mg, oral, Every 6 hours, First dos e on Tue06/01/21 at 1600, not to exceed 4 grams in 24 hours. aprepitant capsule 80 mg (EMEND) (COMPLETED) 0744 (Giv en - Provider: Arun Yan R.N.) 80 mg, oral, Once, On Tue06/01/21 at 0745, For 1 dose, Pre-Op ceFAZolin injection 2,000 mg (ANCEF) (COMPLETED) 09 (Given - Provider: Arabella Orellana APRN, JONATHAN)1208 (Given - Provider: Arabella Orellana APRN, JONATHAN) 2,000 mg (rounded from 1,590 mg = 25 mg/ kg ? 63.6 kg), intravenous, Once, On Tue06/01/21 at 0745, For 1 dose, Intra-Op, Preoperatively within 1 hour prior to surgical incision If needed, reconstitute vial per package insert instructions. Se e IVAG for administration guidelines. , Drug Monitoring Program: Pharmacist to adjust medication dosing based on indication and drug clearance factors., Indications: Prophylaxis, surgical celecoxib capsule 400 mg (CeleBREX) (COMPLETED) 742 ( Given - Provider: Arun Yan R.N.) 400 mg, oral, Once, On Tue06/01/21 at 0 745, For 1 dose, Pre-Op, Pre-procedure on unit. Not to be administered for true sulfa allergy, acute GI bleed, history of GI bleed within past 6 months, or NSAID contraindications. heparin (porcine) injection 5,000 Units (COMPLETED) 03 26 (Given - Provider: Arabella Orellana APRN, [facility]) 5,000 Units, subcutaneous, Once, On Tue06/01/21 at 0745, For 1 dose, Intra-Op, Administer prior to induction of anesthesia. heparin (porcine) injection 5,000 Units (CANCELED) 210 8 (Given - Provider: Annalee Kebede RLinda) 0627 (Given - Provider: Yusef Smith RErastoNErasto)1317 (Given - Provider: Pauline Palm R.N., C.M.S.R.N.)2131 (Given - Provider: Annalee Kebede R.N.) 0547 (Given - Provider: Martina cisneros RErastoNErasto) 5,000 Units, subcutaneous, Every 8 hours scheduled, First dose on Tue06/01/21 at 2200 ibuprofen tablet 600 mg (ADVIL,MOTRIN) 1 831 (Given - Provider: Enriqueta Lanier R.N.) 0001 (Given - Provider: Martina cisneros R.N.)0621 (Given - Provider: Maxwell HannonNErasto)1229 (Given - Provider: Pauline Palm R.N., C.M.S.R.N.) 600 mg, oral, Every 6 hours, First dose on Tue06/02/21 at 1900, start 6 hours after last ketorolac dose administered ketorolac injection 15 mg (TORADOL) (COMPLETED) 1844 ( Given - Provider: Annlaee Kebede R.N.) 0003 (Given - Provider: Yusef Smith R.N.)0734 (Given - Provider: Pauline Palm R.N., C.M.S.R.N.)1335 (Given - Provider: Sybil Sher R.N.) 15 mg, intravenous, Every 6 hours, First dose on Tue06/01/21 at 1900, For 4 doses, start no sooner than 6 hours after last intraoperative dose Adult IV push rate: Over 15 seconds. Peds IV push rate: Ov er 1 minute. 60 mg dose only for IM, not recommended for IV., Drug Monitoring Program: Pharmacist to adjust medication dosing based on indication and drug clearance factors. lisinopriL tablet 30 mg (PRINIVIL,ZESTRIL) 1503 (Held by provider - Provider: Evy Herron R.N. - Comment: Post op) 2100 (Dose Auto Held) 1624 (Unheld by provider - Provider: Discharge Provider, Automatic) 30 mg, oral, Daily at bedtime, First dose on Tue06/02/21 at 210 0 magnesium hydroxide suspension 30 mL (MILK OF MAGNESIA ) (CANCELED) 2107 (Given - Provider: Annalee Kebede R.N.) 075 (Given - Provider: Jb Au, C.M.S.R.N.) 30 mL, oral, 2 times daily, First dose o n Tue06/01/21 at 2100, Starting evening of surgery. After first bowel movement discontinue Magnesium hydroxide. rivaroxaban tablet 10 mg (XARELTO) 1229 (Given - Provider: Pauline Palm R.N., C.M.S.R.N.) 10 mg, oral, Daily, First dose on Tue06/03/21 at 1200 sennosides-docusate sodium 8.6-50 mg per tablet 1 tabl et (SENOKOT-S) 2107 (Given - Provider: Annalee Kebede R.N.) 0752 (Given - Provider: Pauline Palm R.N., C.M.S.R.N.)2131 (Given - Provider: Annalee Kebede RErastoNErasto) 0742 (Given - Provider: Pauline Palm R.N., C.M.S.R.N.) 1 tablet, oral, 2 times daily, First dos e on Tue06/01/21 at 2100, Starting evening of surgery. sodium phosphates enema 1 enema (FLEET) (COMPLETED) 07 00 (Given - Provider: Irina Ramírez R.N., C.M.S.R.N.) 1 enema, rectal, Once, On Tue06/01/21 a t 0645, For 1 dose, Pre-Op, Give Fleets if not done at home the morning of surgery tranexamic acid in NaCl IVPB 1,000 mg (CYKLOKAPRON) (C OMPLETED) 0925 (Given - Provider: Arabella Orellana APRN, JONATHAN)1321 (Anesthesia Volume Adjustment - Provider: Arabella Orellana APRN, CRNA) 1,000 mg (1 g), intravenous, Once, On 06/01/21 at 0815, For 1 dose, Intra-Op Continuous Medication Order 06/01/2021 06/02/2021 06/03/2021 lactated ringers (CANCELED) 0839 (New Bag - Provider: Arabella Orellana APRN, CRNA)1037 (New Bag - Provider: Arabella Orellana APRN, CRNA)1249 (Anesthesia Volume Adjustment - Provider: Arabella Orellana APRN, CRNA) 30 mL/hr, intravenous, Continuous, Starting on Tue06/01/21 at 0 745, Pre-Op lactated ringers (CANCELED) 1345 (Continued from OR - Provider: Josefina Gallegos R.N.)1508 (Stopped - Provider: Evy Herron R.N.) 20 mL/hr, intravenous, Continuous, Start ing on Tue06/01/21 at 1230, PACU & Post-Op lactated ringers 1508 (Continued from OR - Pr ovider: Nellie Ferreira.NErasto)2257 (Stopped - Provider: Annalee Kebede RErastoNErasto) 40 mL/hr, intravenous, Continuous, Starting on Tue06/01/21 at 1 515 PRN Medication Order 06/01/2021 06/02/2021 06/03/2021 bupivacaine liposome (PF) 20 mL in sodiu m chloride (PF) 0.9 % 120 mL injection (CANCELED) 1300 (Given - Provider: Nahed Michel M.D.) As needed, Starting on Tue06/01/21 at 1300, Intra-Op fentaNYL injection 25 mcg (SUBLIMAZE) (CANCELED) 1412 (Given - Provider: Josefina Gallegos R.N.)1427 (Given - Provider: Josefina Gallegos R.N.) 25 mcg, intravenous, Every 2 min PRN, Fo r pain 4 or greater (maximum 100 mcg). If max dose of Fentanyl is reached and if pain is greater than 4, discontinue Fentanyl: give Hydromorphone, Starting on Tue06/01/21 at 1355, PACU (only) haloperidol lactate injection 1 mg (HALDOL) 1 mg, intravenous, Every 6 hours PRN, na usea, vomiting, Starting on Tue06/01/21 at 1503, For 48 hours, Total of 3 doses in 24 hour period. RASS must be -2 or higher to administer. Reassess for nausea o r vomiting after at least 10 minutes. If nausea or vomiting persists administer next ordered antiemetic medications (order for antiemetic medication administration ondansetron then haloperidol then promethazine) HYDROmorphone (PF) injection 0.4 mg (DILAUDID) 0633 (G bonnieen - Provider: Annalee Kebede RErastoNErasto) 0.4 mg, intravenous, Every 2 hour PRN, f or breakthrough pain, Starting on Tue06/01/21 at 1503, Unrelieved 30 minutes after PRN oral pain medication is used; if unable to take oral pain medication; or i f pain is greater than or equal to 7, use instead of oral pain m edication. naloxone injection 0.2 mg (NARCAN) 0.2 mg, intravenous, As needed, respirat ory depression, Starting on Tue06/01/21 at 1503, For respiratory rate less than 8 breaths per minute or RASS score of - 3, -4, -5. Apply oxygen to keep oxygen saturations greater than 90% and notify service. ondansetron ODT disintegrating tablet 8 mg (ZOFRAN-ODT) 1331 (Given - Provider: Pauline Palm R.N., C.M.S.R.N.) 8 mg, oral, Every 8 hours PRN, nausea, v omiting, Starting on Tue06/03/21 at 1324, When splitting ODT at bedside, handle with gloves and a pill splitter to prevent moisture contact. oxyCODONE IR tablet 10 mg (ROXICODONE)(Linked Group 1) 163 (Given - Provider: Annalee Kebede R.N.)2107 (Given - Provider: Annalee Kebede R.N.) 100 (See Alternative - Provider: Pauline Palm R.N., C.M.S.R.N.)151 (See Alternative - Provider: Annalee Kebede R.N.)2000 (See Alternative - Provider: Annalee Kebede R.N.) 0000 (See Alternative - Provider: Martina Buckley R.N.)0742 (Given - Provider: Pauline Palm R.N., C.M.S.R.N.)1230 (Given - Provider: Pauline Palm R.N., C.M.S.R.N.) 10 mg, oral, Every 4 hours PRN, severe p ain or score 7-10 of 10, Administer if pain is unrelieved by acetaminophen, Starting on Tue06/01/21 at 1503, For patients that received intrathecal analgesia, start 24 hours after intrathecal dose given oxyCODONE IR tablet 5 mg (ROXICODONE)(Linked Group 1) 163 (See Alternative - Provider: Annalee Kebede R.N.)2107 (See Alternative - Provider: Annalee Kebede R.N.) 100 (Given - Provider: Jb Au, C.M.S.R.N.)1519 (Given - Provider: Annalee Kebede R.N.)2000 (Given - Provider: Annalee Kebede R.N.) 0000 (Given - Provider: Maxwell LacyN.)9542 (See Alternative - Provider: Pauline Palm R.N., C.M.S.R.N.)1230 (See Alternative - Provider: Pauline Palm R.N., C.Bharathi.S.R.N.) 5 mg, oral, Every 4 hours PRN, moderate pain or score 4-6 of 10, Administer if pain is unrelieved by acetaminophen., Starting on Tue06/01/21 at 1503, For patients that received intrathecal analgesia, start 24 hours after intrathecal dose given Linked Groups Order Group 1: oxyCODONE IR tablet 5 mg (ROXICODONE)Jump to med 5 mg, oral, Every 4 hours PRN, moderate pain or score 4-6 of 10, Administer if pain is unrelieved by acetaminophen., Starting on Tue06/01/21 at 1503
For patients that received intrathecal analgesia, start 24 hours after intrathecal dose given
Or oxyCODONE IR tablet 10 mg (ROXICODONE)Jump to med 10 mg, oral, Every 4 hours PRN, severe p ain or score 7-10 of 10, Administer if pain is unrelieved by acetaminophen, Starting on Tue06/01/21 at 1503
For patients that received intrathecal analgesia, start 24 hours after intrathecal dose given
documented in this encounter Care Teams Senior Executive Compensation Analyst Relationship Specialty Start Date End Date Elsewhere, Pcp PCP - General Family Medicine 03/10/21 documented as of this encounter
--- OUTSIDE RECORDS SUMMARY | 2022-03-25 08:50 | XMS_ITS | Encounter Summary ---
:1960 Author Organization [facility] Address [address] [place] [address] Care Team Providers Name Role Phone Elsewhere, [...] Expiration Date Visits Requ ested Visits Authorized [id number] 1 1 Encounter Details Date Type Department Care Team Description 06/01/2021 Surgery RST HORTENCIA BALDERAS OR Apple Motta LAPAROTOMY, TUMOR [address] Heath M.D. DEBULKING. [place], [place] 200 [facility] [id number] [place], [place] [phone] (Wo rk) Social History Tobacco Use Types [...] How often do you attend mormonism or jewish More than 4 time s per year [...] place to sleep or slept in a group home (including now)? Education Answer Date Recorded What is the highest level of school Bachelor's degree (e.g., BA, AB, 03/10/2021 you have completed or the highest BS) degree you have received? Sex Assigned at Date Recorded Female 03/13/2021 7:24 PM CDT documented as of this encounter Last Filed Vital Signs Vital Sign Reading Time Taken Comments Blood Pressure 146/95 06/01/2021 6:49 AM SENIOR INTEGRATION ARCHITECT Pulse 89 06/01/2021 6:49 AM SENIOR INTEGRATION ARCHITECT Temperature 37 ??C (98.6 ??F) 06/01/2021 6:49 AM SENIOR INTEGRATION ARCHITECT Respiratory Rate 14 06/01/2021 6:49 AM SENIOR INTEGRATION ARCHITECT Oxygen Saturation 100% 06/01/2021 6:49 AM SENIOR INTEGRATION ARCHITECT Inhaled Oxygen Concentration - - Weight 60.9 kg (134 lb 4.2 oz) 06/01/2021 6:49 AM SENIOR INTEGRATION ARCHITECT Height 160 cm (5' 2.99) 06/01/2021 6:49 AM SENIOR INTEGRATION ARCHITECT Body Mass Index 25.12 06/01/2021 6:49 AM SENIOR INTEGRATION ARCHITECT documented in this encounter Discharge Summaries Bhaskar Castaneda P.A.-C. - 06/03/2021 11:39 AM CST DISCHARGE SUMMARY Admission Date: 06/01/2021 Discharge Date: 06/03/2021 Discharge Provider: pAple Motta M.* Responsible Author(s): King Ribera M.D. [...] Report electronically signed by Eunice Michel M.D. [id number] I verify that I have examined all [...] (1) uterine intramural leiomyoma measuring 1.3 cm. Electrical Maintenance Engineer tissue submitted for frozen and permanent sections. After c linical evaluation, residual tissue is procured for IRB No. [id number]. Grossed by SSF. B. Received fresh labeled falciform ligament is a 6 x 4 x 2 cm aggregate of fibroadipose tissue with attached vasculature. No masses are grossly identified. Electrical Maintenance Engineer tissue submitted for permanent sections. Grossed by LAB. C. Received fresh labeled omentum is a 28 x 10 x 2.7 cm portion of omentum. There is a 19 x 5.5 x 2.1 cm omental cake. Lymph nodes are not identified. Electrical Maintenance Engineer tissue submitted for permanent sections. Grossed by [...] including a pelvic exam. If scheduled at [facility] then appointment desk will contact you to [...] to schedule these appointments at your convenience. OR INTEGRATION ARCHITECT documented in this encounter Discharge Instructions AttachmentsThe following attachments cannot be sent through Care Everywhere. Ibuprofen (By mouth) (South African)Oxycodone, Rapid Release (By mouth) (South African) Rivaroxaban (By mouth) (South African)Laxative, Stimulant Combination (By mouth) (South African)documented in this encounter Medications at Time of [...] stay alive. Belief/Doubt: Mrs. Aviles was raised Faith. She has not been able to rely [...] relies on her daughter's hope and 's ialna. Prayer: A prayer was welcomed and provided. Plan: Will remain available for spiritual care as needed or requested. Chaplains can be contacted bypaging [phone] (Anabaptist). King Bain M.D. - 06/03/2021 7:45 AM [...] Blood Loss Chronic Code Status: Full Code Amusement Ride Inspector: Follow up final pathology. We reviewed postoperative [...] Surgery Please direct questions/concerns to service pagers. OR INTEGRATION ARCHITECT Marguerite Deras - 06/03/2021 7:10 AM CST [...] discharge her today. Code Status: Full Code Amusement Ride Inspector: Follow up final pathology. We reviewed postoperative [...] Student Please direct questions/concerns to service pagers. OR INTEGRATION ARCHITECT Mode Lester Pharm.D., R.Ph. - 06/02/2021 8:50 AM CST Pharmacist [...] anticoagulation for laparotomy/debulking Mode Lester Pharm.D., R.Ph. OR INTEGRATION ARCHITECT King Ribera M.D. - 06/02/2021 6:17 AM [...] Current Shift I/O Time Ins Outs 06/01 701 - 06/02 700 In: 5043.5 [P.O.:600] Out: 1945 [Urine:1280] No intake/output data recorded. Physical exam: General appearance: Well appearing in no acute distress. Appropriately responsive and alert Psych: appropriate Neurologic: Grossly normal Pulm: normal work of breathing Abdomen: Soft. Non-distended. Appropriately tender. Midline dressing is clean and dry Labs Results from last 7 days Lab Units 06/02/211606/01/21 14006/01/21 12006/01/21 1052 05/30/21 0851 05/28/21 1624 WBC x10(9)/L [...] from last 7 days Lab Units 06/02/21 00106/01/21 1207 06/01/21 1052 05/28/21 1624 SODIUM mmol/L [...] Laterality Unknown (HCC) Code Status: Full Code Amusement Ride Inspector: Follow up final pathology. We reviewed postoperative [...] Surgery Please direct questions/concerns to service pagers. OR INTEGRATION ARCHITECT Yaz Mcmullen M.D. - 06/01/2021 10:58 PM [...] encourage progression of milestones. Yaz Mcmullen M.D. OR INTEGRATION ARCHITECT Jane Dc PharmMilady, R.Ph. - 06/01/2021 6:45 AM CST Images [...] for nausea or vomiting (unrelieved by ondansetron). OR INTEGRATION ARCHITECT documented in this encounter Nursing Notes Pauline Palm R.N., C.M.S.R.N. - 06/03/2021 2:24 PM CST Mrs. Aviles discharged home self care with her . He pushed her in wheelchair when leaving the unit. OR INTEGRATION ARCHITECT Pauline Palm R.N., C.M.S.R.N. - 06/03/2021 2:22 [...] discharge needs identified Outcome: Adequate for Discharge OR INTEGRATION ARCHITECT documented in this encounter OR Notes Op Note - Apple Motta M.D. 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 Residual: < 1cm. Amusement Ride Inspector Organs, Pelvic Colon & Peritoneum Initial: < [...] were packed into the upper abdomen and [place] retractor was placed. The uterus was grasped [...] condition. Apple Motta M.D. Edited by: Lilibeth Tucker, Documentation Services 06/22/21 5:55 PM SENIOR INTEGRATION ARCHITECT Edited by: Jessica Simons, Documentation Services 07/23/21 5:19 AM SENIOR INTEGRATION ARCHITECT OR INTEGRATION ARCHITECT Brief Op Note - Nahed Michel M.D. 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 Complications None EBL: 400cc UO: 250cc In: 3000cc Nahed Michel M.D. OR INTEGRATION ARCHITECT documented in this encounter Miscellaneous Notes Result Encounter Note - Apple Motta M.D. - 06/05/2021 6:28 PM SENIOR INTEGRATION ARCHITECT I have reviewed the final pathology report and the identified diagnosis is consistent with the patient's clinical presentation. OR INTEGRATION ARCHITECT Hospital Course - Bhaskar Castaneda P.A.-C. - [...] Motta M.D. Reyes-Baez, Fiorella E, M.D. Maddy, King P, M.D. PROCEDURE DATE: 06/01/2021 TYPE OF [...] Report electronically signed by Eunice Michel M.D. [id number] I verify that I have examined all [...] (1) uterine intramural leiomyoma measuring 1.3 cm. Electrical Maintenance Engineer tissue submitted for frozen and permanent sections. After c linical evaluation, residual tissue is procured for IRB No. [id number]. Grossed by SSF. B. Received fresh labeled falciform ligament is a 6 x 4 x 2 cm aggregate of fibroadipose tissue with attached vasculature. No masses are grossly identified. Electrical Maintenance Engineer tissue submitted for permanent sections. Grossed by LAB. C. Received fresh labeled omentum is a 28 x 10 x 2.7 cm portion of omentum. There is a 19 x 5.5 x 2.1 cm omental cake. Lymph nodes are not identified. Electrical Maintenance Engineer tissue submitted for permanent sections. Grossed by [...] including a pelvic exam. If scheduled at [facility] then appointment desk will contact you to [...] to schedule these appointments at your convenience. OR INTEGRATION ARCHITECT documented in this encounter Plan of Treatment Upcoming Encounters Date Type Specialty Care Team Description 05/11/2022 Lab Laboratory Medicine Kathleen Mccarty M.D. [address] [place] [phone] 05/12/2022 Clinical Communication Admitting/Central Scheduling 05/13/2022 Telemedicine Oncology Kathleen Mccarty M.D. [address] [place] [phone] Maribeth Guthrie, Soila, O.C.N. [address] [place] [phone] 05/18/2022 Lab Laboratory Medicine Nataly Horta APRN, C.NChaim., M.S.N. [address] [place] [phone] 05/18/2022 Office Visit Oncology Nataly Horta APRN, C.NChaim., M.S.N. [address] [place] [phone] documented as of this encounter Procedures Procedure Name Priority Date/Time Associated Comments Diagnosis CBC WITHOUT Routine 06/02/2021 12:17 Results for this DIFFERENTIAL, B AM SENIOR INTEGRATION ARCHITECT procedure ar e in the results section. BASIC METABOLIC Routine 06/02/2021 12:17 Results for this PANEL, S/P AM SENIOR INTEGRATION ARCHITECT procedure are i n the results section. HEMOGLOBIN, B STAT 06/01/2021 2:04 Results for this PM SENIOR INTEGRATION ARCHITECT procedure are i n the results section. DX ABDOMEN 1 VIEW RAD - Routine 06/01/2021 1:42 Result s for this (most inpatients PM SENIOR INTEGRATION ARCHITECT procedure a re in and all the results outpatients) section. PATIENT STATUS STAT 06/01/2021 12:07 Results f or this PM SENIOR INTEGRATION ARCHITECT procedure are i n the results section. SODIUM, B STAT 06/01/2021 12:07 Results for this PM SENIOR INTEGRATION ARCHITECT procedure are i n the results section. ABG W/COOX STAT 06/01/2021 12:07 Results for this PM SENIOR INTEGRATION ARCHITECT procedure are i n the results section. POTASSIUM, B STAT 06/01/2021 12:07 Results for this PM SENIOR INTEGRATION ARCHITECT procedure are i n the results section. GLUCOSE, WHOLE STAT 06/01/2021 12:07 Results f or this BLOOD PM SENIOR INTEGRATION ARCHITECT procedure are i n the results section. CALCIUM, IONIZED, STAT 06/01/2021 12:07 Result s for this S/B PM SENIOR INTEGRATION ARCHITECT procedure are i n the results section. SURGICAL PATHOLOGY, Routine 06/01/2021 11:10 Malignant Resu lts for this [facility] LAB AM SENIOR INTEGRATION ARCHITECT Neoplasm Of Ovary procedure are in Laterality the results Unknown (HCC) section. PATIENT STATUS STAT 06/01/2021 10:52 Results f or this AM SENIOR INTEGRATION ARCHITECT procedure are i n the results section. SODIUM, B STAT 06/01/2021 10:52 Results for this AM SENIOR INTEGRATION ARCHITECT procedure are i n the results section. ABG W/COOX STAT 06/01/2021 10:52 Results for this AM SENIOR INTEGRATION ARCHITECT procedure are i n the results section. POTASSIUM, B STAT 06/01/2021 10:52 Results for this AM SENIOR INTEGRATION ARCHITECT procedure are i n the results section. GLUCOSE, WHOLE STAT 06/01/2021 10:52 Results f or this BLOOD AM SENIOR INTEGRATION ARCHITECT procedure are i n the results section. CALCIUM, IONIZED, STAT 06/01/2021 10:52 Result s for this S/B AM SENIOR INTEGRATION ARCHITECT procedure are i n the results section. OMENTECTOMY 06/01/2021 7:54 Malignant AM SENIOR INTEGRATION ARCHITECT Neoplasm Of Ovary Laterality Unknown (HCC) HYSTERECTOMY 06/01/2021 7:54 Malignant ABDOMINAL WITH AM SENIOR INTEGRATION ARCHITECT Neoplasm Of Ovary [place] - Laterality OOPHORECTOMY Unknown (HCC) DEBULKING TUMOR 06/01/2021 7:54 Malignant OVARY AM SENIOR INTEGRATION ARCHITECT Neoplasm Of Ovary Laterality Unknown (HCC) documented in this encounter Results (ABNORMAL) CBC without Differential (06/02/2021 12:17 AM SENIOR INTEGRATION ARCHITECT) Patholo gist Method Time Signature Hemoglobin 8.1 (L) 11.6 - 06/02/2021 DTL 15.0 g/dL 1:16 AM SENIOR INTEGRATION ARCHITECT Hematocrit 24.9 (L) 35.5 - 06/02/2021 DTL 44.9 % 1:16 AM SENIOR INTEGRATION ARCHITECT Erythrocytes 2.69 (L) 3.92 - 06/02/2021 DTL 5.13 1:16 AM SENIOR INTEGRATION ARCHITECT x10(12)/L MCV 92.6 78.2 - 06/02/2021 DTL 97.9 fL 1:16 AM SENIOR INTEGRATION ARCHITECT RBC Distrib Width 18.1 (H) 12.2 - 06/02/2021 DTL 16.1 % 1:16 AM SENIOR INTEGRATION ARCHITECT Platelet Count 107 (L) 157 - 371 06/02/2021 DTL x10(9)/L 2:17 AM SENIOR INTEGRATION ARCHITECT Leukocytes 14.4 (H) 3.4 - 9.6 06/02/2021 DTL x10(9)/L 2:17 AM SENIOR INTEGRATION ARCHITECT Specimen Anatomical Collection Method Collection Time Receive d Time (Source) Location / / Volume Laterality Blood (Blood, 06/02/2021 12:17 06/02/2021 1:09 Venous) AM SENIOR INTEGRATION ARCHITECT AM SENIOR INTEGRATION ARCHITECT Nahed Michel M.D. LAB BLOOD ADD-ON Performing Organization Address City/State/ZIP Code Phon e Number [facility] - [address] [place], [place] [address] [facility] [place] [address] [facility] [address] (ABNORMAL) Basic Metabolic Panel (06/02/2021 12:17 AM SENIOR INTEGRATION ARCHITECT) P athologist Signature Potassium, S 4.0 3.6 - 5.2 06/02/2021 DTL mmol/L 1:39 AM SENIOR INTEGRATION ARCHITECT Sodium, S 137 135 - 145 06/02/2021 DTL mmol/L 1:39 AM SENIOR INTEGRATION ARCHITECT Chloride, S 102 98 - 107 06/02/2021 DTL mmol/L 1:39 AM SENIOR INTEGRATION ARCHITECT Bicarbonate, S 25 22 - 29 06/02/2021 DTL mmol/L 1:39 AM SENIOR INTEGRATION ARCHITECT Anion Gap 10 7 - 15 06/02/2021 DTL 1:39 AM SENIOR INTEGRATION ARCHITECT BUN (Blood Urea 11 6 - 21 06/02/2021 DTL Nitrogen), S mg/dL 1:39 AM SENIOR INTEGRATION ARCHITECT Creatinine 0.66 0.59 - 06/02/2021 DTL 1.04 mg/dL 1:39 AM SENIOR INTEGRATION ARCHITECT eGFR-Non >90 >=60 06/02/2021 DTL Black/ mL/min/BSA 1:39 AM SENIOR INTEGRATION ARCHITECT Turkmen Comment: ----ADDITIONAL INFORMATION---- Estimated GFR calculated using the 2009 CKD_EPI creatinine equation. eGFR-Black/ >90 >=60 mL/min/BSA 2020 1:39 AM SENIOR INTEGRATION ARCHITECT DTL Comment: ----ADDITIONAL INFORMATION---- Estimated GFR calculated using the 2009 CKD_EPI creatinine equation. Calcium, Total, S 8.3 (L) 8.8 - 10.2 mg/dL 06/02/2021 1:39 AM SENIOR INTEGRATION ARCHITECT DTL Glucose, S 188 (H) 70 - 140 mg/dL 06/02/2021 1:39 AM SENIOR INTEGRATION ARCHITECT D TL Specimen Anatomical Collection Method Collection Time Receive d Time (Source) Location / / Volume Laterality Blood (Blood, 06/02/2021 12:17 06/02/2021 1:23 Venous) AM SENIOR INTEGRATION ARCHITECT AM SENIOR INTEGRATION ARCHITECT Nahed Michel M.D. LAB BLOOD ADD-ON Performing Organization Address City/State/ZIP Code Phon e Number [facility] - [address] [place], [place] [address] [facility] [place] [address] [facility] [address] (ABNORMAL) Hemoglobin (06/01/2021 2:04 PM SENIOR INTEGRATION ARCHITECT) P athologist Signature Hemoglobin 8.8 (L) 11.6 - 15.0 06/01/2021 METH g/dL 2:16 PM SENIOR INTEGRATION ARCHITECT Specimen Anatomical Collection Method Collection Time Receive d Time (Source) Location / / Volume Laterality Blood (Blood, 06/01/2021 2:04 PM 06/01/20 2:14 Venous) SENIOR INTEGRATION ARCHITECT PM SENIOR INTEGRATION ARCHITECT Gabriel Kelly M.D., M.B.O.E. LAB BLOOD ADD-O N Performing Organization Address City/State/ZIP Code Phon e Number [facility] - [address] DX Abdomen 1 View (06/01/2021 1:42 PM SENIOR INTEGRATION ARCHITECT) Anatomical Region Laterality Modality Abdomen, Abdominal RST LOS, Abdominal ARZ LOS, N/A Computed Radiography Abdominal FLA LOS Specimen (Source) Anatomical Collection Method Collection Time Re ceived Time Location / / Volume Laterality 06/01/2021 1:43 PM SENIOR INTEGRATION ARCHITECT Impressions 06/01/2021 1:45 PM SENIOR INTEGRATION ARCHITECT Negative for postoperative purposes. No unexpected radiopaque foreign object. Postoperative free air i n the pelvis. Nonobstructive bowel gas pattern. Atelectasis left lung base. Narrative 06/01/2021 1:45 PM SENIOR INTEGRATION ARCHITECT EXAM: ??DX ABDOMEN 1 VIEW Procedure Note Abdi Vargas M.D. - 06/01/2021Forma tting of this note might be different from the original. EXAM: DX ABDOMEN 1 VIEW IMPRESSION: Negative for postoperative purposes. No unexpected radiopaque foreign object. Postoperative free air i n the pelvis. Nonobstructive bowel gas pattern. Atelectasis left lung base. Apple Motta M.D. IMG DIAGNOSTIC IMAGING PROCE [facility] Patient Status (06/01/2021 12:07 PM SENIOR INTEGRATION ARCHITECT) P athologist Signature Temperature 36.1 37.0 deg C 06/01/2021 METH 12:07 PM SENIOR INTEGRATION ARCHITECT FIO2 0.40 0.21=AIR 06/01/2021 METH 12:07 PM SENIOR INTEGRATION ARCHITECT Specimen Anatomical Collection Method Collection Time Receive d Time (Source) Location / / Volume Laterality Blood 06/01/2021 12:07 06/01/2021 PM SENIOR INTEGRATION ARCHITECT 12:07 PM SENIOR INTEGRATION ARCHITECT Arabella Orellana CONSTRUCTION JOB [employer]ITLES, MANAGER INTERN LAB BLOOD NON ADD-ON Performing Organization Address City/State/ZIP Code Phon e Number [facility] - [address] [place], [place] [address] [place] [address] [facility] 200 [facility] (ABNORMAL) Glucose, Whole Blood (06/01/2021 12:07 PM SENIOR INTEGRATION ARCHITECT) athologist Signature Glucose 190 (H) 70 - 140 06/01/2021 METH mg/dL 12:09 PM SENIOR INTEGRATION ARCHITECT Specimen Anatomical Collection Method Collection Time Receive d Time (Source) Location / / Volume Laterality Blood (Blood, 06/01/2021 12:07 06/01/2021 Arterial Line) PM SENIOR INTEGRATION ARCHITECT 12:07 PM SENIOR INTEGRATION ARCHITECT Gabriel Kelly M.D., M.B.O.E. LAB BLOOD TROPO ARACELI Performing Organization Address [facility] Phon e Number [facility] [address] (ABNORMAL) Potassium, Blood (06/01/2021 12:07 PM SENIOR INTEGRATION ARCHITECT) athologist Signature Potassium, B 3.5 (L) 3.6 - 5.2 06/01/2021 METH mmol/L 12:09 PM SENIOR INTEGRATION ARCHITECT Specimen Anatomical Collection Method Collection Time Receive d Time (Source) Location / / Volume Laterality Blood (Blood, 06/01/2021 12:07 06/01/2021 Arterial Line) PM SENIOR INTEGRATION ARCHITECT 12:07 PM SENIOR INTEGRATION ARCHITECT Gabriel Kelly M.D., M.B.O.E. LAB BLOOD NON A DD-ON Performing Organization Address City/[facility] Code Phon e Number [facility] - [address] Sodium, B (06/01/2021 12:07 PM SENIOR INTEGRATION ARCHITECT) athologist Signature Sodium, B 140 135 - 145 06/01/2021 METH mmol/L 12:09 PM SENIOR INTEGRATION ARCHITECT Specimen Anatomical Collection Method Collection Time Receive d Time (Source) Location / / Volume Laterality Blood (Blood, 06/01/2021 12:07 06/01/2021 Arterial Line) PM SENIOR INTEGRATION ARCHITECT 12:07 PM SENIOR INTEGRATION ARCHITECT Gabriel Kelly M.D., M.B.O.E. LAB BLOOD NON A DD-ON Performing Organization Address [facility] Phon e Number [facility] - [address] [place] [phone] [facility] [place] [address] (ABNORMAL) Calcium, Ionized (06/01/2021 12:07 PM SENIOR INTEGRATION ARCHITECT) athologist Signature Calcium, 4.42 (L) 4.65 - 06/01/2021 METH Ionized, B 5.30 mg/dL 12:09 PM SENIOR INTEGRATION ARCHITECT Specimen Anatomical Collection Method Collection Time Receive d Time (Source) Location / / Volume Laterality Blood (Blood, 06/01/2021 12:07 06/01/2021 Arterial Line) PM SENIOR INTEGRATION ARCHITECT 12:07 PM SENIOR INTEGRATION ARCHITECT Gabriel Kelly M.D., M.B.O.E. LAB BLOOD NON A DD-ON Performing Organization Address [facility] Phon e Number [facility] - [address] [place] [address] [place] [address] (ABNORMAL) Blood Gas with Coox, Arterial (06/01/2021 12:07 PM SENIOR INTEGRATION ARCHITECT) athologist Signature pO2 152 (H) 83 - 108 06/01/2021 METH mm Hg 12:09 PM SENIOR INTEGRATION ARCHITECT pCO2 37 32 - 45 mm 06/01/2021 M[facility] Hg 12:09 PM SENIOR INTEGRATION ARCHITECT pH 7.40 7.35 - 06/01/2021 METH 7.45 pH 12:09 PM SENIOR INTEGRATION ARCHITECT Base Excess -2 -2 - 3 06/01/2021 METH mmol/L 12:09 PM SENIOR INTEGRATION ARCHITECT HCO3 23 22 - 26 06/01/2021 METH mmol/L 12:09 PM SENIOR INTEGRATION ARCHITECT Hemoglobin, B 8.3 (L) 11.6 - 06/01/2021 METH 15.0 g/dL 12:09 PM SENIOR INTEGRATION ARCHITECT O2Hb 96.4 94.0 - 06/01/2021 METH 98.0 % 12:09 PM SENIOR INTEGRATION ARCHITECT COHb 1.4 <3.0 % 06/01/2021 METH 12:09 PM SENIOR INTEGRATION ARCHITECT MetHb 1.4 <1.5 % 06/01/2021 METH 12:09 PM SENIOR INTEGRATION ARCHITECT CtO2 11.6 (L) 18.0 - 06/01/2021 METH 21.0 vol % 12:09 PM SENIOR INTEGRATION ARCHITECT Specimen Anatomical Collection Method Collection Time Receive d Time (Source) Location / / Volume Laterality Blood (Blood, 06/01/2021 12:07 06/01/2021 Arterial Line) PM SENIOR INTEGRATION ARCHITECT 12:07 PM SENIOR INTEGRATION ARCHITECT Gabriel Kelly M.D., M.B.O.E. LAB BLOOD NON A DD-ON Performing Organization Address City/State/ZIP Code Phon e Number [facility] - [address] [place], [place] [address] [facility] [place] [address] [facility] [address] Surgical Pathology, Frozen Lab (06/01/2021 11:10 AM SENIOR INTEGRATION ARCHITECT) Component Value Ref Test Analysis Performed Pathologis t Range Method Time At Signature 06/02/2021 METH 5:40 PM SENIOR INTEGRATION ARCHITECT Participated in Link Ahmad, 06/02/2021 M[facility] the [place] - Breast 5:40 PM Interpretation Pathology Fellow SENIOR INTEGRATION ARCHITECT Report Eunice Michel M.D. [id number] 06/02/2021 MET H electronically 5:40 PM signed by SENIOR INTEGRATION ARCHITECT I verify that I have examined all relevant slides/materials for the specimen(s) and rendered or confirmed the diagnosis. Frozen A. ??Uterus, bilateral fallopian tubes and ovaries, total 06/02/2021 METH Intraoperative hysterectomy and bilateral salpingo-oophorectomy: 5:40 PM Report High-grade serous carcinoma involving bilateral ovaries, SENIOR INTEGRATION ARCHITECT parametrial tissue, and uterine serosa. ??Left fallopian tube with focal mucosal atypia. ??Cervix is uninvolved. Signed by Eunice Michel M.D. [phone] 06/02/2021 9:05 AM Gross Description A. ??Received fresh labeled uterus, right and le ft ovaries 06/02/2021 METH and fallopian tubes is an 83 gram uterus with cervix, with 5:40 PM attached bilateral fallopian tubes and ovaries. ??The SENIOR INTEGRATION ARCHITECT uterine serosa has diffuse fibrous adhesions, possible [...] (1) uterine intramural leiomyoma measuring 1.3 cm. ??Electrical Maintenance Engineer tissue submitted for frozen and permanent sections. ??After clinical evaluation, residual tissue is procured for IRB No. [id number]. ??Grossed by F. B. ??Received fresh labeled falciform ligament is a 6 x 4 x 2 cm aggregate of fibroadipose tissue with attached vasculature. ??No masses are grossly identified. Electrical Maintenance Engineer tissue submitted for permanent sections. Grossed by LAB. C. ??Received fresh labeled omentum is a 28 x 10 x 2.7 cm portion of omentum. ??There is a 19 x 5.5 x 2.1 cm omental cake. ??Lymph nodes are not identified. ??Electrical Maintenance Engineer tissue submitted for permanent sections. ??Grossed by LAB. Block Summary A Uterus, right and left ovaries and fallopian tubes 06/02/2021 M[facility] A1 Left fallopian tube-frozen 5:40 PM A2 Left ovary-frozen SENIOR INTEGRATION ARCHITECT A3 Right fallopian tube-frozen A4 Right ovary-frozen [...] will be performed on block C1 at [employer] 1:49 PM [facility], [place], [place]. SENIOR INTEGRATION ARCHITECT Signed by Jessica Ndiaye M.D. 09/01/2021 1:49 PM [employer] [facility] ??has been requested by Dr. Bhaskar Castaneda and will be performed on block C3 at [employer], [place], [place]. Signed by Barney Sandoval M.D., Ph.D. 08/07/2021 3:21 PM Comment: REVISED RESULTS Interpretation FINAL DIAGNOSIS 09/01/2021 1:49 PM SENIOR INTEGRATION ARCHITECT METH A. ??Uterus, bilateral fallopian tubes and [...] Volume Laterality Tissue (Uterus) 06/01/2021 11:10 AM SENIOR INTEGRATION ARCHITECT Tissue (Liver) 06/01/2021 11:28 AM SENIOR INTEGRATION ARCHITECT Tissue (Omentum) 06/01/2021 12:02 PM SENIOR INTEGRATION ARCHITECT Narrative This result has an attachment that is no t available. Apple Motta M.D. LAB SURG PATH ORDERABLES Performing Organization Address [facility] Phon e Number [facility] - [address] Patient Status (06/01/2021 10:52 AM SENIOR INTEGRATION ARCHITECT) athologist Signature Temperature 35.8 37.0 deg C 06/01/2021 M[facility] 10:52 AM SENIOR INTEGRATION ARCHITECT FIO2 0.40 0.21=AIR 06/01/2021 [facility] 10:52 AM SENIOR INTEGRATION ARCHITECT Specimen Anatomical Collection Method Collection Time Receive d Time (Source) Location / / Volume Laterality Blood 06/01/2021 10:52 06/01/2021 AM SENIOR INTEGRATION ARCHITECT 10:52 AM SENIOR INTEGRATION ARCHITECT Arabella Orellana APRN, CRNA LAB BLOOD NON ADD-ON Performing Organization Address City/[facility] Phon e Number [facility] - [address] (ABNORMAL) Glucose, Whole Blood (06/01/2021 10:52 AM SENIOR INTEGRATION ARCHITECT) athologist Signature Glucose 174 (H) 70 - 140 06/01/2021 M[facility] mg/dL 11:02 AM SENIOR INTEGRATION ARCHITECT Specimen Anatomical Collection Method Collection Time Receive d Time (Source) Location / / Volume Laterality Blood (Blood, 06/01/2021 10:52 06/01/2021 Arterial Line) AM SENIOR INTEGRATION ARCHITECT 10:52 AM SENIOR INTEGRATION ARCHITECT Gabriel Kelly M.D., M.B.O.E. LAB BLOOD TROPO ARACELI Performing Organization Address City/[facility]/ZIP Code Phon e Number [facility] - [address] (ABNORMAL) Potassium, Blood (06/01/2021 10:52 AM SENIOR INTEGRATION ARCHITECT) athologist Signature Potassium, B 3.3 (L) 3.6 - 5.2 06/01/2021 M[facility] mmol/L 11:02 AM SENIOR INTEGRATION ARCHITECT Specimen Anatomical Collection Method Collection Time Receive d Time (Source) Location / / Volume Laterality Blood (Blood, 06/01/2021 10:52 06/01/2021 Arterial Line) AM SENIOR INTEGRATION ARCHITECT 10:52 AM SENIOR INTEGRATION ARCHITECT Gbariel Kelly M.D., M.B.O.E. LAB BLOOD NON A DD-ON Performing Organization Address City/[facility] Phon e Number [facility] - [address] Sodium, B (06/01/2021 10:52 AM SENIOR INTEGRATION ARCHITECT) athologist Signature Sodium, B 140 135 - 145 06/01/2021 M[facility] mmol/L 11:02 AM SENIOR INTEGRATION ARCHITECT Specimen Anatomical Collection Method Collection Time Receive d Time (Source) Location / / Volume Laterality Blood (Blood, 06/01/2021 10:52 06/01/2021 Arterial Line) AM SENIOR INTEGRATION ARCHITECT 10:52 AM SENIOR INTEGRATION ARCHITECT Gabriel Kelly M.D., M.B.O.E. LAB BLOOD NON A DD-ON Performing Organization Address [facility] Phon e Number [facility] - [address] (ABNORMAL) Calcium, Ionized (06/01/2021 10:52 AM SENIOR INTEGRATION ARCHITECT) athologist Signature Calcium, 4.54 (L) 4.65 - 06/01/2021 M[facility] Ionized, B 5.30 mg/dL 11:02 AM SENIOR INTEGRATION ARCHITECT Specimen Anatomical Collection Method Collection Time Receive d Time (Source) Location / / Volume Laterality Blood (Blood, 06/01/2021 10:52 06/01/2021 Arterial Line) AM SENIOR INTEGRATION ARCHITECT 10:52 AM SENIOR INTEGRATION ARCHITECT Gabriel Kelly M.D., M.B.O.E. LAB BLOOD NON A DD-ON Performing Organization Address City/[facility] Code Phon e Number [facility] - [address] [facility], [place] [address] [facility] [place] [address] [facility] 200 [facility] (ABNORMAL) Blood Gas with Coox, Arterial (06/01/2021 10:52 AM SENIOR INTEGRATION ARCHITECT) P athologist Signature pO2 127 (H) 83 - 108 06/01/2021 M[facility] mm Hg 11:02 AM SENIOR INTEGRATION ARCHITECT pCO2 37 32 - 45 mm 06/01/2021 M[facility] Hg 11:02 AM SENIOR INTEGRATION ARCHITECT pH 7.40 7.35 - 06/01/2021 M[facility] 7.45 pH 11:02 AM SENIOR INTEGRATION ARCHITECT Base Excess -2 -2 - 3 06/01/2021 M[facility] mmol/L 11:02 AM SENIOR INTEGRATION ARCHITECT HCO3 23 22 - 26 06/01/2021 [facility] mmol/L 11:02 AM SENIOR INTEGRATION ARCHITECT Hemoglobin, B 8.2 (L) 11.6 - 06/01/2021 [facility] 15.0 g/dL 11:02 AM SENIOR INTEGRATION ARCHITECT O2Hb 96.2 94.0 - 06/01/2021 [facility] 98.0 % 11:02 AM SENIOR INTEGRATION ARCHITECT COHb 1.5 <3.0 % 06/01/2021 [facility] 11:02 AM SENIOR INTEGRATION ARCHITECT MetHb 1.3 <1.5 % 06/01/2021 [facility] 11:02 AM SENIOR INTEGRATION ARCHITECT CtO2 11.4 (L) 18.0 - 06/01/2021 M[facility] 21.0 vol % 11:02 AM SENIOR INTEGRATION ARCHITECT Specimen Anatomical Collection Method Collection Time Receive d Time (Source) Location / / Volume Laterality Blood (Blood, 06/01/2021 10:52 06/01/2021 Arterial Line) AM SENIOR INTEGRATION ARCHITECT 10:52 AM SENIOR INTEGRATION ARCHITECT Gabriel Kelly M.D., M.B.O.E. 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 Given 06/03/2021 3:00 AM SENIOR INTEGRATION ARCHITECT 1,000 mg Given 06/02/2021 9:31 PM SENIOR INTEGRATION ARCHITECT 1,000 mg bupivacaine liposome (PF) 20 Given 06/01/2021 1:00 PM SENIOR INTEGRATION ARCHITECT 120 mL Abdominal Tissue mL in sodium chloride (PF) 0.9 % 120 mL injection As needed, Starting on Tue06/01/21 at 1300, Intra-Op HYDROmorphone (PF) injection 0.4 mg Given 06/01/2021 5:33 PM SENIOR INTEGRATION ARCHITECT 0.4 mg (DILAUDID) 0.4 mg, intravenous, Every 2 hour PRN, for breakthrough pain, Starting on Tue06/01/21 at 1503, Unrelieved 30 minutes after PRN oral pain medication is used; if unable to take oral pain medication; or if pain is greater than or equal to 7, use instead of oral pain medication. ibuprofen tablet 600 mg (ADVIL,MOTRIN) Given 06/03/2021 12:29 PM SENIOR INTEGRATION ARCHITECT 600 mg 600 mg, oral, Every 6 hours, First dose on Tue06/02/21 at 1900, start 6 hours after last ketorolac dose administered Given 06/03/2021 6:21 AM SENIOR INTEGRATION ARCHITECT 600 mg Given 06/03/2021 12:01 AM SENIOR INTEGRATION ARCHITECT 600 mg lactated ringers Continued from OR 06/01/2021 3:08 PM SENIOR INTEGRATION ARCHITECT 40 mL/hr 40 mL/hr 40 mL/hr, intravenous, Continuous, Starting on Tue06/01/21 at 1515 ondansetron ODT disintegrating tablet 8 mg Given 06/03/2021 1:31 PM SENIOR INTEGRATION ARCHITECT 8 mg (ZOFRAN-ODT) 8 mg, oral, Every 8 hours PRN, nausea, vomiting, Starting on Tue06/03/21 at 1324, When splitting ODT at bedside, handle with gloves and a pill splitter to prevent moisture contact. oxyCODONE IR tablet 10 mg (ROXICODONE) Given 06/03/2021 12:30 PM SENIOR INTEGRATION ARCHITECT 10 mg 10 mg, oral, Every 4 hours PRN, severe pain or score 7-10 of 10, Administer if pain is unrelieved by acetaminophen, Starting on Tue06/01/21 at 1503, For patients that received intrathecal analgesia, start 24 hours after intrathecal dose given Given 06/03/2021 7:42 AM SENIOR INTEGRATION ARCHITECT 10 mg Given 06/01/2021 9:08 PM SENIOR INTEGRATION ARCHITECT 10 mg oxyCODONE IR tablet 5 mg (ROXICODONE) Given 06/03/2021 12:00 AM SENIOR INTEGRATION ARCHITECT 5 mg 5 mg, oral, Every 4 hours PRN, moderate pain or score 4-6 of 10, Administer if pain is unrelieved by acetaminophen., Starting on Tue06/01/21 at 1503, For patients that received intrathecal analgesia, start 24 hours after intrathecal dose given Given 06/02/2021 8:01 PM SENIOR INTEGRATION ARCHITECT 5 mg Given 06/02/2021 3:19 PM SENIOR INTEGRATION ARCHITECT 5 mg rivaroxaban tablet 10 mg (XARELTO) Given 06/03/2021 12:29 PM SENIOR INTEGRATION ARCHITECT 10 mg 10 mg, oral, Daily, First dose on Tue06/03/21 at 1200 sennosides-docusate sodium 8.6-50 mg per Given 06/03/2021 7:42 A M SENIOR INTEGRATION ARCHITECT 1 tablet tablet 1 tablet (SENOKOT-S) 1 tablet, oral, 2 times daily, First dose on Tue06/01/21 at 2100, Starting evening of surgery. Given 06/02/2021 9:31 PM SENIOR INTEGRATION ARCHITECT 1 tablet Given 06/02/2021 7:52 AM SENIOR INTEGRATION ARCHITECT 1 tablet documented in this encounter Active and Recently Administered Medications Times are shown in SENIOR INTEGRATION ARCHITECT. Scheduled Medication Order 06/01/2021 06/02/2021 06/03/2021 acetaminophen tablet 1,000 mg (TYLENOL) (COMPLETED) 07 42 (Given - Provider: Arun Yan R.N.) 1,000 mg, oral, Once, On Tue06/01/21 at 0745, For 1 dose, Pre-Op, In Pre Op holding (PWA) acetaminophen tablet 1,000 mg (TYLENOL) 1536 (Given - Provider: Annalee Kebede RErastoNErasto)2108 (Given - Provider: Annalee Kebede RErastoN.) 0416 (Given - Provider: Yusef Smith R.N.)0959 (Given - Provider: Pauline Palm R.N., C.M.S.R.N.)1651 (Given - Provider: Maxwell GramajoNErasto)2131 (Given - Provider: Annalee Kebede R.N.) 0300 (Given - Provider: Maxwell LacyNErasto)0858 (Given - Provider: Pauline Palm R.N., C.M.S.R.N.) 1,000 mg, oral, Every 6 hours, First dos e on Tue06/01/21 at 1600, not to exceed 4 grams in 24 hours. aprepitant capsule 80 mg (EMEND) (COMPLETED) 743 (Giv en - Provider: Arun Yan R.N.) 80 mg, oral, Once, On Tue06/01/21 at 0745, For 1 dose, Pre-Op ceFAZolin injection 2,000 mg (ANCEF) (COMPLETED) 919 (Given - Provider: Arabella Orellana APRN, JONATHAN)1208 (Given - Provider: Arabella Orellana APRN, CRNA) 2,000 mg (rounded from 1,590 mg = [...] 26 (Given - Provider: Arabella Orellana APRN, JONATHAN) 5,000 Units, subcutaneous, Once, On Tue06/01/21 at 0745, For 1 dose, Intra-Op, Administer prior to induction of anesthesia. heparin (porcine) injection 5,000 Units (CANCELED) 210 8 (Given - Provider: Annalee Kebede R.N.) 0627 (Given - Provider: Yusef Smith R.N.)1317 (Given - Provider: Pauline Palm R.N., C.M.S.R.N.)2131 (Given - Provider: Annalee Kebede R.N.) 0547 (Given - Provider: Martina cisneros R.N.) 5,000 Units, subcutaneous, Every 8 hours scheduled, First dose on Tue06/01/21 at 2200 ibuprofen tablet 600 mg (ADVIL,MOTRIN) 1 831 (Given - Provider: Enriqueta Lanier RErastoNErasto) 0001 (Given - Provider: Martina cisneros RErastoNErasto)0621 (Given - Provider: Maxwell HannonNErasto)1229 (Given - Provider: Pauline Palm R.N., C.M.S.R.N.) 600 mg, oral, Every 6 hours, First dose on Tue06/02/21 at 1900, start 6 hours after last ketorolac dose administered ketorolac injection 15 mg (TORADOL) (COMPLETED) 1844 ( Given - Provider: Annalee Kebede RLinda) 0003 (Given - Provider: Yusef Smith R.N.)0734 (Given - Provider: Pauline Palm R.N., C.M.S.R.N.)1335 (Given - Provider: Sybil Sher RErastoNErasto) 15 mg, intravenous, Every 6 hours, First [...] Annalee Kebede R.N.) 0752 (Given - Provider: Jb Au, C.M.S.R.N.) 30 [...] (SENOKOT-S) 2107 (Given - Provider: Annalee Kebede RErastoNErasto) 0752 (Given - Provider: Pauline Palm R.N., C.M.S.R.N.)213 (Given - Provider: Maxwell GramajoN.) 0742 (Given - Provider: Pauline Palm R.N., [...] (C OMPLETED) 0925 (Given - Provider: Arabella Orellana, CONSTRUCTION JOB TITLES, MANAGER INTERN)1321 (Anesthesia Volume Adjustment - Provider: Arabella Orellana APRN, JONATHAN) 1,000 mg (1 g), intravenous, Once, On Mo n 06/01/21 at 0815, For 1 dose, Intra-Op Continuous Medication Order 06/01/2021 06/02/2021 06/03/2021 lactated ringers (CANCELED) 0839 (New Bag - Provider: Arabella Orellana APRN, JONATHAN)1037 (New Bag - Provider: Arabella Orellana APRN, JONATHAN)1249 (Anesthesia Volume Adjustment - Provider: Arabella Orellana APRN, JONATHAN) 30 mL/hr, intravenous, Continuous, Starting on Tue06/01/21 at 0 745, Pre-Op lactated ringers (CANCELED) 1345 (Continued from OR - Provider: Josefina Gallegos R.N.)1508 (Stopped - Provider: Evy Herron R.N.) 20 mL/hr, intravenous, Continuous, Start ing on Tue06/01/21 at 1230, PACU & Post-Op lactated ringers 1508 (Continued from OR - Pr ovider: Maxwell FerreiraNErasto)2257 (Stopped - Provider: Annalee Kebede R.N.) 40 mL/hr, intravenous, Continuous, Starting on Tue06/01/21 [...] promethazine) HYDROmorphone (PF) injection 0.4 mg (DILAUDID) 1733 (G iven - Provider: Annalee Kebede RErastoNErasto) 0.4 mg, [...] IR tablet 10 mg (ROXICODONE)(Linked Group 1) 1636 (Given - Provider: Annalee Kebede R.N.)2108 (Given - Provider: Annalee Kebede R.N.) 1001 (See Alternative - Provider: Pauline Palm R.N., C.M.S.R.N.)1519 (See Alternative - Provider: Annalee Kebede R.N.)2000 (See Alternative - Provider: Annalee Kebede R.N.) 0000 (See Alternative - Provider: Martina Buckley R.N.)0742 (Given - Provider: Pauline Palm R.N., C.M.S.R.N.)1230 (Given - Provider: Pauline Palm R.N., C.M.S.R.NErasto) 10 mg, oral, Every 4 hours PRN, severe p ain or score 7-10 of 10, Administer if pain is unrelieved by acetaminophen, Starting on Tue06/01/21 at 1503, For patients that received intrathecal analgesia, start 24 hours after intrathecal dose given oxyCODONE IR tablet 5 mg (ROXICODONE)(Linked Group 1) 1636 (See Alternative - Provider: Annalee Kebede R.N.)2108 (See Alternative - Provider: Annalee Kebede R.N.) 1001 (Given - Provider: Jb Au, C.M.S.R.N.)1519 (Given - Provider: Annalee Kebede R.N.)2000 (Given - Provider: Annalee Kebede R.N.) 0000 (Given - Provider: Martina cisneros R.N.)0742 (See Alternative - Provider: Pauline Palm R.N., C.M.S.R.N.)1230 (See Alternative - Provider: Pauline Palm R.N., C.M.S.R.NErasto) 5 mg, oral, Every 4 hours PRN, [...] pain is unrelieved by acetaminophen, Starting on 06/01/21 at 1503
For patients that received intrathecal analgesia, start 24 hours after intrathecal dose given
documented in this encounter Care Teams Carpentry Professional Relationship Specialty Start Date End Date Elsewhere, Pcp PCP - General Family Medicine 03/10/21 documented as of this encounter
--- OUTSIDE RECORDS SUMMARY | 2022-03-25 08:50 | XMS_ITS | Encounter Summary ---
:1960 Author Organization [facility] Address [address] [place] [address] Care Team Providers Name Role Phone Elsewhere, Pcp Primary Care Provider Unavailable Reason for Visit Reason Comments Pre-visit Intake Encounter Details Date Type Department Care Team Description 06/19/2021 Clinical Communication Department of Nataly Horta re-visit Intake Oncology in [facility] C.NErastoPErasto, [facility].S.N. [address] [place] [phone] Social History Tobacco Use Types Packs/Day Years [...] or relatives? How often do you attend restoration or church More than 4 time s per year 10/23/2021 services? Do you belong to any clubs or organizations No 10/23/2021 such as restoration groups, unions, fraternal or athletic groups, or [...] Lab Laboratory Medicine Kathleen Mccarty M.D. [address] [place] [phone] 05/12/2022 Clinical Communication Admitting/Central Scheduling 05/13/2022 Telemedicine Oncology Kathleen Mccarty M.D. [address] [place] [address] [phone] Maribeth Guthrie R.N., O.C.N. [address] [place] [address] [phone] 05/18/2022 Lab Laboratory Medicine Nataly Horta APRN, C.NAlphonso, M.S.N. [address] [place] [address] [phone] 05/18/2022 Office Visit Oncology Nataly Horta APRN, C.NChaim., M.S.N. [address] [place] [phone] documented as of this encounter Visit Diagnoses Not on filedocumented in this encounter Care Teams Police Radio Dispatcher Relationship Specialty Start Date End Date Elsewhere, Pcp PCP - General Family Medicine 03/10/21 documented as of this encounter
--- OUTSIDE RECORDS SUMMARY | 2022-03-25 08:50 | XMS_ITS | Encounter Summary ---
:1960 Author Organization [facility] Address [address] [place] [address] Care Team Providers Name Role Phone Elsewhere, Pcp Primary Care Provider Unavailable Encounter Details Date Type Department Care Team Description 07/13/2021 Infusion Department of Oncology Nataly Horta, Malignant Neoplasm Of in [facility] erika ANY COMMODITY BUYER, C.N.P., Ovary Laterality [address] M.S.N. Unknown (HCC) (Primary [place], [place] [address] [facility] Dx) [phone] [place], [place] [phone] (Wo rk) Social History Tobacco Use Types [...] or relatives? How often do you attend muslim or confucianism More than 4 time s per year 10/23/2021 services? Do you belong to any clubs or organizations No 10/23/2021 such as muslim groups, unions, fraternal or athletic groups, or [...] Lab Laboratory Medicine Kathleen Mccarty M.D. [address] [place] [address] [phone] 05/12/2022 Clinical Communication Admitting/Central Scheduling 05/13/2022 Telemedicine Oncology Kathleen Mccarty M.D. [address] [place] [address] [phone] Maribeth Guthrie R.N., O.C.N. [address] [place] [address] [phone] 05/18/2022 Lab Laboratory Medicine Nataly Horta APRN, C.NAlphonso, M.S.N. [address] [place] [address] [phone] 05/18/2022 Office Visit Oncology Nataly Horta APRN, C.NChaim., M.S.N. 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) - Primary documented in this encounter Administered Medications Inactive Administered Medications - up to 3 most recent administrations Medication Order MAR Action Action Date Dose Rate Site CARBOplatin 640 mg in NaCl New Bag 07/13/2021 3:55 PM ONLINE MEDIA DIRECTOR 640 mg 678 mL/hr 0.9% 339 mL IVPB (PARAPLATIN) 640 mg (rounded from 640.8 mg, Target AUC = 6), intravenous, at 678 mL/hr, Administer over 30 Minutes, Once, On Tue07/13/21 at 1445, For 1 dose dexamethasone in NaCl 0.9% IVPB 12 New Bag 07/13/2021 11:33 AM ONLINE MEDIA DIRECTOR 12 mg 200 mL/hr mg (DECADRON) 12 mg, intravenous, at 200 mL/hr, Administer over 15 Minutes, Once, On Tue07/13/21 at 1130, For 1 dose, Give prior to PACLitaxel Refrigerate diphenhydrAMINE injection 50 mg (BENADRY L) Given 07/13/2021 11:26 AM ONLINE MEDIA DIRECTOR 50 mg 50 mg, intravenous, Once, On Tue07/13/21 at 1130, For 1 dose, Give prior to PACLitaxel. famotidine injection 20 mg (PEPCID) Given 07/13/2021 11:26 AM ONLINE MEDIA DIRECTOR 20 mg 20 mg, intravenous, Once, On Tue07/13/21 at 1130, For 1 dose, Give prior to PACLitaxel See IVAG for administration guidelines. fosaprepitant in NaCl 0.9% IVPB New Bag 07/13/2021 12:09 PM CS T 150 mg 500 mL/hr 150 mg (EMEND) 150 mg, intravenous, at 500 mL/hr, Administer over 30 Minutes, Once, On Tue07/13/21 at 1130, For 1 dose, Incompatible with solutions containing divalent cations (calcium, magnesium) including lactated Ringer's solution. ondansetron in NaCl 0.9% IVPB 16 mg New Bag 07/13/2021 11:53 A M ONLINE MEDIA DIRECTOR 16 mg 232 mL/hr (ZOFRAN) 16 mg, intravenous, at 232 mL/hr, Administer over 15 Minutes, Once, On Tue07/13/21 at 1130, For 1 dose PACLitaxeL 288 mg in NaCl 0.9% New Bag 07/13/2021 12:51 PM ONLINE MEDIA DIRECTOR 288 mg 99.3 mL/hr (non-PVC) 298 mL IVPB (TAXOL) 288 mg (rounded from 288.75 mg = 175 mg/m2 ? 1.65 m2 Treatment Plan BSA from Measured weight), intravenous, at 99.3 mL/hr, Administer over 3 Hours, Once, On 07/13/21 at 1145, For 1 dose, Administer via 0.22 micron in-line filter. documented in this encounter Care Teams Litigation Claim Representative Relationship Specialty Start Date End Date Elsewhere, Pcp PCP - General Family Medicine 03/10/21 documented as of this encounter
--- OUTSIDE RECORDS SUMMARY | 2022-03-25 08:50 | XMS_ITS | Encounter Summary ---
:1960 Author Organization [facility] Address [address] [place] [address] Care Team Providers Name Role Phone Elsewhere, Pcp Primary Care Provider Unavailable Encounter Details Date Type Department Care Team Description 06/01/2021 Orders Only [facility] [place] Shandra CORADO, M.S.N. [address] [facility] [address] [place] [phone] [place], [place] [phone] (Wo rk) Social History Tobacco Use Types [...] How often do you attend sikhism or tenriism More than 4 time s [...] Laboratory Medicine Kathleen Mccarty M.D. [address] [place] [phone] 05/12/2022 Clinical Communication Admitting/Central Scheduling 05/13/2022 Telemedicine Oncology Kathleen Mccarty M.D. [address] [place] [address] [phone] Maribeth Guthrie, Soila, O.C.N. [address] [place] [phone] 05/18/2022 Lab Laboratory Medicine Nataly Horta APRN, C.N.P., M.S.N. [address] [place] [address] [phone] 05/18/2022 Office Visit Oncology Nataly Horta APRN, C.N.P., M.S.N. [address] [place] [phone] documented as of this encounter Visit Diagnoses Not on filedocumented in this encounter Care Teams Front Desk Representative Relationship Specialty Start Date End Date Elsewhere, Pcp PCP - General Family Medicine 03/10/21 documented as of this encounter
--- OUTSIDE RECORDS SUMMARY | 2022-03-25 08:50 | XMS_ITS | Encounter Summary ---
:[address] [facility] Address [address] [place] [address] Care Team Providers Name Role Phone Elsewhere, Pcp Primary Care Provider Unavailable Encounter Details Date Type Department Care Team Description 06/23/2021 Infusion Department of Oncology Nataly Horta, Malignant Neoplasm Of in [facility] rotational moulding operator SUPERVISORY AIR INTERCEPT CONTROLLER, C.N.P., Ovary Laterality [address] M.S.N. Unknown (HCC) (Primary [place], [place] [address] [facility] Dx) [id number] [place], [place] [phone] (Wo rk) Social History Tobacco Use Types [...] How often do you attend mandaeism or muslim More than 4 time s per year [...] Sign Reading Time Taken Comments Blood Pressure 157/87 06/23/2021 8:12 AM PILLOWCASE TURNER Pulse 84 06/23/2021 8:12 AM PILLOWCASE TURNER Temperature 37.1 ??C (98.8 ??F) 06/23/2021 8:12 AM PILLOWCASE TURNER Respiratory Rate - - Oxygen Saturation - - Inhaled Oxygen Concentration - - Weight 60.6 kg (133 lb 11.3 oz) 06/23/2021 8:12 AM PILLOWCASE TURNER shoes on Height - - Body Mass Index 22.91 06/22/2021 1:11 PM PILLOWCASE TURNER documented in this encounter Plan of Treatment Upcoming Encounters Date Type Specialty Care Team Description 05/11/2022 Lab Laboratory Medicine Kathleen Mccarty M.D. [address] [place] [phone] 05/12/2022 Clinical Communication Admitting/Central Scheduling 05/13/2022 Telemedicine Oncology Kathleen Mccarty M.D. [address] [place] [phone] Maribeth Guthrie R.N., O.C.N. [address] [place] [phone] 05/18/2022 Lab Laboratory Medicine Nataly Horta APRN, C.N.P., M.S.N. [address] [place] [phone] 05/18/2022 Office Visit Oncology Nataly Horta APRN, C.N.P., M.S.N. 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 documented in this encounter Administered Medications Inactive Administered Medications - up to 3 most recent administrations Medication Order MAR Action Action Date Dose Rate Site acetaminophen tablet 1,000 mg Given 06/23/2021 8:41 AM PILLOWCASE TURNER 1,000 mg (TYLENOL) 1,000 mg, oral, Once, On Tue06/23/21 at 0845, For 1 dose CARBOplatin 690 mg in NaCl 0.9% New Bag 06/23/2021 12:50 PM CS T 690 mg 688 mL/hr 344 mL IVPB (PARAPLATIN) 690 mg (rounded from 691.8 mg, Target AUC = 6), intravenous, at 688 mL/hr, Administer over 30 Minutes, Once, On Tue06/23/21 at 1215, For 1 dose dexamethasone in NaCl 0.9% IVPB 12 New Bag 06/23/2021 8:41 AM PILLOWCASE TURNER 12 mg 200 mL/hr mg (DECADRON) 12 mg, intravenous, at 200 mL/hr, Administer over 15 Minutes, Once, On Tue06/23/21 at 0845, For 1 dose, Give prior to PACLitaxel Refrigerate diphenhydrAMINE injection 50 mg (BENADRY L) Given 06/23/2021 8:41 AM PILLOWCASE TURNER 50 mg 50 mg, intravenous, Once, On Tue06/23/21 at 0845, For 1 dose, Give prior to PACLitaxel. famotidine injection 20 mg (PEPCID) Given 06/23/2021 8:41 AM PILLOWCASE TURNER 20 mg 20 mg, intravenous, Once, On Tue06/23/21 at 0845, For 1 dose, Give prior to PACLitaxel See IVAG for administration guidelines. fosaprepitant in NaCl 0.9% IVPB 150 New Bag 06/23/2021 9:30 AM PILLOWCASE TURNER 150 mg 500 mL/hr mg (EMEND) 150 mg, intravenous, at 500 mL/hr, Administer over 30 Minutes, Once, On Tue06/23/21 at 0845, For 1 dose, Incompatible with solutions containing divalent cations (calcium, magnesium) including lactated Ringer's solution. ondansetron in NaCl 0.9% IVPB 16 mg New Bag 06/23/2021 9:09 AM PILLOWCASE TURNER 16 mg 232 mL/hr (ZOFRAN) 16 mg, intravenous, at 232 mL/hr, Administer over 15 Minutes, Once, On Tue06/23/21 at 0845, For 1 dose PACLitaxeL 300 mg in NaCl 0.9% New Bag 06/23/2021 10:01 AM PILLOWCASE TURNER 300 mg 183 mL/hr (non-PVC) 550 mL IVPB (TAXOL) 300 mg (rounded from 301 mg = 175 mg/m2 ? 1.72 m2 Treatment Plan BSA from Measured weight), intravenous, at 183 mL/hr, Administer over 3 Hours, Once, On Tue06/23/21 at 0915, For 1 dose, Administer via 0.22 micron in-line filter. documented in this encounter Care Teams Apple Peeler Operator Relationship Specialty Start Date End Date Elsewhere, Pcp PCP - General Family Medicine 03/10/21 documented as of this encounter
--- OUTSIDE RECORDS SUMMARY | 2022-03-25 08:50 | XMS_ITS | Encounter Summary ---
:1960 Author Organization [facility] Address [address] [place] [address] Care Team Providers Name Role Phone Elsewhere, Pcp Primary Care Provider Unavailable Encounter Details Date Type Department Care Team Description 07/13/2021 Orders Only Department of Oncology in Fanny Velez [place] C.N.P. [address] [facility] [address] [place] [phone] [place], [place] [phone] (Wo rk) Social History Tobacco Use Types [...] or relatives? How often do you attend taoist or protestant More than 4 time s per year 10/23/2021 services? Do you belong to any clubs or organizations No 10/23/2021 such as taoist groups, unions, fraternal or athletic groups, or [...] Lab Laboratory Medicine Kathleen Mccarty M.D. [address] [place] [phone] 05/12/2022 Clinical Communication Admitting/Central Scheduling 05/13/2022 Telemedicine Oncology Kathleen Mccarty M.D. [address] [place] [address] [phone] Maribeth Guthrie R.N., O.C.N. [address] [place] [phone] 05/18/2022 Lab Laboratory Medicine Nataly Horta APRN, C.NChaim., M.S.N. [address] [place] [address] [phone] 05/18/2022 Office Visit Oncology Nataly Horta APRN, C.NChaim., M.S.N. [address] [place] [address] [phone] documented as of this encounter Visit Diagnoses Not on filedocumented in this encounter Care Teams Brokerage Office Manager Relationship Specialty Start Date End Date Elsewhere, Pcp PCP - General Family Medicine 03/10/21 documented as of this encounter
--- OUTSIDE RECORDS SUMMARY | 2022-03-25 08:51 | XMS_ITS | Encounter Summary ---
:1960 Author Organization [facility] Address [address] [place] [address] Care Team Providers Name Role Phone Elsewhere, Pcp Primary Care Provider Unavailable Encounter Details Date Type Department Care Team Description 05/29/2021 Orders Only Department of Aimee Lozano Preprocedura l Lab Exam (Primary Dx); Obstetrics and M.S.N., R.N. Abnormal Laboratory Results Gynecology in [address] [place], [place] [address] [place] [phone] [place], [place] [phone] (Work) [phone] Social History Tobacco Use Types Packs/Day Years [...] or relatives? How often do you attend zoroastrian or orthodoxy More than 4 time s per year 10/23/2021 services? Do you belong to any clubs or organizations No 10/23/2021 such as zoroastrian groups, unions, fraternal or athletic groups, or [...] place to sleep or slept in a care home (including now)? Education Answer Date Recorded [...] Laboratory Medicine Kathleen Mccarty M.D. [address] [place] [phone] 05/12/2022 Clinical Communication Admitting/Central Scheduling 05/13/2022 Telemedicine Oncology Kathleen Mccarty M.D. [address] [place] [address] [phone] Maribeth Guthrie, Soila, O.C.N. [address] [place] [phone] 05/18/2022 Lab Laboratory Medicine Nataly Horta APRN, C.N.P., M.S.N. [address] [place] [phone] 05/18/2022 Office Visit Oncology Nataly Horta APRN, C.N.P., M.S.N. [address] [place] [phone] documented as of this encounter Results (ABNORMAL) CBC with Differential, Blood (05/30/2021 8:51 AM CUTTING TABLE OPERATOR FIRST) [facility] Method Time Signature Hemoglobin 10.0 (L) 11.6 - 05/30/2021 DTL 15.0 g/dL 9:09 AM CUTTING TABLE OPERATOR FIRST Hematocrit 30.6 (L) 35.5 - 05/30/2021 DTL 44.9 % 9:09 AM CUTTING TABLE OPERATOR FIRST Erythrocytes 3.32 (L) 3.92 - 05/30/2021 DTL 5.13 9:09 AM CUTTING TABLE OPERATOR FIRST x10(12)/L MCV 92.2 78.2 - 05/30/2021 DTL 97.9 fL 9:09 AM CUTTING TABLE OPERATOR FIRST RBC Distrib Width 17.2 (H) 12.2 - 05/30/2021 DTL 16.1 % 9:09 AM CUTTING TABLE OPERATOR FIRST Platelet Count 93 (L) 157 - 371 05/30/2021 DTL x10(9)/L 9:41 AM CUTTING TABLE OPERATOR FIRST Leukocytes 4.6 3.4 - 9.6 05/30/2021 DTL x10(9)/L 9:41 AM CUTTING TABLE OPERATOR FIRST Neutrophils 2.54 1.56 - 05/30/2021 DTL 6.45 9:09 AM CUTTING TABLE OPERATOR FIRST x10(9)/L Lymphocytes 1.45 0.95 - 05/30/2021 DTL 3.07 9:09 AM CUTTING TABLE OPERATOR FIRST x10(9)/L Monocytes 0.53 0.26 - 05/30/2021 DTL 0.81 9:09 AM CUTTING TABLE OPERATOR FIRST x10(9)/L Eosinophils <0.03 0.03 - 05/30/2021 DTL 0.48 9:09 AM CUTTING TABLE OPERATOR FIRST x10(9)/L Basophils <0.03 0.01 - 05/30/2021 DTL 0.08 9:09 AM CUTTING TABLE OPERATOR FIRST x10(9)/L Specimen Anatomical Collection Method Collection Time Receive d Time (Source) Location / / Volume Laterality Blood (Blood, 05/30/2021 8:51 AM 05/30/20 8:58 Venous) CUTTING TABLE OPERATOR FIRST AM CUTTING TABLE OPERATOR FIRST Apple Motta M.D. LAB BLOOD ADD-ON Performing Organization Address City/State/ZIP Code Phon e Number [facility] - 200 [place], [place] [address] [facility] [place] [address] [facility] [address] documented in this encounter Visit Diagnoses Diagnosis Preprocedural Lab Exam - Primary Abnormal Laboratory Results documented in this encounter Additional Health Concerns Infection Onset Date Last Indicated Resolved Time COVID19 Pending 05/29/2021 05/29/2021 05/30/2021 4:03 PM CUTTING TABLE OPERATOR FIRST documented as of this encounter Care Teams Jd Edwards Relationship Specialty Start Date End Date Elsewhere, Pcp PCP - General Family Medicine 03/10/21 documented as of this encounter
--- OUTSIDE RECORDS SUMMARY | 2022-03-25 08:51 | XMS_ITS | Encounter Summary ---
:1960 Author Organization [facility] Address [address] [place] [address] Care Team Providers Name Role Phone Elsewhere, Pcp Primary Care Provider Unavailable Encounter Details Date Type Department Care Team Description 04/20/2021 Office Visit Department of Mychal, Anita Hernandez Neoplasm Of Oncology in PRODUCT LISTER, C.N.P., Ovary Laterali ty [place], [place] M.S.N. Unknown (HCC) (Primary [address] [place]x) [place] [phone] Social History Tobacco Use Types Packs/Day Years [...] How often do you attend confucianist or orthodox More than 4 time s per year [...] place to sleep or slept in a custodial (including now)? Education Answer Date Recorded What is the highest level of school Bachelor's degree (e.g., BA, AB, 03/10/2021 you have completed or the highest BS) degree you have received? Sex Assigned at Date Recorded Female 03/13/2021 7:24 PM CDT documented as of this encounter Last Filed Vital Signs Vital Sign Reading Time Taken Comments Blood Pressure 170/92 04/20/2021 8:28 AM CDT Pulse 103 04/20/2021 8:28 AM CDT Temperature 37.2 ??C (99 ??F) 04/20/2021 8:28 AM CDT Respiratory Rate - - Oxygen Saturation 100% 04/20/2021 8:28 AM CDT Inhaled Oxygen Concentration - - Weight 63.4 kg (139 lb 12.4 oz) 04/20/2021 8:28 AM CDT Height - - Body Mass Index 23.63 03/24/2021 9:57 AM CDT documented in this encounter Progress Notes Nataly Horta APRN, C.N.P., M.S.N. - 04/20/2021 9:40 AM CDT CHIEF COMPLAINT/PUPROSE OF VISIT: Ms. Aviles is [...] involving the bowel. 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 03/12/2021 Biopsy/Pathology Intraoperative biopsy showed: A. 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 B. 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 Immunohistochemical stains were performed on block B1 using antibodies to CT, keratin AE1/AE3, p16, p53, PAX8, BRG1, INI-1, WT1. The tumor cells are positive for cytokeratin AE1/AE3, CT, p16, p53, PAX8, and WT1. INI-1 and BRG1 are retained. These results support the above diagnosis. 03/30/2021 - Chemotherapy CARBOplatin AUC 6 / PACLitaxel ( [employer] DISTRIBUTION CONSULTANT ) Start Date: 03/30/2021 INTERVAL HISTORY: presents today for evaluation in anticipation of her 2nd cycle of treatment with combination carboplatin and paclitaxel chemotherapy for her newly diagnosed ovarian cancer. She reports that she tolerated her 1st cycle treatment overall well, with exception of feeling ???crummy?? for the 1st week following treatment. She notes that she did experience nausea on days 3 through 5, and was very sensitive to smells during this time. She did utilize her oral antiemetic medications, with good response. She notes that she did have some issues with eating and drinking due to feeling full all of thetime. She notes feeling as if her abdomen is mildly distended. She did have some numbness and tingling for the 1st week following treatment in her left fingertips and the toes of her left foot. She denies any pain with this, noted has resolved. She has noted hair loss. She also notes intermittent insert ???jabbing?? pains in her abdomen on days 3 through 5. She notes that she has had diarrhea intermittently since her surgery. She notes that she continues to have 1-2 soft to loose stools each day. She notes that this did get better it is as she got beyond her for 1st week of treatment. She notes that she has had soft stools the last 3-4 days, but had some diarrhea this morning. She attributes thisto anxiety. She notes that she is more anxious feeling today, which she does attribute to watching [employer] stories of a woman who documented her journey with ovarian cancer pursuing only palliative measures. ROS: Pertinent items are noted in HPI; all other review of systems were negative. VITAL SIGNS: Vitals Blood Pressure: (!) 170/92, Temperature: 37.2 ??C, Temp Source: Tympanic, Pulse Rate: 103, SpO2: 100 %, Weight: 63.4 kg BP Readings from Last 1 Encounters: 04/20/21 (!) 170/92 Pulse Readings from Last 1 Encounters: 04/20/21 103 Temp Readings from Last 1 Encounters: 04/20/21 37.2 ??C (Tympanic) No data recorded PHYSICAL EXAM: [...] presents today for evaluation in anticipation of her 2nd cycle of treatment with combination carboplatin and paclitaxel chemotherapy for her newly diagnosed ovarian cancer. Her labs were reviewed, and are acceptable to proceed with treatment today. She tolerated cycle 1 overall well, has no dose-limiting toxicity per history or examination. We did discuss plans to have her utilize ice to herhands and feet today to prevent progression of neuropathy. She has started Claritin as of this morning. In regard to her anxiety, we discussed that it would be reasonable for her to premedicate with some lorazepam, however, she would like to wait to see the effect of the Benadryl to considering this option. Treatment plan was completed to reflect stable dosing through cycle 2, we will plan to see jacy in roughly 3 weeks for lab work and evaluation prior to consideration of her 3rd cycle of treatment. Reviewed plan to complete 3 cycles of treatment prior to reimaging for response, and consideration of surgical option. She verbalized understanding of the above information, and has no further questions or concerns at this time. She agrees to contact us in the interim if she would develop any newor concerning symptoms prior to her next planned return visit. PATIENT EDUCATION Ready to learn, no apparent learning barriers were identified; learning preferences include listening. Explained diagnosis and treatment plan; patient expressed understanding of the content. documented in this encounter Plan of Treatment Upcoming Encounters Date Type Specialty Care Team Description 05/11/2022 Lab Laboratory Medicine Kathleen Mccarty M.D. [address] [place] [phone] 05/12/2022 Clinical Communication Admitting/Central Scheduling 05/13/2022 Telemedicine Oncology Kathleen Mccarty M.D. [address] [place] [phone] Maribeth Guthrie R.N., O.C.NErasto [address] [place] [phone] 05/18/2022 Lab Laboratory Medicine Nataly Horta APRN, C.N.P., M.S.N. [address] [place] [phone] 05/18/2022 Office Visit Oncology Nataly Horta APRN, C.N.P., M.S.N. [address] [place] [phone] documented as of this encounter Results (ABNORMAL) Cancer Antigen 125 (CA 125) (05/11/2021 7:30 AM CDT) athologist Signature Cancer Ag 125 161 (H) <46 U/mL 05/11/2021 [facility] (CA 125), S 3:31 PM CDT Comment: ----ADDITIONAL INFORMATION---- The testing [...] Location / / Volume Laterality Blood (Blood, 05/11/2021 7:30 AM 05/11/20 1:06 Venous) CDT PM CDT Nataly Horta APRN, C.N.P., M.S.N. LAB BLOOD ADD-ON Performing Organization Address City/State/ZIP Code Phon e Number [facility] [address] [place] [address] [facility] [place] [address] Laboratory Medicine and Pathology [address] 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
--- OUTSIDE RECORDS SUMMARY | 2022-03-25 08:51 | XMS_ITS | Encounter Summary ---
:1960 Author Organization [facility] Address [address] [place] [address] Care Team Providers Name Role Phone Elsewhere, Pcp Primary Care Provider Unavailable Reason for Visit Reason Comments Intake Assessment Encounter Details Date Type Department Care Team Description 05/29/2021 Clinical Communication Department of Fanny Velez [facility] [address] [facility] [address] [place] [phone] Social History Tobacco Use Types Packs/Day Years [...] or relatives? How often do you attend synagogue or advent More than 4 time s per year 10/23/2021 services? Do you belong to any clubs or organizations No 10/23/2021 such as synagogue groups, unions, fraternal or athletic groups, or [...] this encounter Miscellaneous Notes Telephone Encounter - Jennifer Clifton - 05/29/2021 1:50 PM CST INTAKE DONE CAL SUPPORT ASSISTANT documented in this encounter Plan of Treatment Upcoming Encounters Date Type Specialty Care Team Description 05/11/2022 Lab Laboratory Medicine Kathleen Mccarty M.D. [address] [place] [phone] 05/12/2022 Clinical Communication Admitting/Central Scheduling 05/13/2022 Telemedicine Oncology Kathleen Mccarty M.D. [address] [place] [address] [phone] Maribeth Guthrie, RErastoN., O.C.N. [address] [place] [address] [phone] 05/18/2022 Lab Laboratory Medicine Nataly Horta APRN, C.N.P., M.S.N. [address] [place] [phone] 05/18/2022 Office Visit Oncology Nataly Horta APRN, C.N.P., M.S.N. [address] [place] [phone] documented as of this encounter Visit Diagnoses Not on filedocumented in this encounter Additional Health Concerns Infection Onset Date Last Indicated Resolved Time COVID19 Pending 05/29/2021 05/29/2021 05/30/2021 4:03 PM MEDICAL SUPPORT ASSISTANT documented as of this encounter Care Teams Brass Finisher Relationship Specialty Start Date End Date Elsewhere, Pcp PCP - General Family Medicine 03/10/21 documented as of this encounter
--- OUTSIDE RECORDS SUMMARY | 2022-03-25 08:51 | XMS_ITS | Encounter Summary ---
:1960 Author Organization [facility] Address [address] [place] [address] Care Team Providers Name Role Phone Elsewhere, Pcp Primary Care Provider Unavailable Reason for Visit Reason Comments Intake Assessment Encounter Details Date Type Department Care Team Description 05/08/2021 Clinical Communication Department of Nataly Horta Assessment Oncology in [facility], C.N.P., M.S.N. [place] [address] [address] [facility] [address] [place] [phone] Social History Tobacco Use Types Packs/Day Years [...] or relatives? How often do you attend shinto or congregation More than 4 time s per year 10/23/2021 services? Do you belong to any clubs or organizations No 10/23/2021 such as shinto groups, unions, fraternal or athletic groups, or [...] Laboratory Medicine Kathleen Mccarty M.D. [address] [place] [address] [phone] 05/12/2022 Clinical Communication Admitting/Central Scheduling 05/13/2022 Telemedicine Oncology Kathleen Mccarty M.D. [address] [place] [address] [phone] Maribeth Guthrie, Soila, O.C.N. [address] [place] [address] [phone] 05/18/2022 Lab Laboratory Medicine Nataly Horta APRN, C.NChaim., M.S.N. [address] [place] [phone] 05/18/2022 Office Visit Oncology Nataly Horta APRN, C.N.Damaris., M.S.N. [address] [place] [phone] documented as of this encounter Visit Diagnoses Not on filedocumented in this encounter Care Teams Vice President Of Product Marketing Relationship Specialty Start Date End Date Elsewhere, Pcp PCP - General Family Medicine 03/10/21 documented as of this encounter
--- OUTSIDE RECORDS SUMMARY | 2022-03-25 08:51 | XMS_ITS | Encounter Summary ---
:1960 Author Organization [facility] Address [address] [place] [address] Care Team Providers Name Role Phone Elsewhere, Pcp Primary Care Provider Unavailable Encounter Details Date Type Department Care Team Description 03/30/2021 Orders Only Department [facility] [address] [facility] [address] [place] [address] [place], [place] [phone] (Wo rk) Social History Tobacco Use Types [...] or relatives? How often do you attend voodoo or spiritism More than 4 time s per year 10/23/2021 services? Do you belong to any clubs or organizations No 10/23/2021 such as voodoo groups, unions, fraternal or athletic groups, or [...] Laboratory Medicine Kathleen Mccarty M.D. [address] [place] [address] [phone] 05/12/2022 Clinical Communication Admitting/Central Scheduling 05/13/2022 Telemedicine Oncology Kathleen Mccarty M.D. [address] [place] [address] [phone] Maribeth Guthrie R.N., O.C.N. [address] [place] [phone] 05/18/2022 Lab Laboratory Medicine Nataly Horta APRN, C.NChaim., M.S.N. [address] [place] [address] [phone] 05/18/2022 Office Visit Oncology Nataly Horta APRN, C.NChaim., M.S.N. [address] [place] [address] [phone] documented as of this encounter Visit Diagnoses Not on filedocumented in this encounter Care Teams Pairer Inspector Relationship Specialty Start Date End Date Elsewhere, Pcp PCP - General Family Medicine 03/10/21 documented as of this encounter
--- OUTSIDE RECORDS SUMMARY | 2022-03-25 08:51 | XMS_ITS | Encounter Summary ---
:1960 Author Organization [facility] Address [address] [place] [address] Care Team Providers Name Role Phone Elsewhere, Pcp Primary Care Provider Unavailable Encounter Details Date Type Department Care Team Description 05/02/2021 Clinical Communication Department of Toby Rodarte, Obstetrics and M.D. Gynecology in [address] [place], [place] [address] [place] [phone] [place], [place] [phone] (Wo rk) [phone] Social History Tobacco Use Types Packs/Day Years [...] or relatives? How often do you attend faith or confucianist More than 4 time s per year 10/23/2021 services? Do you belong to any clubs or organizations No 10/23/2021 such as faith groups, unions, fraternal or athletic groups, or [...] this encounter Miscellaneous Notes Telephone Encounter - Toby Rodarte M.D. - 05/02/2021 5:49 PM CDT Patient called in to copy lathe operator with concerns. Attempted to call patient back, no concerns. LMTCB. documented in this encounter Plan of Treatment Upcoming Encounters Date Type Specialty Care Team Description 05/11/2022 Lab Laboratory Medicine Kathleen Mccarty M.D. [address] [place] [phone] 05/12/2022 Clinical Communication Admitting/Central Scheduling 05/13/2022 Telemedicine Oncology Kathleen Mccarty M.D. [address] [place] [phone] Maribeth Guthrie R.N., O.C.N. [address] [place] [phone] 05/18/2022 Lab Laboratory Medicine Nataly Horta APRN, C.N.P., M.S.N. [address] [place] [phone] 05/18/2022 Office Visit Oncology Nataly Horta APRN, C.N.P., M.S.N. [address] [place] [phone] documented as of this encounter Visit Diagnoses Not on filedocumented in this encounter Care Teams Jet Inspector Relationship Specialty Start Date End Date Elsewhere, Pcp PCP - General Family Medicine 03/10/21 documented as of this encounter
--- OUTSIDE RECORDS SUMMARY | 2022-03-25 08:51 | XMS_ITS | Encounter Summary ---
:1960 Author Organization [facility] Address [address] [place] [address] Care Team Providers Name Role Phone Elsewhere, Pcp Primary Care Provider Unavailable Encounter Details Date Type Department Care Team Description 05/11/2021 Infusion Department of Oncology Apple Motta Malignant Neoplasm Of in [place], [facility] erika Joe M.D. Ovary Laterality [address] Unknown (HCC) (Primary [place], [place] Dx) [phone] (Wo rk) Social History Tobacco Use Types [...] How often do you attend mandaeism or zoroastrian More than 4 time s per year [...] Laboratory Medicine Kathleen Mccarty M.D. [address] [place] [phone] 05/12/2022 Clinical Communication Admitting/Central Scheduling 05/13/2022 Telemedicine Oncology Kathleen Mccarty M.D. [address] [place] [address] [phone] Maribeth Guthrie, Soila, O.C.N. [address] [place] [phone] 05/18/2022 Lab Laboratory Medicine Nataly Horta APRN, C.N.P., M.S.N. [address] [place] [address] [phone] 05/18/2022 Office Visit Oncology Nataly Horta APRN, C.N.P., M.S.N. 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 documented in this encounter Administered Medications Inactive Administered Medications - up to 3 most recent administrations Medication Order MAR Action Action Date Dose Rate Site CARBOplatin 690 mg in NaCl New Bag 05/11/2021 4:42 PM CDT 690 mg 688 mL/hr 0.9% 344 mL IVPB (PARAPLATIN) 690 mg (rounded from 691.8 mg, Target AUC = 6), intravenous, at 688 mL/hr, Administer over 30 Minutes, Once, On Tue05/11/21 at 1530, For 1 dose dexamethasone in NaCl 0.9% IVPB 12 New Bag 05/11/2021 12:20 PM CDT 12 mg 200 mL/hr mg (DECADRON) 12 mg, intravenous, at 200 mL/hr, Administer over 15 Minutes, Once, On Tue05/11/21 at 1200, For 1 dose, Give prior to PACLitaxel Refrigerate diphenhydrAMINE injection 50 mg (BENADRY L) Given 05/11/2021 12:12 PM CDT 50 mg 50 mg, intravenous, Once, On Tue05/11/21 at 1200, For 1 dose, Give prior to PACLitaxel. famotidine injection 20 mg (PEPCID) Given 05/11/2021 12:12 PM CDT 20 mg 20 mg, intravenous, Once, On Tue05/11/21 at 1200, For 1 dose, Give prior to PACLitaxel See IVAG for administration guidelines. fosaprepitant in NaCl 0.9% IVPB New Bag 05/11/2021 12:58 PM CD T 150 mg 500 mL/hr 150 mg (EMEND) 150 mg, intravenous, at 500 mL/hr, Administer over 30 Minutes, Once, On Tue05/11/21 at 1200, For 1 dose, Incompatible with solutions containing divalent cations (calcium, magnesium) including lactated Ringer's solution. ondansetron in NaCl 0.9% IVPB 16 mg New Bag 05/11/2021 12:43 P M CDT 16 mg 232 mL/hr (ZOFRAN) 16 mg, intravenous, at 232 mL/hr, Administer over 15 Minutes, Once, On Tue05/11/21 at 1200, For 1 dose PACLitaxeL 300 mg in NaCl 0.9% New Bag 05/11/2021 1:33 PM CDT 300 mg 183 mL/hr (non-PVC) 550 mL IVPB (TAXOL) 300 mg (rounded from 301 mg = 175 mg/m2 ? 1.72 m2 Treatment Plan BSA from Measured weight), intravenous, at 183 mL/hr, Administer over 3 Hours, Once, On 05/11/21 at 1230, For 1 dose, Administer via 0.22 micron in-line filter. documented in this encounter Care Teams E Commerce Manager Relationship Specialty Start Date End Date Elsewhere, Pcp PCP - General Family Medicine 03/10/21 documented as of this encounter
--- OUTSIDE RECORDS SUMMARY | 2022-03-25 08:51 | XMS_ITS | Encounter Summary ---
:1960 Author Organization [facility] Address [address] [place] [address] Care Team Providers Name Role Phone Elsewhere, Pcp Primary Care Provider Unavailable Encounter Details Date Type Department Care Team Description 03/30/2021 Infusion Department of Oncology Apple Motta Malignant Neoplasm Of in [place], [facility] erika Joe M.D. Ovary Laterality [address] Unknown (HCC) (Primary [place], [place] Dx) [phone] (Wo rk) Social History Tobacco Use Types [...] How often do you attend shinto or zoroastrian More than 4 time s [...] Sign Reading Time Taken Comments Blood Pressure 130/72 03/30/2021 3:20 PM CDT Pulse 98 03/30/2021 3:20 PM CDT Temperature 36.7 ??C (98.1 ??F) 03/30/2021 10:58 AM CDT Respiratory Rate - - Oxygen Saturation - - Inhaled Oxygen Concentration - - Weight 65.9 kg (145 lb 6.3 oz) 03/30/2021 10:58 AM CDT Height - - Body Mass Index 24.58 03/24/2021 9:57 AM CDT documented in this encounter Plan of Treatment Upcoming Encounters Date Type Specialty Care Team Description 05/11/2022 Lab Laboratory Medicine Kathleen Mccarty M.D. [address] [place] [phone] 05/12/2022 Clinical Communication Admitting/Central Scheduling 05/13/2022 Telemedicine Oncology Kathleen Mccarty M.D. [address] [place] [address] [phone] Maribeth Guthrie R.N., O.C.N. [address] [place] [address] [phone] 05/18/2022 Lab Laboratory Medicine Nataly Horta APRN, C.N.P., M.S.N. [address] [place] [phone] 05/18/2022 Office Visit Oncology Nataly Horta APRN, C.N.P., M.S.N. 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) - Primary documented in this encounter Administered Medications Inactive Administered Medications - up to 3 most recent administrations Medication Order MAR Action Action Date Dose Rate Site CARBOplatin 580 mg in NaCl New Bag 03/30/2021 4:14 PM CDT 580 mg 666 mL/hr 0.9% 333 mL IVPB (PARAPLATIN) 580 mg (rounded from 576 mg, Target AUC = 6), intravenous, at 666 mL/hr, Administer over 30 Minutes, Once, On Tue03/30/21 at 1500, For 1 dose dexamethasone in NaCl 0.9% IVPB 12 New Bag 03/30/2021 12:10 PM CDT 12 mg 200 mL/hr mg (DECADRON) 12 mg, intravenous, at 200 mL/hr, Administer over 15 Minutes, Once, On Tue03/30/21 at 1130, For 1 dose, Give prior to PACLitaxel Refrigerate diphenhydrAMINE injection 50 mg (BENADRY L) Given 03/30/2021 11:45 AM CDT 50 mg 50 mg, intravenous, Once, On Tue03/30/21 at 1130, For 1 dose, Give prior to PACLitaxel. famotidine injection 20 mg (PEPCID) Given 03/30/2021 11:45 AM CDT 20 mg 20 mg, intravenous, Once, On Tue03/30/21 at 1130, For 1 dose, Give prior to PACLitaxel See IVAG for administration guidelines. famotidine injection 20 mg (PEPCID) Given 03/30/2021 12:47 PM CDT 20 mg 20 mg, intravenous, Once, On Tue03/30/21 at 1345, For 1 dose, See IVAG for administration guidelines. fosaprepitant 150 mg in NaCl 0.9% New Bag 03/30/2021 3:37 PM C DT 150 mg 510 mL/hr (non-PVC) IVPB (EMEND) 150 mg, intravenous, at 510 mL/hr, Administer over 30 Minutes, Once, On Tue03/30/21 at 1130, For 1 dose, Incompatible with solutions containing divalent cations (calcium, magnesium) including lactated Ringer's solution. ondansetron in NaCl 0.9% IVPB 16 mg New Bag 03/30/2021 11:51 A M CDT 16 mg 232 mL/hr (ZOFRAN) 16 mg, intravenous, at 232 mL/hr, Administer over 15 Minutes, Once, On Tue03/30/21 at 1130, For 1 dose PACLitaxeL 300 mg in NaCl 0.9% Restarted 03/30/2021 12:57 PM CDT 183 mL/hr (non-PVC) 550 mL IVPB (TAXOL) 300 mg (rounded from 301 mg = 175 mg/m2 ? 1.72 m2 Treatment Plan BSA from Measured weight), intravenous, at 183 mL/hr, Administer over 3 Hours, Once, On Tue03/30/21 at 1200, For 1 dose, Administer via 0.22 micron in-line filter. New Bag 03/30/2021 12:30 PM CDT 300 mg 183 mL/hr documented in this encounter Care Teams Meeting Planner Relationship Specialty Start Date End Date Elsewhere, Pcp PCP - General Family Medicine 03/10/21 documented as of this encounter
--- OUTSIDE RECORDS SUMMARY | 2022-03-25 08:51 | XMS_ITS | Encounter Summary ---
:1960 Author Organization [facility] Address [address] [place] [address] Care Team Providers Name Role Phone Elsewhere, Pcp Primary Care Provider Unavailable Reason for Visit Reason Comments Intake Assessment Encounter Details Date Type Department Care Team Description 04/15/2021 Clinical Communication Department of Natayl Horta Assessment Oncology in [facility], C.N.P., M.S.N. [address] [place] [phone] Social History Tobacco Use Types Packs/Day Years [...] or relatives? How often do you attend restorationism or synagogue More than 4 time s per year 10/23/2021 services? Do you belong to any clubs or organizations No 10/23/2021 such as restorationism groups, unions, fraternal or athletic groups, or [...] Lab Laboratory Medicine Kathleen Mccarty M.D. [address] [place] [phone] 05/12/2022 Clinical Communication Admitting/Central Scheduling 05/13/2022 Telemedicine Oncology Kathleen Mccarty M.D. [address] [place] [address] [phone] Maribeth Guthrie, Soila, O.C.N. [address] [place] [address] [phone] 05/18/2022 Lab Laboratory Medicine Nataly Horta APRN, C.NChaim., M.S.N. [address] [place] [phone] 05/18/2022 Office Visit Oncology Nataly Horta APRN, C.N.Damaris., M.S.N. [address] [place] [phone] documented as of this encounter Visit Diagnoses Not on filedocumented in this encounter Care Teams Panel Lay Up Worker Relationship Specialty Start Date End Date Elsewhere, Pcp PCP - General Family Medicine 03/10/21 documented as of this encounter
--- OUTSIDE RECORDS SUMMARY | 2022-03-25 08:51 | XMS_ITS | Encounter Summary ---
:1960 Author Organization [facility] Address [address] [place] [address] Care Team Providers Name Role Phone Elsewhere, Pcp Primary Care Provider Unavailable Reason for Referral MRI/CAT/PET Scan (Routine) - Closed Specialty Diagnoses / Procedures Referred By Contact Refer red To Contact Radiology Diagnoses Malignant Neoplasm Of Ovary Laterality Unknown (HCC) [facility] with IV Contrast C.N.P., M.S.N. [address] [place], [place] [phone] Referral ID Status Reason Start Date Expiration Date Visits Requ ested Visits Authorized [id number] Closed 05/11/2021 05/11/2022 1 1 RI/CAT/PET Scan (Routine) - Closed Specialty Diagnoses / Procedures Referred By Contact Refer red To Contact Radiology Diagnoses Malignant Neoplasm Of Ovary Laterality Unknown (HCC) Nataly Horta APRN, [facility] Procedures CT Abdomen Pelvis with IV Contrast C.N.P., M.S.N. [address] [place] [phone] Referral ID Status Reason Start Date Expiration Date Visits Requ ested Visits Authorized [id number] Closed 05/11/2021 05/11/2022 1 1 S SALES MANAGER Reason for Visit MRI/CAT/PET Scan (Routine) - Closed Specialty Diagnoses / Procedures Referred By Contact Refer red To Contact Radiology Diagnoses Malignant Neoplasm Of Ovary Laterality Unknown (HCC) [facility] Chest with IV Contrast C.N.P., M.S.N. [address] [place] [phone] Referral ID Status Reason Start Date Expiration Date Visits Requ ested Visits Authorized [id number] Closed 05/11/2021 05/11/2022 1 1 Encounter Details Date Type Department Care Team Description 05/28/2021 Hospital Encounter Department of Nataly Horta Neoplasm Radiology, Ladi Garvin APRN, C.N.P., Of [facility], in M.S.N. Unknown (HCC) [place], [address] [place], [place] [address] [facility] [address] [place], [place] [phone] (Work) [phone] Social History Tobacco Use Types Packs/Day Years [...] How often do you attend voodoo or yazidism More than 4 time s [...] Sign Reading Time Taken Comments Blood Pressure - - Pulse - - Temperature - - Respiratory Rate - - Oxygen Saturation - - Inhaled Oxygen Concentration - - Weight 63.6 kg (140 lb 3.4 oz) 05/28/2021 7:34 AM PARTS SALES MANAGER Height 162.6 cm (5' 4) 05/28/2021 7:34 AM PARTS SALES MANAGER Body Mass Index 24.07 05/28/2021 7:34 AM PARTS SALES MANAGER documented in this encounter Medications at Time of [...] acetaminophen (TYLENOL) Take 2 tablets (1,000 0 0 03/12/2021 06/03/2021 500 mg tablet mg total) by mouth every 6 (six) hours as needed for pain. apixaban (ELIQUIS) 2.5 Take 1 tablet (2.5 mg 56 tablet 0 06/01/2021 mg tablet total) by mouth 2 (two) times a day for 28 days. ibuprofen (ADVIL,MOTRIN) Take 1 tablet (600 mg 0 03/12/2021 06/01/2021 600 mg tablet total) by mouth every 6 (six) hours as needed for pain. LORazepam (ATIVAN) 0.5 Take 1 tablet (0.5 mg 15 tablet 0 06/01/2021 mg tablet total) by mouth every 4 (four) hours as needed for anxiety for up to 15 doses. LORazepam (ATIVAN) 0.5 Take 1 tablet (0.5 [...] (ROXICODONE) 5 Take 1 tablet (5 mg 10 tablet 0 06/01/2021 mg immediate release total) by mouth every tabletIndications: Acute 4 (four) hours as Pain needed for moderate pain or score 4-6 of 10 (Administer if pain is unrelieved by acetaminophen.) Indication: acute pain. oxyCODONE (ROXICODONE) 5 Take 1 tablet (5 [...] tablet (10 mg 26 tablet 0 1 08/02/2020 06/03/2021 mg tablet total) by mouth daily. rivaroxaban (XARELTO) 10 Take 1 tablet (10 mg 25 tablet 0 1 08/04/2020 06/03/2021 mg tablet total) by mouth daily. rivaroxaban (XARELTO) 10 Take 1 tablet (10 mg 26 tablet 0 1 08/04/2020 11/20/2021 mg tablet total) by mouth daily. sennosides-docusate Take 1 tablet by 0 03/12/2021 06/01/2021 sodium (SENOKOT-S) mouth 2 (two) times a 8.6-50 mg per tablet day as needed for constipation. sennosides-docusate Take 1 tablet by 90 tablet 0 06/03/2021 11/20/2021 sodium (SENOKOT-S) mouth daily. 8.6-50 mg per tablet documented as of this encounter Plan of Treatment Upcoming Encounters Date Type Specialty Care Team Description 05/11/2022 Lab Laboratory Medicine Kathleen Mccarty M.D. [address] [place] [phone] 05/12/2022 Clinical Communication Admitting/Central Scheduling 05/13/2022 Telemedicine Oncology Kathleen Mccarty M.D. [address] [place] [phone] Maribeth Guthrie R.N., O.C.N. [address] [place] [phone] 05/18/2022 Lab Laboratory Medicine Nataly Horta APRN, C.N.P., M.S.N. [address] [place] [phone] 05/18/2022 Office Visit Oncology Nataly Horta MICKIE Garvin, C.N.P., M.S.N. [address] [place] [phone] documented as of this encounter Procedures Procedure Name Priority Date/Time Associated Comments Diagnosis CT ABDOMEN PELVIS RAD - Routine 05/28/2021 8:27 Malignant Result s for this WITH IV CONTRAST (most inpatients AM PARTS SALES MANAGER Neoplasm Of Ovary pr ocedure are in and all Laterality the results outpatients) Unknown (HCC) section. CT CHEST WITH IV RAD - Routine 05/28/2021 8:27 Malignant Results for this CONTRAST (most inpatients AM PARTS SALES MANAGER Neoplasm Of Ovary proced ure are in and all Laterality the results outpatients) Unknown (HCC) section. documented in this encounter Results CT Chest with IV Contrast (05/28/2021 8:27 AM PARTS SALES MANAGER) Anatomical Region Laterality Modality Chest, Thoracic RST LOS, Thoracic ARZ N/A Co mputed Tomography, Computed LOS, Thoracic ARZ LOS, Thoracic FLA Kalin graphy LOS Specimen (Source) Anatomical Collection Method Collection Time Re ceived Time Location / / Volume Laterality 05/28/2021 10:46 AM PARTS SALES MANAGER Impressions 05/28/2021 11:08 AM PARTS SALES MANAGER 1. Interval decrease in size of the small right pleural effusion since the 03/06/[address] Trace left pleu ral effusion has also decreased in size. 2. Indeterminate solid and sub-solid pul monary nodules measuring up to [address] follow-up is recomme nded. 3. A 9 mm right cardiophrenic angle lymp h node has decreased in size, previously 13 mm. Subcentimeter right subpleural no dule or lymph node has also decreased in size. 4. [id number] mm focus of sclerosis in the T9 vertebral body is unchanged from the prior abdominal CT. 5. Small pericardial effusion. Narrative 05/28/2021 11:08 AM PARTS SALES MANAGER EXAM: CT CHEST WITH IV CONTRAST COMPARISON: No prior chest CTs are avail able for comparison. Comparison with outside abdominal CT from 03/06/2021 and chest radiograph from 03/11/2021. FINDINGS: Interval decrease in size of the small r ight pleural effusion. Trace left pleural effusion has also decreased in s ize. A 4 mm right posteromedial extrapleural nodule or lymph node has de creased in size, previously 5 mm (3/397). No pneumothorax. 4 mm solid noncalcified subpleural left lower lobe pulmonary nodule (3/456). 4 mm pure groundglass nodule in the left u pper lobe (3/154). Additional smaller solid and sub-solid p ulmonary nodules. For example (on series 3): Subpleural right upper lobe on image 177 Right upper lobe on image 184 Superior segment right lower lobe on faith ge 259, 327 Compressive atelectasis adjacent right p leural effusion. Calcified pulmonary granulomas. A few tiny thin-walled air c ysts versus foci of emphysema. Clear central airways. A 9 mm right cardiophrenic angle lymph n ode (3/449) has decreased in size, previously 13 mm. A couple of tiny 2 to 3 mm internal mammary lymph nodes. Additional scattered subcentimeter nonca lcified thoracic lymph nodes. Calcified subcarinal and left hilar lymph nodes. Small pericardial effusion. 8 mm left thyroid lobe nodule. A 14 mm focus of sclerosis in the T9 miya tebral body is unchanged from the prior abdominal CT. No new osseous lesions. Performed in conjunction with a CT scan of the abdomen, which will be reported separately. 3D maximum intensity projection (MIP) im ages were created on a dependent workstation as ordered by the treating p rovider and reviewed by the radiologist to increase sensitivity for detection of pulmonary nodules. Nataly Horta APRN C.N.P., M.S.N. IMG CT PROCEDURE S CT Abdomen Pelvis with IV Contrast (05/28/2021 8:27 AM PARTS SALES MANAGER) Anatomical Region Laterality Modality Abdomen, Pelvis, Abdominal RST LOS, N/A Comp uted Tomography, Computed Abdominal ARZ LOS, Abdominal FLA LOS Moreno ography Specimen (Source) Anatomical Collection Method Collection Time Re ceived Time Location / / Volume Laterality 05/28/2021 10:10 AM PARTS SALES MANAGER Impressions 05/28/2021 10:20 AM PARTS SALES MANAGER Favorable response to interval treatment Narrative 05/28/2021 10:20 AM PARTS SALES MANAGER EXAM: ??CT ABDOMEN PELVIS WITH IV CONTRAST COMPARISON: ??03/06/2021 FINDINGS: ??Considerable improvement in carcinomatosis with decreased peritoneal/omental nodularity and resolu tion of ascites. Some residual omental nodularity remains, most marked in the l eft upper abdomen. Stable small retroperitoneal lymph nodes measure up t o 7 mm short axis (series 1 image 62). Subcentimeter hepatic and left renal cys ts. Focal scarring upper left kidney. Normal caliber small bowel and colon. A 1.0 cm right cardiophrenic lymph node previously measured 1.6 cm. Right pleural effusion. This examination was p erformed in conjunction with a CT of the chest, which will be reported separately . Procedure Note Dominic Wilkerson M.D. - 05/28/2021Forma tting of this note might be different from the original. EXAM: CT ABDOMEN PELVIS WITH IV CONTRAST COMPARISON: 03/06/2021 FINDINGS: Considerable improvement in ca rcinomatosis with decreased peritoneal/omental nodularity and resolu tion of ascites. Some residual omental nodularity remains, most marked in the l eft upper abdomen. Stable small retroperitoneal lymph nodes measure up t o 7 mm short axis (series 1 image 62). Subcentimeter hepatic and left renal cys ts. Focal scarring upper left kidney. Normal caliber small bowel and colon. A 1.0 cm right cardiophrenic lymph node previously measured 1.6 cm. Right pleural effusion. This examination was p erformed in conjunction with a CT of the chest, which will be reported separately . IMPRESSION: Favorable response to interval treatment Nataly Horta APRN C.N.P., M.S.N. 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 300) 30 mL with 970 mL water for a total volume of 1,000 mLs. Patient to drink mixture in 40 minutes. iohexoL 300 mg iodine/mL solution 1-200 mL Given 05/28/2021 8:15 AM PARTS SALES MANAGER 100 mL (OMNIPAQUE) 1-200 mL, intravenous, Once in imaging, contrast, Starting on Jackeline 05/28/21 at 0734, For 1 dose, Imaging Protocol Orders, Dose per Radiant Medication Guidelines sodium chloride (PF) 0.9 % injection 1-1 00 mL Given 05/28/2021 8:15 AM PARTS SALES MANAGER 50 mL 1-100 mL, intravenous, Once, On Jackeline 05/28/21 at 0745, For 1 dose, Imaging Protocol Orders documented in this encounter Care Teams Cruise Counselor Relationship Specialty Start Date End Date Elsewhere, Pcp PCP - General Family Medicine 03/10/21 documented as of this encounter
--- OUTSIDE RECORDS SUMMARY | 2022-03-25 08:51 | XMS_ITS | Encounter Summary ---
:1960 Author Organization [facility] Address [address] [place] [address] Care Team Providers Name Role Phone Elsewhere, Pcp Primary Care Provider Unavailable Reason for Visit Reason Onset Date Comments Testing For Upper Respiratory Virus Symptoms 05/29/2021 Encounter Details Date Type Department Care Team Description 05/29/2021 External Outreach Department of Family Klarissa Luna Contact With And Medicine, [place] Ángela Mabry (Suspected) Exposure Clinic, in [address] To COVID-19 (Primary [place], [place] Dx) [address] [facility] [address] [place], [place] [phone] (Work) [phone] Social History Tobacco Use Types Packs/Day Years [...] or relatives? How often do you attend gnosticist or hinduism More than 4 time s per year 10/23/2021 services? Do you belong to any clubs or organizations No 10/23/2021 such as gnosticist groups, unions, fraternal or athletic groups, or [...] documented as of this encounter Progress Notes Mani Glover - 05/29/2021 9:11 AM CST Encounter created for symptomatic infectious disease screening with possible COVID, Influenza, RSV, and/or Group A Strep testing. HMAKER documented in this encounter Plan of Treatment Upcoming Encounters Date Type Specialty Care Team Description 05/11/2022 Lab Laboratory Medicine Kathleen Mccarty M.D. [address] [place] [phone] 05/12/2022 Clinical Communication Admitting/Central Scheduling 05/13/2022 Telemedicine Oncology Kathleen Mccarty M.D. [address] [place] [phone] Maribeth Guthrie R.N., O.C.N. [address] [place] [phone] 05/18/2022 Lab Laboratory Medicine Awilda Hortakacie Garvin APRN, C.N.P., M.S.N. [address] [place] [phone] 05/18/2022 Office Visit Oncology CarmineAwilda taylorkacie Garvin APRN, C.N.P., M.S.N. [address] [place] [phone] documented as of this encounter Procedures Procedure Name Priority Date/Time Associated Diagnosis Comme nts SARS CORONAVIRUS-2 Routine 05/29/2021 1:41 PM Contact With And Results for this RNA, V BATCHMAKER (Suspected) Exposure procedu re are in To COVID-19 the results section. documented in this encounter Results SARS Coronavirus-2 RNA, V Symptomatic (05/29/2021 1:41 PM BATCHMAKER) [facility] Method Time Signature SARS-CoV-2 Swab, 05/30/2021 ECLR Specimen Nasopharynx 4:02 PM BATCHMAKER Source SARS CoV-2 Undetected Undetected 05/30/2021 ECLR RNA, TMA 4:02 PM BATCHMAKER Comment: SARS-CoV-2 RNA absent. This result does not rule out COVID-19 in the patient, as the sensitivity of the test depends o n the timing of the specimen collection and the quality of the specim en. Result should be correlated with patient's history and clinical presentat ion. ----ADDITIONAL INFORMATION---- This molecular amplification test was pe rformed using the Aptima SARS-CoV-2 assay ([employer] on the Revision3s tem under emergency use authorization (EUA) by the U.S. Food and Drug Administ ration. Fact sheets for this EUA assay can be fo und at the following links: For Healthcare Providers: https://www.fd a.gov/media/180900/download For Patients: https://www.fda.gov/media/ 802207/download Specimen Anatomical Collection Method Collection Time Receive d Time (Source) Location / / Volume Laterality Varies 05/29/2021 1:41 PM 9:36 (Nasopharynx) BATCHMAKER PM BATCHMAKER Umer Luna P.A.-C. LAB MICROBIOLOGY - GENERAL O JONAH Performing Organization Address City/State/ZIP Code Phon e Number [facility]- [address] [place] [phone] [facility] [place] [address] System [address] documented in this encounter Visit Diagnoses Diagnosis Contact With And (Suspected) Exposure To COVID-19 - Primary documented in this encounter Additional Health Concerns Infection Onset Date Last Indicated Resolved Time COVID19 Pending 05/29/2021 05/29/2021 05/30/2021 4:03 PM BATCHMAKER documented as of this encounter Care Teams Museum Exhibit Designer Relationship Specialty Start Date End Date Elsewhere, Pcp PCP - General Family Medicine 03/10/21 documented as of this encounter
--- OUTSIDE RECORDS SUMMARY | 2022-03-25 08:51 | XMS_ITS | Encounter Summary ---
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 [address] [place] [phone] Referral ID Status Reason Start Date Expiration Date Visits Requ ested Visits Authorized [id number] Closed 05/11/2021 05/11/2022 1 1 Encounter Details Date Type Department Care Team Description 05/28/2021 Comprehensive Visit Department of Claribel Motta Neoplasm Of Ovary Laterality Unknown (HCC) (Primary Dx); Obstetrics and Apple Joe M.D. Preprocedural Lab Exam; Gynecology in [address] [place] [address] Encounter For Preprocedural Laboratory E xamination (COVID-19) [facility] [phone] [place] [address] [place], [place] (Work) [phone] Social History Tobacco Use Types Packs/Day Years [...] How often do you attend hoahaoism or yazidi More than 4 time s per year 10/23/2021 services? Do you belong to any clubs or organizations No 10/23/2021 such as hoahaoism groups, unions, [employer] or athletic groups, or school groups? How [...] documented as of this encounter Progress Notes Apple Motta M.D. - 05/28/2021 3:15 PM CST SUBJECTIVE LOCAL ONCOLOGIST No care sales team leader to display PRIMARY [place] ONCOLOGIST No care sales team leader to display CHIEF COMPLAINT / REASON FOR VISIT Wendy Aviles is a 60 y.o. 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 She is found to have extensive disease which was felt to be unresectable due to disease distribution involving the bowel. 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 03/12/2021 Biopsy/Pathology Intraoperative biopsy showed: A. 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 B. 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 Immunohistochemical stains were performed on block B1 using antibodies to HI, keratin AE1/AE3, p16, p53, PAX8, BRG1, INI-1, WT1. The tumor cells are positive for cytokeratin AE1/AE3, HI, p16, p53, PAX8, and WT1. INI-1 and BRG1 are retained. These results support the above diagnosis. 03/30/2021 - Chemotherapy CARBOplatin AUC 6 / PACLitaxel ( AUDITING MANAGER ) Start Date: 03/30/2021 The patient is overall doing well. She has tolerated chemotherapy fairly well. She has no new complaints. The following portions of the patient's history were reviewed and updated as appropriate: allergies,current medications, family history, medical history, social history and surgical history. REVIEW OF SYSTEMS All systems reviewed and negative except as noted in HPI. OBJECTIVE No data recorded There were no vitals taken for this visit. PHYSICAL EXAM General: Well-appearing, no apparent distress, alert and oriented. ECOG status: 0 LABORATORY DATA Lab data reviewed. RADIOLOGICAL DATA Radiology data reviewed. 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 Discussed that she has had some response to chemotherapy. She continues to have a pleural effusion. Her cardiophrenic node has then slightly smaller. Her omental disease has decreased in size and she has had resolution of her ascites. Discussed with thepatient based on her imaging studies I would suggest that we proceed with exploratory laparotomy andpossible debulking. Discussed with the patient that is possible we will find more disease than we anticipated have to the board her procedure once again. I discussed otherwise we plan to proceed with exploratory laparotomy, total abdominal hysterectomy, bilateral salpingo-oophorectomy, omentectomy and possible bowel resection. We discussed risks, benefits, complications of surgery. Risks include but are not limited to bleeding, infection, injury to adjacent organs, venous thromboembolism, and lymphedema if lymph nodes are removed. Discussed the role of residents and fellows in surgery. Reviewed the practice of overlapping surgeries. I discussed with the patient the role of genetic testing in the treatment of ovarian cancer. Patientwould like to proceed with a clinical trial for her genetic testing. Discussed that this would be reasonable. We will plan to have her tumor sent for somatic testing an HR D status after surgery. PATIENT EDUCATION Ready to learn, no apparent learning barriers were identified; learning preferences include listening. Explained diagnosis and treatment plan; patient expressed understanding of the content. ADMINISTRATIVE BILLING I spent 30 minutes in [id number] consultation, greater than 50% of the visit was spent in counseling. IOTHORACIC PHYSIOTHERAPIST documented in this encounter Plan of Treatment Upcoming Encounters Date Type Specialty Care Team Description 05/11/2022 Lab Laboratory Medicine Kathleen Mccarty M.D. [address] [place] [phone] 05/12/2022 Clinical Communication Admitting/Central Scheduling 05/13/2022 Telemedicine Oncology Kathleen Mccarty M.D. [address] [place] [phone] Mariebth Guthrie R.N., O.C.N. [address] [place] [phone] 05/18/2022 Lab Laboratory Medicine Nataly Horta APRN, C.N.P., M.S.N. [address] [place] [phone] 05/18/2022 Office Visit Oncology Nataly Horta APRN C.N.P., M.S.N. [address] [place] [phone] documented as of this encounter Results (ABNORMAL) Cancer Antigen 125 (CA 125) (05/28/2021 4:24 PM CARDIOTHORACIC PHYSIOTHERAPIST) athologist [facility] Cancer Ag 125 89 (H) <46 U/mL 05/28/2021 [facility] (CA 125), S 9:40 PM CARDIOTHORACIC PHYSIOTHERAPIST Comment: ----ADDITIONAL INFORMATION---- The testing method is [...] Location / / Volume Laterality Blood (Blood, 05/28/2021 4:24 PM 05/28/20 9:06 Venous) CARDIOTHORACIC PHYSIOTHERAPIST PM CARDIOTHORACIC PHYSIOTHERAPIST Apple Motta M.D. LAB BLOOD ADD-ON Performing Organization Address City/[facility]/ZIP Code Phon e Number [facility] [address] [place], [place] [address] [facility] [place] [address] Laboratory Medicine and Pathology [address] [place] [address] Dr. BRITO Type and Screen (with reflex Antibody ID) (05/28/2021 4:24 PM CARDIOTHORACIC PHYSIOTHERAPIST) [facility] Method Time Signature ABORh A Pos Not 05/28/2021 ETRM applicable 5:26 PM CARDIOTHORACIC PHYSIOTHERAPIST Antibody Negative Negative 05/28/2021 ETRM Screen 6:06 PM CARDIOTHORACIC PHYSIOTHERAPIST Type & Screen 07/26/2021 05/28/2021 ETRM Expiration 23:59 5:26 PM CARDIOTHORACIC PHYSIOTHERAPIST Testing Aditya DEFAULT 05/28/2021 ETRM Location 5:06 PM CARDIOTHORACIC PHYSIOTHERAPIST Specimen Anatomical Collection Method Collection Time Receive d Time (Source) Location / / Volume Laterality Blood (Blood, 05/28/2021 4:24 PM 05/28/20 5:06 Venous) CARDIOTHORACIC PHYSIOTHERAPIST PM CARDIOTHORACIC PHYSIOTHERAPIST Apple Motta M.D. LAB BLOOD BANK TEST ORDERABL ES Performing Organization Address City/State/ZIP Code Phon e Number [facility] - [address] [place], [place] [address] [facility] [address] Laboratories-[facility] [address] (ABNORMAL) Albumin (05/28/2021 4:24 PM CARDIOTHORACIC PHYSIOTHERAPIST) athologist Signature Albumin, S 5.1 (H) 3.5 - 5.0 05/28/2021 DTL g/dL 5:28 PM CARDIOTHORACIC PHYSIOTHERAPIST Specimen Anatomical Collection Method Collection Time Receive d Time (Source) Location / / Volume Laterality Blood (Blood, 05/28/2021 4:24 PM 05/28/20 5:03 Venous) CARDIOTHORACIC PHYSIOTHERAPIST PM CARDIOTHORACIC PHYSIOTHERAPIST Apple Motta M.D. LAB BLOOD ADD-ON Performing Organization Address City/State/ZIP Code Phon e Number [facility] - [address] [place], [place] [address] [facility] [place] [address] Laboratories-[facility] [address] Basic Metabolic Panel (05/28/2021 4:24 PM CARDIOTHORACIC PHYSIOTHERAPIST) athologist Signature Potassium, S 3.9 3.6 - 5.2 05/28/2021 DTL mmol/L 5:28 PM CARDIOTHORACIC PHYSIOTHERAPIST Sodium, S 138 135 - 145 05/28/2021 DTL mmol/L 5:28 PM CARDIOTHORACIC PHYSIOTHERAPIST Chloride, S 101 98 - 107 05/28/2021 DTL mmol/L 5:28 PM CARDIOTHORACIC PHYSIOTHERAPIST Bicarbonate, S 26 22 - 29 05/28/2021 DTL mmol/L 5:28 PM CARDIOTHORACIC PHYSIOTHERAPIST Anion Gap 11 7 - 15 05/28/2021 DTL 5:28 PM CARDIOTHORACIC PHYSIOTHERAPIST BUN (Blood Urea 11 6 - 21 05/28/2021 DTL Nitrogen), S mg/dL 5:28 PM CARDIOTHORACIC PHYSIOTHERAPIST Creatinine 0.66 0.59 - 05/28/2021 DTL 1.04 mg/dL 5:28 PM CARDIOTHORACIC PHYSIOTHERAPIST eGFR-Non >90 >=60 05/28/2021 DTL Black/ mL/min/BSA 5:28 PM CARDIOTHORACIC PHYSIOTHERAPIST Prydeinig Comment: ----ADDITIONAL INFORMATION---- Estimated GFR calculated using the 2009 CKD_EPI creatinine equation. eGFR-Black/ >90 >=60 mL/min/BSA 2020 5:28 PM CARDIOTHORACIC PHYSIOTHERAPIST DTL Comment: ----ADDITIONAL INFORMATION---- Estimated GFR calculated using the 2009 CKD_EPI creatinine equation. Calcium, Total, S 9.2 8.8 - 10.2 mg/dL 05/28/2021 5:28 PM CARDIOTHORACIC PHYSIOTHERAPIST DTL Glucose, S 99 70 - 140 mg/dL 05/28/2021 5:28 PM CARDIOTHORACIC PHYSIOTHERAPIST D TL Specimen Anatomical Collection Method Collection Time Receive d Time (Source) Location / / Volume Laterality Blood (Blood, 05/28/2021 4:24 PM 05/28/20 5:03 Venous) CARDIOTHORACIC PHYSIOTHERAPIST PM CARDIOTHORACIC PHYSIOTHERAPIST Apple Motta M.D. LAB BLOOD ADD-ON Performing Organization Address City/State/ZIP Code Phon e Number [facility] - [address] [place] [address] [facility] [place] [address] Laboratories[facility] [address] [facility] (ABNORMAL) CBC with Differential, Blood (05/28/2021 4:24 PM CARDIOTHORACIC PHYSIOTHERAPIST) [facility] Method Time Signature Hemoglobin 9.0 (L) 11.6 - 05/28/2021 DTL 15.0 g/dL 5:06 PM CARDIOTHORACIC PHYSIOTHERAPIST Hematocrit 27.8 (L) 35.5 - 05/28/2021 DTL 44.9 % 5:06 PM CARDIOTHORACIC PHYSIOTHERAPIST Erythrocytes 3.06 (L) 3.92 - 05/28/2021 DTL 5.13 5:06 PM CARDIOTHORACIC PHYSIOTHERAPIST x10(12)/L MCV 90.8 78.2 - 05/28/2021 DTL 97.9 fL 5:06 PM CARDIOTHORACIC PHYSIOTHERAPIST RBC Distrib Width 16.5 (H) 12.2 - 05/28/2021 DTL 16.1 % 5:06 PM CARDIOTHORACIC PHYSIOTHERAPIST Platelet Count 74 (L) 157 - 371 05/28/2021 DTL x10(9)/L 6:20 PM CARDIOTHORACIC PHYSIOTHERAPIST Comment: Results confirmed by smear, no clumping or interference seen. Leukocytes 3.8 3.4 - 9.6 x10(9)/L 05/28/2021 6:[address] DTL Neutrophils 1.74 1.56 - 6.45 x10(9)/L 05/28/2021 5:06 P M CARDIOTHORACIC PHYSIOTHERAPIST DTL Lymphocytes 1.37 0.95 - 3.07 x10(9)/L 05/28/2021 5:06 P M CARDIOTHORACIC PHYSIOTHERAPIST DTL Monocytes 0.69 0.26 - 0.81 x10(9)/L 05/28/2021 5:06 PM CARDIOTHORACIC PHYSIOTHERAPIST DTL Eosinophils <0.03 0.03 - 0.48 x10(9)/L 05/28/2021 5:06 P M CARDIOTHORACIC PHYSIOTHERAPIST DTL Basophils <0.03 0.01 - 0.08 x10(9)/L 05/28/2021 5:06 PM CARDIOTHORACIC PHYSIOTHERAPIST DTL Specimen Anatomical Collection Method Collection Time Receive d Time (Source) Location / / Volume Laterality Blood (Blood, 05/28/2021 4:24 PM 05/28/20 4:54 Venous) CARDIOTHORACIC PHYSIOTHERAPIST PM CARDIOTHORACIC PHYSIOTHERAPIST pAple Motta M.D. LAB BLOOD ADD-ON Performing Organization Address City/State/ZIP Code Phon e Number [facility] - [address] [place], [place] [address] [facility] [place] [address] Laboratories-[facility] [address] documented in this encounter Visit Diagnoses Diagnosis Malignant Neoplasm Of Ovary Laterality U nknown (HCC) - Primary Preprocedural Lab Exam Encounter For Preprocedural Laboratory E xamination (COVID-19) documented in this encounter Care Teams Wheelchair Van Driver Relationship Specialty Start Date End Date Elsewhere, Pcp PCP - General Family Medicine 03/10/21 documented as of this encounter
--- OUTSIDE RECORDS SUMMARY | 2022-03-25 08:51 | XMS_ITS | Encounter Summary ---
:1960 Author Organization [facility] Address [address] [place] [address] Care Team Providers Name Role Phone Elsewhere, Pcp Primary Care Provider Unavailable Encounter Details Date Type Department Care Team Description 03/30/2021 Orders Only [facility] [place] Shandra CORADO, M.S.N. [address] [facility] [address] [place] [address] [place], [place] [phone] (Wo rk) Social History Tobacco Use Types [...] or relatives? How often do you attend oriental orthodox or pentecostalism More than 4 time s per year 10/23/2021 services? Do you belong to any clubs or organizations No 10/23/2021 such as oriental orthodox groups, unions, fraternal or athletic groups, or [...] Lab Laboratory Medicine Kathleen Mccarty M.D. [address] [place] [phone] 05/12/2022 Clinical Communication Admitting/Central Scheduling 05/13/2022 Telemedicine Oncology Kathleen Mccarty M.D. [address] [place] [phone] Maribeth Guthrie, Soila, O.C.N. [address] [place] [phone] 05/18/2022 Lab Laboratory Medicine Nataly Horta APRN, C.N.P., M.S.N. [address] [place] [phone] 05/18/2022 Office Visit Oncology Nataly Horta APRN, C.N.P., M.S.N. [address] [place] [phone] documented as of this encounter Visit Diagnoses Not on filedocumented in this encounter Care Teams Production Machine Tender Relationship Specialty Start Date End Date Elsewhere, Pcp PCP - General Family Medicine 03/10/21 documented as of this encounter
--- OUTSIDE RECORDS SUMMARY | 2022-03-25 08:51 | XMS_ITS | Encounter Summary ---
:1960 Author Organization [facility] Address [address] [place] [address] Care Team Providers Name Role Phone Elsewhere, Pcp Primary Care Provider Unavailable Encounter Details Date Type Department Care Team Description 05/29/2021 Lab Department of [facility] Apple Motta reprocedural Lab Exam; Medicine, Sascha Joe M.D. Encounter For Preprocedural Laboratory E xamination (COVID-19) Clinic, in [place], [address] [place] [address] [address] [facility] [address] [place] [address] [phone] Social History Tobacco Use Types Packs/Day Years [...] or relatives? How often do you attend islam or judaism More than 4 time s per year 10/23/2021 services? Do you belong to any clubs or organizations No 10/23/2021 such as islam groups, unions, fraternal or athletic groups, or [...] Lab Laboratory Medicine Kathleen Mccarty M.D. [address] [place] [phone] 05/12/2022 Clinical Communication Admitting/Central Scheduling 05/13/2022 Telemedicine Oncology Kathleen Mccarty M.D. [address] [place] [phone] Maribeth Guthrie R.N., O.C.N. [address] [place] [phone] 05/18/2022 Lab Laboratory Medicine Nataly Horta APRN, C.N.P., M.S.N. [address] [place] [phone] 05/18/2022 Office Visit Oncology Nataly Horta APRN, C.N.P., M.S.N. [address] [place] [phone] documented as of this encounter Visit Diagnoses Diagnosis Preprocedural Lab Exam Encounter For Preprocedural Laboratory E xamination (COVID-19) documented in this encounter Additional Health Concerns Infection Onset Date Last Indicated Resolved Time COVID19 Pending 05/29/2021 05/29/2021 05/30/2021 4:03 PM HOSPITALITY WORKERS documented as of this encounter Care Teams Quantitative Manager Relationship Specialty Start Date End Date Elsewhere, Pcp PCP - General Family Medicine 03/10/21 documented as of this encounter
--- OUTSIDE RECORDS SUMMARY | 2022-03-25 08:51 | XMS_ITS | Encounter Summary ---
:1960 Author Organization [facility] Address [address] [place] [address] Care Team Providers Name Role Phone Elsewhere, Pcp Primary Care Provider Unavailable Encounter Details Date Type Department Care Team Description 05/03/2021 Clinical Communication Department of Fanny Ogden, Obstetrics and M.D. Gynecology in [address] [place], [place] [address] [facility] [address] [place], [place] [phone] (Work) [phone] Social History Tobacco Use Types Packs/Day Years [...] or relatives? How often do you attend anabaptist or synagogue More than 4 time s per year 10/23/2021 services? Do you belong to any clubs or organizations No 10/23/2021 such as anabaptist groups, unions, fraternal or athletic groups, or [...] place to sleep or slept in a longterm (including now)? Education Answer Date Recorded What is the highest level of school Bachelor's degree (e.g., BA, AB, 03/10/2021 you have completed or the highest BS) degree you have received? Sex Assigned at Date Recorded Female 03/13/2021 7:24 PM CDT documented as of this encounter Miscellaneous Notes Telephone Encounter - Fanny Ogden M.D. - 05/03/2021 12:31 PM CDT Patient called in to service yesterday. Unable to reach now x2. She did call into oncology with loose stools in setting of recently starting chemotherapy who recommended immodium and presenting to ED with worsening/concerning symptoms. documented in this encounter Plan of Treatment Upcoming Encounters Date Type Specialty Care Team Description 05/11/2022 Lab Laboratory Medicine Kathleen Mccarty M.D. 200 [place] [phone] 05/12/2022 Clinical Communication Admitting/Central Scheduling 05/13/2022 Telemedicine Oncology Kathleen Mccarty M.D. [address] [place] [phone] Maribeth Guthrie R.N., O.C.N. [address] [place] [phone] 05/18/2022 Lab Laboratory Medicine Nataly Horta APRN, C.N.P., M.S.N. [address] [place] [phone] 05/18/2022 Office Visit Oncology Nataly Horta APRN, C.N.P., M.S.N. [address] [place] [phone] documented as of this encounter Visit Diagnoses Not on filedocumented in this encounter Care Teams Horse Breeder Relationship Specialty Start Date End Date Elsewhere, Pcp PCP - General Family Medicine 03/10/21 documented as of this encounter
--- OUTSIDE RECORDS SUMMARY | 2022-03-25 08:51 | XMS_ITS | Encounter Summary ---
:1960 Author Organization [facility] Address [address] [place] [address] Care Team Providers Name Role Phone Elsewhere, Pcp Primary Care Provider Unavailable Reason for Visit Reason Comments Results Encounter Details Date Type Department Care Team Description 05/30/2021 Clinical Communication Department of King Ribera, Results Obstetrics and M.D. Gynecology in [address] [place] [address] [place] [phone] [place], [place] [phone] (Work) [phone] Social History Tobacco Use Types Packs/Day Years [...] or relatives? How often do you attend anabaptism or amish More than 4 time s per year 10/23/2021 services? Do you belong to any clubs or organizations No 10/23/2021 such as anabaptism groups, unions, fraternal or athletic groups, or [...] this encounter Miscellaneous Notes Telephone Encounter - King Ribera M.D. - 05/30/2021 12:22 PM CST Called the patient to relate the results of her CBC that she had done today. This demonstrated an increase in her platelets to 93 from 74. Per discussion with Dr. Motta, if her platelets showed a trend upward we would keep her surgical date for Tuesday. I have canceled her Medical Oncology and infusion appointments per this plan. The patient had a few questions about pre paying for the treatment deposit. She had previously been instructed to go to the business office but then also been told that she could pay at the time of check in. Encouraged to ask during check and if she needed to go to the business office before checking in for her procedure that could redirect her there. Patient no further questions. IAMENTARY LIBRARIAN documented in this encounter Plan of Treatment Upcoming Encounters Date Type Specialty Care Team Description 05/11/2022 Lab Laboratory Medicine Kathleen Mccarty M.D. [address] [place] [phone] 05/12/2022 Clinical Communication Admitting/Central Scheduling 05/13/2022 Telemedicine Oncology Kathleen Mccarty M.D. [address] [place] [phone] Maribeth Guthrie R.N., O.C.N. [address] [place] [phone] 05/18/2022 Lab Laboratory Medicine Nataly Horta APRN, C.NAlphonso, M.S.N. [address] [place] [phone] 05/18/2022 Office Visit Oncology Nataly Horta APRN, C.NAlphonso, M.S.N. [address] [place] [phone] documented as of this encounter Visit Diagnoses Not on filedocumented in this encounter Additional Health Concerns Infection Onset Date Last Indicated Resolved Time COVID19 Pending 05/29/2021 05/29/2021 05/30/2021 4:03 PM PARLIAMENTARY LIBRARIAN documented as of this encounter Care Teams Guest Advisor Relationship Specialty Start Date End Date Elsewhere, Pcp PCP - General Family Medicine 03/10/21 documented as of this encounter
--- OUTSIDE RECORDS SUMMARY | 2022-03-25 08:51 | XMS_ITS | Encounter Summary ---
:1960 Author Organization [facility] Address [address] [place] [address] Care Team Providers Name Role Phone Elsewhere, Pcp Primary Care Provider Unavailable Encounter Details Date Type Department Care Team Description 03/28/2021 Orders Only Department of Obstetrics Ángela, Chelsea Joe, and Gynecology in [address], [place] [address] [facility] [address] [place] [phone] (Wo rk) Social History Tobacco Use Types [...] How often do you attend mormonism or oriental orthodox More than 4 time s per [...] Lab Laboratory Medicine Kathleen Mccarty M.D. [address] [place] [phone] 05/12/2022 Clinical Communication Admitting/Central Scheduling 05/13/2022 Telemedicine Oncology Kathleen Mccarty M.D. [address] [place] [phone] Maribeth [place] R.N., O.C.N. [address] [place] [phone] 05/18/2022 Lab Laboratory Medicine Nataly Horta APRN, C.NChaim., M.S.N. [address] [place] [phone] 05/18/2022 Office Visit Oncology Nataly Horta APRN, C.NChaim., M.S.N. [address] [place] [phone] documented as of this encounter Visit Diagnoses Not on filedocumented in this encounter Care Teams Program Officer Relationship Specialty Start Date End Date Elsewhere, Pcp PCP - General Family Medicine 03/10/21 documented as of this encounter
--- OUTSIDE RECORDS SUMMARY | 2022-03-25 08:51 | XMS_ITS | Encounter Summary ---
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 [address] [place] [phone] 05/12/2022 Clinical Communication Admitting/Central Scheduling 05/13/2022 Telemedicine Oncology Kathleen Mccarty M.D. [address] [place] [address] [phone] Maribeth G[place]rie R.N., O.C.N. [address] [place] [phone] 05/18/2022 Lab Laboratory Medicine Nataly Horta APRN, C.NAlphonso, M.S.N. [address] [place] [phone] 05/18/2022 Office Visit Oncology Nataly Horta APRN, C.NAlphonso, M.S.N. [address] [place] [phone] documented as of this encounter Procedures Procedure Name Priority Date/Time Associated Diagnosis Comme nts CBC WITH Routine 05/28/2021 4:24 PM Preprocedural Lab Exam Results for this DIFFERENTIAL, B HEAD OF SALES procedure ar e in the results section. TYPE AND SCREEN Routine 05/28/2021 4:24 PM Preprocedural Lab E xam Results for this [employer] SALES procedure are i n the results section. CANCER AG 125 (CA Routine 05/28/2021 4:24 PM Malignant Neoplas m Of Results for this 125), S HEAD [employer] SALES Ovary Laterality procedure a re in Unknown (HCC) the results Preprocedural Lab Exam secti on. ALBUMIN, S/P Routine 05/28/2021 4:24 PM Preprocedural Lab Exam Results for this HEAD OF SALES procedure are i n the results section. BASIC METABOLIC Routine 05/28/2021 4:24 PM Preprocedural Lab E xam Results for this PANEL, S/P [employer] SALES procedure are i n the results section. documented in this encounter Results (ABNORMAL) Cancer Antigen 125 (CA 125) (05/28/2021 4:24 PM HEAD OF SALES) athologist Signature Cancer Ag 125 89 (H) <46 U/mL 05/28/2021 [facility] (CA 125), S 9:40 PM HEAD OF SALES Comment: ----ADDITIONAL INFORMATION---- The testing method is [...] Laterality Blood (Blood, 05/28/2021 4:24 PM 05/28/20 21 9:06 Venous) HEAD OF SALES PM HEAD OF SALES Apple Motta M.D. LAB BLOOD ADD-ON Performing Organization Address City/State/ZIP Code Phon e Number [facility] [address] [place], [place] [address] SU[facility]ENTER [facility] [place] [address] Laboratory Medicine and Pathology [address] [place] Type and Screen (with reflex Antibody ID) (05/28/2021 4:24 PM HEAD OF SALES) Patholo gist Method Time Signature ABORh A Pos Not 05/28/2021 ETRM applicable 5:26 PM [employer] SALES Antibody Negative Negative 05/28/2021 ETRM Screen 6:06 PM [employer] SALES Type & Screen 07/26/2021 05/28/2021 ETRM Expiration 23:59 5:26 PM HEAD OF SALES Testing [place] DEFAULT 05/28/2021 ETRM Location 5:06 PM [employer] SALES Specimen Anatomical Collection Method Collection Time Receive d Time (Source) Location / / Volume Laterality Blood (Blood, 05/28/2021 4:24 PM 05/28/20 5:06 Venous) HEAD OF SALES PM [employer] SALES Apple Motta M.D. LAB BLOOD BANK TEST ORDERABL ES Performing Organization Address City/[facility] Phon e Number [facility] - [address] ETRM [place] [id number] [address] (ABNORMAL) Albumin (05/28/2021 4:24 PM HEAD OF SALES) athologist [facility] Albumin, S 5.1 (H) 3.5 - 5.0 05/28/2021 DTL g/dL 5:28 PM [employer] SALES Specimen Anatomical Collection Method Collection Time Receive d Time (Source) Location / / Volume Laterality Blood (Blood, 05/28/2021 4:24 PM 05/28/20 5:03 Venous) HEAD OF SALES PM HEAD [employer] SALES Apple Motta M.D. LAB BLOOD ADD-ON Performing Organization Address City/State/[facility] Code Phon e Number [facility] - [address] Basic Metabolic Panel (05/28/2021 4:24 PM HEAD OF SALES) athologist [facility] Potassium, S 3.9 3.6 - 5.2 05/28/2021 DTL mmol/L 5:28 PM [employer] SALES Sodium, S 138 135 - 145 05/28/2021 DTL mmol/L 5:28 PM [employer]ES Chloride, S 101 98 - 107 05/28/2021 DTL mmol/L 5:28 PM [employer]ES Bicarbonate, S 26 22 - 29 05/28/2021 DTL mmol/L 5:28 PM [employer] SALES Anion Gap 11 7 - 15 05/28/2021 DTL 5:28 PM [employer] SALES BUN (Blood Urea 11 6 - 21 05/28/2021 DTL Nitrogen), S mg/dL 5:28 PM [employer] SALES Creatinine 0.66 0.59 - 05/28/2021 DTL 1.04 mg/dL 5:28 PM [employer] OF SALES eGFR-Non >90 >=60 05/28/2021 DTL Black/ mL/min/BSA 5:28 PM HEAD [employer] SALES Malagasy Comment: ----ADDITIONAL INFORMATION---- Estimated GFR calculated using the 2009 CKD_EPI creatinine equation. eGFR-Black/ >90 >=60 mL/min/BSA 2020 5:28 PM HEAD OF SALES DTL Comment: ----ADDITIONAL INFORMATION---- Estimated GFR calculated using the 2009 CKD_EPI creatinine equation. Calcium, Total, S 9.2 8.8 - 10.2 mg/dL 05/28/2021 5:28 PM HEAD OF SALES DTL Glucose, S 99 70 - 140 mg/dL 05/28/2021 5:28 PM HEAD OF SALES D TL Specimen Anatomical Collection Method Collection Time Receive d Time (Source) Location / / Volume Laterality Blood (Blood, 05/28/2021 4:24 PM 05/28/20 5:03 Venous) HEAD OF SALES PM HEAD [employer] SALES Apple Motta M.D. LAB BLOOD ADD-ON Performing Organization Address City/State/ZIP Code Phon e Number [facility] - [address] [place] [address] [facility] [place] [address] [facility] 200 [facility] (ABNORMAL) CBC with Differential, Blood (05/28/2021 4:24 PM HEAD OF SALES) [facility] gist Method Time Signature Hemoglobin 9.0 (L) 11.6 - 05/28/2021 DTL 15.0 g/dL 5:06 PM HEAD OF SALES Hematocrit 27.8 (L) 35.5 - 05/28/2021 DTL 44.9 % 5:06 PM [employer] SALES Erythrocytes 3.06 (L) 3.92 - 05/28/2021 DTL 5.13 5:06 PM HEAD OF SALES x10(12)/L MCV 90.8 78.2 - 05/28/2021 DTL 97.9 fL 5:06 PM HEAD OF SALES RBC Distrib Width 16.5 (H) 12.2 - 05/28/2021 DTL 16.1 % 5:06 PM HEAD OF SALES Platelet Count 74 (L) 157 - 371 05/28/2021 DTL x10(9)/L 6:20 PM HEAD OF SALES Comment: Results confirmed by smear, no clumping or interference seen. Leukocytes 3.8 3.4 - 9.6 x10(9)/L 05/28/2021 6:[address] DTL Neutrophils 1.74 1.56 - 6.45 x10(9)/L 05/28/2021 5:06 P M HEAD [employer] SALES DTL Lymphocytes 1.37 0.95 - 3.07 x10(9)/L 05/28/2021 5:06 P M HEAD [employer] SALES DTL Monocytes 0.69 0.26 - 0.81 x10(9)/L 05/28/2021 5:06 PM HEAD OF SALES DTL Eosinophils <0.03 0.03 - 0.48 x10(9)/L 05/28/2021 5:06 P M HEAD [employer] SALES DTL Basophils <0.03 0.01 - 0.08 x10(9)/L 05/28/2021 5:06 PM HEAD OF SALES DTL Specimen Anatomical Collection Method Collection Time Receive d Time (Source) Location / / Volume Laterality Blood (Blood, 05/28/2021 4:24 PM 05/28/20 4:54 Venous) HEAD OF SALES PM [employer] SALES Apple Motta M.D. LAB BLOOD ADD-ON Performing Organization Address City/State/ZIP Code Phon e Number 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
--- OUTSIDE RECORDS SUMMARY | 2022-03-25 08:51 | XMS_ITS | Encounter Summary ---
:1960 Author Organization [facility] Address [address] [place] [address] Care Team Providers Name Role Phone Elsewhere, Pcp Primary Care Provider Unavailable Reason for Referral MRI/CAT/PET Scan (Routine) - Closed Specialty Diagnoses / Procedures Referred By Contact Refer red To Contact Radiology Diagnoses Malignant Neoplasm Of Ovary Laterality Unknown (HCC) [facility] Chest with IV Contrast C.N.P., M.S.N. [address] [place], [place] [phone] Referral ID Status Reason Start Date Expiration Date Visits Requ ested Visits Authorized [id number] Closed 05/11/2021 05/11/2022 1 1 RI/CAT/PET Scan (Routine) - Closed Specialty Diagnoses / Procedures Referred By Contact Refer red To Contact Radiology Diagnoses Malignant Neoplasm Of Ovary Laterality Unknown (HCC) Nataly Horta APRN, [facility] Procedures CT Abdomen Pelvis with IV Contrast C.N.P., M.S.N. [address] [place], [place] [phone] Referral ID Status Reason Start Date Expiration Date Visits Requ ested Visits Authorized [id number] Closed 05/11/2021 05/11/2022 1 1 utpatient (Routine) - Closed Specialty Diagnoses / Procedures Referred By Contact Refer red To Contact Obstetrics and Diagnoses Malignant Neoplasm Of Ovary Laterality Unknown (HCC) Nataly Horta, [facility] Gynecology Shandra CORADO, M.S.N. [address] [place] [address] Referral ID Status Reason Start Date Expiration Date Visits Requ ested Visits Authorized [id number] Closed 05/11/2021 05/11/2022 1 1 Scheduling Instructions Please schedule with Dr. Motta. 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 Please schedule these visits prio r to return in Medical Oncology. utpatient (Routine) Specialty Diagnoses / Procedures Referred By Contact Refer red To Contact Oncology Nataly Horta APRN, C.N.P., [facility] M.S.N. [address] [place] [phone] Referral ID Status Reason Start Date Expiration Date Visits Requ ested Visits Authorized Encounter Details Date Type Department Care Team Description 05/11/2021 Office Visit Department of Nataly Horta Malignan t Neoplasm Of Oncology in Shandra CORADO, Ovary Laterali ty [place], [place] M.S.N. Unknown (HCC) (Primary [address]) [place] [phone] Social History Tobacco Use Types Packs/Day Years [...] or relatives? How often do you attend latter-day or congregational More than 4 time s per year 10/23/2021 services? Do you belong to any clubs or organizations No 10/23/2021 such as latter-day groups, unions, fraternal or athletic groups, or [...] Sign Reading Time Taken Comments Blood Pressure 154/88 05/11/2021 9:42 AM CDT Pulse 91 05/11/2021 9:42 AM CDT Temperature 36.6 ??C (97.9 ??F) 05/11/2021 9:42 AM CDT Respiratory Rate 14 05/11/2021 9:42 AM CDT Oxygen Saturation 100% 05/11/2021 9:42 AM CDT Inhaled Oxygen Concentration - - Weight 62.4 kg (137 lb 9.1 oz) 05/11/2021 9:42 AM CDT Height 162.2 cm (5' 3.86) 05/11/2021 9:42 AM CDT Body Mass Index 23.72 05/11/2021 9:42 AM CDT documented in this encounter Progress Notes Nataly Horta APRN, C.NErastoP., M.S.N. - 05/11/2021 9:40 AM CDT CHIEF COMPLAINT/PUPROSE OF VISIT: Ms. Aviles is a 60 y.o. woman with advanced stage high-grade serous ovarian cancer Collaborating provider: Dr. Kenny Hui [phone]) HISTORY OF PRESENT ILLNESS: Ms. Aviles is [...] involving the bowel. 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 03/12/2021 Biopsy/Pathology Intraoperative biopsy showed: A. 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 B. 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 Immunohistochemical stains were performed on block B1 using antibodies to SC, keratin AE1/AE3, p16, p53, PAX8, BRG1, INI-1, WT1. The tumor cells are positive for cytokeratin AE1/AE3, SC, p16, p53, PAX8, and WT1. INI-1 and BRG1 are retained. These results support the above diagnosis. 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 She notes that she did experience significant diarrhea with her last cycle of treatment, which began on roughly 05/02/21. She notes that she did have a Mediterranean chicken with onions the day prior to this episode, and wonders if there is any component of salmonella contributing to her symptoms. She notes that she did end up taking a total of 4 Imodium on 05/03/2021, and the diarrhea did slow. She notes that her appetite was decreased during this time, but has been back to normal as of last . She notes she has been largely having soft formed stools, but did note some diarrheastool with her bowel movement today. She notes that she has had some episodes of cramping prior to bowel movements, which resolves after passing stool. She also describes a persistent tenderness at thelateral aspect of her abdomen since the beginning of her treatment. She notes that she does take Tylenol intermittently for this discomfort, and does resolve the discomfort completely. She otherwise denies urinary concerns, shortness of breath, or vaginal bleeding/discharge. ROS: Pertinent items are noted in HPI; all other review of systems were negative. VITAL SIGNS: Vitals Blood Pressure: 154/88, Temperature: 36.6 ??C, Temp Source: Tympanic, Pulse Rate: 91, Resp Rate: 14, SpO2: 100 %, Height: 162.2 cm, Weight: 62.4 kg BP Readings from Last 1 Encounters: 05/11/21 154/88 Pulse Readings from Last 1 Encounters: 05/11/21 91 Temp Readings from Last 1 Encounters: 05/11/21 36.6 ??C (Tympanic) Rate your distress: 3 PHYSICAL EXAM: General: Alert and oriented, and [...] today for evaluation in anticipation of her 3rd cycle of combination carboplatin and paclitaxel chemotherapy for her newly diagnosed ovarian cancer. Her labs were reviewed, and are acceptable to proceed with treatment today. She feels she is overall tolerating treatment without signif icant issue or dose-limiting toxicity. Treatment plan was completed to reflect stable dosing throughcycle 3, and will see her back in roughly 3 weeks for lab work, imaging, and evaluation. She will meet with Dr. 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 In regard to management of her diarrhea, we did discuss holding on any use of Colace/stool softeners as she initiates her 3rd cycle of treatment. We did discuss use of Imodium for management of diarrhea symptoms, she understands she can contact us if she is having difficulty with management. She verbalized understanding of the above information, as no further questions or concerns at this time. She agrees to contact us in the interim if she would develop any new or concerning symptoms prior to her next planned return visit. PATIENT EDUCATION Ready to learn, no apparent learning barriers were identified; learning preferences include listening. Explained diagnosis and treatment plan; patient expressed understanding of the content. documented in this encounter Plan of Treatment Upcoming Encounters Date Type Specialty Care Team Description 05/11/2022 Lab Laboratory Medicine Kathleen Mccarty M.D. [address] [place] [phone] 05/12/2022 Clinical Communication Admitting/Central Scheduling 05/13/2022 Telemedicine Oncology Kathleen Mccarty M.D. [address] [place] [phone] Maribeth Guthrie R.N., O.C.N. [address] [place] [phone] 05/18/2022 Lab Laboratory Medicine Nataly Horta APRN, C.NAlphonso, M.S.N. [address] [place] [phone] 05/18/2022 Office Visit Oncology Nataly Horta APRN, C.NChaim., M.S.N. [address] [place] [phone] Scheduled Referrals Name Type Priority Associated Order Schedule Diagnoses Oncology office visit Outpatient Referral Routine Malignant Ne oplasm Expected: (clinic) General; WATER PROJECT ENGINEER Of Ovary Laterality 06/22/2021, Unknown (HCC) Expires: 06/22/2022 Obstetrics and Outpatient Referral Routine Malignant Neoplasm Expected: Gynecology - Of Ovary Laterality 06/01/20 21, Gynecologic oncology Unknown (HCC) s: surgery consult 01/31/2025 (clinic) documented as of this encounter Results (ABNORMAL) Albumin (06/22/2021 10:50 AM RN ACCESS) athologist Signature Albumin, S 5.2 (H) 3.5 - 5.0 06/22/2021 DTL g/dL 11:50 AM RN ACCESS Specimen Anatomical Collection Method Collection Time Receive d Time (Source) Location / / Volume Laterality Blood (Blood, 06/22/2021 10:50 06/22/2021 Venous) AM RN ACCESS 11:25 AM RN ACCESS Nataly Horta APRN C.N.P., M.S.N. LAB BLOOD ADD-ON Performing Organization Address City/State/ZIP Code Phon e Number [facility] - [address] [place], [place] [address] [facility] [place] [place] [address] Laboratories-[facility] 200 [facility] Creatinine with Estimated GFR (06/22/2021 10:50 AM RN ACCESS) athologist Signature Creatinine 0.70 0.59 - 06/22/2021 METH 1.04 mg/dL 11:57 AM RN ACCESS eGFR-Black/Afric >90 >=60 06/22/2021 METH an [place] mL/min/BSA 11:57 AM RN ACCESS Comment: ----ADDITIONAL INFORMATION---- Estimated GFR calculated using the 2009 CKD_EPI creatinine equation. eGFR Non-Black/ >90 >=60 mL/min/BSA 06/22/2021 11:57 AM RN ACCESS METH Comment: ----ADDITIONAL INFORMATION---- Estimated GFR calculated using the 2009 CKD_EPI creatinine equation. Specimen Anatomical Collection Method Collection Time Receive d Time (Source) Location / / Volume Laterality Blood (Blood, 06/22/2021 10:50 06/22/2021 Venous) AM RN ACCESS 11:02 AM RN ACCESS Nataly Horta APRN, C.N.P., M.S.N. LAB BLOOD ADD-ON Performing Organization Address City/State/[facility] Code Phon e Number [facility] - [address] [place], [place] [address] [place], [place] [id number] [place] [address] (ABNORMAL) CBC, Chemotherapy, No Alerts (06/22/2021 10:50 AM RN ACCESS) Analysis Performed At Patho logist Time Signature Hemoglobin 10.6 (L) 11.6 - 06/22/2021 METH 15.0 g/dL 11:04 AM RN ACCESS Platelet Count 343 157 - 371 06/22/2021 METH x10(9)/L 11:04 AM RN ACCESS Leukocytes 5.0 3.4 - 9.6 06/22/2021 METH x10(9)/L 11:04 AM RN ACCESS Neutrophils 2.79 1.56 - 06/22/2021 METH 6.45 11:04 AM RN ACCESS x10(9)/L Specimen Anatomical Collection Method Collection Time Receive d Time (Source) Location / / Volume Laterality Blood (Blood, 06/22/2021 10:50 06/22/2021 Venous) AM RN ACCESS 11:02 AM RN ACCESS Nataly Horta APRN, C.N.P., M.S.N. LAB BLOOD ADD-ON Performing Organization Address City/State/ZIP Code Phon e Number [facility] - [address] [place], [place] [address] [facility] [place] [address] Bilirubin, Total (06/22/2021 10:50 AM RN ACCESS) P athologist Signature Bilirubin, 0.2 <=1.2 mg/dL 06/22/2021 METH Total, P 12:25 PM RN ACCESS Specimen Anatomical Collection Method Collection Time Receive d Time (Source) Location / / Volume Laterality Blood (Blood, 06/22/2021 10:50 06/22/2021 Venous) AM RN ACCESS 11:02 AM RN ACCESS Kamla Easton APRN.N.P., M.S.N. LAB BLOOD ADD-ON Performing Organization Address City/[facility] Phon e Number [facility] - [address] [place] [address] [place] [address] [facility] AST (Aspartate Aminotransferase) (06/22/2021 10:50 AM RN ACCESS) Patholo gist Method Time Signature Aspartate 15 8 - 43 06/22/2021 METH Aminotransferase U/L 11:57 AM RN ACCESS (AST), P Specimen Anatomical Collection Method Collection Time Receive d Time (Source) Location / / Volume Laterality Blood (Blood, 06/22/2021 10:50 06/22/2021 Venous) AM RN ACCESS 11:02 AM RN ACCESS Nataly Horta APRN, C.N.P., M.S.N. LAB BLOOD ADD-ON Performing Organization Address [facility] Phon e Number [facility] - [address] [address] [place], [place] [phone] [place] [address] (ABNORMAL) Cancer Antigen 125 (CA 125) (06/22/2021 10:50 AM RN ACCESS) athologist Signature Cancer Ag 125 148 (H) <46 U/mL 06/22/2021 [facility] (CA 125), S 3:29 PM RN ACCESS Comment: ----ADDITIONAL INFORMATION---- The testing method is [...] Location / / Volume Laterality Blood (Blood, 06/22/2021 10:50 06/22/2021 2:51 Venous) AM RN ACCESS PM RN ACCESS Nataly Horta APRN, C.N.P., M.S.N. LAB BLOOD ADD-ON Performing Organization Address [facility] Phon e Number [facility] [address] [place], [place] [address] [facility] [place] [address] Laboratory Medicine and Pathology [address] Chest with IV Contrast (05/28/2021 8:27 AM RN ACCESS) Anatomical Region Laterality Modality Chest, Thoracic RST LOS, Thoracic ARZ N/A Co mputed Tomography, Computed LOS, Thoracic ARZ LOS, Thoracic FLA Kalin graphy LOS Specimen (Source) Anatomical Collection Method Collection Time Re ceived Time Location / / Volume Laterality 05/28/2021 10:46 AM RN ACCESS Impressions 05/28/2021 11:08 AM RN ACCESS 1. Interval decrease in size of the [...] node has also decreased in size. 4. [id number] mm focus of sclerosis in the T9 vertebral body is unchanged from the prior abdominal CT. 5. Small pericardial effusion. Narrative 05/28/2021 11:08 AM RN ACCESS EXAM: CT CHEST WITH IV CONTRAST COMPARISON: [...] for detection of pulmonary nodules. Nataly Horta APRN, C.N.P., M.S.N. IMG CT PROCEDURE S CT Abdomen Pelvis with IV Contrast (05/28/2021 8:27 AM RN ACCESS) Anatomical Region Laterality Modality Abdomen, Pelvis, Abdominal RST LOS, N/A Comp uted Tomography, Computed Abdominal ARZ LOS, Abdominal FLA LOS Moreno ography Specimen (Source) Anatomical Collection Method Collection Time Re ceived Time Location / / Volume Laterality 05/28/2021 10:10 AM RN ACCESS Impressions 05/28/2021 10:20 AM RN ACCESS Favorable response to interval treatment Narrative 05/28/2021 10:20 AM RN ACCESS EXAM: ??CT ABDOMEN PELVIS WITH IV CONTRAST [...] Favorable response to interval treatment Nataly Horta APRN, C.N.P., M.S.N. IMG CT PROCEDURE S documented in this encounter Visit Diagnoses Diagnosis Malignant Neoplasm Of Ovary Laterality U nknown (HCC) - Primary Malignant Neoplasm Of Ovary Laterality U nknown (HCC) documented in this encounter Care Teams Ventilating Engineer Relationship Specialty Start Date End Date Elsewhere, Pcp PCP - General Family Medicine 03/10/21 documented as of this encounter
--- OUTSIDE RECORDS SUMMARY | 2022-03-25 08:51 | XMS_ITS | Encounter Summary ---
:1960 Author Organization [facility] Address [address] [place] [address] Care Team Providers Name Role Phone Elsewhere, Pcp Primary Care Provider Unavailable Encounter Details Date Type Department Care Team Description 03/30/2021 Education Department of Oncology Apple Ruiz M.D. [address] [place] [phone] Malignant Neoplasm Of in [place], Jessica Hooks, Bharathi.S.N., R.N. [address] [place] [phone] Ovary Laterality [place] Unknown (HCC) [address] [place] [phone] Social History Tobacco Use Types Packs/Day Years [...] or relatives? How often do you attend episcopalian or restoration More than 4 time s per year 10/23/2021 services? Do you belong to any clubs or organizations No 10/23/2021 such as episcopalian groups, unions, fraternal or athletic groups, or [...] Laboratory Medicine Kathleen Mccarty M.D. [address] [place] [phone] 05/12/2022 Clinical Communication Admitting/Central Scheduling 05/13/2022 Telemedicine Oncology Kathleen Mccarty M.D. [address] [place] [phone] Maribeth Guthrie R.N., O.C.N. [address] [place] [phone] 05/18/2022 Lab Laboratory Medicine Nataly Horta APRN, C.N.P., M.S.N. [address] [place] [phone] 05/18/2022 Office Visit Oncology Nataly Horta APRN, C.N.PErasto, M.S.N. [address] [place] [phone] documented as of this encounter Visit Diagnoses Diagnosis Malignant Neoplasm Of Ovary Laterality U nknown (HCC) documented in this encounter Care Teams Semiconductor Packages Sealer Relationship Specialty Start Date End Date Elsewhere, Pcp PCP - General Family Medicine 03/10/21 documented as of this encounter
--- OUTSIDE RECORDS SUMMARY | 2022-03-25 08:51 | XMS_ITS | Encounter Summary ---
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 Education Answer Date Recorded What [...] Lab Laboratory Medicine Kathleen Mccarty M.D. [address] [place] [phone] 05/12/2022 Clinical Communication Admitting/Central Scheduling 05/13/2022 Telemedicine Oncology Kathleen Mccarty M.D. [address] [place] [phone] Maribeth Guthrie, Soila, O.C.N. [address] [place] [phone] 05/18/2022 Lab Laboratory Medicine Nataly Horta APRN, C.N.P., M.S.N. [address] [place] [phone] 05/18/2022 Office Visit Oncology Nataly Horta APRN, C.N.P., M.S.N. [address] [place] [phone] documented as of this encounter Results Miscellaneous Research, B (03/30/2021 9:02 AM CDT) P athologist Signature Number of 5 03/30/2021 S Specimens 9:02 AM CDT Specimen Anatomical Collection Method Collection Time Receive d Time (Source) Location / / Volume Laterality Varies (Blood, 03/30/2021 9:02 AM 021 9:02 Venous) CDT AM CDT Delvis Ojeda LAB RESEARCH NO RESULT MAE ISBELL Performing Organization Address City/State/ZIP Code Phon e Number [facility] - [address] [place], [place] [address] [place] [address] Laboratories-[facility] [address] documented in this encounter Visit Diagnoses Diagnosis Malignant Neoplasm Of Ovary Laterality U nknown (HCC) - Primary documented in this encounter Care Teams Transition Mgr Rn Relationship Specialty Start Date End Date Elsewhere, Pcp PCP - General Family Medicine 03/10/21 documented as of this encounter
--- OUTSIDE RECORDS SUMMARY | 2022-03-25 08:51 | XMS_ITS | Encounter Summary ---
:1960 Author Organization [facility] Address [address] [place] [address] Care Team Providers Name Role Phone Elsewhere, Pcp Primary Care Provider Unavailable Encounter Details Date Type Department Care Team Description 04/20/2021 Infusion Department of Oncology Apple Motta Malignant Neoplasm Of in [place], [facility] erika Joe M.D. Ovary Laterality [address] Unknown (HCC) (Primary [place], [place] Dx) [phone] (Wo rk) Social History Tobacco Use Types [...] How often do you attend protestant or cheondoism More than 4 time s [...] place to sleep or slept in a chcf (including now)? Education Answer Date Recorded What is the highest level of school Bachelor's degree (e.g., BA, AB, 03/10/2021 you have completed or the highest BS) degree you have received? Sex Assigned at Date Recorded Female 03/13/2021 7:24 PM CDT documented as of this encounter Last Filed Vital Signs Vital Sign Reading Time Taken Comments Blood Pressure 143/80 04/20/2021 10:56 AM CDT Pulse 90 04/20/2021 10:56 AM CDT Temperature - - Respiratory Rate - - Oxygen Saturation - - Inhaled Oxygen Concentration - - Weight - - Height - - Body Mass Index - - documented in this encounter Plan of Treatment Upcoming Encounters Date Type Specialty Care Team Description 05/11/2022 Lab Laboratory Medicine Kathleen Mccarty M.D. [address] [place] [phone] 05/12/2022 Clinical Communication Admitting/Central Scheduling 05/13/2022 Telemedicine Oncology Kathleen Mccarty M.D. [address] [place] [phone] Maribeth Guthrie, MaxwellN., O.C.N. [address] [place] [phone] 05/18/2022 Lab Laboratory Medicine Nataly Horta APRN, C.N.P., M.S.N. [address] [place] [phone] 05/18/2022 Office Visit Oncology Nataly Horta APRN, C.N.P., M.S.N. [address] [place] [phone] documented as of this encounter Visit Diagnoses Diagnosis Malignant Neoplasm Of Ovary Laterality U nknown (HCC) - Primary documented in this encounter Administered Medications Inactive Administered Medications - up to 3 most recent administrations Medication Order MAR Action Action Date Dose Rate Site CARBOplatin 660 mg in NaCl New Bag 04/20/2021 2:47 PM CDT 660 mg 682 mL/hr 0.9% 341 mL IVPB (PARAPLATIN) 660 mg (rounded from 662.4 mg, Target AUC = 6), intravenous, at 682 mL/hr, Administer over 30 Minutes, Once, On Tue04/20/21 at 1415, For 1 dose dexamethasone in NaCl 0.9% IVPB 12 New Bag 04/20/2021 10:52 AM CDT 12 mg 200 mL/hr mg (DECADRON) 12 mg, intravenous, at 200 mL/hr, Administer over 15 Minutes, Once, On Tue04/20/21 at 1045, For 1 dose, Give prior to PACLitaxel Refrigerate diphenhydrAMINE injection 50 mg (BENADRY L) Given 04/20/2021 10:51 AM CDT 50 mg 50 mg, intravenous, Once, On 04/20/21 at 1045, For 1 dose, Give prior to PACLitaxel. famotidine injection 20 mg (PEPCID) Given 04/20/2021 10:51 AM CDT 20 mg 20 mg, intravenous, Once, On Tue04/20/21 at 1045, For 1 dose, Give prior to PACLitaxel See IVAG for administration guidelines. fosaprepitant 150 mg in NaCl 0.9% New Bag 04/20/2021 11:31 AM CDT 150 mg 510 mL/hr (non-PVC) IVPB (EMEND) 150 mg, intravenous, at 510 mL/hr, Administer over 30 Minutes, Once, On Tue04/20/21 at 1045, For 1 dose, Incompatible with solutions containing divalent cations (calcium, magnesium) including lactated Ringer's solution. ondansetron in NaCl 0.9% IVPB 16 mg New Bag 04/20/2021 11:11 A M CDT 16 mg 232 mL/hr (ZOFRAN) 16 mg, intravenous, at 232 mL/hr, Administer over 15 Minutes, Once, On Tue04/20/21 at 1045, For 1 dose PACLitaxeL 300 mg in NaCl 0.9% New Bag 04/20/2021 12:06 PM CDT 300 mg 183 mL/hr (non-PVC) 550 mL IVPB (TAXOL) 300 mg (rounded from 301 mg = 175 mg/m2 ? 1.72 m2 Treatment Plan BSA from Measured weight), intravenous, at 183 mL/hr, Administer over 3 Hours, Once, On Tue04/20/21 at 1115, For 1 dose, Administer via 0.22 micron in-line filter. documented in this encounter Care Teams News Reporter Relationship Specialty Start Date End Date Elsewhere, Pcp PCP - General Family Medicine 03/10/21 documented as of this encounter
--- OUTSIDE RECORDS SUMMARY | 2022-03-25 08:51 | XMS_ITS | Encounter Summary ---
:1960 Author Organization [facility] Address [address] [place] [address] Care Team Providers Name Role Phone Elsewhere, Pcp Primary Care Provider Unavailable Reason for Visit Reason Comments Communication Encounter Details Date Type Department Care Team Description 05/29/2021 Clinical Communication Department of Aimee Lozano Co mmunication Obstetrics and M.SLinda, R.N. Gynecology in [address] [place] [address] [place] [phone] [place], [place] [phone] (Work) [phone] Social History Tobacco Use Types Packs/Day Years [...] How often do you attend hinduism or hoahaoism More than 4 time s per year [...] Miscellaneous Notes Telephone Encounter - Aimee Lozano M.S.N., R.N. - 05/29/2021 11:04 AM SCREW REMOVER I called patient to let her know that her platelet level was lower than we had expected. We attempted to get her labs drawn closer to home but there were no labs that were able to do it tomorrow. Patient will have labs drawn around 9:00 a.m. tomorrow 05/30/2021 and follow-up with Dr. Motta team to determine surgical ability on Tuesday. I have given the patient the phone number that will assist her in contacting Dr. Motta on-call team if she has not heard from them. If patient is able to go forward with surgery on Tuesday06/01/2021 it will be important for the the on-call doctor to cancel the patient's upcoming Oncology in effusion appointment. This is scheduled for 06/03/2021 and 06/04/2021. The reason that it is important to do this is because patient must pay for surgery upfront and knees appointments are showing up in the cost estimate for patient pay had a time. We will need to leave these appointments on if patient needs to continue on with chemo instead of surgery. Patient is aware this. I will update the weekend team for Dr. Motta. W REMOVER documented in this encounter Plan of Treatment Upcoming Encounters Date Type Specialty Care Team Description 05/11/2022 Lab Laboratory Medicine Kathleen Mccarty M.D. [address] [place] [phone] 05/12/2022 Clinical Communication Admitting/Central Scheduling 05/13/2022 Telemedicine Oncology Kathleen Mccarty M.D. [address] [place] [phone] Maribeth Guthrie R.N., O.C.N. [address] [place] [phone] 05/18/2022 Lab Laboratory Medicine Nataly Horta APRN, C.NAlphonso, M.S.N. [address] [place] [phone] 05/18/2022 Office Visit Oncology Nataly Horta APRN, C.NChaim., M.S.N. [address] [place] [phone] documented as of this encounter Visit Diagnoses Not on filedocumented in this encounter Additional Health Concerns Infection Onset Date Last Indicated Resolved Time COVID19 Pending 05/29/2021 05/29/2021 05/30/2021 4:03 PM SCREW REMOVER documented as of this encounter Care Teams Tax Commissioner Relationship Specialty Start Date End Date Elsewhere, Pcp PCP - General Family Medicine 03/10/21 documented as of this encounter
--- OUTSIDE RECORDS SUMMARY | 2022-03-25 08:52 | XMS_ITS | Encounter Summary ---
:1960 Author Organization [facility] Address [address] [place] [address] Care Team Providers Name Role Phone Elsewhere, Pcp Primary Care Provider Unavailable Encounter Details Date Type Department Care Team Description 03/11/2021 Documentation Department of Obstetrics Ghislaine Richardson and Gynecology in [place], [place] [address] [facility] [address] [place] [phone] Social History Tobacco Use Types Packs/Day Years [...] How often do you attend taoist or sabianism More than 4 time s per year [...] Lab Laboratory Medicine Kathleen Mccarty M.D. [address] [place] [phone] 05/12/2022 Clinical Communication Admitting/Central Scheduling 05/13/2022 Telemedicine Oncology Kathleen Mccarty M.D. [address] [place] [phone] Maribeth Guthrie R.N., O.C.N. [address] [place] [phone] 05/18/2022 Lab Laboratory Medicine Nataly Horta APRN, C.N.P., M.S.N. [address] [place] [phone] 05/18/2022 Office Visit Oncology Nataly Horta APRN, C.N.P., M.S.N. [address] [place] [phone] documented as of this encounter Visit Diagnoses Not on filedocumented in this encounter Care Teams Vp [employer] Partnerships Relationship Specialty Start Date End Date Elsewhere, Pcp PCP - General Family Medicine 03/10/21 documented as of this encounter
--- OUTSIDE RECORDS SUMMARY | 2022-03-25 08:52 | XMS_ITS | Encounter Summary ---
:1960 Author Organization [facility] Address [address] [place] [address] Care Team Providers Name Role Phone Elsewhere, Pcp Primary Care Provider Unavailable Reason for Visit Outpatient (Routine) - Closed Specialty Diagnoses / Procedures Referred By Contact Refer red To Contact Anesthesiology Diagnoses Mass Abdominal Site Apple Motta [place] M.D. 200 [place], [place] [phone] Referral ID Status Reason Start Date Expiration Date Visits Requ ested Visits Authorized [id number] Closed 03/09/2021 03/09/2022 1 1 Encounter Details Date Type Department Care Team Description 03/11/2021 Comprehensive Visit Preoperative Apple Motta M.D. [address] [place] [phone] Preanesthetic Medical Exam (Primary Dx); Evaluation Center in Dottie Hunt APRN, C.N.PErasto [address] [place] [phone] Mass Abdominal Site; [place], [place] Effusion Pleural; [address] [place] [address] Hypertension Essential Prima ry; [place], [place] Leukocytosis; [phone] Anxiety [phone] Social History Tobacco Use Types Packs/Day Years [...] How often do you attend muslim or oriental orthodox More than 4 time [...] Sign Reading Time Taken Comments Blood Pressure 138/83 03/11/2021 8:34 AM CDT Pulse 89 03/11/2021 8:34 AM CDT Temperature 36.8 ??C (98.2 ??F) 03/11/2021 8:34 AM CDT Respiratory Rate - - Oxygen Saturation 97% 03/11/2021 8:34 AM CDT Inhaled Oxygen Concentration - - Weight 69.1 kg (152 lb 5.4 oz) 03/11/2021 8:34 AM CDT Height 164 cm (5' 4.57) 03/11/2021 8:34 AM CDT Body Mass Index 25.69 03/11/2021 8:34 AM CDT documented in this encounter H&P Notes Dottie Hunt APRN CErastoN.P. - 03/11/2021 8:15 AM CDT REASON FOR VISIT: Preoperative Medical Evaluation REFERRING PHYSICIAN: Apple Motta M.D. 03/12/2021: DEBULKING TUMOR OVARY; Apple Motta M.D. Surgery Specific Risk Classification: Low Risk / Elevated Risk: Elevated Risk SUBJECTIVE HISTORY OF PRESENT ILLNESS Wendy Aviles is a 60 y.o. female who is here for preanesthetic medical examination prior to the planned procedure as listed above. Mrs. Aviles has a recent history abdominal pain and bloating. She also had right-sided shoulder discomfort and testing revealed pleural effusion. CT of the abdomen andpelvis dated 03/06/2021 was concerning for metastatic malignancy such as ovarian cancer with omental and peritoneal seeding's. The following portions of the patient's history were reviewed and updated as appropriate: allergies,current medications, medical history, social history, surgical history and problem list. REVIEW OF SYSTEMS Constitutional: Positive for loss of appetite. Respiratory: Positive for dyspnea. Gastrointestinal: Positive for abdominal (belly) pain or cramping. The following systems were negative: CV, Neuro Cardiac Risk Scoring: Person Cardiac Score: 0.14 % RCRI Point Count: 1 RCRI Score: 0.9% DASI Calculations Comprehensive Visit from 03/11/2021 in Preoperative Evaluation Center in [place], [place] Estimated V02 Peak 26.56 Estimated MET Level 7.59 OBJECTIVE OBJECTIVE PHYSICAL EXAMINATION General/Constitutional Constitutional Assessment: Normal General State of Health: Healthy appearing Airway (HEENT) Mallampati: II TM Distance: >3 FB Neck ROM: Full Mouth Opening: > 3 cm Upper Lip Bite Test: I Dental Assessment: Dentition intact Cardiovascular Rhythm: Regular Rate: Normal Cardiovascular Assessment: Normal Pulmonary Pulmonary Assessment: Clear and non labored Neurological Neurologic Assessment: Alert and oriented X 3 Musculoskeletal MSK Assessment: Normal Gait: Normal Ambulate with: None Psychiatric Psychiatric Assessment: Calm Dermatology Skin Assessment: normal ASSESSMENT / PLAN Anesthesia: Patient denies previous anesthesia related complications. Airway Hx (aka airway management): None #1 Preanesthetic Medical Exam CBC and type and screen dated 03/10/2021-reviewed. BMP dated 03/06/2021 available in document viewer-reviewed. ECG dated 03/09/2021 notes normal sinus rhythm, left bundle branch block with ST-T abnormalities. When compared with ECG 03/26/2003, left bundle-branch block is now present ST and T-waves have changed. #2 Mass Abdominal Site #3 Effusion Pleural Dated 03/09/2021 notes; LVEF 67%, no significant valve disease detected, small pericardial effusion. Patient notes she periodically feels that she can not quite get a deep enough breath. She notes thissymptom began in the past few weeks and is not dependent on rest or activity. She denies dyspnea on exertion. #4 Hypertension Essential Primary Treated with lisinopril daily at HS. Instructed to hold evening before surgery. #5 Leukocytosis Labs dated 03/10/2021 note elevated WBC of 15.0. Patient is scheduled for a chest x-ray later this morning. 's service will call patient with the results. #6 Anxiety Treated with Ativan every 4 hours p.r.n.. Okay to take evening before surgery. RECOMMENDATIONS: Patient medically optimized for planned procedure: Yes Further Recommendations: None documented in this encounter Plan of Treatment Upcoming Encounters Date Type Specialty Care Team Description 05/11/2022 Lab Laboratory Medicine Kathleen Mccarty M.D. [address] [place] [phone] 05/12/2022 Clinical Communication Admitting/Central Scheduling 05/13/2022 Telemedicine Oncology Kathleen Mccarty M.D. [address] [place] [phone] Maribeth Guthrie R.N., O.C.N. [address] [place] [phone] 05/18/2022 Lab Laboratory Medicine Nataly Horta APRN, C.N.P., M.S.N. [address] [place] [phone] 05/18/2022 Office Visit Oncology Nataly Horta APRN, C.N.P., M.S.N. [address] [place] [phone] documented as of this encounter Visit Diagnoses Diagnosis Preanesthetic Medical Exam - Primary Mass Abdominal Site Effusion Pleural Hypertension Essential Primary Leukocytosis Anxiety documented in this encounter Care Teams Stitcher Standard Machine Relationship Specialty Start Date End Date Elsewhere, Pcp PCP - General Family Medicine 03/10/21 documented as of this encounter
--- OUTSIDE RECORDS SUMMARY | 2022-03-25 08:52 | XMS_ITS | Encounter Summary ---
:1960 Author Organization [facility] Address [address] [place] [address] Care Team Providers Name Role Phone Elsewhere, Pcp Primary Care Provider Unavailable Reason for Referral Specialty Diagnoses / Procedures Referred By Contact Refer red To Contact Apple Motta M.D. [facility] [address] [place], [place] [phone] Referral ID Status Reason Start Date Expiration Date Visits Requ ested Visits Authorized Encounter Details Date Type Department Care Team Description 03/17/2021 Orders Only Department of Ángela, Peritoneal Car cinomatosis (HCC) (Primary Dx); Oncology in Apple Joe M.D. 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 How often do you attend sikh or holiness More than 4 time s per year 10/23/2021 services? Do you belong to any clubs or organizations No 10/23/2021 such as sikh groups, unions, fraternal or athletic groups, or [...] Laboratory Medicine Kathleen Mccarty M.D. [address] [place] [phone] 05/12/2022 Clinical Communication Admitting/Central Scheduling 05/13/2022 Telemedicine Oncology Kathleen Mccarty M.D. [address] [place] [phone] Maribeth Guthrie R.N., O.C.N. [address] [place] [phone] 05/18/2022 Lab Laboratory Medicine Nataly Horta APRN, C.N.P., M.S.N. [address] [place] [phone] 05/18/2022 Office Visit Oncology Nataly Horta APRN, C.N.P., M.S.N. [address] [place] [phone] Scheduled Referrals Name Type Priority Associated Diagnoses Order S chedule Oncology - Chemo Outpatient Referral Routine Malignant Neoplas m Expected: education visit Of Ovary Laterality 03/24, (clinic) Unknown (HCC) Expires: 03/24/2022 documented as of this encounter Results Creatinine with Estimated GFR (03/30/2021 9:02 AM CDT) P athologist Signature Creatinine 0.89 0.59 - 03/30/2021 DTL 1.04 mg/dL 10:21 AM CDT eGFR-Non 71 >=60 03/30/2021 DTL Black/ mL/min/BSA 10:21 AM CDT Indonesian Comment: ----ADDITIONAL INFORMATION---- Estimated GFR calculated using the 2009 CKD_EPI creatinine equation. eGFR-Black/ 81 >=60 mL/min/BSA 2020 10:21 AM CDT DTL Comment: ----ADDITIONAL INFORMATION---- Estimated GFR calculated using the 2009 CKD_EPI creatinine equation. Specimen Anatomical Collection Method Collection Time Receive d Time (Source) Location / / Volume Laterality Blood (Blood, 03/30/2021 9:02 AM 03/30/20 9:22 Venous) CDT AM CDT Apple Motta M.D. LAB BLOOD ADD-ON Performing Organization Address City/State/ZIP Code Phon e Number [facility] - [address] [place], [place] [address] [facility] [address] [facility] [address] [facility] (ABNORMAL) CBC, Chemotherapy, No Alerts (03/30/2021 9:02 AM CDT) Analysis Performed At Patho logist Time Signature Hemoglobin 12.7 11.6 - 03/30/2021 DTL 15.0 g/dL 9:53 AM CDT Platelet Count 342 157 - 371 03/30/2021 DTL x10(9)/L 9:53 AM CDT Leukocytes 10.4 (H) 3.4 - 9.6 03/30/2021 DTL x10(9)/L 9:53 AM CDT Neutrophils 8.17 (H) 1.56 - 03/30/2021 DTL 6.45 9:53 AM CDT x10(9)/L Specimen Anatomical Collection Method Collection Time Receive d Time (Source) Location / / Volume Laterality Blood (Blood, 03/30/2021 9:02 AM 03/30/20 9:14 Venous) CDT AM CDT Apple Motta M.D. LAB BLOOD ADD-ON Performing Organization Address City/[facility] Phon e Number [facility] - [address] [place], [place] [address] [facility] [place] [address] [place] [address] Bilirubin, Total (03/30/2021 9:02 AM CDT) athologist Signature Bilirubin, 0.3 <=1.2 mg/dL 03/30/2021 METH Total, P 10:14 AM CDT Specimen Anatomical Collection Method Collection Time Receive d Time (Source) Location / / Volume Laterality Blood (Blood, 03/30/2021 9:02 AM 03/30/20 9:14 Venous) CDT AM CDT Apple Motta M.D. LAB BLOOD ADD-ON Performing Organization Address City/State/[facility] Phon e Number [facility] - [address] [place], [place] [address] [facility] [place] [address] [facility] [address] AST (Aspartate Aminotransferase) (03/30/2021 9:02 AM CDT) Patholo gist Method Time Signature Aspartate 28 8 - 43 03/30/2021 METH Aminotransferase U/L 10:14 AM CDT (AST), P Specimen Anatomical Collection Method Collection Time Receive d Time (Source) Location / / Volume Laterality Blood (Blood, 03/30/2021 9:02 AM 03/30/20 9:14 Venous) CDT AM CDT Apple Motta M.D. LAB BLOOD ADD-ON Performing Organization Address City/State/ZIP Code Phon e Number [facility] - [address] [place], [place] [address] [facility] [place] [address] 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
--- OUTSIDE RECORDS SUMMARY | 2022-03-25 08:52 | XMS_ITS | Encounter Summary ---
:1960 Author Organization [facility] Address [address] [place] [address] Care Team Providers Name Role Phone Elsewhere, Pcp Primary Care Provider Unavailable Reason for Visit Auth/Cert Specialty Diagnoses / Procedures Referred By Contact Refer red To Contact Diagnoses Mass Abdominal Site Intra Abdominal And Pelvic Swelling Mass And Lump Unspecified Site Mass Abdominal Site [R19.00]. Procedures LAPAROTOMY, TUMOR DEBULKING. HYSTERECTOMY ABDOMINAL, BILATERAL SALPINGO-OOPHORECTOMY. OMENTECTOMY. LYMPHADENECTOMY, PELVIS vs AORTIC. RESECTION LOW ANTERIOR, ANASTOMOSIS. Referral ID Status Reason Start Date Expiration Date Visits Requ ested Visits Authorized [id number] 1 1 Encounter Details Date Type Department Care Team Description 03/12/2021 Surgery RST [facility] OR Apple Motta EXPLORATORY LAPAROTOMY [address] [place] [phone] [facility] [phone] [place] [address] (Wo rk) Social History Tobacco Use Types [...] How often do you attend muslim or muslim More than 4 time s [...] Sign Reading Time Taken Comments Blood Pressure 134/68 03/12/2021 12:39 PM CDT Pulse 94 03/12/2021 12:39 PM CDT Temperature 36.3 ??C (97.3 ??F) 03/12/2021 12:39 PM CDT Respiratory Rate 14 03/12/2021 12:39 PM CDT Oxygen Saturation 100% 03/12/2021 12:39 PM CDT Inhaled Oxygen Concentration - - Weight 66.9 kg (147 lb 7.8 oz) 03/12/2021 6:59 AM CDT Height 160 cm (5' 2.99) 03/12/2021 6:59 AM CDT Body Mass Index 26.13 03/12/2021 6:59 AM CDT documented in this encounter Discharge Summaries Marcelo Carver M.D., M.S. - 03/12/2021 6:35 PM CDT DISCHARGE SUMMARY BRIEF OVERVIEW Hospital: [facility] Discharge Provider: Apple Motta M.D. Primary Team: Raghavendra Gynecologic Surgery - Ángela Primary Care Providers: Elsewhere, Pcp (General) No address on file Primary Care Provider Phone Number: None Primary Care Provider Fax Number: None Other Providers: none Admission Date: 03/12/2021 Discharge Date: 03/12/2021 PRINCIPAL DIAGNOSIS Mass Abdominal Site SECONDARY DIAGNOSES Principal Problem: Mass Abdominal Site Active Problems: Intra Abdominal And Pelvic Swelling Mass And Lump Unspecified Site Arthritis Resolved Problems: * No resolved hospital problems. * Surgery Information This Encounter Past and Present Procedures (03/12/2020 to Today) Date Procedures Providers Location 03/12/2021 EXPLORATORY LAPAROTOMY, omental biopsy Apple Motta M.D.Bramblet, Rachel M, D.O. [facility] OR DISCHARGE DISPOSITION Home or Self Care [1] ACTIVE ISSUES REQUIRING FOLLOW UP DISCHARGE INSTRUCTIONS POST-OPERATIVE CARE: - You should continue to feel a little better every day, if you develop new worsening pain not managed by medication, new vomiting, fever > 100.4 or develop redness and drainage at your incision, please contact the team. LIFTING: No lifting greater than 15 pounds [...] which include redness, warmth, drainage or fever. CONSTIPATION REMEDIES: Patients are often constipated after surgery or with use of oral narcotic medicine. You should continue to take the stool softener, Senokot-S during the next six weeks, and consume adequate amounts of water. If you have not had a bowel movement for 3 days after dismissal, or are uncomfortable and unable to pass stool, please try one or all of the following measures: 1. Milk of Magnesia - 30 cc by mouth every 12 hours 2. Dulcolax suppository - One suppository per rectum every 4-6 hours 3. Metamucil, Fibercon or other bulk former - use as directed 4. MiraLAX 5. Prunes or Prune juice If you continue to have constipation after trying the above remedies, you should contact your surgical team using the contact information listed above PAIN MEDICATIONS: Take your pain medications as [...] This may lead to nausea and vomiting. ACTIVE ISSUES REQUIRING FOLLOW UP ?? You will be contacted by the primary team once the final pathology has resulted. At this time, the team may discuss recommendations for next steps of care. ?? You will need to have a 6 week postoperative visit for evaluation of your incision. If scheduled at [facility] then appointment desk will contact you to arrange this appointment. This appointment can also be done locally if you prefer and you will have to contact your local provider to schedule this appointment. ?? Please continue the anticoagulation medication as prescribed until you are 28 days post surgery. OUTPATIENT FOLLOW UP For appointment details refer to your Patient Appointment Guide. TEST RESULTS PENDING AT DISCHARGE Pending Labs Order Current Status Bacterial Culture, Aerobic + Susc In process Cytology Non-TRAVEL PROFESSIONAL In process Surgical Pathology, Frozen Lab In process DETAILS OF HOSPITAL STAY REASON FOR ADMISSION Mass Abdominal Site Intra Abdominal And Pelvic Swelling Mass And Lump Unspecified Site HOSPITAL COURSE DISCHARGE SUMMARY Admission Date: 03/12/2021 Discharge Date: 03/12/2021 Discharge Provider: Apple Motta M.* Responsible Author(s): Marcelo Carver M.D., M.S. PRIMARY DIAGNOSIS #1 Mass Abdominal Site #2 Intra Abdominal And Pelvic Swelling Mass And Lump Unspecified Site #3 Arthritis #4 Gastric Ulcers #5 Cardiac Left Bundle Branch Block BRIEF HOSPITAL COURSE Surgeon: Apple Motta M.D. Bramblet, Rachel M, D.O. PROCEDURE DATE: 03/12/2021 TYPE OF PROCEDURE(S): Surgery Information This Encounter Past and Present Procedures (03/12/2020 to Today) Date Procedures Providers Location 03/12/2021 EXPLORATORY LAPAROTOMY, omental biopsy Apple Motta M.D.Bramblet, Rachel M, D.O. [facility] OR PROCEDURAL COMPLICATIONS: none POSTOPERATIVE COURSE: Uncomplicated PATHOLOGY: No results found for this or any previous visit (from the past 168 hour(s)). ?? 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 SC: Delia Castelan IRB#: [id number] ARRIAGA: [id number] Study Alias: Ovarian Repository Subject ID: [id number] Visit: pre-op Collection Instructions: Tube Type: Amount Blood: Red Top 1 x 10 mL Red Top 1 x 4 mL EDTA 2x 10 mL EDTA 1 x 6 mL Sodium Heparin 1 x 10 mL Streck tube 1 x 10 mL Special Instructions: * Forward this document and samples to Elke CHAND * Study Collection only? YES / NO 03/12/2021 6:31 AM Region: [place] Number of tubes for this collection (30): 6 CYTOLOGY NON-TRAVEL PROFESSIONAL Peritoneal Fluid Collected By: Apple Motta M.D. 03/12/2021 9:18 AM Collection Date 03/12/2021 Collection Time 9:18 AM SURGICAL PATHOLOGY, [facility] LAB Colon Collected By: Apple Motta M.D. 03/12/2021 9:45 AM Collection Date 03/12/2021 Collection Time 9:45 AM DISMISSAL LABS: Hemoglobin: Lab Results Component Value Date HGB 12.5 03/10/2021 Creatinine: CONSULTS ORDERED DURING THIS ADMISSION None CONDITION AT DISCHARGE stable Discharge instructions were provided to the patient and caregiver(s). documented in this encounter Discharge Instructions AttachmentsThe following attachments cannot be sent through Care Everywhere. Acetaminophen (By mouth) (Afghan)Ibuprofen (By mouth) (Afghan)Oxycodone, Rapid Release (By mouth) (Afghan)Laxative, Stimulant Combination (By mouth) (Afghan)Apixaban (By mouth) (Afghan)documented in this encounter Medications at Time of Discharge Medication Sig Dispensed Refills Start Date End Date ascorbic acid, vitamin C, Take 1,000 mg by 0 (VITAMIN C) 500 mg tablet mouth daily. Dose unknown cholecalciferol (VITAMIN Take 50 mcg by mouth 0 0 12/29/2017 D3) 50 mcg (2,000 Unit) every morning. tablet lisinopriL Take 40 mg by mouth 0 10/30/2020 (PRINIVIL,ZESTRIL) 30 mg at bedtime. tablet multivitamin tablet Take 1 tablet by 0 mouth daily. acetaminophen (TYLENOL) Take 2 tablets 0 03/12/20 21 06/03/2021 500 mg tablet (1,000 mg total) by mouth every 6 (six) hours as needed for pain. apixaban (ELIQUIS) 2.5 mg Take 1 tablet (2.5 56 tablet 0 06/01/2021 tablet mg total) by mouth 2 (two) times a day for 28 days. ibuprofen (ADVIL,MOTRIN) Take 1 tablet (600 0 06/01/2021 600 mg tablet mg total) by mouth every 6 (six) hours as needed for pain. LORazepam (ATIVAN) 0.5 mg Take 1 tablet (0.5 15 tablet 0 06/01/2021 tablet mg total) by mouth every 4 (four) hours as needed for anxiety for up to 15 doses. oxyCODONE (ROXICODONE) 5 Take 1 tablet (5 mg 10 tablet 0 06/01/2021 mg immediate release total) by mouth tabletIndications: Acute every 4 (four) hours Pain as needed for moderate pain or score 4-6 of 10 (Administer if pain is unrelieved by acetaminophen.) Indication: acute pain. sennosides-docusate Take 1 tablet by 0 03/12/2021 06/01/2021 sodium (SENOKOT-S) 8.6-50 mouth 2 (two) times mg per tablet a day as needed for constipation. documented as of this encounter Nursing Notes Marizol Kevin R.N. - 03/12/2021 8:46 PM CDT Patient met all discharge criteria and preferred to discharge this evening. Patient discharged to home self care with family and spouse via wheelchair. Patient verbalized understanding of preferred anticoagulation therapy and knowledge of when to contact service for questions or concerns. Marizol Kevin R.N. - 03/12/2021 8:45 PM CDT Shift Goals: Clinical Goals for the Shift: VSS Identify possible barriers to meeting goals/advancing plan of care: none End of Shift Summary: Goals met. documented in this encounter OR Notes Op Note - Apple Motta M.D. - 03/12/2021 9:10 AM CDT Pre-op Diagnosis Mass Abdominal Site Post-op Diagnosis Mass Abdominal Site A virtual assistant for advertisers actively participated and was necessary for one or more of the following: opening,exposure and visualization during the case, maintaining hemostasis, wound closure resulting in its safe and expeditious completion. Findings The patient had miliary disease covering most peritoneal surfaces. The disease did not involve the bowel serosa, but did involve all surfaces of the mesentery. Right and left diaphragm were involved. There were no large palpable masses in the pelvis but there is extensive disease also palpable in the pelvis. Complications None Cancer: Ovarian. Primary surgery. Initial and Residual Findings: Abdominal Peritoneum Initial: < 1cm. Residual: < 1cm. Bowel Mesentery Initial: < 1cm. Residual: < 1cm. Bowel Serosa Initial: 0/micro. Residual: 0/micro. Right Diaphragm Initial: > 1cm. Residual: > 1cm. Left Diaphragm Initial: < 1cm. Residual: < 1cm. Retirement Assistant Organs, Pelvic Colon & Peritoneum Initial: > 1cm. Residual: > 1cm. Liver Parenchyma Initial: 0/micro. Residual: 0/micro. Liver Surface Initial: 0/micro. Residual: 0/micro. Omentum Initial: > 1cm. Residual: > 1cm. Spleen Parenchyma Initial: 0/micro. Residual: 0/micro. Spleen Surface/Hilum Initial: 0/micro. Residual: 0/micro. Overall Residual Disease (Single Largest Lesion in Greatest Dimension): > 5cm Ascites: Yes. Amount: 1000cc. Carcinomatosis: Yes. Description of Procedure The patient was brought to the operating room, where general anesthesia was initiated and found to be adequate. She was then prepped and draped in the normal sterile fashion in the dorsal lithotomy position and a Eden catheter was placed. A midline incision was made, and the findings are summarized above. Given the extensive disease we decided not to proceed with debulking. An omental biopsy was obtained. We also obtained a biopsy of the transverse colon mesentery. Hemostasis was assured. The abdomen and pelvis were then irrigated with warm normal saline, and hemostasis was assured. The fascia wasclosed with looped 0 PDS in a running fashion, and the skin was closed with 3-0 Monocryl in a subcuticular fashion. The patient was transferred to recovery in stable condition. Apple Motta M.D. Brief Op Note - Sulma Rios D.O. - 03/12/2021 9:10 AM CDT Pre-op Diagnosis Mass Abdominal Site Post-op Diagnosis Mass Abdominal Site Findings Upon entry into the abdomen, approximately 1.5L was collected and there was evidence of extensive disease including omental cake, bilateral diaphragms, abdominal wall peritoneum, along the entire mesentery of colon and small bowel. Uterus and bilateral adnexa were palpably normal. Disease consisted ofconfluent small nodules. Individuals nodules ranged from 1-3mm, but coated the peritoneum, diaphragm, and mesentery. A biopsy of the transverse mesentery was sent for frozen and consistent with high grade carcinoma. A larger biopsy of the omental cake was taken and sent for permanent to aid in diagnosis. At this time, the procedure was aborted due to extensive disease. Complications None Sulma Rios D.O. documented in this encounter Miscellaneous Notes Result Encounter Note - Apple Motta M.D. - 03/24/2021 8:00 AM CDT I have reviewed the final pathology report and the identified diagnosis is consistent with the patient's clinical presentation. I have reviewed the final pathology with the patient. Result Encounter Note - Apple Motta M.D. - 03/19/2021 11:46 AM CDT I have reviewed the final pathology report and the identified diagnosis is consistent with the patient's clinical presentation. I have reviewed the final pathology with the patient. 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 Hospital Course - Marcelo Carver M.D., M.S. - 03/12/2021 5:39 PM CDT DISCHARGE SUMMARY Admission Date: 03/12/2021 Discharge Date: 03/12/2021 Discharge Provider: Apple Motta M.* Responsible Author(s): Marcelo Carver M.D., M.S. PRIMARY DIAGNOSIS #1 Mass Abdominal Site #2 Intra Abdominal And Pelvic Swelling Mass And Lump Unspecified Site #3 Arthritis #4 Gastric Ulcers #5 Cardiac Left Bundle Branch Block BRIEF HOSPITAL COURSE Surgeon: Apple Motta M.D. Bramblet, Rachel M, D.O. PROCEDURE DATE: 03/12/2021 TYPE OF PROCEDURE(S): Surgery Information This Encounter Past and Present Procedures (03/12/2020 to Today) Date Procedures Providers Location 03/12/2021 EXPLORATORY LAPAROTOMY, omental biopsy Apple Motta M.D.Bramblet, Rachel M, D.O. [facility] OR PROCEDURAL COMPLICATIONS: none POSTOPERATIVE COURSE: Uncomplicated PATHOLOGY: No results found for this or any previous visit (from the past 168 hour(s)). CYTOLOGY: Order Name Source Comment Collection Info Order Time BACTERIAL CULTURE, AEROBIC + SUSC Abdomen 03/12/2021 10:28 AM [facility] RESEARCH ORDER, B Blood, Venous PINK PINK PINK PINK PINK PINK PINK PINK PINK PINK PI: Javier Soliz M.D., Ph.D. SC: Delia Castelan IRB#: [id number] ARRIAGA: [id number] Study Alias: Ovarian Repository Subject ID: [id number] Visit: pre-op Collection Instructions: Tube Type: Amount Blood: Red Top 1 x 10 mL Red Top 1 x 4 mL EDTA 2x 10 mL EDTA 1 x 6 mL Sodium Heparin 1 x 10 mL Streck tube 1 x 10 mL Special Instructions: * Forward this document and samples to Elke CHAND * Study Collection only? YES / NO 03/12/2021 6:31 AM Region: [facility] Number of tubes for this collection (1-30): 6 CYTOLOGY NON-TRAVEL PROFESSIONAL Peritoneal Fluid Collected By: Apple Motta M.D. 03/12/2021 9:18 AM Collection Date 03/12/2021 Collection Time 9:18 AM SURGICAL PATHOLOGY, [facility] LAB Colon Collected By: Apple Motta M.D. 03/12/2021 9:45 AM Collection Date 03/12/2021 Collection Time 9:45 AM DISMISSAL LABS: Hemoglobin: Lab Results Component Value Date HGB 12.5 03/10/2021 Creatinine: documented in this encounter Plan of Treatment Upcoming Encounters Date Type Specialty Care Team Description 05/11/2022 Lab Laboratory Medicine Kathleen Mccarty M.D. [address] [place] [phone] 05/12/2022 Clinical Communication Admitting/Central Scheduling 05/13/2022 Telemedicine Oncology Kathleen Mccarty M.D. [address] [place] [phone] Maribeth Guthrie R.N., O.C.N. [address] [place] [phone] 05/18/2022 Lab Laboratory Medicine Nataly Horta APRN C.N.P., M.S.N. [address] [place] [phone] 05/18/2022 Office Visit Oncology Nataly Horta APRN C.N.P., M.S.N. [address] [place] [phone] documented as of this encounter Procedures Procedure Name Priority Date/Time Associated Comments Diagnosis BACTERIAL Routine 03/12/2021 10:55 Results for this CULTURE, AEROBIC AM CDT procedure a re in + SUSC the results section. DX ABDOMEN 1 VIEW RAD - Routine 03/12/2021 10:46 Resul ts for this (most inpatients AM CDT procedure a re in and all the results outpatients) section. SURGICAL Routine 03/12/2021 9:44 Mass Abdominal Results fo r this PATHOLOGY, [facility] AM CDT Site procedure are in LAB the results section. CYTOLOGY NON-TRAVEL PROFESSIONAL Routine 03/12/2021 9:02 Mass Abdominal Result s for this AM CDT Site procedure are i n the results section. OTHER 03/12/2021 7:43 Mass Abdominal AM CDT Site DEBULKING TUMOR 03/12/2021 7:43 Mass Abdominal OVARY AM CDT Site MISC RESEARCH Timed 03/12/2021 6:51 Other Abnormal Results f or this ORDER, B AM CDT Tumor Markers procedure are in the results section. documented in this encounter Results Bacterial Culture, Aerobic + Susc (03/12/2021 10:55 AM CDT) [facility] gist Method Time Signature Bacterial No growth 03/17/2021 DTL Culture, after 5 7:44 AM CDT Aerobic + Susc days of incubation. Specimen Anatomical Collection Method Collection Time Receive d Time (Source) Location / / Volume Laterality Fluid (Abdomen) 03/12/2021 10:55 03/12/20 21 AM CDT 10:55 AM CDT Comment: Specimen Source Site: Fluid PER ITONEAL ASCITE SWAB Sulma Rios D.O. LAB MICROBIOLOGY - GENERAL O RDERABLES Performing Organization Address City/State/ZIP Code Phon e Number [facility] - [address] [place], [place] [address] [facility] [place] [address] [facility] [address] [facility] DX Abdomen 1 View (03/12/2021 10:46 AM CDT) Anatomical Region Laterality Modality Abdomen, Abdominal RST LOS, Abdominal ARZ LOS, N/A Computed Radiography Abdominal FLA LOS Specimen (Source) Anatomical Collection Method Collection Time Re ceived Time Location / / Volume Laterality 03/12/2021 10:47 AM CDT Impressions 03/12/2021 11:02 AM CDT Negative for postoperative purposes. Lef t basilar atelectasis. Narrative 03/12/2021 11:02 AM CDT EXAM: ??DX ABDOMEN 1 VIEW Procedure Note Chris Marshall M.D. - 03/12/2021Formatt ing of this note might be different from the original. EXAM: DX ABDOMEN 1 VIEW IMPRESSION: Negative for postoperative purposes. Lef t basilar atelectasis. Apple Motta M.D. IMG DIAGNOSTIC IMAGING [facility] Surgical Pathology, Frozen Lab (03/12/2021 9:44 AM CDT) Component Value Ref Test Analysis Performed Pathologis t Range Method Time At Signature 03/16/2021 [facility] 2:15 PM CDT Participated in [place] 03/16/2021 [facility] the [place], 2:15 PM Interpretation Ph.D.-Pathology CDT Resident Report Travis Villatoro M.D. [phone] [facility] electronically 2:15 PM signed by CDT I verify that I have examined all relevant slides/materials for the specimen(s) and rendered or confirmed the diagnosis. Frozen A. ??Colon, transverse nodule, excision: ??Involved by 03/16/2021 [facility] Intraoperative metastatic carcinoma. 2:15 PM Report CDT Signed by Travis Villatoro M.D. [phone] 03/13/2021 8:59 AM Gross Description A. ??Received fresh labeled transverse colon nod ule is a 03/16/2021 [facility] 3.5 x 2.7 x 0.9 cm portion of adipose tissue, which 2:15 PM contains CDT a conglomerate of wahl-pink nodules over a 2.2 x 1.4 x 0.3 cm area. ??Banquet Cook tissue submitted for frozen and permanent sections. ??Grossed by ESTEBAN. B. ??Received fresh labeled omental biopsy is a 12.5 x 5.0 x 1.3 cm omental cake. ??Banquet Cook tissue submitted for permanent sections only. ??After clinical evaluation, residual tissue is procured for IRB [id number] and [id number]. Grossed by [facility]. Block Summary A Transverse colon nodule 03/16/2021 [facility] A1 Transverse colon nodule 1 - frozen 2: 15 PM A2 Transverse colon nodule 2 - frozen CD T B Omental biopsy B1 Omental biopsy 1 B2 Omental biopsy 2 Disclaimer This test was developed and its performance characteri stics 03/16/2021 M[facility] determined by [facility] in a manner consistent with CLIA 2:15 PM requirements. This test has not been cleared or approved by CDT the [place].S. Food and Drug Administration. Addendum [employer] my[employer] CDx has been requested by Dr. Bhaskar wylie 09/24/2021 [facility] and will be performed on block B1 at [facility] 3:45 PM [facility], [place], [place]. PLANT [employer]CH[employer] Signed by Jessica Ndiaye M.D. 09/24/2021 3:45 PM Comment: REVISED RESULTS Interpretation FINAL DIAGNOSIS 09/24/2021 3:45 PM [employer] M[facility] A. 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 B. ??Omentum, biopsy: ?? 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 Immunohistochemical stains were performed on block B1 using antibodies to AR, keratin AE1/AE3, p16, p53, PAX8, BRG1, INI-1, WT1. The tumor cells are positive for cytokeratin AE1/AE3, AR, p16, p53, PAX8, and WT1. INI-1 and BRG1 are retained. These results support the above diagnosis. Specimen (Source) Anatomical Collection Method Collection Time Re ceived Time Location / / Volume Laterality Tissue (Colon) 03/12/2021 9:44 AM CDT Tissue (Omentum) 03/12/2021 9:52 AM CDT Narrative This result has an attachment that is no t available. Apple Motta M.D. LAB SURG PATH ORDERABLES Performing Organization Address City/State/ZIP Code Phon e Number [facility] - [address] [place], [place] [address] [facility] [place] [address] [facility] [address] (ABNORMAL) Cytology Non-TRAVEL PROFESSIONAL (03/12/2021 9:02 AM CDT) Component Value Ref Test Analysis Performed Pathologis t Range Method Time At [facility] (A) 03/20/2021 DTL 5:13 PM CDT Participated in [facility], 03/20/2021 DTL the [facility].-Pathology 5:13 PM Interpretation Resident (Adrian) CDT Report eGna Schaefer M.D. [id number] 03/20/2021 DTL electronically 5:13 PM signed by CDT I verify that I have examined all relevant slides/materials for the specimen(s) and rendered or confirmed the diagnosis. (A) Gross Received 100 cc of 03/20/2021 DTL Description bloody fluid. (A) 5:13 PM CDT Source A. Peritoneal, fluid 03/20/2021 DTL (A) 5:13 PM CDT Interpretation A. Peritoneal, fluid (ThinPrep/cell block): ??Positi ve for 03/20/2021 DTL malignancy. ??Metastatic adenocarcinoma. 5:13 PM CDT Immunohistochemical staining performed on the cell block material (block A1) shows the malignant epithelial cells to be positive for PAX8, WT1, p53, MOC31 and SHANNAN. D2-40 and calretinin highlight the background mesothelial cells. 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 (A) Specimen (Source) Anatomical Collection Method Collection Time Re ceived Time Location / / Volume Laterality Fluid (Peritoneal 03/12/2021 9:02 AM Fluid) CDT Narrative This result has an attachment that is no t available. Apple Motta M.D. LAB SURG PATH ORDERABLES Performing Organization Address City/[facility] Phon e Number [facility] [employer] - [address] Miscellaneous Research, B (03/12/2021 6:51 AM CDT) athologist Signature Number of 6 03/12/2021 [facility] Specimens 6:51 AM CDT Specimen Anatomical Collection Method Collection Time Receive d Time (Source) Location / / Volume Laterality Varies (Blood, 03/12/2021 6:51 AM 021 6:51 Venous) CDT AM CDT Javier Soliz M.D., Ph.D. LAB RESEARCH NO RESULT RO UTING Performing Organization Address City/[facility] Phon e Number [facility] - [address] documented in this encounter Visit Diagnoses Diagnosis Mass Abdominal Site - Primary Other Abnormal Tumor Markers Intra Abdominal And Pelvic Swelling Mass And Lump Unspecified Site Arthritis Mass Abdominal Site documented in this encounter Admitting Diagnoses Diagnosis Mass Abdominal Site Intra Abdominal And Pelvic Swelling Mass And Lump Unspecified Site documented in this encounter Administered Medications Inactive Administered Medications - up to 3 most recent administrations Medication Order MAR Action Action Date Dose Rate Site acetaminophen tablet 1,000 mg Given 03/12/2021 5:54 PM CDT 1,000 mg (TYLENOL) 1,000 mg, oral, Every 6 hours, First dose on Tue03/12/21 at 1300, not to exceed 4 grams in 24 hours. Given 03/12/2021 12:13 PM CDT 1,000 mg bupivacaine liposome (PF) 20 Given 03/12/2021 10:00 AM CDT 20 mL Abdominal Tissue mL in 20 mL injection As needed, Starting on Tue03/12/21 at 1000, Intra-Op ibuprofen tablet 600 mg (ADVIL,MOTRIN) 600 mg, oral, Every 6 hours, First dose on Tue03/13/21 at 1700, start 6 hours after last ketorolac dose administered ketorolac injection 15 mg (TORADOL) Given 03/12/2021 4:43 PM CDT 15 mg 15 mg, intravenous, Every 6 hours, First dose on Tue03/12/21 at 1700, For 4 doses, start no sooner than 6 hours after last intraoperative dose Adult IV push rate: Over 15 seconds. Peds IV push rate: Over 1 minute. 60 mg dose only for IM, not recommended for IV., Drug Monitoring Program: Pharmacist to adjust medication dosing based on indication and drug clearance factors. lactated ringers New Bag 03/12/2021 12:13 PM CDT 40 mL/hr 40 mL/hr 40 mL/hr, intravenous, Continuous, Starting on Tue03/12/21 at 1200 Continued from OR 03/12/2021 11:51 AM CDT 40 mL/hr 40 mL/hr LORazepam tablet 0.5 mg (ATIVAN) Given 03/12/2021 5:55 PM CDT 0.5 mg 0.5 mg, oral, Every 4 hours PRN, anxiety, Starting on Tue03/12/21 at 1147 Given 03/12/2021 1:55 PM CDT 0.5 mg oxyCODONE IR tablet 10 mg (ROXICODONE) 10 mg, oral, Every 4 hours PRN, severe p ain or score 7-10 of 10, Administer if pain is unrelieved by acetaminophen, Starting on Jackeline 03/12/21 at 1147, For patients that received intrathecal analgesia, start 24 hours after i ntrathecal dose given oxyCODONE IR tablet 5 mg (ROXICODONE) Given 03/12/2021 8:09 PM CDT 5 mg 5 mg, oral, Every 4 hours PRN, moderate pain or score 4-6 of 10, Administer if pain is unrelieved by acetaminophen., Starting on Jackeline 03/12/21 at 1147, For patients that received intrathecal analgesia, start 24 hours after intrathecal dose given prochlorperazine injection 5 mg (COMPAZI NE) 5 mg, intravenous, Every 6 hours PRN, na usea, vomiting, Starting on Jackeline 03/12/21 at 1152 documented in this encounter Active and Recently Administered Medications Times are shown in CDT. Scheduled Medication Order 03/10/2021 03/11/2021 03/12/2021 acetaminophen tablet 1,000 mg (TYLENOL) (COMPLETED) 730 (Given - Provider: Shasha Lind, RLinda) 1,000 mg, oral, Once, On Jackeline 03/12/21 at 0730, For 1 dose, Pre-Op, In Pre Op holding (PWA) acetaminophen tablet 1,000 mg (TYLENOL) 1213 (Given - Provider: Marizol Bonilla R.N.)1754 (Given - Provider: Pauline Palm R.N., C.M.S.R.N.) 1,000 mg, oral, Every 6 hours, First dos e on Jackeline 03/12/21 at 1300, not to exceed 4 grams in 24 hours. ceFAZolin injection 2,000 mg (ANCEF) (COMPLETED) 908 (Given - Provider: Tika Stevenson APRN, CUTTER TENDER) 2,000 mg, intravenous, Once, On Jackeline 03/12 at 0730, For 1 dose, Intra-Op, Preoperatively within 1 hour prior to surgical incision If needed, reconstitute vial per package insert instructions. See IVAG for administration guidelines. , Drug Mo nitoring Program: Pharmacist to adjust medication dosing based on indication and drug clearance factors., Indications: Prophylaxis, surgical celecoxib capsule 400 mg (CeleBREX) (COMPLETED) 730 (Given - Provider: Shasha Lind RLinda) 400 mg, oral, Once, On Jackeline 03/12/21 at 07 30, For 1 dose, Pre-Op, Pre-procedure on unit. Not to be administered for true sulfa allergy, acute GI bleed, history of GI bleed within past 6 months, or NSAID contraindications. heparin (porcine) injection 5,000 Units (COMPLETED) 0859 (Given - Provider: Tika Stevenson APRN, CUTTER TENDER) 5,000 Units, subcutaneous, Once, On Jackeline 03/12/21 at 0730, For 1 dose, Intra-Op, Administer prior to induction of anesthesia. heparin (porcine) injection 5,000 Units 5,000 Units, subcutaneous, Every 8 hours scheduled, First dose on Tue03/12/21 at 2200 ibuprofen tablet 600 mg (ADVIL,MOTRIN)(Linked Group 1) 600 mg, oral, Every 6 hours, First dose on Tue03/13/21 at 1700, start 6 hours after last ketorolac dose administered ketorolac injection 15 mg (TORADOL) (COMPLETED) 1104 (Given - Provider: Wendy Fine RLinda) 15 mg, intravenous, Once, On Jackeline 03/12/21 at 1100, For 1 dose, PACU (only), Adult IV push rate: Over 15 seconds. Peds IV push rate: Over 1 minute. 60 mg dose only for IM, not recommended for IV. ketorolac injection 15 mg (TORADOL)(Linked Group 1) 1643 (Given - Provider: Pauline Palm RLinda, C.M.S.R.N.) 15 mg, intravenous, Every 6 hours, First dose on Tue03/12/21 at 1700, For 4 doses, start no sooner than 6 hours after last intraoperative dose Adult IV push rate: Over 15 seconds. Peds IV push rate: Ove r 1 minute. 60 mg dose only for IM, not recommended for IV., Drug Monitoring Program: Pharmacist to adjust medication dosing based on indication and drug clearance factors. magnesium hydroxide suspension 30 mL (MILK OF MAGNESIA) 30 mL, oral, 2 times daily, First dose o n Jackeline 03/12/21 at 2100, Starting evening of surgery. After first bowel movement discontinue Magnesium hydroxide. sennosides-docusate sodium 8.6-50 mg per tablet 1 tablet (SENOKO T-S) 1 tablet, oral, 2 times daily, First dos e on Jackeline 03/12/21 at 2100, Starting evening of surgery. Continuous Medication Order 03/10/2021 03/11/2021 03/12/2021 lactated ringers 1151 (Continued from OR - Provider: Pauline Palm R.N., C.M.S.R.N.)1213 (New Bag - Provider: Marizol Bonilla R.N.)1700 (Stopped - Provider: Pauline Palm R.N., C.M.S.R.N.) 40 mL/hr, intravenous, Continuous, Starting on Jackeline 03/12/21 at 12 00 PRN Medication Order 03/10/2021 03/11/2021 03/12/2021 bupivacaine liposome (PF) 20 mL in 20 mL injection (CANCELED) 1000 (Given - Provider: Apple Motta M.D.) As needed, Starting on Jackeline 03/12/21 at 1000, Intra-Op fentaNYL injection 25 mcg (SUBLIMAZE) (CANCELED) 1104 (Given - Provider: Wendy Fine R.N.) 25 mcg, intravenous, Every 2 min PRN, Fo r pain 4 or greater (maximum 100 mcg). If max dose of Fentanyl is reached and if pain is greater than 4, discontinue Fentanyl: give Hydromorphone, Starting on Jackeline 03/12/21 at 1055, PACU (only) fentaNYL injection 25 mcg (SUBLIMAZE) (COMPLETED) 1120 (Given - Provider: Wendy Fine R.N.)1125 (Given - Provider: Wendy Fine R.N.)1129 (Given - Provider: Maxwell ClarkNErasto) 25 mcg, intravenous, Every 5 min PRN, se bryan pain or score 7-10 of 10, Starting on Jackeline 03/12/21 at 1119, For 3 doses, PACU (only) HYDROmorphone (PF) injection 0.4 mg (DILAUDID) 0.4 mg, intravenous, Every 2 hour PRN, f or breakthrough pain, Starting on Jackeline 03/12/21 at 1147, Unrelieved 30 minutes after PRN oral pain medication is used; if unable to take oral pain medication; or if pain is greater than or equal to 7, use instead of oral pain me dication. LORazepam tablet 0.5 mg (ATIVAN) 1355 (Given - Provider: Marizol Bonilla R.N.)1755 (Given - Provider: Pauline Palm R.N., Kamla.Bharathi.S.R.N.) 0.5 mg, oral, Every 4 hours PRN, anxiety, Starting on Jackeline 1 at 1147 naloxone injection 0.2 mg (NARCAN) 0.2 mg, intravenous, As needed, respirat ory depression, Starting on Jackeline 03/12/21 at 1147, For respiratory rate less than 8 breaths per minute or RASS score of - 3, -4, -5. Apply oxygen to keep oxygen saturations greater than 90% and notify service. oxyCODONE IR tablet 10 mg (ROXICODONE)(Linked Group 2) 2008 (See Alternative - Provider: Marizol Kevin R.N.) 10 mg, oral, Every 4 hours PRN, severe p ain or score 7-10 of 10, Administer if pain is unrelieved by acetaminophen, Starting on Jackeline 03/12/21 at 1147, For patients that received intrathecal analgesia, start 24 hours after intrathecal dose given oxyCODONE IR tablet 5 mg (ROXICODONE)(Linked Group 2) 2008 (Given - Provider: Marizol Kevin R.N.) 5 mg, oral, Every 4 hours PRN, moderate pain or score 4-6 of 10, Administer if pain is unrelieved by acetaminophen., Starting on Jackeline 03/12/21 at 1147, For patients that received intrathecal analgesia, start 24 hours after intrathecal dose given prochlorperazine injection 5 mg (COMPAZINE) 5 mg, intravenous, Every 6 hours PRN, na usea, vomiting, Starting on Jackeline 03/12/21 at 1152 Linked Groups Order Group 1: ketorolac injection 15 mg (TORADOL)Jump to med 15 mg, intravenous, Every 6 hours, First dose on Jackeline 03/12/21 at 1700, For 4 doses
start no sooner than 6 hours after last intraoperative dose Adult IV push rate: Over 15 seconds.&n bsp;Peds IV push rate: Over 1 minute.&nb sp;60 mg dose only for IM, not recommended for IV.
Drug Monitoring Program: Pharmacist to adjust medication dosing based on indication and drug clearance factors. Followed by ibuprofen tablet 600 mg (ADVIL,MOTRIN)Jump to med 600 mg, oral, Every 6 hours, First dose on Tue03/13/21 at 1700
start 6 hours after last ketorolac dose administered
Group 2: oxyCODONE IR tablet 5 mg (ROXICODONE)Jump to med 5 mg, oral, Every 4 hours PRN, moderate pain or score 4-6 of 10, Administer if pain is unrelieved by acetaminophen., Starting on Jackeline 03/12/21 at 1147
For patients that received intrathecal analgesia, start 24 hours after intrathecal dose given
Or oxyCODONE IR tablet 10 mg (ROXICODONE)Jump to med 10 mg, oral, Every 4 hours PRN, severe p ain or score 7-10 of 10, Administer if pain is unrelieved by acetaminophen, Starting on Jackeline 03/12/21 at 1147
For patients that received intrathecal analgesia, start 24 hours after intrathecal dose given
documented in this encounter Care Teams Supply Chain Technician Relationship Specialty Start Date End Date Elsewhere, Pcp PCP - General Family Medicine 03/10/21 documented as of this encounter
--- OUTSIDE RECORDS SUMMARY | 2022-03-25 08:52 | XMS_ITS | Encounter Summary ---
:1960 Author Organization [facility] Address [address] [place] [address] Care Team Providers Name Role Phone Elsewhere, Pcp Primary Care Provider Unavailable Encounter Details Date Type Department Care Team Description 03/10/2021 Clinical [facility] and Apple Joe M.D. Gynecology in [address] [place], [place] [address] [place] [phone] [place], [place] [phone] (Work) [phone] Social History Tobacco Use Types Packs/Day Years Used Date Smoking Tobacco: Never Assessed Alcohol Habits Answer Date Recorded How often do you have a drink containing alcohol? Monthly or less 10/23/2021 How many drinks containing alcohol do you have on a 1 or 2 10/23/2021 typical day when you are drinking? How often do you have six or more drinks on one Never 10/23/2021 occasion? Comment: Not asked Social Isolation Answer Date Recorded In a typical week, how many times do you Once a week 10/23/2021 talk on the phone with family, friends, or neighbors? How often do you get together with friends Twice a week 10/23/2021 or relatives? How often do you attend religion or yarsani More than 4 time s per year 10/23/2021 services? Do you belong to any clubs or organizations No 10/23/2021 such as religion groups, unions, fraternal or athletic groups, or [...] this encounter Miscellaneous Notes Telephone Encounter - Apple Motta M.D. - 03/10/2021 3:23 PM CDT I called the patient review her EKG results. Her EKG does show a new bundle chelsie block as well as ST changes. I reviewed this with the technician automatic who felt this was likely a benign finding. Her echocardiogram does show a small pericardial effusion. She also of note has an increasing white count which was previously 12.6 and is now 15. The only complaint she has is her right-sided chest pain and slight increase in her shortness of breath. We will obtain chest x-ray tomorrow and she is here to see anesthesia. Will wait for additional input from anesthesia about proceeding to surgery. Will also wait for her chest x-ray. Discussed with the patient that if there is concern of pneumonia we will not pr oceed with surgery. All questions were answered documented in this encounter Plan of Treatment Upcoming Encounters Date Type Specialty Care Team Description 05/11/2022 Lab Laboratory Medicine Kathleen Mccarty M.D. [address] [place] [phone] 05/12/2022 Clinical Communication Admitting/Central Scheduling 05/13/2022 Telemedicine Oncology Kathleen Mccarty M.D. [address] [place] [phone] Maribteh Guthrie R.N., O.C.N. [address] [place] [phone] 05/18/2022 Lab Laboratory Medicine Nataly HortaMICKIE C.N.P., M.S.N. [address] [place] [phone] 05/18/2022 Office Visit Oncology Nataly HortaMICKIE C.N.P., M.S.N. [address] [place] [phone] documented as of this encounter Results DX Chest AP or PA and Lateral 2 Views (03/11/2021 10:05 AM CDT) Anatomical Region Laterality Modality Chest, Thoracic RST LOS, Thoracic ARZ LOS, Thoracic N/A Digital Radiography FLA LOS Specimen (Source) Anatomical Collection Method Collection Time Re ceived Time Location / / Volume Laterality 03/11/2021 10:19 AM CDT Impressions 03/11/2021 10:20 AM CDT Tiny bilateral pleural effusions are new since 03/26/2003. Given differences in technique these have like ly decreased slightly since CT 03/06/2021. Minimal atelectasis both lakia g bases. Slight aortic calcification. No focal pulmonary infiltrates. Narrative 03/11/2021 10:20 AM CDT EXAM: ??DX CHEST AP OR PA AND LATERAL 2 VIEWS Procedure Note Silas Herron M.D. - 03/11/2021Form atting of this note might be different from the original. EXAM: DX CHEST AP OR PA AND LATERAL 2 EWS IMPRESSION: Tiny bilateral pleural effusions are new since 03/26/2003. Given differences in technique these have like ly decreased slightly since CT 03/06/2021. Minimal atelectasis both lakia g bases. Slight aortic calcification. No focal pulmonary infiltrates. Apple [facility] CLYDE RODRIGUEZ documented in this encounter Visit Diagnoses Diagnosis Effusion Pleural - Primary Shortness Of Breath Effusion Pleural Shortness Of Breath documented in this encounter Additional Health Concerns Infection Onset Date Last Indicated Resolved Time COVID19 Pending 03/10/2021 03/10/2021 03/10/2021 6:13 PM CDT documented as of this encounter Care Teams Staffing Associate Relationship Specialty Start Date End Date Elsewhere, Pcp PCP - General Family Medicine 03/10/21 documented as of this encounter
--- OUTSIDE RECORDS SUMMARY | 2022-03-25 08:52 | XMS_ITS | Encounter Summary ---
:1960 Author Organization [facility] Address [address] [place] [address] Care Team Providers Name Role Phone Elsewhere, Pcp Primary Care Provider Unavailable Reason for Referral Outpatient (Routine) - Closed Specialty Diagnoses / Procedures Referred By Contact Refer red To Contact Medical Oncology / Diagnoses Malignant Neoplasm Of Ovary Left (HCC) [facility] MICKIE, R.N. [address] [place] [phone] Referral ID Status Reason Start Date Expiration Date Visits Requ ested Visits Authorized [id number] Closed 03/13/2021 03/13/2022 1 1 Scheduling Instructions Notify CLL team if not within 2 weeks. Reason for Visit Reason Comments Communication CLL Encounter Details Date Type Department Care Team Description 03/12/2021 Clinical Communication Department of Citlali Motta ([facility]) Obstetrics and Apple Joe M.D. Gynecology in [address] [place] [phone] [place] [address] [place], [place] (Work) [phone] Social History Tobacco Use Types Packs/Day Years [...] or relatives? How often do you attend holiness or voodoo More than 4 time s per year 10/23/2021 services? Do you belong to any clubs or organizations No 10/23/2021 such as holiness groups, unions, fraternal or athletic groups, or [...] this encounter Miscellaneous Notes Telephone Encounter - Aster Mendez - 03/12/2021 1:38 PM CDT Contacted Med Onc because first available is 03/[address] Motta and then it goes out to 04/10. Med Onc said they had nothing sooner to offer. Let us know how you would like us to proceed. Thank you documented in this encounter Plan of Treatment Upcoming Encounters Date Type Specialty Care Team Description 05/11/2022 Lab Laboratory Medicine Kathleen Mccarty M.D. [address] [place] [phone] 05/12/2022 Clinical Communication Admitting/Central Scheduling 05/13/2022 Telemedicine Oncology Kathleen Mccarty M.D. [address] [place] [phone] Maribeth Guthrie R.N., O.C.N. [address] [place] [phone] 05/18/2022 Lab Laboratory Medicine Nataly Horta APRN, C.N.P., M.S.N. [address] [place] [phone] 05/18/2022 Office Visit Oncology Nataly Horta APRN C.N.P., M.S.N. [address] [place] [phone] Scheduled Referrals Name Type Priority Associated Diagnoses Order S chedule Oncology - Outpatient Referral Routine Malignant Neoplasm Ex pected: Medical, CLINICAL RESEARCH ANALYST Of Ovary Left (HCC) 03/13/20 21 consult (clinic) (Approximat e), Expires: 03/13/2024 documented as of this encounter Visit Diagnoses Diagnosis Malignant Neoplasm Of Ovary Left (HCC) - Primary documented in this encounter Care Teams Filament Shaper Relationship Specialty Start Date End Date Elsewhere, Pcp PCP - General Family Medicine 03/10/21 documented as of this encounter
--- OUTSIDE RECORDS SUMMARY | 2022-03-25 08:52 | XMS_ITS | Encounter Summary ---
:1960 Author Organization [facility] Address [address] [place] [address] Care Team Providers Name Role Phone Elsewhere, Pcp Primary Care Provider Unavailable Reason for Visit Reason Comments [id number] Encounter Details Date Type Department Care Team Description 03/18/2021 Clinical Communication Department of [facility] Obstetrics and Apple Joe M.D. Gynecology in [address] [place], [place] [address] [place] [phone] [place], [place] [phone] (Work) [phone] Social History Tobacco Use Types Packs/Day Years [...] How often do you attend mandaen or anglican More than 4 time s [...] Lab Laboratory Medicine Kathleen Mccarty M.D. [address] [place] [phone] 05/12/2022 Clinical Communication Admitting/Central Scheduling 05/13/2022 Telemedicine Oncology Kathleen Mccarty M.D. [address] [place] [phone] Maribeth Guthrie, Soila, O.C.N. [address] [place] [phone] 05/18/2022 Lab Laboratory Medicine Nataly Horta APRN, C.N.P., M.S.N. [address] [place] [phone] 05/18/2022 Office Visit Oncology Nataly Horta APRN, C.N.P., M.S.N. [address] [place] [phone] documented as of this encounter Visit Diagnoses Not on filedocumented in this encounter Care Teams Web Engineer Relationship Specialty Start Date End Date Elsewhere, Pcp PCP - General Family Medicine 03/10/21 documented as of this encounter
--- OUTSIDE RECORDS SUMMARY | 2022-03-25 08:52 | XMS_ITS | Encounter Summary ---
:1960 Author Organization [facility] Address [address] [place] [address] Care Team Providers Name Role Phone Unavailable Primary Care Provider Unavailable Reason for Referral Outpatient (Routine) - Closed Specialty Diagnoses / Procedures Referred By Contact Refer red To Contact Diagnoses Preoperative Exam Apple Motta M.D. [facility] Procedures ECG 12 Lead [address] [place] [address] Referral ID Status Reason Start Date Expiration Date Visits Requ ested Visits Authorized [id number] Closed 03/09/2021 03/09/2022 1 1 Outpatient (Routine) - Closed Specialty Diagnoses / Procedures Referred By Contact Refer red To Contact Anesthesiology Diagnoses Mass Abdominal Site Apple Motta [place] M.D. [address] [place] [address] Referral ID Status Reason Start Date Expiration Date Visits Requ ested Visits Authorized [id number] Closed 03/09/2021 03/09/2022 1 1 Scheduling Instructions Please schedule after Dr. Motta yocasta ointment on 03/10/21 Reason for Visit Reason Comments Previsit Preparation Encounter Details Date Type Department Care Team Description 03/09/2021 Documentation Department of Aimee Lozano, Previsit Pr eparation Obstetrics and M.S.N., R.N. Gynecology in [address] [place] [address] [place] [phone] [place], [place] [phone] (Work) [phone] Social History Tobacco Use Types Packs/Day Years [...] or relatives? How often do you attend gnosticism or baptism More than 4 time s per year 10/23/2021 services? Do you belong to any clubs or organizations No 10/23/2021 such as gnosticism groups, unions, fraternal or athletic groups, or [...] place to sleep or slept in a assisted (including now)? Sex Assigned at Date Recorded Female 03/13/2021 7:24 PM CDT documented as of this encounter Progress Notes Aimee Lozano M.S.N., R.N. - 03/09/2021 2:33 PM CDT Wendy Aviles [address] [facility] [phone] OUTSIDE RECORD REVIEW. Information collected from outside records and has not been verified by the patient until patient is seen by provider. Patient will be seen by Apple Motta MD on 03/10/21. DIAGNOSIS: Concern for ovarian cancer, abdominal mass. HISTORY OF PRESENT ILLNESS: Patient seen in [place] for 1 week history of abdominal pain and bloating. We she had right-sided abdominal and shoulder discomfort which was found to have right-sided pleural effusion. Patient is scheduled for an echocardiogram 03/09/2021. Patient had no other complaints having daily bowel movements although she did have to strain to either urinate or have a bowel movement. IMAGING/PATHOLOGY: CXR 02/19/21 FINDINGS: Cardiovascular and mediastinum: Cardiac silhouette is mildly enlarged. There is tortuosity of the aorta along with vascular calcifications. Lungs and pleural spaces: Small right pleural effusion is present with adjacent atelectasis. No pneumothorax. Bones and soft tissues: Mild degenerative disc disease. No fracture. IMPRESSION: Small right pleural effusion. CT chest 02/19/21 FINDINGS: Heart and vasculature: Contrast opacification of the pulmonary arterial tree is adequate. No sign of pulmonary embolism. Heart size is normal. Thoracic aorta and pulmonary artery are normal in caliber. Lungs and pleural: No suspicious nodules or infiltrates. Trace right-sided pleural effusion. Lymph nodes/mediastinum: No mediastinal, hilar, or axillary adenopathy. Chest wall: No masses. Upper abdomen: Normal. Bones: Unremarkable for age. IMPRESSION: 1. No pulmonary embolism. 2. Trace right-sided pleural effusion of uncertain etiology. Remainder of the lungs and pleural spaces are clear. 3. No other finding to explain chest pain. Scheduled for Cardiac Echo on 03/09/21 CT abd/pelvis 03/06/21 Impression: Demonstration of extensive fluid throughout the 4 quadrants of the abdomen with thickening and enhancement of the peritoneum and extensive omental caking with likely pathologic retroperitoneal lymph nodes. Overall these findings are concerning for metastatic malignancy such as ovarian cancer with omental and peritoneal seeding. There are prominent bilateral left greater than right ovaries. Mild to moderate thickening of the gastric antrum which may represent sequela of peptic ulcer disease. No other acute intra-abdominal abnormality is appreciated. US 03/06/21 Impression: 1. Enlarged lobulated and hypervascular ovaries, right greater than left. No discrete ovarian mass identified. 2. Irregular echogenic vascular tissue adjacent to the right uterine cornua could possibly representright fallopian tube mass. 3. 0.9 cm lesion with endometrial canal surrounded by fluid, polyp versus other mass. 4. Large amount of free fluid in cul-de-sac. 5. Findings are overly highly suspicious for malignancy. DIRECTOR OF PRODUCT MARKETING/PAP HISTORY: patient states she had an abnormal pap smear in her 20's. Had colposcopy and statesshe had dysplasia but then had normal ones after that. G 0 (2 adopted daughters) BMI: 27.49 MEDICATIONS: Lisinopril, Vit C & D ALLERGIES: Allergies Allergen Reactions ??? Sesame Oil Hives Sesame seeds and oil PAST MEDICAL HISTORY: Gastroesophageal reflux ?? Resolved HTN (hypertension) ?? Active Vitamin D deficiency ?? Active Dyslipidemia ?? Active Pre-diabetes ?? Active heart screen, calcium score 0 2018 Active Ascites ?? Active Abdominal mass ?? Active HX: benign breast biopsy 1996 Active H/O wisdom tooth extraction ?? Active History of colposcopy ?? Active PAST SURGICAL HISTORY: Lumpectomy left breast 1994 D&C 2000 [place] Teeth Labs: 03/06/21: Hgb 13.5, Plt 299, creatinine 0.7, albumin 4.5, CA 125: 1305 documented in this encounter Plan of Treatment Upcoming Encounters Date Type Specialty Care Team Description 05/11/2022 Lab Laboratory Medicine Kathleen Mccarty M.D. [address] [place] [phone] 05/12/2022 Clinical Communication Admitting/Central Scheduling 05/13/2022 Telemedicine Oncology Kathleen Mccarty M.D. [address] [place] [phone] Maribeth Guthrie R.N., O.C.N. [address] [place] [phone] 05/18/2022 Lab Laboratory Medicine Nataly Horta APRN C.N.PErasto, M.S.N. [address] [place] [phone] 05/18/2022 Office Visit Oncology Nataly Horta MICKIE Garvin C.NErastoP., M.S.N. [address] [place] [address] Scheduled Referrals Name Type Priority Associated Order Schedule Diagnoses Preoperative Outpatient Referral Routine Mass Abdominal Site E xpected: Evaluation JARAD 03/10/2021 consult (clinic) (Approximat e), Expires: 03/09/2024 documented as of this encounter Results ECG 12 Lead (03/10/2021 2:08 PM CDT) P athologist Signature Ventricular Rate 94 BPM MUSE ECG/Min DE Interval 146 ms MUSE QRSD Interval 136 ms MUSE QT Interval 384 ms MUSE QTC Interval 480 ms MUSE P [place] 52 degrees MUSE R [place] -23 degrees MUSE T Wave [place] 106 degrees MUSE Specimen Anatomical Collection Method Collection Time Receive d Time (Source) Location / / Volume Laterality 03/10/2021 2:08 PM 2:17 CDT PM CDT Impressions MUSE - 03/10/2021 2:17 PM CDT Normal sinus rhythm Left bundle branch block with secondary ST-T abnormalities When compared with ECG of 26-MAR-2003 13 :58, Left bundle branch block is now present ST and T waves have changed Reviewed by GT Whitmore Narrative This result has an attachment that is no t available. Procedure Note Donte Moctezuma Jr., M.D. - 03/10/2021For matting of this note might be different from the original. IMPRESSION: Normal sinus rhythm Left bundle branch block with secondary ST-T abnormalities When compared with ECG of 26-MAR-2003 13 :58, Left bundle branch block is now present ST and T waves have changed Reviewed by GT Whitmore Apple Motta M.D. ECG ORDERABLES Performing Organization Address City/State/ZIP Code Phon e Number MUSE MUSE NA (ABNORMAL) CBC with Differential, Blood (03/10/2021 1:52 PM CDT) Patholo gist Method Time Signature Hemoglobin 12.5 11.6 - 03/10/2021 DTL 15.0 g/dL 2:26 PM CDT Hematocrit 39.3 35.5 - 03/10/2021 DTL 44.9 % 2:26 PM CDT Erythrocytes 4.43 3.92 - 03/10/2021 DTL 5.13 2:26 PM CDT x10(12)/L MCV 88.7 78.2 - 03/10/2021 DTL 97.9 fL 2:26 PM CDT RBC Distrib Width 12.4 12.2 - 03/10/2021 DTL 16.1 % 2:26 PM CDT Platelet Count 364 157 - 371 03/10/2021 DTL x10(9)/L 2:26 PM CDT Leukocytes 15.0 (H) 3.4 - 9.6 03/10/2021 DTL x10(9)/L 2:26 PM CDT Neutrophils 12.60 (H) 1.56 - 03/10/2021 DTL 6.45 2:26 PM CDT x10(9)/L Lymphocytes 1.26 0.95 - 03/10/2021 DTL 3.07 2:26 PM CDT x10(9)/L Monocytes 1.01 (H) 0.26 - 03/10/2021 DTL 0.81 2:26 PM CDT x10(9)/L Eosinophils 0.05 0.03 - 03/10/2021 DTL 0.48 2:26 PM CDT x10(9)/L Basophils 0.05 0.01 - 03/10/2021 DTL 0.08 2:26 PM CDT x10(9)/L Specimen Anatomical Collection Method Collection Time Receive d Time (Source) Location / / Volume Laterality Blood (Blood, 03/10/2021 1:52 PM 03/10/20 21 2:19 Venous) CDT PM CDT Apple Motta M.D. LAB BLOOD ADD-ON Performing Organization Address City/State/ZIP Code Phon e Number [facility] - [address] [place], [place] [address] [facility] [place] [address] [facility] 200 [facility] Type and Screen (with reflex Antibody ID) (03/10/2021 1:52 PM CDT) [facility] gist Method Time Signature ABORh A Pos Not 03/10/2021 ETRM applicable 2:57 PM CDT Antibody Negative Negative 03/10/2021 ETRM Screen 3:09 PM CDT Type & Screen 03/13/2021 03/10/2021 ETRM Expiration 23:59 2:57 PM CDT Testing [place] DEFAULT 03/10/2021 ETRM Location 2:26 PM CDT Specimen Anatomical Collection Method Collection Time Receive d Time (Source) Location / / Volume Laterality Blood (Blood, 03/10/2021 1:52 PM 03/10/20 2:26 Venous) CDT PM CDT Apple Motta M.D. LAB BLOOD BANK TEST ORDERABL ES Performing Organization Address City/State/ZIP Code Phon e Number [facility] - [address] [place] [address] [facility] [place] [address] [facility] [address] [facility] SARS Coronavirus 2, Molecular Detection, PCR, Varies Asymptomatic (03/10/2021 1:39 PM CDT) [facility] Method Time Signature COVID-19, Swab, 03/10/2021 DTL PCR, Source Nasopharynx 6:12 PM CDT COVID-19, Undetected Undetected 03/10/2021 DTL PCR, Result 6:12 PM CDT Comment: SARS-CoV-2 RNA absent. This result does not rule out COVID-19 in the patient, as the sensitivity of the test depends o n the timing of the specimen collection and quality of the specimen. Result should be correlated with patient's history and clinical presentat ion. ----ADDITIONAL INFORMATION---- This RT-PCR test using the Dr[employer]iser SARS-Co V-2 Assay ( [employer] performed on the DrinkWiser Two Module System has received Emergency Use Authorization (EUA) by the U.S. Food and Drug Administration, and is modified from the helminthologist's instructions with a bridging study. Performance characteristics were verifcarolyn d by [facility] in a manner consistent with CLIA requirements. Visit the CDC website: https://www.cdc.g ov/coronavirus/ for the most recent guidelines on Evans virus testing. Fact Sheet for Healthcare Providers: https://www.fda.gov/media/944013/downloa d Fact Sheet for Patients: https://www.fda.gov/media/632193/downloa d Specimen Anatomical Collection Method Collection Time Receive d Time (Source) Location / / Volume Laterality Varies 03/10/2021 1:39 PM 2:17 (Nasopharynx) CDT PM CDT Apple Motta M.D. LAB MICROBIOLOGY - GENERAL O RDERABLES Performing Organization Address City/State/ZIP Code Phon e Number [facility] - [address] [place], [place] [address] [facility] [place] [address] [facility] [address] documented in this encounter Visit Diagnoses Diagnosis Mass Abdominal Site - Primary Preoperative Exam Preprocedural Lab Exam documented in this encounter
--- OUTSIDE RECORDS SUMMARY | 2022-03-25 08:52 | XMS_ITS | Encounter Summary ---
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 Ascites; Gynecology in 200 [facility] Peritoneal Carcinomatosis (HCC); [place], [place] Other Abnormal Tumor Markers [place] [address] 200 [facility] [phone] [place], [place] (Work) [phone] Social History Tobacco Use Types Packs/Day Years [...] or relatives? How often do you attend worship or rastafari More than 4 time s per year 10/23/2021 services? Do you belong to any clubs or organizations No 10/23/2021 such as worship groups, unions, fraternal or athletic groups, or [...] documented as of this encounter Consult Notes Apple Motta M.D. - 03/10/2021 12:00 PM CDT SUBJECTIVE REFERRAL SOURCE No ref. provider found CHIEF COMPLAINT REASON FOR VISIT Consult HISTORY OF PRESENT CONDITION Chief complaint: Likely ovarian cancer Ms. Aviles is a 60 y.o., No obstetric history on file. who presents in consultation at the request of No ref. provider found for an opinion regarding likely ovarian cancer. The patient presented with right-sided chest pain to her primary care physician. Her pain remained persistent and thus she was seenin the emergency room. They initially started with a cardiac workup but given her ongoing complaintsa new abdominal bloating patient underwent a CT scan of chest abdomen pelvis. Her CT was negative for pulmonary embolism. Her CT did show a pleural effusion, cardiophrenic lymphadenopathy, abdominal ascites, omental cake, and bilateral ovarian masses. Her CA 125 is elevated. The patient otherwise has no other complaints. She reports that she has had some early satiety over the last 3 days. She has otherwise had no changes in bowel or bladder function. She notes that she has intermittent right-sided chest pain which comes and goes. She notices it most as a pulling or tugging and she feels as though she cannot get a full breath. Past Medical History: Diagnosis Date ??? Anemia No longer an issue ??? Arthritis ??? Ascites ??? Gastroesophageal Reflux Disease NOS no longer an issue ??? Hyperlipidemia ??? Hypertension NOS ??? Irritable Bowel Syndrome Without Diarrhea ??? Mass Abdominal Site ??? Peritoneal Carcinomatosis (HCC) Past Surgical History: Procedure Laterality Date ??? BREAST SURGERY 2002 lumpectomy ??? DILATATION AND CURETTAGE no related to pregnacy was related to s polep The following portions of the patient's history were reviewed and updated as appropriate: allergies,current medications, family history, medical history, social history, surgical history and problem list. FAMILY HISTORY Breast, ovarian, colon, or uterine cancer-related family history is not on file. REVIEW OF SYSTEMS A comprehensive review of systems was negative except as noted in HPI. OBJECTIVE VITAL SIGNS There is no height or weight on file to calculate BMI. ECOG status: 0 Genetic testing: None PHYSICAL EXAMINATION General: Well appearing, no apparent distress, alert and oriented. Lymph: Neck symmetric without cervical or supraclavicular adenopathy or mass. Lungs: Normal respiratory rate, no accessory muscle use. Psych: Normal affect. abdomen: Mildly distended, soft, nontender to palpation, no masses, moderate ascites, no hepatosplenomegaly. Skin: Warm, dry, no rashes or lesions. Extremities: Bilateral lower extremities without edema or tenderness. [place] Exam Amb DIAGNOSTICS Hemoglobin Date Value Ref Range Status 03/10/2021 12.5 11.6 - 15.0 g/dL Final Leukocytes Date Value Ref Range Status 03/10/2021 15.0 (H) 3.4 - 9.6 x10(9)/L Final Platelet Count Date Value Ref Range Status 03/10/2021 364 157 - 371 x10(9)/L Final PATHOLOGY, LAST 30 DAYS No results found for this or any previous visit (from the past 720 hour(s)). IMAGING RESULTS, LAST 7 DAYS - IMPRESSION ONLY DX Chest AP or PA and Lateral 2 Views Result Date: 03/11/2021 Impression: Tiny bilateral pleural effusions are new since 03/26/2003. Given differences in technique these have likely decreased slightly since CT 03/06/2021. Minimal atelectasis both lung bases. Slight aortic calcification. No focal pulmonary infiltrates. ASSESSMENT / PLAN Visit diagnosis: #1 Mass Abdominal Site #2 Ascites #3 Peritoneal Carcinomatosis (HCC) #4 Other Abnormal Tumor Markers I discussed with the patient that her clinical presentation is most consistent with ovarian cancer. I discussed that ovarian cancers treated with combination chemotherapy and surgery. Discussed with the patient that given her overall general health, nutritional status, and disease distribution I wouldrecommend proceeding with a primary debulking surgery. Discussed with the patient the role of surgery in the management of this disease. We will plan to proceed with exploratory laparotomy, likely abdominal hysterectomy, bilateral salpingo- oophorectomy, omentectomy, diaphragm stripping, excision of cardiophrenic node and the bulking procedure. I discussed with the patient the goal of surgery is to remove all of her disease but at times we are unable to do this. Discussed with her possibility of aborting her procedure if we find extensive disease I cannot be excise. I discussed the possibility of a bowel resection and the possible need for a temporary or permanent colostomy or ileostomy. The procedure and its risks and benefits were discussed in detail. We discussed risks, benefits, complications of surgery. Risks include but are not limited to bleeding, infection, injury to adjacent organs, venous thromboembolism, and lymphedema if lymph nodes are removed. Discussed the role of residents and fellows in surgery. Reviewed the practice of overlapping liang rgeries. PATIENT EDUCATION Ready to learn, no apparent learning barriers were identified; learning preferences include listening. Explained diagnosis and treatment plan; patient expressed understanding of the content. INFORMED CONSENT Discussed the risks, benefits, and alternatives of the procedure and of possible blood transfusion. Discussed the necessity of other members of the healthcare team participating in the procedure. All questions answered and consent given. I discussed with the patient that in our practice at [facility], we sometimes perform overlapping surgeries, meaning that I will be present for the entire critical portion of the surgery, and that my team members will assist me with the noncritical portions of the procedure. BILLING I personally spent over half of a total 45 minutes in counseling and discussion with the patient andcoordination of care as described above. Apple Motta M.D. documented in this encounter Plan of Treatment Upcoming Encounters Date Type Specialty Care Team Description 05/11/2022 Lab Laboratory Medicine D'Marky, Kathleen D, M.D. [address] [place] [phone] 05/12/2022 Clinical Communication Admitting/Central Scheduling 05/13/2022 Telemedicine Oncology Kathleen Mccarty M.D. [address] [place] [phone] Maribeth Guthrie R.N., O.C.N. [address] [place] [phone] 05/18/2022 Lab Laboratory Medicine Nataly Horta APRN, C.N.P., M.S.N. [address] [place] [phone] 05/18/2022 Office Visit Oncology Nataly Horta APRN C.N.P., M.S.N. [address] [place] [phone] documented as of this encounter Visit Diagnoses Diagnosis Mass Abdominal Site - Primary Ascites Peritoneal Carcinomatosis (HCC) Other Abnormal Tumor Markers documented in this encounter Care Teams Branch Logistics Supervisor Relationship Specialty Start Date End Date Elsewhere, Pcp PCP - General Family Medicine 03/10/21 documented as of this encounter
--- OUTSIDE RECORDS SUMMARY | 2022-03-25 08:52 | XMS_ITS | Encounter Summary ---
:1960 Author Organization [facility] Address [address] [place] [address] Care Team Providers Name Role Phone Elsewhere, Pcp Primary Care Provider Unavailable Encounter Details Date Type Department Care Team Description 03/11/2021 Hospital Encounter Department of [address], Effusion Pleural; Radiology, Darell Joe M.D. Shortness Of Breath [facility], in [address] [place], [place] [address] [place] [phone] [place], [place] [phone] (Work) [phone] Social History Tobacco Use Types Packs/Day Years [...] or relatives? How often do you attend caodaism or roman catholic More than 4 time s per year 10/23/2021 services? Do you belong to any clubs or organizations No 10/23/2021 such as caodaism groups, unions, fraternal or athletic groups, or [...] for constipation. documented as of this encounter Plan of Treatment Upcoming Encounters Date Type Specialty Care Team Description 05/11/2022 Lab Laboratory Medicine Kathleen Mccarty M.D. [address] [place] [phone] 05/12/2022 Clinical Communication Admitting/Central Scheduling 05/13/2022 Telemedicine Oncology Kathleen Mccarty M.D. [address] [place] [phone] Maribeth Guthrie R.N., O.C.N. [address] [place] [phone] 05/18/2022 Lab Laboratory Medicine Nataly Horta APRN, C.N.P., M.S.N. [address] [place] [phone] 05/18/2022 Office Visit Oncology Nataly Horta APRN, C.N.P., M.S.N. [address] [place] [phone] documented as of this encounter Procedures Procedure Name Priority Date/Time Associated Comments Diagnosis DX CHEST AP OR PA RAD - Routine 03/11/2021 10:05 Effusion Pleu ral Results for this AND LATERAL 2 (most inpatients AM CDT Shortness Of procedure are in VIEWS and all Breath the results outpatients) section. documented in this encounter Results DX Chest AP or [...] this encounter Visit Diagnoses Diagnosis Effusion Pleural Shortness Of Breath documented in this encounter Care Teams Entry Level Java Developer Relationship Specialty Start Date End Date Elsewhere, Pcp PCP - General Family Medicine 03/10/21 documented as of this encounter
--- OUTSIDE RECORDS SUMMARY | 2022-03-25 08:52 | XMS_ITS | Encounter Summary ---
:1960 Author Organization [facility] Address [address] [place] [id number] Care Team Providers Name Role Phone Elsewhere, Pcp Primary Care Provider Unavailable Encounter Details Date Type Department Care Team Description 03/10/2021 Hospital Encounter Department of [address], Preproce dural Lab Exam Laboratory Medicine Leila Ribera and Pathology, [address] [place] [address] in [facility] [phone] [place] [phone] [place] [address] (Work) [place], [place] [phone] (Fax) [phone] Social History Tobacco Use Types Packs/Day Years [...] How often do you attend mormonism or protestant More than 4 time s [...] place to sleep or slept in a long term (including now)? Education Answer Date Recorded What [...] Lab Laboratory Medicine Kathleen Mccarty M.D. [address] [place] [phone] 05/12/2022 Clinical Communication Admitting/Central Scheduling 05/13/2022 Telemedicine Oncology Kathleen Mccarty M.D. [address] [place] [phone] Maribeth Guthrie R.N., O.C.N. [address] [place] [phone] 05/18/2022 Lab Laboratory Medicine Nataly Horta APRN, C.NAlphonso, M.S.N. [address] [place] [phone] 05/18/2022 Office Visit Oncology Nataly Horta APRN, C.NAlphonso, M.S.N. [address] [place] [phone] documented as of this encounter Procedures Procedure Name Priority Date/Time Associated Diagnosis Comme nts CBC WITH Routine 03/10/2021 1:52 PM Preprocedural Lab Exam Results for this DIFFERENTIAL, B CDT procedure ar e in the results section. TYPE AND SCREEN Routine 03/10/2021 1:52 PM Preprocedural Lab E xam Results for this CDT procedure are i n the results section. documented in this encounter Results (ABNORMAL) CBC with Differential, Blood (03/10/2021 1:52 PM CDT) [facility] gist Method Time Signature Hemoglobin 12.5 11.6 [...] Address City/State/ZIP Code Phon e Number [facility] - [address] [place], [place] [address] [facility] [place] [address] Laboratories-[facility] [address] Type and Screen (with reflex Antibody ID) (03/10/2021 1:52 PM CDT) [facility] gist Method Time Signature ABORh A Pos Not 03/10/2021 ETRM applicable 2:57 PM CDT Antibody Negative Negative 03/10/2021 ETRM Screen 3:09 PM CDT Type & Screen 03/13/2021 03/10/2021 ETRM Expiration 23:59 2:57 PM CDT Testing [place] DEFAULT 03/10/2021 ETRM Location 2:26 PM CDT Specimen Anatomical Collection Method Collection Time Receive d Time (Source) Location / / Volume Laterality Blood (Blood, 03/10/2021 1:52 PM 03/10/20 2:26 Venous) CDT PM CDT Apple Motta M.D. LAB BLOOD BANK TEST ORDERABL ES Performing Organization Address City/State/ZIP Code Phon e Number [facility] - [address] [place], [place] [address] [facility] [place] [address] Laboratories-[facility] [address] documented in this encounter Visit Diagnoses Diagnosis Preprocedural Lab Exam documented in this encounter Additional Health Concerns Infection Onset Date Last Indicated Resolved Time COVID19 Pending 03/10/2021 03/10/2021 03/10/2021 6:13 PM CDT documented as of this encounter Care Teams Dewer Relationship Specialty Start Date End Date Elsewhere, Pcp PCP - General Family Medicine 03/10/21 documented as of this encounter
--- OUTSIDE RECORDS SUMMARY | 2022-03-25 08:52 | XMS_ITS | Encounter Summary ---
:1960 Author Organization [facility] Address [address] [place] [address] Care Team Providers Name Role Phone Elsewhere, Pcp Primary Care Provider Unavailable Reason for Referral Outpatient (Routine) Specialty Diagnoses / Procedures Referred By Contact Refer red To Contact Oncology Apple Motta M.D. [facility] [address] [place] [phone] Referral ID Status Reason Start Date Expiration Date Visits Requ ested Visits Authorized Outpatient (Routine) Specialty Diagnoses / Procedures Referred By Contact Refer red To Contact Oncology Apple Motta M.D. [facility] [address] [place] [phone] Referral ID Status Reason Start Date Expiration Date Visits Requ ested Visits Authorized Reason for Visit Outpatient (Routine) - Closed Specialty Diagnoses / Procedures Referred By Contact Refer ashtyn To Contact Medical Oncology / Diagnoses Malignant Neoplasm Of Ovary Left (HCC) Patricia Milner [facility] MICKIE RLinda [address] [place] [phone] Referral ID Status Reason Start Date Expiration Date Visits Requ ested Visits Authorized [id number] Closed 03/13/2021 03/13/2022 1 1 Encounter Details Date Type Department Care Team Description 03/24/2021 Comprehensive Visit Department of Claribel Motta Neoplasm Of Ovary Laterality Unknown (HCC) (Primary Dx); Oncology in Apple Joe M.D. Malignant Neoplasm Of Ovary Left (HCC) [place], [address] [place], [place] 200 [facility] [phone] [place], [place] [phone] (Work) [phone] Social History Tobacco Use Types Packs/Day Years [...] How often do you attend uatsdin or holiness More than 4 time s [...] Sign Reading Time Taken Comments Blood Pressure 138/82 03/24/2021 9:57 AM CDT Pulse 98 03/24/2021 9:57 AM CDT Temperature 36 ??C (96.8 ??F) 03/24/2021 9:57 AM CDT Respiratory Rate 16 03/24/2021 9:57 AM CDT Oxygen Saturation 97% 03/24/2021 9:57 AM CDT Inhaled Oxygen Concentration - - Weight 66.3 kg (146 lb 2.6 oz) 03/24/2021 9:57 AM CDT Height 163.8 cm (5' 4.49) 03/24/2021 9:57 AM CDT Body Mass Index 24.71 03/24/2021 9:57 AM CDT documented in this encounter Consult Notes Apple Motta M.D. - 03/24/2021 10:00 AM CDT SUBJECTIVE REQUESTING PROVIDER Patricia Milner, COMPOSITION SIDING WORKER, C.N.P. [address] [place] [phone] LOCAL ONCOLOGIST No care child study team director to display PRIMARY [place] ONCOLOGIST No care child study team director to display REASON FOR CONSULT Wendy Aviles is a 60 y.o. 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 She is found to have extensive disease which was felt to be unresectable due to disease distribution involving the bowel. 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 03/12/2021 Biopsy/Pathology Intraoperative biopsy showed: A. [...] retained. These results support the above diagnosis. 03/25/2021 - Chemotherapy CARBOplatin AUC 6 / PACLitaxel ( CLINICAL RESEARCH NURSE ) Start Date: 03/25/2021 (Planned) Mrs. Aviles is overall doing well. She has recovered well from surgery. She still has some fatigue. She no nausea or vomiting. Her appetite is good. The following portions of the patient's history were reviewed and updated as appropriate: allergies,current medications, family history, medical history, social history and surgical history. REVIEW OF SYSTEMS All systems reviewed and negative except as noted in HPI. OBJECTIVE There were no vitals taken for this visit. No data recorded PHYSICAL EXAM General: Well-appearing, no apparent distress, alert and oriented. Eyes: Sclerae nonicteric. ENT: Moist mucous membranes. Lymph: No palpable cervical, supraclavicular, or inguinal lymphadenopathy. Heart: Regular rate and rhythm. Lungs: Clear to auscultation bilaterally. Decreased breath sounds on the left lung base. Abdomen: Distended with moderate ascites, soft, nontender. No masses. No hepatosplenomegaly. Extremities: Warm. No edema. No calf tenderness. ECOG status: 1 LABORATORY DATA Lab data reviewed. RADIOLOGICAL DATA Radiology data reviewed. ASSESSMENT / PLAN #1 Malignant Neoplasm Of Ovary Left (HCC) Discussed with the patient the plan to move forward with chemotherapy. Will plan to initiate chemotherapy with carboplatin and paclitaxel. We discussed side effects of medications including but not limited to alopecia, decreased blood counts, nausea and allergic reaction. I have gone over the nausea medications. I will was sent prescriptions to her home pharmacy. The patient will initiate chemotherapy next week. All questions were answered. PATIENT EDUCATION Ready to learn, no apparent learning barriers were identified; learning preferences include listening. Explained diagnosis and treatment plan; patient expressed understanding of the content. ADMINISTRATIVE BILLING I personally spent over half of a total 35 minutes in counseling and discussion with the patient andcoordination of care as described above. documented in this encounter Plan of Treatment Upcoming Encounters Date Type Specialty Care Team Description 05/11/2022 Lab Laboratory Medicine Kathleen Mccarty M.D. [address] [place] [phone] 05/12/2022 Clinical Communication Admitting/Central Scheduling 05/13/2022 Telemedicine Oncology Kathleen Mccarty M.D. [address] [place] [phone] Maribeth Guthrie R.N., O.C.N. [address] [place] [phone] 05/18/2022 Lab Laboratory Medicine Nataly Horta APRN, C.NAlphonso, M.S.N. [address] [place] [phone] 05/18/2022 Office Visit Oncology Nataly Horta APRN, C.NAlphonso, M.S.N. [address] [place] [phone] Scheduled Referrals Name Type Priority Associated Diagnoses Order [facility] Oncology office Outpatient Referral Routine Malignant Neoplasm Expected: visit (clinic) Of Ovary Laterality 2020, General; CLINICAL RESEARCH NURSE Unknown (HCC) Expires: 04/20/2022 Oncology office Outpatient Referral Routine Malignant Neoplasm Expected: visit (clinic) Of Ovary Laterality 2020, General; CLINICAL RESEARCH NURSE Unknown (HCC) Expires: 05/11/2022 documented as of this encounter Results Creatinine with Estimated GFR (05/11/2021 7:30 AM CDT) athologist Signature Creatinine 0.70 0.59 - 05/11/2021 [facility] 1.04 mg/dL 8:37 AM CDT eGFR-Black/Afric >90 >=60 05/11/2021 [facility] an [place] Citizen mL/min/BSA 8:37 AM CDT Comment: ----ADDITIONAL INFORMATION---- Estimated GFR calculated using the 2009 CKD_EPI creatinine equation. eGFR Non-Black/ >90 >=60 mL/min/BSA 05/11/2021 8:37 AM CDT METH Comment: ----ADDITIONAL INFORMATION---- Estimated GFR calculated using the 2009 CKD_EPI creatinine equation. Specimen Anatomical Collection Method Collection Time Receive d Time (Source) Location / / Volume Laterality Blood (Blood, 05/11/2021 7:30 AM 05/11/20 7:36 Venous) CDT AM CDT Apple Motta M.D. LAB BLOOD ADD-ON Performing Organization Address [facility] Phon e Number [facility] - 200 [place], [place] [address] [place] [phone] [place] [address] (ABNORMAL) CBC, Chemotherapy, No Alerts (05/11/2021 7:30 AM CDT) Analysis Performed At Patho logist Time Signature Hemoglobin 10.4 (L) 11.6 - 05/11/2021 [facility] 15.0 g/dL 7:40 AM CDT Platelet Count 298 157 - 371 05/11/2021 [facility] x10(9)/L 7:40 AM CDT Leukocytes 4.8 3.4 - 9.6 05/11/2021 [facility] x10(9)/L 7:40 AM CDT Neutrophils 2.55 1.56 - 05/11/2021 [facility] 6.45 7:40 AM CDT x10(9)/L Specimen Anatomical Collection Method Collection Time Receive d Time (Source) Location / / Volume Laterality Blood (Blood, 05/11/2021 7:30 AM 05/11/20 7:36 Venous) CDT AM CDT Apple Motta M.D. LAB BLOOD ADD-ON Performing Organization Address City/[facility] Code Phon e Number [facility] - 200 [place], [place] [address] [facility] [place] [address] Bilirubin, Total (05/11/2021 7:30 AM CDT) P athologist Signature Bilirubin, <0.2 <=1.2 mg/dL 05/11/2021 [facility] Total, P 9:35 AM CDT Specimen Anatomical Collection Method Collection Time Receive d Time (Source) Location / / Volume Laterality Blood (Blood, 05/11/2021 7:30 AM 05/11/20 7:36 Venous) CDT AM CDT Apple Motta M.D. LAB BLOOD ADD-ON Performing Organization Address City/[facility]/ZIP Code Phon e Number [facility] - [address] [place] [address] AST (Aspartate Aminotransferase) (05/11/2021 7:30 AM CDT) Patholo gist Method Time Signature Aspartate 20 8 - 43 05/11/2021 [facility] Aminotransferase U/L 8:37 AM CDT (AST), P Specimen Anatomical Collection Method Collection Time Receive d Time (Source) Location / / Volume Laterality Blood (Blood, 05/11/2021 7:30 AM 05/11/20 7:36 Venous) CDT AM CDT Apple Motta M.D. LAB BLOOD ADD-ON Performing Organization Address [facility] Phon e Number [facility] - [address] [place], [place] [phone] [place] [address] Creatinine with Estimated GFR (04/20/2021 7:40 AM CDT) P athologist Signature Creatinine 0.74 0.59 - 04/20/2021 [facility] 1.04 mg/dL 8:13 AM CDT eGFR-Black/Afric >90 >=60 04/20/2021 [facility] an [place] Citizen mL/min/BSA 8:13 AM CDT Comment: ----ADDITIONAL INFORMATION---- Estimated GFR calculated using the 2009 CKD_EPI creatinine equation. eGFR Non-Black/ 88 >=60 mL/min/BSA 8:13 AM CDT METH Comment: ----ADDITIONAL INFORMATION---- Estimated GFR calculated using the 2009 CKD_EPI creatinine equation. Specimen Anatomical Collection Method Collection Time Receive d Time (Source) Location / / Volume Laterality Blood (Blood, 04/20/2021 7:40 AM 04/20/20 7:53 Venous) CDT AM CDT Apple Motta M.D. LAB BLOOD ADD-ON Performing Organization Address City/[facility]/ZIP Code Phon e Number [facility] - 200 [place], [place] [address] [place] [address] (ABNORMAL) CBC, Chemotherapy, No Alerts (04/20/2021 7:40 AM CDT) Analysis Performed At Patho logist Time Signature Hemoglobin 11.2 (L) 11.6 - 04/20/2021 [facility] 15.0 g/dL 7:51 AM CDT Platelet Count 264 157 - 371 04/20/2021 [facility] x10(9)/L 7:51 AM CDT Leukocytes 7.2 3.4 - 9.6 04/20/2021 [facility] x10(9)/L 7:51 AM CDT Neutrophils 5.26 1.56 - 04/20/2021 [facility] 6.45 7:51 AM CDT x10(9)/L Specimen Anatomical Collection Method Collection Time Receive d Time (Source) Location / / Volume Laterality Blood (Blood, 04/20/2021 7:40 AM 04/20/20 7:50 Venous) CDT AM CDT Apple Motta M.D. LAB BLOOD ADD-ON Performing Organization Address City/State/[facility] Phon e Number [facility] - 200 [place], [place] [address] [place] [address] [address] [address] Bilirubin, Total (04/20/2021 7:40 AM CDT) P athologist Signature Bilirubin, 0.3 <=1.2 mg/dL 04/20/2021 [facility] Total, P 8:13 AM CDT Specimen Anatomical Collection Method Collection Time Receive d Time (Source) Location / / Volume Laterality Blood (Blood, 04/20/2021 7:40 AM 04/20/20 7:53 Venous) CDT AM CDT Apple Motta M.D. LAB BLOOD ADD-ON Performing Organization Address City/[facility] Code Phon e Number [facility] - 200 [place], [place] [address] [place] [address] AST (Aspartate Aminotransferase) (04/20/2021 7:40 AM CDT) Patholo gist Method Time Signature Aspartate 18 8 - 43 04/20/2021 [facility] Aminotransferase U/L 8:13 AM CDT (AST), P Specimen Anatomical Collection Method Collection Time Receive d Time (Source) Location / / Volume Laterality Blood (Blood, 04/20/2021 7:40 AM 04/20/20 7:53 Venous) CDT AM CDT Apple Motta M.D. LAB BLOOD ADD-ON Performing Organization Address City/State/ZIP Code Phon e Number [facility] - [address] [place] [address] [facility] [place] [address] [facility] [address] documented in this encounter Visit Diagnoses Diagnosis Malignant Neoplasm Of Ovary Laterality U nknown (HCC) - Primary Malignant Neoplasm Of Ovary Left (HCC) documented in this encounter Care Teams Counter Pocket Sewer Relationship Specialty Start Date End Date Elsewhere, Pcp PCP - General Family Medicine 03/10/21 documented as of this encounter
--- OUTSIDE RECORDS SUMMARY | 2022-03-25 08:52 | XMS_ITS | Encounter Summary ---
:1960 Author Organization [facility] Address [address] [place] [address] Care Team Providers Name Role Phone Elsewhere, [...] Expiration Date Visits Requ ested Visits Authorized [id number] 1 1 Encounter Details Date Type Department Care Team Description 03/12/2021 Anesthesia Event RST [facility] OR Jessica Valenzuela M.D. [address] [place] [address] [address] [facility] Kylah Welch M.D. [address] [place] [address] [place] [phone] Anesthesia Record Procedure Summary Procedure Name Responsible Anesthesia Start Anesthesia Stop Anesthesiologist Time Time EXPLORATORY Jessica Valenzuela M.D. 03/12/21 0803 1050 LAPAROTOMY Events Date Time Event Comment 03/12/2021 0803 An Start Machine/Equipmen t Checked Infection Precautions Foll owed Procedure/Site Verified NPO Sta tus Verified Supine Standard ASA Mon itors Applied 0811 An Induction 0815 An Intubation 0825 Turnover to Proceduralist 0842 0910 Proc Start 1018 Proc Fin 1035 Turnover to ANE Staff 1035 Airway Removal Criteria Met 1035 Extubation/Airway Removed 1036 an stop data 1050 An End I completed my h andoff to the receiving staff during [facility] we 1. Identified the patient 2. Ident ified the responsible provider 3. Revi ewed the pertinent medical history 4. Discussed the surgical course 5. Review ed intra-op anesthesia management and i ssues during anesthesia 6. Set expectati ons for post-procedure period 7. Allowe d opportunity for questions and ac knowledgement of understanding. Name Total fentanyl injection 50 mcg/mL 100 mcg lidocaine 2% (mg) injection 80 mg propofol 10 mg/mL 230 mg rocuronium 10 mg/mL injection 100 mg ePHEDrine PF 5 mg/mL syringe injection 15 mg ondansetron 4 mg/2 mL injection 4 mg sugammadex 100 mg/mL injection 150 mg glycopyrrolate 0.2 mg/mL injection 0.2 mg ceFAZolin injection 2,000 mg (ANCEF) 2,000 mg heparin (porcine) injection 5,000 Units 5,000 Units dexamethasone 4 mg/mL injection 8 mg ketamine 10 mg/mL injection 20 mg HYDROmorphone PF 2 mg/mL injection 1 mg albumin human bottle 5% 1,000 mL haloperidol 5 mg/mL injection 1 mg caffeine-sodium benzoate 250 mg (125 mg caffeine)/mL i njection 125 mg Lactated Ringers Free Drip 300 mL lactated ringers free drip 900 mL Agents No agents on file. Blood No blood administrations on file. Lines, Drains, and Airways Type Details Placement Removal Peripheral IV Placement Date: 03/12/21802 by 03/12/211999 b y 03/12/21; Placement Tika Stevenson Kruse, Court ney L, Time: 802; Catheter JONATHAN CORADO R.NErasto Size: 18 G; Orientation: Right; Location: Hand; Removal Date: 03/12/21; Removal Time: 1999; Removal Reason: Completion of therapy ETT Placement Date: 03/12/21814 by 03/12/21 1035 b y 03/12/21; Placement Tika Stevenson Paul, Biswaj it, Time: 814 (created via JONATHAN CORADO APRN, CR NA procedure documentation); Mask Ventilation: Easy mask; Type: Standard ETT; Single Lumen Tube Size: 7 mm; Cuffed: Yes; Blade Size: Ogden 2; Location: Oral; Grade View: Grade 1; Insertion Attempts: 1; Placement Verification: Bilateral breath sounds, Positive ETCO2, Symmetrical chest wall movement; Removal Date: 03/12/21; Removal Time: 1035 Peripheral IV Placement Date: 03/12/21814 by 03/12/211999 b y 03/12/21; Placement Tika Stevenson Kruse, Court ney L, Time: 814; Catheter JONATHAN CORADO R.N. Size: 16 G; Orientation: Left; Location: Hand; Removal Date: 03/12/21; Removal Time: 1999; Removal Reason: Completion of therapy Arterial Line Placement Date: 03/12/21833 by 03/12/21 110 b y 03/12/21; Placemnt Time: Jessica Valenzuela, Wendy Graf 08 (created via Cass Benitez, R.N. procedure documentation); Size: 20 G; Orientation: Left; Location: Radial; Site Prep: Chlorhexidine (Preferred); Technique: Anatomical landmarks; Insertion Attempts: 5+; Securement: Securement dressing, Securement device; Removal Date: 03/12/21; Removal Time: 110; Removal Reason: Per protocol Indwelling Urinary Placement Date: 03/12/21 0905 by 03/12/21 155 0 by Catheter 03/12/21; Placement Reba Laws Rowe, My ra E, R.N., Time: 904; Inserted by: Soila Rios; Type: Non-latex; Size: 16 Fr.; Balloon Size: 5 mL (10ml sterile water in balloon); Urine Returned: Yes; Removal Date: 03/12/21; Removal Time: 1550; Removal Reason: Per order (RETIRED) Incision 03/12/21; 1017; Abdomen; 03/12/21 1017 by 0800 by primapore; 06/03/21; Reba Laws Rowe, M yra E, R.N., 0800; Old incision site R.N. CErastoM.S.RErasto N. documented in this encounter Social History Tobacco [...] How often do you attend islam or nondenominational More than 4 time s per year [...] encounter OR Notes Anesthesia Postprocedure Evaluation - Jessica Valenzuela M.D. - 03/12/2021 10:58 AM CDT Patient: Wendy Aviles Procedure Summary Date: 03/12/21 Room / Location: [place] [address] / [facility] in [place], [place] Anesthesia Start: 802 Anesthesia Stop: Procedures: EXPLORATORY LAPAROTOMY (N/A ) omental biopsy (N/A ) Diagnosis: Mass Abdominal Site (Mass Abdominal Site [R19.00].) Providers: Apple Motta M.D. Responsible Provider: Jessica Valenzuela M.D. Anesthesia Type: general ASA Status: 3 Anesthesia Type: general Last vitals Vitals Value Taken Time BP 128/67 03/12/21 1045 Temp 36.5 ??C 03/12/21 1049 Pulse 89 03/12/21 1057 Resp 13 03/12/21 1057 SpO2 100 % 03/12/21 1057 Vitals shown include unvalidated device data. Please reference Vitals flowsheet for most recent vital signs. Anesthesia Post Evaluation Patient Disposition: general care unit Cardiovascular status: hemodynamics (HR & BP) acceptable Respiratory status: patent airway with spontaneous effort Temperature: normothermic Oxygen requirements: room air Level of consciousness: awake Pain score: pain adequately controlled and/or at baseline Post Op nausea/vomiting: none Hydration status: euvolemic Anesthesia Procedure Notes - Tika Stevenson APRN, CRNA - 03/12/2021 8:54 AM CDT Associated Order(s): Airway Airway Date/Time: 03/12/2021 8:15 AM Performed by: Tika Stevenson APRN, CRNA Authorized by: Jessica Valenzuela M.D. Patient location during procedure: OR / Procedure Area PROCEDURE DETAILS: Mask difficulty assessment: easy mask Final airway type: direct laryngoscopy, intubation Laryngeal Manipulation: no Final airway difficulty of direct laryngoscopy (DL): 0-easy Final best view of glottic structures - Cormack/Lehane Score: grade 1 ETT location: oral Adult blade type: Ogden 2 Adult tube size: 7 Adult ETT distance at teeth/gum: 21 Oral tube type: standard ETT Cuffed: yes [...] anesthesia POST PROCEDURE DETAILS: Procedure outcome: successful ATTESTATION STATEMENT Anesthesia Procedure Notes - Jessica Valenzuela M.D. - 03/12/2021 8:34 AM CDT Associated Order(s): Invasive Catheter Invasive Catheter Date/Time: 03/12/2021 8:34 AM Performed by: Jessica Valenzuela M.D. Authorized by: Jessica Valenzuela M.D. Care team members present 1. Jessica Valenzuela M.D. Location: OR PROCEDURE DETAILS: Line type: arterial Laterality: left Location: radial Location details: new site Age group: adult Catheter diameter: 20 Ga Technique: palpation Monitored: yes Number of attempts: 5 or more PRE-PROCEDURE DETAILS: Appropriate hand hygiene, gown, cap, [...] slight turn: yes Complications - arterial: none ATTESTATION STATEMENT Anesthesia Preprocedure Evaluation - Jessica Valenzuela M.D. - 03/12/2021 7:20 AM CDT Preprocedure Anesthesia & H&P Assessment Procedure Summary Date/Time: 03/12/21 0800 Procedures: LAPAROTOMY, TUMOR DEBULKING. (N/A ) HYSTERECTOMY ABDOMINAL, BILATERAL SALPINGO-OOPHORECTOMY. (N/A ) OMENTECTOMY. (N/A ) LYMPHADENECTOMY, PELVIS vs AORTIC. (N/A ) RESECTION LOW ANTERIOR, ANASTOMOSIS. (N/A ) Diagnosis: Mass Abdominal Site [R19.00] Pre-op diagnosis: Mass Abdominal Site [R19.00]. Location: [address] [facility] / [facility] in [place], [place] Providers: Apple Motta M.D. Pertinent components [...] Iron Deficiency Blood Loss Chronic ONC (+) Peritoneal Carcinomatosis (HCC) OBJECTIVE PHYSICAL EXAMINATION Airway (HEENT) Mallampati: II Cardiovascular Rhythm: Regular Pulmonary Pulmonary Assessment: Non labored General / Constitutional Constitutional Assessment: Normal Neurological Neurologic Assessment:??alert and alert and oriented x 3 ASSESSMENT / PLAN ANESTHESIA PLAN ASA: 3 Anesthesia Plan: general Patient seen and allergies reviewed, anesthesia plan and risks discussed directly with patient /legal guardian or through an lighting adviser. Risks/Benefits/Alternatives of Blood transfusion discussed with patient / legal guardian, including an opportunity to ask questions and/or decline some or all transfusion therapies. The patient / legalguardian consented to the use of all blood products, as deemed medically necessary Approval to Proceed: approved for anesthesia documented in this encounter Plan of Treatment Upcoming Encounters Date Type Specialty Care Team Description 05/11/2022 Lab Laboratory Medicine Kathleen Mccarty M.D. [address] [place] [address] 05/12/2022 Clinical Communication Admitting/Central Scheduling 05/13/2022 Telemedicine Oncology Kathleen Mccarty M.D. [address] [place] [address] Maribeth Guthrie R.N., O.C.N. [address] [place] [phone] 05/18/2022 Lab Laboratory Medicine Nataly HortaMICKIE C.NAlphonso, M.S.N. [address] [place] [phone] 05/18/2022 Office Visit Oncology Nataly HortaMICKIE C.NAlphonso, M.S.N. [address] [place] [phone] documented as of this encounter Procedures Procedure Name Priority Date/Time Associated Comments Diagnosis LDA ANE ARTERIAL LINE Routine 03/12/2021 8:34 AM Results for this INSERTION CDT procedure are i n the results section. PA ARTL CATH/CNULA Routine 03/12/2021 8:34 AM Res ults for this MONITOR PERC CDT procedure are i n the results section. LDA ANE ENDOTRACHEAL Routine 03/12/2021 8:15 AM R esults for this AIRWAY CDT procedure are i n the results section. documented in this encounter Results PA ARTL CATH/CNULA MONITOR PERC, LDA ANE ARTERIAL LINE INSERTION (03/12/2021 8:34 AM CDT) Narrative Jessica Valenzuela M.D. - 03/12/2021 8 :34 AM CDT Jessica Valenzuela M.D. ? 03/12/2021 ??8:48 AM Invasive Catheter Date/Time: 03/12/2021 8:34 AM Performed by: Jessica Valenzuela M.D. Authorized by: Jessica Valenzuela M.D. Care team members present 1. Jessica Valenzuela M.D. Location: OR PROCEDURE DETAILS: Line type: arterial ?? Laterality: left Location: radial Location details: new site ? Age group: adult Catheter diameter: 20 Ga Technique: palpation ?? Monitored: yes ?? Number of attempts: 5 or more PRE-PROCEDURE DETAILS: Appropriate hand hygiene, gown, cap, [...] turn: yes ?? Complications - arterial: none ATTESTATION STATEMENT Jessica Valenzuela M.D. PROCEDURE/MINOR SURGICAL ORD ERABLES LDA ANE ENDOTRACHEAL AIRWAY (03/12/2021 8:15 AM CDT) Narrative Tika Stevenson APRN, CRNA - 03/12/2021 8:15 AM CDT Tika Stevenson APRN, CRNA ? 03/12/2021 ??8:56 AM Airway Date/Time: 03/12/2021 8:15 AM Performed by: Tika Stevenson APRN, CRNA Authorized by: Jessica Valenzuela M.D. Patient location during procedure: OR / Procedure Area PROCEDURE DETAILS: Mask difficulty assessment: easy mask Final airway type: direct laryngoscopy, intubation Laryngeal Manipulation: no ?? Final airway difficulty of direct laryng oscopy (DL): 0-easy Final best view of glottic structures - Cormack/Lehane Score: grade 1 ETT location: oral Adult blade type: Ogden 2 Adult tube size: 7 Adult ETT distance at teeth/gum: 21 Oral tube type: standard ETT Cuffed: yes [...] PROCEDURE DETAILS: ? Procedure outcome: successful ?? ATTESTATION STATEMENT Jessica Valenzuela M.D. ANESTHESIA ORDERABLES documented in this encounter Visit Diagnoses Not on filedocumented in this encounter Administered Medications Inactive Administered Medications - up to 3 most recent administrations Medication Order MAR Action Action Date Dose Rate Site albumin human 5 % injection Given 03/12/2021 10:00 AM CDT 250 mL intravenous, As needed, Starting on Jackeline 03/12/21 at 0936, Anesthesia Intra-op Given 03/12/2021 9:51 AM CDT 250 mL Given 03/12/2021 9:46 AM CDT 250 mL caffeine-sodium benzoate injection Given 03/12/2021 10:08 AM CDT 125 mg intravenous, As needed, Starting on Jackeline 03/12/21 at 1008, Anesthesia Intra-op ceFAZolin injection 2,000 mg (ANCEF) Given 03/12/2021 9:09 AM CDT 2,000 mg 2,000 mg, intravenous, Once, On Jackeline 03/12/21 at 0730, For 1 dose, Intra-Op, Preoperatively within 1 hour prior to surgical incision If needed, reconstitute vial per package insert instructions. See IVAG for administration guidelines. , Drug Monitoring Program: Pharmacist to adjust medication dosing based on indication and drug clearance factors., Indications: Prophylaxis, surgical dexAMETHasone injection (DECADRON) Given 03/12/2021 9:07 AM CDT 8 mg intravenous, As needed, Starting on Jackeline 03/12/21 at 0907, Anesthesia Intra-op ePHEDrine (PF) injection Given 03/12/2021 9:35 AM CDT 5 mg intravenous, As needed, Starting on Jackeline 03/12/21 at 0915, Anesthesia Intra-op Given 03/12/2021 9:15 AM CDT 10 mg fentaNYL injection (SUBLIMAZE) Given 03/12/2021 8:11 AM CDT 100 mcg intravenous, As needed, Starting on Jackeline 03/12/21 at 0811, Anesthesia Intra-op glycopyrrolate injection (ROBINUL) Given 03/12/2021 9:21 AM CDT 0.2 mg intravenous, As needed, Starting on Jackeline 03/12/21 at 0921, Anesthesia Intra-op haloperidol lactate injection (HALDOL) Given 03/12/2021 10:04 AM CDT 1 mg intravenous, As needed, Starting on Jackeline 03/12/21 at 1004, Anesthesia Intra-op heparin (porcine) injection 5,000 Units Given 03/12/2021 8:59 AM CDT 5,000 Units 5,000 Units, subcutaneous, Once, On Jackeline 03/12/21 at 0730, For 1 dose, Intra-Op, Administer prior to induction of anesthesia. HYDROmorphone (PF) injection (DILAUDID) Given 03/12/2021 9:10 AM CDT 1 mg intravenous, As needed, Starting on Jackeline 03/12/21 at 0910, Anesthesia Intra-op ketamine injection (KETALAR) Given 03/12/2021 10:50 AM CDT 10 mg intravenous, As needed, Starting on Jackeline 03/12/21 at 0907, Anesthesia Intra-op Given 03/12/2021 9:07 AM CDT 10 mg lactated ringers New Bag 03/12/2021 8:11 AM CDT intravenous, Continuous Infusion: Per Instructions PRN, Starting on Jackeline 03/12/21 at 0811, Anesthesia Intra-op lactated ringers New Bag 03/12/2021 8:25 AM CDT intravenous, Continuous Infusion: Per Instructions PRN, Starting on Jackeline 03/12/21 at 0825, Anesthesia Intra-op lidocaine (PF) (cardiac) injection Given 03/12/2021 8:11 AM CDT 80 mg intravenous, As needed, Starting on Jackeline 03/12/21 at 0811, Anesthesia Intra-op ondansetron (PF) injection (ZOFRAN) Given 03/12/2021 10:04 AM CDT 4 mg intravenous, As needed, Starting on Jackeline 03/12/21 at 1004, Anesthesia Intra-op propofoL injection (DIPRIVAN) Given 03/12/2021 10:19 AM CDT 50 mg intravenous, As needed, Starting on Jackeline 03/12/21 at 0811, Anesthesia Intra-op Given 03/12/2021 8:11 AM CDT 180 mg rocuronium injection (ZEMURON) Given 03/12/2021 8:11 AM CDT 100 mg intravenous, As needed, Starting on Jackeline 03/12/21 at 0811, Anesthesia Intra-op sugammadex injection (BRIDION) Given 03/12/2021 10:16 AM CDT 150 mg intravenous, As needed, Starting on Jackeline 03/12/21 at 1016, Anesthesia Intra-op documented in this encounter Care Teams Grinder Set Up Operator Internal Relationship Specialty Start Date End Date Elsewhere, Pcp PCP - General Family Medicine 03/10/21 documented as of this encounter
--- OUTSIDE RECORDS SUMMARY | 2022-03-25 08:52 | XMS_ITS | Encounter Summary ---
:1960 Author Organization [facility] Address [address] [place] [address] Care Team Providers Name Role Phone Elsewhere, [...] Expiration Date Visits Requ ested Visits Authorized [id number] 1 1 Encounter Details Date Type Department Care Team Description 03/12/2021 Hospital Encounter [facility] [address], Intra Abd ominal And Pelvic Swelling Mass And Lump Unspecified Site (Primary Dx); Hospital, Shinto Leila Ribera Other Abnormal Tumor Markers; [place], [address] Mass Abdominal Site Building, [place], [place] Floor [phone] [address] [facility] [phone] [place], [place] (Work) [phone] Social History Tobacco Use [...] How often do you attend latter-day or christianity More than 4 time s per year [...] Sign Reading Time Taken Comments Blood Pressure 130/67 03/12/2021 7:55 PM CDT Pulse 100 03/12/2021 7:55 PM CDT Temperature 37 ??C (98.6 ??F) 03/12/2021 7:55 PM CDT Respiratory Rate 14 03/12/2021 7:55 PM CDT Oxygen Saturation 94% 03/12/2021 7:55 PM CDT Inhaled Oxygen Concentration - - Weight 66.9 kg (147 lb 7.8 oz) 03/12/2021 6:59 AM CDT Height 160 cm (5' 2.99) 03/12/2021 6:59 AM CDT Body Mass Index 26.13 03/12/2021 6:59 AM CDT documented in this encounter Discharge Summaries Marcelo Carver M.D., M.S. - 03/12/2021 6:35 PM CDT DISCHARGE SUMMARY BRIEF OVERVIEW Hospital: [facility] Discharge Provider: Apple Motta M.D. Primary Team: [facility] Gynecologic Surgery - Ángela Primary Care Providers: [...] biopsy Apple Motta M.D.Bramblet, Rachel M, D.O. [facility] ROEI OR DISCHARGE DISPOSITION Home or [...] evaluation of your incision. If scheduled at [facility] then appointment desk will contact you [...] Culture, Aerobic + Susc In process Cytology Non-PRECISION LENS TECHNICIAN In process Surgical Pathology, Frozen Lab In [...] AEROBIC + SUSC Abdomen 03/12/2021 10:28 AM [facility] RESEARCH ORDER, B Blood, Venous PINK PINK PINK PINK PINK PINK PINK PINK PINK PINK PI: Javier Soliz M.D., Ph.D. SC: Delia Castelan IRB#: [id number] ARRIAGA: [id number] Study Alias: Ovarian Repository Subject ID: [id number] Visit: pre-op Collection Instructions: Tube Type: Amount Blood: Red Top 1 x 10 mL Red Top 1 x 4 mL EDTA 2x 10 mL EDTA 1 x 6 mL Sodium Heparin 1 x 10 mL Streck tube 1 x 10 mL Special Instructions: * Forward this document and samples to Elke CHAND * Study Collection only? YES / NO 03/12/2021 6:31 AM Region: [facility] Number of tubes for this collection (1-30): 6 CYTOLOGY NON-PRECISION LENS TECHNICIAN Peritoneal Fluid Collected By: Apple Motta M.D. [...] sent through Care Everywhere. Acetaminophen (By mouth) (Wallisian)Ibuprofen (By mouth) (Wallisian)Oxycodone, Rapid Release (By mouth) (Wallisian)Laxative, Stimulant Combination (By mouth) (Wallisian)Apixaban (By mouth) (Wallisian)documented in this encounter Medications at Time of [...] documented in this encounter OR Notes Op Melva - Apple Motta M.D. - 03/12/2021 9:10 AM CDT Pre-op Diagnosis Mass Abdominal Site Post-op Diagnosis Mass Abdominal Site A heel sprayer first actively participated and was necessary for one [...] Diaphragm Initial: < 1cm. Residual: < 1cm. Cooling System Operator Organs, Pelvic Colon & Peritoneum Initial: > [...] AEROBIC + SUSC Abdomen 03/12/2021 10:28 AM [facility] RESEARCH ORDER, B Blood, Venous PINK PINK PINK PINK PINK PINK PINK PINK PINK PINK PI: Javier Soliz M.D., Ph.D. SC: Delia Castelan IRB#: [id number] ARRIAGA: [id number] Study Alias: Ovarian Repository Subject ID: [id number] Visit: pre-op Collection Instructions: Tube Type: Amount Blood: Red Top 1 x 10 mL Red Top 1 x 4 mL EDTA 2x 10 mL EDTA 1 x 6 mL Sodium Heparin 1 x 10 mL Streck tube 1 x 10 mL Special Instructions: * Forward this document and samples to Jihan [id number] * Study Collection only? YES / NO 03/12/2021 6:31 AM Region: [facility] Number of tubes for this collection (1-30): 6 CYTOLOGY NON-PRECISION LENS TECHNICIAN Peritoneal Fluid Collected By: Apple Motta M.D. [...] Laboratory Medicine Kathleen Mccarty M.D. [address] [place] [phone] 05/12/2022 Clinical Communication Admitting/Central Scheduling 05/13/2022 Telemedicine Oncology Kathleen Mccarty M.D. [address] [place] [phone] Maribeth Guthrie, MaxwellNErasto, O.C.N. [address] [place] [phone] 05/18/2022 Lab Laboratory Medicine Nataly Horta APRN, C.N.Ashia, M.S.N. [address] [place] [phone] 05/18/2022 Office Visit Oncology Nataly Horta APRN, C.N.P., M.S.N. [address] [place] [phone] documented as of this encounter Procedures Procedure [...] are in LAB the results section. CYTOLOGY NON-PRECISION LENS TECHNICIAN Routine 03/12/2021 9:02 Mass Abdominal Result s [...] Aerobic + Susc (03/12/2021 10:55 AM CDT) [facility] gist Method Time Signature Bacterial No [...] City/State/ZIP Code Phon e Number [facility] - [address] [place] [phone] [facility] [place] [address] Laboratories-[address] DX Abdomen 1 View (03/12/2021 10:46 AM [...] atelectasis. Apple Motta M.D. IMG DIAGNOSTIC IMAGING [facility] Surgical Pathology, Frozen Lab (03/12/2021 9:44 AM CDT) Component Value Ref Test Analysis Performed Pathologis t Range Method Time At Signature 03/16/2021 [facility] 2:15 PM CDT Participated in [place] 03/16/2021 [facility] favian Victoria M.D., 2:15 PM Interpretation Ph.D.-Pathology CDT Resident Report [...] 2.2 x 1.4 x 0.3 cm area. ??Coring Machine Operator tissue submitted for frozen and permanent sections. ??Grossed by ESTEBAN. B. ??Received fresh labeled omental biopsy is a 12.5 x 5.0 x 1.3 cm omental cake. ??Coring Machine Operator tissue submitted for permanent sections only. ??After clinical evaluation, residual tissue is procured for IRB [id number] and [id number]. Grossed by [facility]. Block Summary A Transverse colon nodule 03/16/2021 [facility] A1 Transverse colon nodule 1 - frozen 2: 15 PM A2 Transverse colon nodule 2 - frozen CD T B Omental biopsy B1 Omental biopsy 1 B2 Omental biopsy 2 Disclaimer This test was developed and its performance characteri stics 03/16/2021 [facility] determined by [facility] in a manner consistent with CLIA 2:15 PM requirements. This test has not been cleared or approved by CDT the U.S. Food and Drug Administration. Addendum DisplayLink myChoice CDx has been requested by Dr. Bhaskar wylie 09/24/2021 M[facility] and will be performed on block B1 at [facility] 3:45 PM [facility], [place], [place]. PHOTOENGRAVING APPRENTICE Signed by Jessica Ndiaye M.D. 09/24/2021 3:45 PM Comment: REVISED RESULTS Interpretation FINAL DIAGNOSIS 09/24/2021 3:45 PM PHOTOENGRAVING APPRENTICE M[facility] A. 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 B. ??Omentum, biopsy: ?? 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 Immunohistochemical stains were performed on block B1 using antibodies to DE, keratin AE1/AE3, p16, p53, PAX8, BRG1, INI-1, WT1. The tumor cells are positive for cytokeratin AE1/AE3, DE, p16, p53, PAX8, and WT1. INI-1 and [...] City/State/ZIP Code Phon e Number [facility] - [address] [place], [place] [address] [facility] [place] [address] Laboratories-[facility] [address] (ABNORMAL) Cytology Non-PRECISION LENS TECHNICIAN (03/12/2021 9:02 AM CDT) Component Value Ref Test Analysis Performed Pathologis t Range Method Time At [facility] (A) 03/20/2021 DTL 5:13 PM CDT Participated in [facility], 03/20/2021 DTL the [facility].-Pathology 5:13 PM Interpretation Resident (Adrian) CDT Report Gena Schaefer M.D. [id number] 03/20/2021 DTL electronically 5:13 PM signed by [...] LAB SURG PATH ORDERABLES Performing Organization Address City/[facility] Phon e Number [facility] - [address] Miscellaneous Research, B (03/12/2021 6:51 AM CDT) athologist Signature Number of 6 03/12/2021 [facility] Specimens 6:51 AM CDT Specimen Anatomical Collection Method Collection Time Receive d Time (Source) Location / / Volume Laterality Varies (Blood, 03/12/2021 6:51 AM 021 6:51 Venous) CDT AM CDT Javier Soliz M.D., Ph.D. LAB RESEARCH NO RESULT RO UTING Performing Organization Address City/[facility] Phon e Number [facility] - [address] [place] [phone] [facility] HSS [address] documented in this encounter Visit Diagnoses Diagnosis Mass Abdominal Site - Primary Other Abnormal Tumor Markers Intra Abdominal And Pelvic Swelling Mass And Lump Unspecified Site Arthritis documented in this encounter Admitting Diagnoses Diagnosis Mass Abdominal Site Intra Abdominal And Pelvic Swelling Mass And Lump Unspecified Site documented in this encounter Administered Medications Inactive Administered Medications - up to 3 most recent administrations Medication Order MAR Action Action Date Dose Rate Site acetaminophen tablet 1,000 mg Given 03/12/2021 7:31 AM CDT 1,000 mg (TYLENOL) 1,000 mg, oral, Once, On Jackeline 03/12/21 at 0730, For 1 dose, Pre-Op, In Pre Op holding (PWA) acetaminophen tablet 1,000 mg (TYLENOL) Given 03/12/2021 5:54 PM CDT 1,000 mg 1,000 mg, oral, Every 6 hours, First dose on Jackeline 03/12/21 at 1300, not to exceed 4 grams in 24 hours. Given 03/12/2021 12:13 PM CDT 1,000 mg celecoxib capsule 400 mg (CeleBREX) Given 03/12/2021 7:31 AM CDT 400 mg 400 mg, oral, Once, On Jackeline 03/12/21 at 0730, For 1 dose, Pre-Op, Pre-procedure on unit. Not to be administered for true sulfa allergy, acute GI bleed, history of GI bleed within past 6 months, or NSAID contraindications. fentaNYL injection 25 mcg (SUBLIMAZE) Given 03/12/2021 11:04 AM CDT 25 mcg 25 mcg, intravenous, Every 2 min PRN, For pain 4 or greater (maximum 100 mcg). If max dose of Fentanyl is reached and if pain is greater than 4, discontinue Fentanyl: give Hydromorphone, Starting on Jackeline 03/12/21 at 1055, PACU (only) fentaNYL injection 25 mcg (SUBLIMAZE) Given 03/12/2021 11:29 AM CDT 25 mcg 25 mcg, intravenous, Every 5 min PRN, severe pain or score 7-10 of 10, Starting on Jackeline 03/12/21 at 1119, For 3 doses, PACU (only) Given 03/12/2021 11:25 AM CDT 25 mcg Given 03/12/2021 11:20 AM CDT 25 mcg ibuprofen tablet 600 mg (ADVIL,MOTRIN) 600 mg, oral, Every 6 hours, First dose on Tue03/13/21 at 1700, start 6 hours after last ketorolac dose administered ketorolac injection 15 mg (TORADOL) Given 03/12/2021 11:04 AM CDT 15 mg 15 mg, intravenous, Once, On Jackeline 03/12/21 at 1100, For 1 dose, PACU (only), Adult IV push rate: Over 15 seconds. Peds IV push rate: Over 1 minute. 60 mg dose only for IM, not recommended for IV. ketorolac injection 15 mg (TORADOL) Given 03/12/2021 [...] mL/hr 40 mL/hr, intravenous, Continuous, Starting on Jackeline 03/12/21 at 1200 Continued from OR 03/12/2021 11:51 AM CDT 40 mL/hr 40 mL/hr LORazepam tablet 0.5 mg (ATIVAN) Given 03/12/2021 5:55 PM CDT 0.5 mg 0.5 mg, oral, Every 4 hours PRN, anxiety, Starting on Jackeline 03/12/21 at 1147 Given 03/12/2021 1:55 PM CDT [...] (TYLENOL) (COMPLETED) 730 (Given - Provider: Shasha Lind RErastoN.) 1,000 mg, oral, Once, On Jackeline 03/12/21 at 0730, For 1 dose, Pre-Op, In Pre Op holding (PWA) acetaminophen tablet 1,000 mg (TYLENOL) 1213 (Given - Provider: Marizol Bonilla RErastoNErasto)1754 (Given - Provider: Pauline Palm R.N., C.M.S.R.N.) 1,000 mg, oral, Every 6 hours, First dos e on Jackeline 03/12/21 at 1300, not to exceed 4 grams in 24 hours. ceFAZolin injection 2,000 mg (ANCEF) (COMPLETED) 908 (Given - Provider: Tika Stevenson APRN, BUILDING CONSTRUCTION SUPERVISOR) 2,000 mg, intravenous, Once, On Jackeline 03/12 [...] contraindications. heparin (porcine) injection 5,000 Units (COMPLETED) 858 (Given - Provider: Tika Stevenson APRN, JONATHAN) 5,000 Units, subcutaneous, Once, On Jackeline 03/12/21 at 0730, For 1 dose, Intra-Op, Administer prior to induction of anesthesia. heparin (porcine) injection 5,000 Units 5,000 Units, subcutaneous, Every 8 hours scheduled, First dose on Jackeline 03/12/21 at 2200 ibuprofen tablet 600 mg (ADVIL,MOTRIN)(Linked Group 1) 600 mg, oral, Every 6 hours, First dose on Tue03/13/21 at 1700, start 6 hours after last ketorolac dose administered ketorolac injection 15 mg (TORADOL) (COMPLETED) 1104 (Given - Provider: Wendy Fine R.N.) 15 mg, intravenous, Once, On Jackeline 03/12/21 at 1100, For 1 dose, PACU (only), Adult IV push rate: Over 15 seconds. Peds IV push rate: Over 1 minute. 60 mg dose only for IM, not recommended for IV. ketorolac injection 15 mg (TORADOL)(Linked Group 1) 1643 (Given - Provider: Pauline Palm R.N., C.M.S.R.N.) 15 mg, intravenous, Every 6 hours, First dose on Jackeline 03/12/21 at 1700, For 4 doses, start no [...] 2 times daily, First dos e on Tue03/12/21 at 2100, Starting evening of surgery. Continuous Medication Order 03/10/2021 03/11/2021 03/12/2021 lactated ringers 1151 (Continued from OR - Provider: Pauline E Palm, R.N., C.M.S.R.N.)1213 (New Bag - Provider: Marizol [...] Provider: Wendy Fine R.N.)1129 (Given - Provider: Wendy Fine R.N.) 25 mcg, intravenous, Every 5 min PRN, [...] R.N.)1755 (Given - Provider: Pauline Palm R.N., C.M.S.R.N.) 0.5 mg, oral, Every 4 hours PRN, [...] given
documented in this encounter Care Teams Material Man Relationship Specialty Start Date End Date Elsewhere, Pcp PCP - General Family Medicine 03/10/21 documented as of this encounter
--- OUTSIDE RECORDS SUMMARY | 2022-03-25 08:52 | XMS_ITS | Encounter Summary ---
:1960 Author Organization [facility] Address [address] [place] [address] Care Team Providers Name Role Phone Elsewhere, Pcp Primary Care Provider Unavailable Encounter Details Date Type Department Care Team Description 03/10/2021 Documentation Department of Obstetrics Yolanda Perez, and Gynecology in M.S.N., R.N. [place], [place] [address] [facility] [address] [place] [phone] Social History Tobacco Use Types Packs/Day Years [...] or relatives? How often do you attend confucianism or oriental orthodox More than 4 time s per year 10/23/2021 services? Do you belong to any clubs or organizations No 10/23/2021 such as confucianism groups, unions, fraternal or athletic groups, or [...] Lab Laboratory Medicine Kathleen Mccarty M.D. [address] [place] [phone] 05/12/2022 Clinical Communication Admitting/Central Scheduling 05/13/2022 Telemedicine Oncology Kathleen Mccarty M.D. [address] [place] [phone] Maribeth Guthrie, Jb., O.C.N. [address] [place] [phone] 05/18/2022 Lab Laboratory Medicine Nataly Horta APRN, C.N.P., M.S.N. [address] [place] [phone] 05/18/2022 Office Visit Oncology Nataly Horta APRN C.N.P., M.S.N. [address] [place] [phone] documented as of this encounter Visit Diagnoses Not on filedocumented in this encounter Additional Health Concerns Infection Onset Date Last Indicated Resolved Time COVID19 Pending 03/10/2021 03/10/2021 03/10/2021 6:13 PM CDT documented as of this encounter Care Teams Customer Service Receptionist Relationship Specialty Start Date End Date Elsewhere, Pcp PCP - General Family Medicine 03/10/21 documented as of this encounter
--- OUTSIDE RECORDS SUMMARY | 2022-03-25 08:52 | XMS_ITS | Encounter Summary ---
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 [address] [place] [phone] 05/12/2022 Clinical Communication Admitting/Central Scheduling 05/13/2022 Telemedicine Oncology Kathleen Mccarty M.D. [address] [place] [phone] Maribeth Guthrie R.N., O.C.N. [address] [place] [phone] 05/18/2022 Lab Laboratory Medicine Nataly Horta APRN, C.N.P., M.S.N. [address] [place] [phone] 05/18/2022 Office Visit Oncology Nataly Horta APRN, C.N.P., M.S.N. [address] [place] [phone] documented as of this encounter Visit Diagnoses Diagnosis Malignant Neoplasm Of Ovary Laterality U nknown (HCC) - Primary Malignant Neoplasm Of Peritoneum Primary (HCC) documented in this encounter Care Teams Parts Cataloguer Relationship Specialty Start Date End Date Elsewhere, Pcp PCP - General Family Medicine 03/10/21 documented as of this encounter
--- NOTE | 2022-03-25 09:15 | CRLHL7_ITS ---
For Patients: As a result of the Century Cures Act, medical imaging exams and procedure reports are released immediately into your electronic medical record. You may view this report before your referring provider. If you have questions, please contact your health care provider. BILATERAL SCREENING MAMMOGRAM WITH COMPUTER-AIDED DETECTION AND TOMOSYNTHESIS TECHNIQUE: CC and MLO views were obtained. These mammographic images have been obtained using full-field digital technique. These mammographic images were interpreted with the benefit of computer-aided detection. Breast Tomosynthesis was used in this interpretation. COMPARISON FILM: 11/21/20, 08/29/19, 08/01/18 FINDINGS: There are scattered areas of fibroglandular density. IMPRESSION: There is no radiographic evidence for malignancy. ASSESSMENT: BI-RADS Category 1: Negative RECOMMENDATION: Routine screening mammogram in 1 year. A lay language report of this examination will be provided to the patient. Remi Shelby M.D. Diagnostic Radiologist [email or web address] Transcribed: 12:59 p.m PT/Dictated by: Remi Shelby MD @ 03/25/2022 10:00:00 AM (Electronically Signed)
== END 2022-03-25 08:35 | disposition home or self-care (01) ==
LOC: MAMMO 08:34
PROVIDERS: PCP Family Medicine; Visit Provider Family Medicine
DX: Z12.31 Encounter for screening mammogram for malignant neoplasm of breast (principal)
CPT/HCPCS: 77063; 77067

== ENCOUNTER 2022-08-16 07:34 | Outpatient (CLI) | payer BC, SELFPAY ==
[2022-08-18 07:47] LABS: Albumin* 4.6 g/dL (3.3-5.0); Chloride* 105 mmol/L (96-114)
[2022-08-18 07:48] LABS: Potassium* 4.6 mmol/L (3.6-5.1); Sodium* 143 mmol/L (135-149)
[2022-08-18 07:50] LABS: Bilirubin Total* 0.5 mg/dL (0.1-1.5); Carbon Dioxide* 29 mmol/L (20-32); Cholesterol* 161 mg/dL (90-199); Creatinine* 0.6 mg/dL (0.5-1.5); Estimated Glomerular Filt Rate 102 ml/min; Total Protein* 7.7 g/dL (6.0-8.3)
[2022-08-18 07:51] LABS: Alanine Aminotransferase* 33 U/L (4-35); Alkaline Phosphatase* 57 U/L (40-150); Aspartate Amino Transferase* 35 U/L (12-35); Blood Urea Nitrogen* 12 mg/dL (7-30); Calcium* 9.7 mg/dL (8.4-10.6); Glucose* 117 mg/dL (60-115); HDL Cholesterol* 45 mg/dL (>=50); LDL Cholesterol Calculated 65 mg/dL (<100); Triglycerides* 255 mg/dL (40-149)
== END 2022-08-16 07:35 | disposition home or self-care (01) ==
LOC: NFLDREF 08-18 07:35
PROVIDERS: PCP Family Medicine; Visit Provider Family Medicine
DX: E55.9 Vitamin D deficiency, unspecified (principal); E78.5 Hyperlipidemia, unspecified; I10 Essential (primary) hypertension
CPT/HCPCS: 80053; 80061

== ENCOUNTER 2023-02-21 16:19 | Outpatient (CLI) | payer BC, SELFPAY | END 2023-02-21 16:20 | disposition home or self-care (01) | LOC: NFLDREF 02-23 13:49 | PROVIDERS: PCP Family Medicine; Referring Provider Family Medicine; Visit Provider Family Medicine | DX: I10 Essential (primary) hypertension (principal); R73.03 Prediabetes | CPT/HCPCS: 80053 ==

== ENCOUNTER 2023-10-06 11:19 | Outpatient (CLI) | payer MEDICARE, SELFPAY ==
--- NOTE | 2023-10-06 11:30 | MM_ITS ---
Patient: ANNA VENCES Facility:?[facility] Patient ID:?[id number] Site Patient ID:?[id number] Site :?1960 Study:?XRay-Breast Bilateral 3D W/CAD-10/06/2023 12:04:24 PM Ordering Physician:Walter Beth Final Report: BILATERAL SCREENING MAMMOGRAM WITH COMPUTER-AIDED DETECTION AND TOMOSYNTHESIS TECHNIQUE: CC and MLO views were obtained. These mammographic images have been obtained using full-field digital technique. These mammographic images were interpreted with the benefit of computer-aided detection. Breast Tomosynthesis was used in this interpretation. COMPARISON FILM: 03/25/22, 11/21/20, 08/29/19. FINDINGS: There are scattered areas of fibroglandular density. IMPRESSION: There is no radiographic evidence for malignancy. ASSESSMENT: BI-RADS Category 2: Benign RECOMMENDATION: Routine screening mammogram in 1 year. A lay language report of this examination will be provided to the patient. Remi Shelby M.D. Diagnostic Radiologist [email or web address] DSM/sp R& Transcribed: 6:10 p.m. SP/Dictated by: Remi Shelby MD @ 10/06/2023 12:16:00 PM Signed by:?Remi Shelby MD @10/07/2023 5:42:57 AM (Electronic Signature)
== END 2023-10-06 11:20 | disposition home or self-care (01) ==
LOC: MAMMO 11:24
PROVIDERS: PCP Family Medicine; Visit Provider Family Medicine
DX: Z12.31 Encounter for screening mammogram for malignant neoplasm of breast (principal)
CPT/HCPCS: 77063; 77067